=== PATIENT | female | born 1940 | race Caucasian/White ===

== ENCOUNTER → 2016-04-20 | Outpatient (CLI) | payer MEDICARE, BC ==
--- NOTE | 2016-04-20 17:21 | XR ---
EXAMINATION TYPE: XR chest 2V DATE OF EXAM: 04/20/2016 4:07 PM COMPARISON: 06/17/2015 HISTORY: 75 year-old female COPD, shortness of breath for several months TECHNIQUE: Frontal and lateral views FINDINGS: Heart remains upper limits of normal in size. Mild diffuse interstitial prominence and hyperinflation with flattening of the hemidiaphragms. 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 There is underpenetration of the lef t face without clear consolidation seen on the lateral view. No pleural effusion. IMPRESSION: COPD and chronic changes. Heart remains upper limits of normal in size. No pleural effusion.
--- NOTE | 2016-04-21 11:24 | ECHOF ---
Referral Reason:Abnormal EKG Old [place] I25.2 R94.31 MEASUREMENTS -------- HEIGHT: 167.6 cm WEIGHT: 104.3 kg BP: 247/109 RVIDd: 3.7 cm (< 3.3) IVSd: 1.1 cm (0.6 - 1.1) LVIDd: 3.9 cm (3.9 - 5.3) LVPWd: 1.0 cm (0.6 - 1.1) IVSs: 1.6 cm LVIDs: 2.8 cm LVPWs: 1.4 cm LA Diam: 3.5 cm (2.7 - 3.8) LAESV Index (A-L): 20.34 ml/m Ao Diam: 3.3 cm (2.0 - 3.7) AV Cusp: 2.2 cm (1.5 - 2.6) MV EXCURSION: 16.226 mm (> 18.000) MV EF SLOPE: 49 mm/s (70 - 150) EPSS: 0.2 cm MV E Christopher: 0.98 m/s MV DecT: 288 ms MV A Christopher: 0.94 m/s MV E/A Ratio: 1.03 RAP: 5.00 mmHg RVSP: 39.65 mmHg FINDINGS -------- Sinus rhythm. This was a technically adequate study. The left ventricular size is normal. There is borderline concentric left ventricular hypertrophy. Overall left ventricular systolic function is normal with, an EF between 60 - 65 %. The right ventricle is mildly enlarged. The left atrium is normal in size. Normal LA size by volume 22+/-6 ml/m2. The right atrium was not well visualized. The aortic valve was not well visualized. The mitral valve leaflets are mildly thickened. Mild mitral annular calcification present. There is trace to mild mitral regurgitation. Mild tricuspid regurgitation present. There is mild pulmonary hypertension. The right ventricular systolic pressure, as measured by Doppler, is 39.65mmHg. The pulmonic valve was not well visualized. The aortic root size is normal. Normal inferior vena cava with normal inspiratory collapse consistent with estimated right atrial pressure of 5 mmHg. There is no pericardial effusion. CONCLUSIONS -------- 1. Sinus rhythm. 2. The mitral valve leaflets are mildly thickened. 3. Mild mitral annular calcification present. 4. There is trace to mild mitral regurgitation. 5. Mild tricuspid regurgitation present. 6. There is mild pulmonary hypertension. 7. The right ventricular systolic pressure, as measured by Doppler, is 39.65mmHg. 8. The pulmonic valve was not well visualized. 9. The aortic root size is normal. 10. Normal inferior vena cava with normal inspiratory collapse consistent with estimated right atrial pressure of 5 mmHg. 11. There is no pericardial effusion. 12. This was a technically adequate study. 13. The left ventricular size is normal. 14. There is borderline concentric left ventricular hypertrophy. 15. Overall left ventricular systolic function is normal with, an EF between 60 - 65 %. 16. The right ventricle is mildly enlarged. 17. Normal LA size by volume 22+/-6 ml/m2. 18. The right atrium was not well visualized. 19. The aortic valve was not well visualized. PARTS DESIGNER: Ani Ortiz RDCS
== END | disposition home or self-care (01) ==
LOC: RADECHMAIN 15:15
PROVIDERS: ATTEND Family Medicine
DX: J44.9 Chronic obstructive pulmonary disease, unspecified (principal); I08.1 Rheumatic disorders of both mitral and tricuspid valves
CPT/HCPCS: 71020; 93306

== ENCOUNTER → 2017-08-17 | Outpatient (CLI) | payer MEDICARE, BC ==
--- NOTE | 2017-08-17 17:20 | XR ---
EXAMINATION TYPE: XR knee complete RT DATE OF EXAM: 08/17/2017 COMPARISON: NONE HISTORY: 77-year-old female unspecified internal derangement right knee, pain and swelling TECHNIQUE: 3 views FINDINGS: There is moderate to severe loss of cartilage and joint space within the medial compartment with rafael inal spurring. Mild marginal spurring in the lateral and patellofemoral compartments as well. Small k nee joint effusion. Extensor mechanism appears intact. No acute fracture or dislocation seen. IMPRESSION: Moderate to severe medial compartmental osteoarthrosis. Small knee joint effusion. No acute osseous a bnormality seen.
== END | disposition home or self-care (01) ==
LOC: RADXRMAIN 10:44
PROVIDERS: ATTEND Family Medicine
DX: M17.11 Unilateral primary osteoarthritis, right knee (principal)

== ENCOUNTER → 2017-09-19 | Outpatient (CLI) | payer MEDICARE, BC ==
--- NOTE | 2017-09-20 08:51 | ECHOF ---
Referral Reason:I10 Hypertension MEASUREMENTS -------- HEIGHT: 165.1 cm WEIGHT: 90.7 kg BP: RVIDd: 3.7 cm (< 3.3) IVSd: 1.3 cm (0.6 - 1.1) LVIDd: 4.4 cm (3.9 - 5.3) LVPWd: 1.3 cm (0.6 - 1.1) IVSs: 1.6 cm LVIDs: 3.1 cm LVPWs: 1.5 cm LA Diam: 3.3 cm (2.7 - 3.8) Ao Diam: 3.2 cm (2.0 - 3.7) AV Cusp: 1.8 cm (1.5 - 2.6) LA Diam: 4.2 cm (2.7 - 3.8) MV EXCURSION: 11.714 mm (> 18.000) MV EF SLOPE: 85 mm/s (70 - 150) EPSS: 0.3 cm MV E Christopher: 0.43 m/s MV DecT: 213 ms MV A Christopher: 0.61 m/s MV E/A Ratio: 0.70 RAP: 5.00 mmHg RVSP: 32.43 mmHg FINDINGS -------- Sinus rhythm. This was a technically difficult study with suboptimal apical views. The left ventricular size is normal. There is mild concentric left ventricular hypertrophy. Overa ll left ventricular systolic function is low-normal with, an EF between 50 - 55 %. The right ventricle is mildly enlarged. The left atrial size is normal. The right atrial size is normal. The aortic valve was not well visualized. Mild mitral annular calcification present. Mild mitral regurgitation is present. Mild tricuspid regurgitation present. There is no evidence of pulmonary hypertension. The right v entricular systolic pressure, as measured by Doppler, is 32.43mmHg. The pulmonic valve was not well visualized. The aortic root size is normal. Echo free space represents a pericardial fat pad. CONCLUSIONS -------- 1. This was a technically difficult study with suboptimal apical views. 2. The left ventricular size is normal. 3. There is mild concentric left ventricular hypertrophy. 4. Overall left ventricular systolic function is low-normal with, an EF between 50 - 55 %. 5. The right ventricle is mildly enlarged. 6. The left atrial size is normal. 7. The right atrial size is normal. 8. The aortic valve was not well visualized. 9. Mild mitral annular calcification present. 10. Mild mitral regurgitation is present. 11. Mild tricuspid regurgitation present. 12. There is no evidence of pulmonary hypertension. 13. The right ventricular systolic pressure, as measured by Doppler, is 32.43mmHg. 14. The pulmonic valve was not well visualized. 15. The aortic root size is normal. 16. Echo free space represents a pericardial fat pad. AIRPORT TRAFFIC CONTROLLER: Yolanda Lora RDCS
--- NOTE | 2017-09-21 11:08 | MM ---
Reason for exam: screening (asymptomatic). Last mammogram was performed 2 years and 2 months ago. History: Patient is postmenopausal. Physical Findings: A clinical breast exam by your physician is recommended on an annual basis and results should be correlated with mammographic findings. MG 3D Screening Mammo W/Cad Bilateral CC and MLO view(s) were taken. Prior study comparison: July 17, 2015, bilateral MG 3d screening mammo w/cad. There are scattered fibroglandular densities. Benign appearing bilateral calcifications. Right upper outer quadrant focal asymmetry and distortion. ASSESSMENT: Incomplete: need additional imaging evaluation, BI-RAD 0 RECOMMENDATION: Special view mammogram and ultrasound of the right breast. (upper outer quadrant) [facility] will attempt to contact patient to return for supplemental views and ultrasound.
== END | disposition home or self-care (01) ==
LOC: RADECHMAIN 10:46
PROVIDERS: ATTEND Family Medicine
DX: Z12.31 Encounter for screening mammogram for malignant neoplasm of breast (principal); I08.1 Rheumatic disorders of both mitral and tricuspid valves; I10 Essential (primary) hypertension
CPT/HCPCS: 77063; 77067; 93306

== ENCOUNTER → 2017-10-05 | Outpatient (CLI) | payer MEDICARE, BC ==
--- NOTE | 2017-10-06 11:18 | MM ---
Reason for exam: additional evaluation requested from abnormal screening. Last mammogram was performed 1 month ago. History: Patient is postmenopausal. Physical Findings: Nurse Summary: 1cm nodule in the right breast at 10 o'clock (nurse david). MG 3D Work Up W/Cad RT Spot compression CC, spot compression MLO, and LM view(s) were taken of the right breast. Prior study comparison: September 19, 2017, bilateral MG 3d screening mammo w/cad. July 17, 2015, bilateral MG 3d screening mammo w/cad. Focal asymmetry right upper quadrant and distortion does not resolve on additional images. These results were verbally communicated with the patient and result sheet given to the patient on 10/05/17. ASSESSMENT: Incomplete: need additional imaging evaluation, BI-RAD 0 RECOMMENDATION: Ultrasound of the right breast.
--- NOTE | 2017-10-06 11:21 | USB ---
Reason for exam: additional evaluation requested from abnormal screening. History: Patient is postmenopausal. US Breast Workup RT Right limited breast ultrasound including focal area of concern, retroareolar and axilla demonstrates a hypoechoic, shadowing area at 10 o'clock, questionable mass, dense tissue. Possible mass versus scar tissue. These results were verbally communicated with the patient and result sheet given to the patient on 10/05/17. ASSESSMENT: Suspicious, BI-RAD 4 RECOMMENDATION: Ultrasound core biopsy of the right breast. Called Dr. Marlow with mammographic findings and has scheduled an appointment for the patient for 10/27/17 at 1:[address] Schrader. PRELIMINARY REPORT CALLED AND FAXED TO DR. SCHRADER ON 10/05/17.
== END | disposition home or self-care (01) ==
LOC: RADMAMWWP 13:04
PROVIDERS: ATTEND Family Medicine
DX: R92.8 Other abnormal and inconclusive findings on diagnostic imaging of breast (principal)
CPT/HCPCS: 77065; 76642; G0279; 77061

== ENCOUNTER → 2017-10-27 | Outpatient (CLI) | payer MEDICARE, BC ==
[2017-10-27 13:33] VITALS: BP 158/74; PULSE 62; BMI 33.9
--- NOTE | 2017-10-27 14:11 | P.GSHP ---
History of Present Illness H&P Date: 10/27/17 The patient is a 77-year-old [place] [id number]. The findings revealed upper outer quadrant focal asymmetry and distortion in the right breast and additional views of the right breast and ultrasound were recommended. The patient on 8817 underwent additional views of the right breast which revealed focal asymmetry right upper quadrant and distortion did not resolve and ultrasound was recommended. The ultrasound findings are pending. The patient herself states she does not note any masses or lumps in her breasts. She does not have any nipple discharge or skin changes. No evidence of infection and no evidence of any trauma to the breast. Her last mammogram was 2 years ago. Family history: 1. Patient had uterine cancer at the age of 72 Hormonal history: menarche: 13 : 4, 4 children, first at 18, breast fed: no inverted nipples menopause: 49 BCP: 23 years hormones: no Past surgical history: 1. appendectomy of 15 2. Cholecystectomy of 69 3. Total abdominal hysterectomy a 72 for uterine cancer Past medical history: 1. Neuropathy bilateral feet 2. Right knee pain Social History: Smoke: Stopped 25 years ago Alcohol: Negative Drugs: negative - Constitutional Constitutional: Denies chills, Denies fever - EENT Eyes: denies blurred vision, denies pain Ears: deny: decreased hearing Ears, nose, mouth and throat: Denies headache, Denies sore throat - Breasts Breasts: bilateral: as per HPI - Cardiovascular Cardiovascular: Reports high blood pressure, Denies chest pain, Denies shortness of breath - Respiratory Comment: former smoker Respiratory: Reports cough - Gastrointestinal Comment: colonoscopy done 2 years ago no problems Gastrointestinal: Reports diarrhea, Denies abdominal pain, Denies nausea, Denies vomiting - Genitourinary (Female) Genitourinary: Denies dysuria, Denies hematuria - Musculoskeletal Comment: arthritis in right knee - Integumentary Integumentary: Denies pruritus, Denies rash - Neurological Comment: 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 NEUROPATHY IN TOES. History of Any Multi-Drug Resistant Organisms: None Reported Past Surgical History: Appendectomy, Cholecystectomy, Hysterectomy Past Anesthesia/Blood Transfusion Reactions: Motion Sickness, Postoperative Nausea & Vomiting (PONV) Past Psychological History: No Psychological Hx Reported Smoking Status: Former smoker Additional Past Alcohol Use History / Comment(s): SMOKING: QUIT AROUND 1988, FOR ABOUT 25YRS, LESS THAN HALF PPD. Past Drug Use History: None Reported Medications and Allergies Home Medications Medication Instructions Recorded Confirmed Type Atenolol [Tenormin] 50 mg PO BID 11/07/15 10/27/17 History metFORMIN HCL 100 mg PO BID 11/07/15 10/27/17 History Furosemide [Lasix] 20 mg PO DAILY 10/27/17 10/27/17 History Levothyroxine Sodium [Synthroid] 75 tab PO DAILY 10/27/17 10/27/17 History Allergies Allergy/AdvReac Type Severity Reaction Status Date / Time codeine Allergy Nausea & Verified 11/07/15 16:28 Vomiting Surgical - Exam Vital Signs Pulse BP Pulse Ox 62 158/74 98 10/27/17 13:26 10/27/17 13:26 10/27/17 13:26 - General obese - Eyes PERRL - ENT no hearing loss, no congestion - Neck no masses, trachea midline - Respiratory normal respiratory effort, clear to auscultation - Cardiovascular Rhythm: regular Heart Sounds: normal: S1, S2 - Abdomen Abdomen: soft, non tender, no guarding, no rigid, no rebound - Neurologic no disoriented, no combative - Musculoskeletal right knee pain other - Psychiatric oriented to time, oriented to person, oriented to place, speech is normal, memory intact Breast examination: Right breast: Multiple positional exam no dominant masses or nodules of concern , fungal infection underneath the breast particular attention to the upper outer quadrant area and no discrete masses were noted Right axilla: No adenopathy of concern Left breast: No dominant masses or nodules of concern, fungal infection under the breast Left axilla: No adenopathy of concern Results Mammogram and ultrasound reviewed Assessment and Plan Assessment: Impression/plan: 1. Abnormal mammogram and ultrasound right breast upper outer quadrant area 2. Prior history of uterine cancer no evidence of recurrent disease 3. Hypertension 4. Right knee 5. Diabetes 6. Status post cholecystectomy 7. Status post appendectomy Plan: 1. Ultrasound-guided core biopsy right breast 2. Medical management of medical problems 3. Follow-up 1 week after ultrasound-guided core biopsy Disc and benefits of the procedure were discussed with the patient this will be scheduled in the near future Cc: Dr. Nigel Marlow
--- NOTE | 2017-10-27 14:13 | P.PN ---
Progress Note - Text Progress Note Date: 10/27/17 Patient recently started nystatin for what appears to be fungal infection under her breasts. She will continue this. This area be reassessed at a postoperative visit from her ultrasound-guided core biopsy. Cc Dr. Nigel Marlow
== END | disposition home or self-care (01) ==
LOC: WWCWWP 13:21
PROVIDERS: ATTEND Surgery
DX: Z53.9 Procedure and treatment not carried out, unspecified reason (principal)

== ENCOUNTER → 2017-11-09 | Day surgery (SDC) | payer MEDICARE, BC ==
[2017-11-09 10:34] VITALS: RESP 12; TEMP 98.7
[2017-11-09 11:43] VITALS: BP 158/79; PULSE 83
--- NOTE | 2017-11-09 12:28 | USB ---
EXAMINATION TYPE: US biopsy breast VAD RT, Postbiopsy MG diagnostic mammo RT wo CAD DATE OF EXAM: 11/09/2017 CLINICAL HISTORY: 77-year-old female N63 BREAST LUMP/MASS. Referred for biopsy of mammographic and ultrasound findings in the upper-outer quadrant right breast. This also corresponds to a palpable area. TECHNIQUE: Ultrasound guided core biopsy of the 10:00 right breast. COMPARISON: 10/05/2017 and 09/19/2017 FINDINGS: The procedure of ultrasound guided core biopsy was explained to the patient. Benefits, alternatives, and risks were discussed. An informed consent was then obtained. The patient was placed in supine positioning for imaging and for the procedure. The overlying skin was prepped and draped in usual sterile fashion. Lidocaine buffered with bicarbonate was used as anesthetic into the skin and subcutaneous tissue up to area of concern in the 10:00 position right breast. Under ultrasound guidance, a 13-gauge vacuum-assisted mammotome Elite biopsy gun device was used to obtain 7 core samples. Following this, a coil clip was left in lesion. The patient tolerated the procedure well without any immediate complication. The patient was kept in the radiology department for short stay after the procedure and then discharged home in stable condition. Postprocedure mammogram shows the coil clip at the site of mammographic focal asymmetry. IMPRESSION: Successful, uncomplicated ultrasound guided core biopsy of area of concern in the 10:00 right breast, full pathology results to follow. Pathology Results: Malignant RIGHT BREAST, NEEDLE CORE BIOPSY: Infiltrating carcinoma, low grade ductal variant involving all needle core fragments. Intraductal and periductal mineralizations are identified. Intermediate grade duct [id number] is noted in one core. Appropriately controlled immunohistochemical studies for E-Cadherin document reactivity with all of the infiltrating glandular profiles. See Surgical Pathology Cancer Case Summary. Recommendation Surgical consult of the right breast. DONNAD
== END ==
LOC: RADUSWWP 09:31
PROVIDERS: ATTEND Surgery
DX: C50.411 Malignant neoplasm of upper-outer quadrant of right female breast (principal); Z88.5 Allergy status to narcotic agent
CPT/HCPCS: 88305; 88342; 77065; 19083; A4648; J2001

== ENCOUNTER → 2017-11-17 | Outpatient (CLI) | payer MEDICARE, BC ==
[2017-11-17 12:10] VITALS: BP 144/76; PULSE 60; RESP 14; TEMP 98.2; BMI 32.3
--- NOTE | 2017-11-17 13:00 | P.PN ---
Progress Note - Text Progress Note Date: 11/17/17 The patient is a 77-year-old white female who presents for results of the ultrasound core biopsy of the right breast. Pathology revealed a grade 1 ER/WY positive HER-2/dannielle negative less than 2 cm clinically invasive ductal carcinoma. In one core there was a component of DCIS. The patient's mammogram and ultrasound were reviewed with radiology. The size of the lesion with respect to the breast would make the patient a candidate for a lumpectomy with radiation therapy. The patient has no complaints with respect to the core biopsy. At had a long discussion with the patient and her regarding her pathology and treatment options. Treatment options include treatment of the breast being 1. lumpectomy plus radiation therapy 2. Mastectomy plus or minus reconstruction. Treatment of the axilla includes sentinel node biopsy plus or minus axillary node dissection. The patient and her understand this. The patient herself wishes a mastectomy to be performed although the is leaning towards a lumpectomy. The patient is quite insistent on a mastectomy without reconstruction. Risks and benefits of all the procedures have been discussed with the patient and her and at this time the patient wishes a mastectomy without reconstruction she is not interested in seeing a plastic surgeon, a sentinel node biopsy plus or minus axillary node dissection. The patient was given educational material regarding breast cancer, and a form was signed that treatment options were discussed with the patient. Physical exam: Examination of the right breast reveals some mild ecchymosis no evidence of any infection The patient was treated with nystatin for a fungal infection which has largely resolved Impression: 1. Clinical stage IA breast cancer T1 N0 M0 grade 1, ER/WY positive, HER-2 negative 2. Treatment options discussed with the patient and her and they have opted at this time for a mastectomy without reconstruction sentinel node biopsy possible axillary node dissection Plan: 1. Right sentinel node injection and biopsy, simple mastectomy, possible axillary node dissection 2. Preoperative clearance by Dr. Nigel Marlow Cc: Dr. Nigel Marlow
== END | disposition home or self-care (01) ==
LOC: WWCWWP 11:21
PROVIDERS: ATTEND Surgery
DX: Z53.9 Procedure and treatment not carried out, unspecified reason (principal)

== ENCOUNTER 2017-11-29 06:54 | Day surgery (SDC) | payer MEDICARE, BC ==
[2017-11-23 13:24] VITALS: BMI 32.3
[~2017-11-29 06:54] MED LIST: DEXAMETHASONE SOD PHOSPHATE 10 MG/ML 1 ML VIAL IV ONE; HEPARIN SODIUM,PORCINE 5,000 UNIT/ML 1 ML VIAL SQ ONE; HYDROmorphone 0.5 MG/0.5 ML SYRINGE IVP PRN; LACTATED RINGERS 1,000 ML IV SCH; LIDOCAINE 1% 20 ML VIAL (10MG/ML) FOR IV START INTRADERMA PRN; MIDAZOLAM 2 MG/2 ML VIAL IV PRN; ONDANSETRON 4 MG/2 ML VIAL IVP ONE; Pre Op ABX Message 1 EACH MISC MISCELLANE ONE; SCOPOLAMINE 1.5MG/72HR PATCH TRANSDERM ONE
[2017-11-29 07:49] LABS: Glucose,Whole Blood 141 mg/dL (75-99)
[2017-11-29] MEDS ORDERED: ALPRAZolam 0.25 MG TAB PO ONE (08:03)
[2017-11-29] MEDS ORDERED: MIDAZOLAM 2 MG/2 ML VIAL IV ONE (08:29)
--- NOTE | 2017-11-29 09:36 | NM ---
EXAMINATION TYPE: NM sentinel node injection DATE OF EXAM: 11/29/2017 COMPARISON: NONE HISTORY: Right breast cancer TECHNIQUE AND FINDINGS: The procedure of sentinel lymph node injection was explained to the patient. The benefits, alternatives, and risks were discussed. An informed consent was then obtained. Overlying skin is cleaned with sterile alcohol. Lidocaine buffered with bicarbonate was used as anes thetic into the skin and subcutaneous tissue surrounding the nipple. Following this, 515 uCi Tc 99m Filtered Sulfur Colloid was injected surrounding the outer aspect of the right nipple intradermally. The injection sites were massaged by lead technologist in cytogenetics for 10 minutes after injection. T he patient tolerated the procedure well without any immediate complication. The patient was kept in the radiology department for short stay after the procedure and then taken to surgery for surgical pr ocedure what is presumed intraoperative gamma probe will be used for sentinel lymph node detection. IMPRESSION: Right breast radiotracer injection for sentinel node localization as above.
[2017-11-29] MEDS ORDERED: ROPIVACAINE 5 MG/ML 30 ML VIAL ONE (09:46)
[2017-11-29] MEDS ORDERED: fentaNYL (PF) 50 MCG/ML 2 ML AMP ONE (09:46)
[2017-11-29] MEDS ORDERED: MIDAZOLAM 2 MG/2 ML VIAL ONE (09:46)
[2017-11-29] MEDS ORDERED: LIDOCAINE 1% INJ 10MG/ML (20 ML MDV) ONE (09:46)
[2017-11-29] MEDS ORDERED: PROPOFOL 10 MG/ML 20 ML VIAL IV ONE (09:46)
[2017-11-29] MEDS ORDERED: HYDROmorphone (PF) 1 MG/ML ONE (09:46)
[2017-11-29] MEDS ORDERED: ePHEDrine SULFATE/0.9% NACL/PF 50 MG/5 ML SYRINGE IV ONE (09:46)
[2017-11-29] MEDS ORDERED: SUCCINYLCHOLINE CHLORIDE 100 MG/5 ML SYR IV ONE (09:46)
[2017-11-29] MEDS ORDERED: SODIUM CHLORIDE 0.9% 100 ML with ceFAZolin 2,000 MG IV ONE ×2 (09:46)
--- NOTE | 2017-11-29 10:03 | P.ONQ ---
Anesthesiology Proc Note - PNB - Peripheral Nerve Block Performed Right Other (see comment) Single Time Out Performed: Yes (Pectoralis 1+ Pectoralis 2 Nerve Blocks on the Right- Side ) Procedure Start Time: 08:15 Procedure Stop Time: :28 Indication: Acute Post-Operative Pain, Requested by physician Sedation Type: Sedate with meaningful contact maintained Preparation: Sterile Prep Position: Supine Catheter: None Needle Size: 50mm (2") Needle Gauge: 21 Technique: Ultrasound Injectate: 0.5% Ropivacaine (see comment for volume) Blood Aspirated: No Pain Paresthesia on Injection Noted: No Resistance on Injection: Normal Events: Uneventful and Well Tolerated (Ropivicaine 0.5% solution infitrated between pec major and minor on the right chest wall, and again on the lateral chest between serratus and pec minor with a total of 30 ml. procedure was uneventful and spread noted on ultrasound, with image saved to patients chart)
[2017-11-29] MEDS ORDERED: HEPARIN SODIUM,PORCINE 5,000 UNIT/ML 1 ML VIAL SQ ONE (10:06)
--- NOTE | 2017-11-29 10:08 | P.PN ---
Progress Note - Text Progress Note Date: 11/29/17 The patient's case was presented at tumor Board. There was discussion that the patient may not need radiation therapy. This was discussed with the patient and her . Despite this the patient still wishes to proceed with a mastectomy on the right side. We will proceed with a right mastectomy and sentinel node biopsy possible axillary node dissection.
--- NOTE | 2017-11-29 10:09 | P.NAPBC ---
NAP Queries - [facility] Queries Was patient's case review presented at [facility] tumor board? If no, comment.: Yes Was patient's pathology reviewed at [facility]? If no, comment.: Yes Was breast conservation surgery offered? If no, comment.: Yes (patient requested mastectomy does not want reconstruction) Was sentinel node biopsy offered? If no, comment.: Yes Was diagnosis confirmed by percutaneous core biopsy? If no, comment.: Yes If mastectomy patient, was a preop referral to a reconstructive surgeon offered? : Yes (patient refused)
[2017-11-29] MEDS ORDERED: LIDOCAINE 1% INJ 10MG/ML (20 ML MDV) SQ ONE ×2 (10:30→13:14)
[2017-11-29] MEDS ORDERED: LACTATED RINGERS 1,000 ML IV ONE (11:45)
--- NOTE | 2017-11-29 13:22 | P.OP ---
Date of Procedure: 11/29/17 Preoperative Diagnosis: Right breast cancer Postoperative Diagnosis: Same Procedure(s) Performed: Mastectomy, sentinel node biopsy, axillary node dissection Anesthesia: MELISSA Surgeon: Fela Schrader Estimated Blood Loss (ml): 75 IV fluids (ml): 900 Pathology: other (Right breast, sentinel node, axillary contents) Condition: stable Disposition: PACU Indications for Procedure: Clear biopsy-proven right breast invasive ductal carcinoma Operative Findings: Dense breast tissue right breast, positive sentinel lymph node Description of Procedure: The patient was taken to the operating room and following induction of anesthesia the right breast and axilla were prepped and draped in a sterile fashion. Superior and inferior skin flaps were developed. These were marked using a marking pen and then the skin was divided through the skin and down to the subcutaneous tissue. The skin was elevated using skin hooks and a superior skin flap was developed down to the chest wall. In a similar fashion the inferior skin flap was developed. The breast was then removed from medial to lateral off the pectoralis major muscle being careful to maintain hemostasis using the harmonic scalpel as well as electrocautery device. After the breast had been removed the chest wall was carefully evaluated for hemostasis. It was well irrigated and any areas where there was any oozing were cauterized. The axilla was approached. Using the neoprobe the lymph nodes of greatest radioactivity were identified. Several sentinel nodes were identified and removed and sent for frozen section evaluation. However there was a palpable lymph node which was somewhat worrisome and frozen section was performed first on this which was positive for macroscopic metastatic breast cancer. Therefore an axillary dissection was performed. The pectoralis minor was followed superiorly to the axillary vein. The tissues were swept inferiorly being careful to identify and preserve the area of the thoracodorsal and long thoracic nerves. The tissue was removed. Several intercostal brachial nerves and vessels were removed in the process. After assured that hemostasis was attained the wound was well evaluated for hemostasis. After assured that hemostasis was attained 2 Hiro-Winter drains were placed. One in the axilla and one under the skin flaps. The area of the skin flaps were again evaluated for hemostasis these were again irrigated and cauterized. Powderized Surgicel was utilized to help assure hemostasis. Following this the flaps were again irrigated. The subcutaneous tissue was closed using 3-0 Vicryl suture. This was followed by closure of the subcuticular tissue with a 4-0 Monocryl. Steri-Strips were applied. The patient tolerated the procedure in stable condition. All instrument and sponge counts were correct at the end of the case. A Ike wrap was applied.
[2017-11-29] MEDS ORDERED: HYDROmorphone 1 MG/ML 1 ML SYRINGE IV PRN (13:23)
[2017-11-29] MEDS ORDERED: ONDANSETRON 4 MG/2 ML VIAL IVP PRN ×2 (13:23→23:09)
[2017-11-29] MEDS ORDERED: NALOXONE 0.4 MG/ML 1 ML VIAL IV PRN (13:23)
[2017-11-29] MEDS ORDERED: HYDROcodone/APAP 5-325MG 1 EACH TAB PO PRN (13:23)
[2017-11-29] MEDS ORDERED: CALCIUM CARBONATE 500 MG CHEWABLE PO PRN (13:23)
[2017-11-29] MEDS ORDERED: ALPRAZolam 0.25 MG TAB PO PRN (13:23)
[2017-11-29] MEDS ORDERED: DEXTROSE 5%-0.45% NACL 1,000 ML IV SCH (13:30)
[2017-11-29 14:12] LABS: Glucose,Whole Blood 169 mg/dL (75-99)
[2017-11-29] MEDS ORDERED: METOPROLOL TARTRATE 5 MG/5 ML VIAL IVP ONE (14:28)
[2017-11-29] MEDS ORDERED: LISINOPRIL 5 MG TAB PO STA (15:40)
[2017-11-29] MEDS ORDERED: FUROSEMIDE 20 MG TAB PO PRN (15:59)
[2017-11-29 17:12] LABS: Glucose,Whole Blood 162 mg/dL (75-99)
[2017-11-29] MEDS: INSULIN ASPART 100 UNIT/ML 1 ML 10 ML VIAL SQ SCH ×2 (17:19→22:09)
--- NOTE | 2017-11-29 17:33 | P.CONS ---
History of Present Illness - History of Present Illness 77-year-old female is postoperative for right breast mastectomy. Patient was hypertensive lisinopril ordered. Patient sedated but arousable Review of Systems ROS unobtainable: due to mental status Past Medical History Past Medical History: Cancer, Diabetes Mellitus, Hypertension, Osteoarthritis ( OA), Thyroid Disorder Additional Past Medical History / Comment(s): hx UTERINE CANCER(chemo and radiation 5 yrs ago). NEUROPATHY IN FEET, diarrhea, rt breast cancer, History of Any Multi-Drug Resistant Organisms: None Reported Past Surgical History: Appendectomy, Breast Surgery, Cholecystectomy, Hysterectomy Additional Past Surgical History / Comment(s): rt breast biopsy Past Anesthesia/Blood Transfusion Reactions: Motion Sickness, Postoperative Nausea & Vomiting (PONV) Additional Past Anesthesia/Blood Transfusion Reaction / Comm: PONV after gallbladder surgery Smoking Status: Former smoker - Past Family History Mother Family Medical History: No Reported History Father Family Medical History: Myocardial Infarction ([place]) Brother(s) Family Medical History: Cancer Additional Family Medical History / Comment(s): prostate Medications and Allergies Home Medications Medication Instructions Recorded Confirmed Type Atenolol [Tenormin] 50 mg PO BID 11/07/15 11/29/17 History metFORMIN HCL 1,000 mg PO BID 11/07/15 11/29/17 History Furosemide [Lasix] 20 mg PO DAILY PRN 10/27/17 11/29/17 History Levothyroxine Sodium [Synthroid] 75 mcg PO QAM 10/27/17 11/29/17 History Allergies Allergy/AdvReac Type Severity Reaction Status Date / Time codeine Allergy Nausea & Verified 11/29/17 16:35 Vomiting Physical Exam Vitals: Vital Signs Temp Pulse Resp BP Pulse Ox 11/29/17 15:03 177/84 11/29/17 14:56 75 16 176/82 95 11/29/17 14:40 75 16 182/77 95 11/29/17 14:25 77 16 205/77 93 L 11/29/17 14:11 82 16 194/92 99 11/29/17 13:55 82 16 180/98 99 11/29/17 13:39 98.5 F 90 20 196/95 98 11/29/17 07:30 97.9 F 63 18 183/79 96 Intake and Output 11/29/17 11/29/17 11/29/17 06:59 14:59 22:59 Intake Total 1300 150 Output Total 75 35 Balance 1225 115 Intake: IV 1300 150 Output: Drainage 35 SULMA A 5 SULMA B 30 Estimated Blood Loss 75 - Constitutional General appearance: obese - EENT Eyes: PERRLA Ears: bilateral: normal - Neck Neck: normal ROM - Respiratory Respiratory: bilateral: CTA - Cardiovascular Rhythm: regular - Gastrointestinal General gastrointestinal: soft - Integumentary Integumentary: normal - Neurologic Neurologic: CNII-XII intact - Psychiatric Patient sedated unable to assess level orientation Results CBC & Chem 7: 11/29/17 07:44 Labs: Abnormal Lab Results - Last 24 Hours (Table) 11/29/17 11/29/17 11/29/17 Range/Units 07:38 14:09 17:09 POC Glucose (mg/dL) 141 H 169 H 162 H (75-99) mg/dL Assessment and Plan Plan: Assessment Post right-sided mastectomy for breast cancer History of uterine cancer Diabetes type 2 Hypertension Hypothyroidism Osteoarthritis Plan We'll continue to monitor hypertension and diabetes
[2017-11-29] MEDS: SODIUM CHLORIDE 0.9% 1,000 ML IV SCH (20:10)
[2017-11-29] MEDS: HEPARIN SODIUM,PORCINE 5,000 UNIT/ML 1 ML VIAL SQ SCH (22:03)
[2017-11-29] MEDS: ATENOLOL 50 MG TAB PO SCH (22:03)
[2017-11-29] MEDS: LISINOPRIL 5 MG TAB PO SCH (22:04)
[2017-11-29 22:06] LABS: Glucose,Whole Blood 160 mg/dL (75-99)
[2017-11-30] MEDS: SODIUM CHLORIDE 0.9% 1,000 ML IV SCH (04:29)
[2017-11-30] MEDS ORDERED: LEVOTHYROXINE 75 MCG TAB PO SCH (06:30)
[2017-11-30 07:05] LABS: Glucose,Whole Blood 121 mg/dL (75-99)
[2017-11-30] MEDS: INSULIN ASPART 100 UNIT/ML 1 ML 10 ML VIAL SQ SCH ×2 (07:15→12:35)
[2017-11-30] MEDS: metFORMIN 500 MG TAB PO SCH ×2 (07:20→07:30)
[2017-11-30 08:00] LABS: Basophils # (A) 0.1 k/uL (0-0.2); Basophils % (A) 1 %; Eosinophils # (A) 0.1 k/uL (0-0.7); Eosinophils % (A) 1 %; HCT 43.5 % (34.0-46.0); HGB 13.9 gm/dL (11.4-16.0); Lymphocytes # (A) 1.5 k/uL (1.0-4.8); Lymphocytes % (A) 14 %; MCH 30.2 pg (25.0-35.0); MCV 94.3 fL (80.0-100.0); Mean Platelet Volume 8.1; Monocytes # (A) 1.2 k/uL (0-1.0); Monocytes % (A) 11 %; Neutrophils # (A) 7.6 k/uL (1.3-7.7); Neutrophils % (A) 72 %; Platelet Count 257 k/uL (150-450); RBC 4.61 m/uL (3.80-5.40); RDW 13.5 % (11.5-15.5); WBC 10.5 k/uL (3.8-10.6)
[2017-11-30 08:27] LABS: Calcium 8.6 mg/dL (8.4-10.2); Potassium 4.4 mmol/L (3.5-5.1)
--- NOTE | 2017-11-30 08:36 | P.PN ---
Subjective Progress Note Date: 11/30/17 The patient is a 77-year-old white female who is postop day #1 from a right breast mastectomy and axillary node dissection. She initially had some nausea which has resolved. Her SULMA drainage is 5 mL from SULMA A, and 25 mL from SULMA B. SULMA B is the axillary drain. Both drains appeared to be serous in nature. Her hemoglobin this morning was 13.9. Her wrap was removed and the dressing was replaced. The incision is clean and dry. There is no evidence of any hematoma. Objective - Vital Signs Vital signs: Vital Signs Temp 97.8 F 11/30/17 04:10 Pulse 75 11/30/17 04:10 Resp 20 11/30/17 04:10 BP 110/49 11/30/17 04:10 Pulse Ox 95 11/30/17 04:10 Intake & Output 11/29/17 11/30/17 11/30/17 18:59 06:59 18:59 Intake Total 1450 Output Total 110 1195 Balance 1340 -1195 Weight 90.718 kg Intake: IV 1450 Output: Drainage 35 95 SULMA A 5 20 SULMA B 30 75 Urine 1050 Emesis 50 Estimated Blood Loss 75 - Constitutional General appearance: Present: obese - EENT Eyes: Present: EOMI - Respiratory Respiratory: bilateral: CTA (Slightly decreased breath sounds at bilateral bases ) - Cardiovascular Rhythm: regular Heart sounds: normal: S1, S2 - Gastrointestinal General gastrointestinal: Present: soft - Integumentary Integumentary Comment(s): Incision clean and dry, no evidence of any hematoma - Psychiatric Psychiatric: Present: A&O x's 3, appropriate affect, intact judgment & insight - Labs CBC & Chem 7: 11/30/17 07:22 11/30/17 07:22 Labs: Abnormal Lab Results - Last 24 Hours (Table) 11/29/17 11/29/17 11/29/17 Range/Units 14:09 17:09 22:03 Monocytes # (0-1.0) k/uL Glucose (74-99) mg/dL POC Glucose (mg/dL) 169 H 162 H 160 H (75-99) mg/dL 11/30/17 11/30/17 11/30/17 Range/Units 07:02 07:22 07:22 Monocytes # 1.2 H (0-1.0) k/uL Glucose 123 H (74-99) mg/dL POC Glucose (mg/dL) 121 H (75-99) mg/dL Assessment and Plan Assessment: Im 4. Medical management of medical problems pression: 1. Postop day #1 right sided mastectomy with axillary node dissection 2 history of uterine cancer 3 type 2 diabetes 4 hypertension 5 hypothyroidism 6 osteoarthritis Plan: 1. Assure patient tolerating diet 2. Continue present wound care 3. Probable discharge home later today
[2017-11-30] MEDS ORDERED: PANTOPRAZOLE 40 MG/10 ML VIAL IV SCH (09:00)
[2017-11-30] MEDS: HEPARIN SODIUM,PORCINE 5,000 UNIT/ML 1 ML VIAL SQ SCH (09:00)
[2017-11-30] MEDS: LISINOPRIL 5 MG TAB PO SCH (09:00)
[2017-11-30] MEDS: ATENOLOL 50 MG TAB PO SCH (09:00)
[2017-11-30 11:36] LABS: Glucose,Whole Blood 160 mg/dL (75-99)
[2017-11-30 12:22] VITALS: BP 113/69; PULSE 70; RESP 18; TEMP 98.5
--- NOTE | 2017-11-30 12:23 | P.PN ---
Subjective Patient resting in bed could pain management. Hypertension controlled. Patient medically cleared for discharge Objective - Vital Signs Vital signs: Vital Signs Temp 99.1 F 11/30/17 08:13 Pulse 83 11/30/17 08:13 Resp 16 11/30/17 08:13 BP 93/54 11/30/17 08:13 Pulse Ox 93 L 11/30/17 10:05 Intake & Output 11/29/17 11/30/17 11/30/17 18:59 06:59 18:59 Intake Total 1450 120 Output Total 110 1195 129 Balance 1340 -1195 -9 Weight 90.718 kg Intake: IV 1450 Oral 120 Output: Drainage 35 95 29 SULMA A 5 20 0 SULMA B 30 75 29 Urine 1050 100 Emesis 50 Estimated Blood Loss 75 Other: # Voids 2 - Constitutional General appearance: Present: mild distress - EENT Eyes: Present: PERRLA Ears: bilateral: normal - Neck Neck: Present: normal ROM - Respiratory Respiratory: bilateral: CTA - Cardiovascular Rhythm: regular - Gastrointestinal General gastrointestinal: Present: soft - Integumentary Integumentary: Present: normal - Neurologic Neurologic: Present: CNII-XII intact - Musculoskeletal Musculoskeletal: Present: gait normal - Psychiatric Psychiatric: Present: A&O x's 3, appropriate affect, intact judgment & insight - Labs CBC & Chem 7: 11/30/17 07:22 11/30/17 07:22 Labs: Abnormal Lab Results - Last 24 Hours (Table) 11/29/17 11/29/17 11/29/17 Range/Units 14:09 17:09 22:03 Monocytes # (0-1.0) k/uL Glucose (74-99) mg/dL POC Glucose (mg/dL) 169 H 162 H 160 H (75-99) mg/dL 11/30/17 11/30/17 11/30/17 Range/Units 07:02 07:22 07:22 Monocytes # 1.2 H (0-1.0) k/uL Glucose 123 H (74-99) mg/dL POC Glucose (mg/dL) 121 H (75-99) mg/dL 11/30/17 Range/Units 11:33 Monocytes # (0-1.0) k/uL Glucose (74-99) mg/dL POC Glucose (mg/dL) 160 H (75-99) mg/dL Assessment and Plan Plan: Assessment Right breast cancer post mastectomy with biopsy to axillary node History of diabetes type 2 Hypertension Hypothyroidism Osteoarthritis History of uterine cancer Plan Patient medically stable for discharge
[2017-11-30 22:38] LABS: Hemoglobin A1C 6.8 % (4.0-6.0)
== END 2017-11-30 14:30 | disposition home or self-care (01) ==
LOC: OR 06:54 → 6PED 13:57 → OR 11-30 14:30
PROVIDERS: ATTEND Surgery
DX: C50.911 Malignant neoplasm of unspecified site of right female breast (principal); C77.3 Secondary and unspecified malignant neoplasm of axilla and upper limb lymph nodes; Z92.3 Personal history of irradiation; Z87.891 Personal history of nicotine dependence; E11.40 Type 2 diabetes mellitus with diabetic neuropathy, unspecified; Z79.84 Long term (current) use of oral hypoglycemic drugs; E78.5 Hyperlipidemia, unspecified; I10 Essential (primary) hypertension; I27.29 Other secondary pulmonary hypertension; E03.9 Hypothyroidism, unspecified; Z79.890 Hormone replacement therapy; J44.9 Chronic obstructive pulmonary disease, unspecified; M19.079 Primary osteoarthritis, unspecified ankle and foot; Z85.42 Personal history of malignant neoplasm of other parts of uterus; Z79.899 Other long term (current) drug therapy; Z88.5 Allergy status to narcotic agent
CPT/HCPCS: 19303; 38525; 80048; 84132; 85025; 83036; 38792; 64450; A9520; J2250; J1644 ×2; J1100; J2405; J2001; J3010; J1170; J0690; J2795; J0330; J2704; C9113; 88305; 88307; 88309; 88331; 88341; 88342

== ENCOUNTER → 2017-12-05 | Outpatient (CLI) | payer MEDICARE, BC ==
--- NOTE | 2017-12-05 13:13 | P.PN ---
Progress Note - Text Progress Note Date: 12/05/17 Patient is status post right breast mastectomy and AND , tumor [id number]; patient is doing well at his time. Patient with no complaints at this time. Drainage from both JPs is minimal and serous. The SULMA drains are going to be removed at this time. Physical examination: Lungs: Clear Heart: Regular rate and rhythm Incision: Clean and dry no evidence of any infection or hematoma Impression: 1. Patient status post right mastectomy for a [id number] breast cancer 2. Patient doing well postoperatively at this time Plan: 1. Follow-up medical oncology 2. Follow up here in 2 weeks time Cc: Dr. Nigel Marlow
== END ==
LOC: WWCWWP 12:19
PROVIDERS: ATTEND Surgery
DX: Z53.9 Procedure and treatment not carried out, unspecified reason (principal)

== ENCOUNTER 2017-12-21 21:32 | Inpatient (IN) | payer MEDICARE, BC ==
[2017-12-21] MEDS ORDERED: SODIUM CHLORIDE 0.9% 1,000 ML IV ONE ×2 (22:16→23:48)
[2017-12-21] MEDS ORDERED: IPRATROPIUM-ALBUTEROL 3 ML NEB INHALATION STA (22:17)
--- NOTE | 2017-12-21 23:13 | XR ---
EXAMINATION TYPE: XR chest 2V DATE OF EXAM: 12/21/2017 COMPARISON: 04/20/2016 HISTORY: Mastectomy. Chest pain TECHNIQUE: Frontal and lateral views of the chest are obtained. FINDINGS: There is no heart failure nor confluent pneumonic infiltrate. Costophrenic angles are nirav r. Thoracic aorta is atheromatous. There is spurring in the thoracic spine. IMPRESSION: No active cardiopulmonary disease. Atheromatous aorta. No change.
--- NOTE | 2017-12-21 23:14 | XR ---
EXAMINATION TYPE: XR knee complete RT DATE OF EXAM: 12/21/2017 COMPARISON: NONE HISTORY: Knee pain TECHNIQUE: 3 views FINDINGS: There is narrowing of the medial joint space. There is moderate spurring of the femoral and tibial condyles. There is spurring of the patella. There is knee joint effusion. IMPRESSION: Moderate hypertrophic osteoarthritis in the medial joint space. No fracture. Joint effusi on.
[2017-12-21] MEDS ORDERED: KETOROLAC 30 MG/ML 1 ML VIAL IVP STA (23:48)
[2017-12-21] MEDS ORDERED: ACETAMINOPHEN TAB 325 MG TAB PO PRN (23:59)
[2017-12-21] MEDS ORDERED: IBUPROFEN 400 MG TAB PO PRN (23:59)
--- NOTE | 2017-12-21 23:59 | ED ---
General Adult HPI - General Source: patient Mode of arrival: wheelchair Limitations: no limitations <Park Boucher - Last Filed: 12/22/17 00:32> <Hermann Jasso - Last Filed: 12/22/17 00:35> - General Chief complaint: Extremity Problem,Nontraumatic Stated complaint: Knee Pain Time Seen by Provider: 12/21/17 21:49 - History of Present Illness Initial comments: 37-year-old female past medical history of breast cancer with recent masectomy, bilateral osteoarthritis of the knees, diabetes and hypertension presenting today for chief complaint of right knee pain. Patient states that this morning she woke up and was unable to weight-bear on the right knee. Patient had difficulty ranging at the right knee, and pain increased to 10/10 with ambulation. Patient states the pain is anterior to palpation. Patient denies pain of the calf, masses or warmth of the posterior calf or history of blood clot. Patient does not like taking pain medications, she states that she cannot tolerate them well. Patient's been taking Tylenol for pain management which has helped minimally. In addition patient noticed lower extremity erythema and warmth. Patient was brought to emergency department by her daughter who was concerned about possible infection. Patient denies fever, admits to chills. Patient denies drainage, erythema of the masectomy surgical site. Upon arrival patient appears well. VS within acceptable limits. (Park Boucher) - Related Data Home Medications Medication Instructions Recorded Confirmed Atenolol [Tenormin] 50 mg PO BID 11/07/15 12/21/17 metFORMIN HCL 1,000 mg PO BID 11/07/15 12/21/17 Furosemide [Lasix] 20 mg PO DAILY PRN 10/27/17 12/21/17 Levothyroxine Sodium [Synthroid] 75 mcg PO QAM 10/27/17 12/21/17 Allergies Allergy/AdvReac Type Severity Reaction Status Date / Time codeine AdvReac Nausea & Verified 12/21/17 22:31 Vomiting Review of Systems ROS Other: All systems not noted in ROS Statement are negative. Constitutional: Reports: chills. Denies: fever Eyes: Denies: eye pain ENT: Denies: ear pain, throat pain Respiratory: Denies: cough, dyspnea, wheezes, hemoptysis, stridor Cardiovascular: Denies: chest pain, palpitations, dyspnea on exertion Endocrine: Denies: fatigue Gastrointestinal: Denies: abdominal pain, nausea, vomiting, diarrhea, constipation, hematemesis Genitourinary: Denies: urgency, dysuria, frequency, hematuria Musculoskeletal: Denies: back pain Skin: Reports: as per HPI, rash (right lower extremity erythema) Neurological: Denies: headache, weakness, numbness, paresthesias, confusion <Park Boucher - Last Filed: 12/22/17 00:32> ROS Other: All systems not noted in ROS Statement are negative. <Hermann Jasso - Last Filed: 12/22/17 00:35> ROS Statement: Those systems with pertinent positive or pertinent negative responses have been documented in the HPI. Past Medical History Past Medical History: Cancer, Diabetes Mellitus, Hypertension, Osteoarthritis ( OA), Thyroid Disorder Additional Past Medical History / Comment(s): hx UTERINE CANCER(chemo and radiation 5 yrs ago). NEUROPATHY IN FEET, diarrhea, rt breast cancer, History of Any Multi-Drug Resistant Organisms: None Reported Past Surgical History: Appendectomy, Breast Surgery, Cholecystectomy, Hysterectomy Additional Past Surgical History / Comment(s): rt breast biopsy. right breast mastectomy 11/29/17 Past Anesthesia/Blood Transfusion Reactions: Motion Sickness, Postoperative Nausea & Vomiting (PONV) Additional Past Anesthesia/Blood Transfusion Reaction / Comment(s): PONV after gallbladder surgery Past Psychological History: No Psychological Hx Reported Smoking Status: Former smoker Past Alcohol Use History: None Reported Past Drug Use History: None Reported - Past Family History Mother Family Medical History: No Reported History Father Family Medical History: Myocardial Infarction ([place]) Brother(s) Family Medical History: Cancer Additional Family Medical History / Comment(s): prostate <Park Boucher - Last Filed: 12/22/17 00:32> General Exam Limitations: no limitations <Park Boucher - Last Filed: 12/22/17 00:32> <Hermann Jasso - Last Filed: 12/22/17 00:35> - General Exam Comments Initial Comments: General: The patient is awake and alert, in no distress, and does not appear acutely ill. Eye: Pupils are equal, round and reactive to light, extra-ocular movements are intact. No nystagmus. There is normal conjunctiva bilaterally. No signs of icterus. Ears, nose, mouth and throat: There are moist mucous membranes and no oral lesions. Neck: The neck is supple, there is no tenderness or JVD. Cardiovascular: There is a regular rate and rhythm. No murmur, rub or gallop is appreciated. Respiratory: Lungs are clear to auscultation, respirations are non-labored, breath sounds are equal. No wheezes, stridor, rales, or rhonchi. Musculoskeletal: Inspection of the right knee reveals mild swelling anteriorly, there is no erythema. There is no posterior pain to palpation. Patient complains of pain to a patient of the anterior knee. Patient is unable to fully actively range at the right LE. Pt is able to passively range the right kene with complaints of discomfort. Extensor mechanism intact. Sensation intact. DP pulses equal bilaterally 2+. No pain to palpation of the posterior knee or along the deep venous system of the right lower extremity. Neurological: A&O x 3. CN II-XII intact, There are no obvious motor or sensory deficits. Coordination appears grossly intact. Speech is normal. Skin: Skin is warm and dry. Erythema and warmth of the right lower extremity. Psychiatric: Cooperative, appropriate mood & affect, normal judgment. (Park Boucher) Course <Park Boucher - Last Filed: 12/22/17 00:32> <Hermann Jasso - Last Filed: 12/22/17 00:35> Vital Signs 12/21/17 21:40 Temperature 98.3 F Pulse Rate 88 Respiratory 20 Rate Blood Pressure 172/81 O2 Sat by Pulse 94 L Oximetry - Reevaluation(s) Reevaluation #1: 12/22/17 00:33 PA supervision: I proceeded [id number] evaluation the patient she complains of the onset of severe right-sided knee pain today with inability to ambulate because of the pain no trauma is reported she did recently have a right mastectomy. She denies any fevers though she has felt chilled tonight. Examination of the mastectomy site reveals no evidence of any wound dehiscence or infectious process. Examination of the right knee and right lower extremity over shows evidence of a cellulitis of the anterior right leg also tenderness over the patella and increased localized temperature over the same area. Range of motion of the right knee is reasonable however there is some clinical evidence of bursitis. Due to the circumstances the patient will be admitted I did discuss case with Dr. Marlow. 12/22/17 00:35 The patient will be started on IV antibiotics with orthopedic consultation in the a.m. (Hermann Jasso) Medical Decision Making <Park Boucher - Last Filed: 12/22/17 00:32> <Hermann Jasso - Last Filed: 12/22/17 00:35> - Medical Decision Making Right knee XR obtained revealed effusion. Pt PE concerning for right LE cellulitis. Pt complaining of chills. Pt given 1L bolus. Blood cultures, CBC and CMP obtained. Lactic acid obtained. Patient started on broad-spectrum antibiotic after obtaining blood cultures. Pt admitted for cellulitis and possible bursitis of the right knee. Dr. Jasso paged Dr. Marlow who accepted admission. No further orders at this time. Case was dispositioned with Dr. Jasso in detail who continued care of patient starting at 12:32AM. (Park Boucher) Disposition Decision to Admit Reason: Admit from EC Decision Date: 12/21/17 Decision Time: 23:58 <Park Boucher - Last Filed: 12/22/17 00:32> <Hermann Jasso - Last Filed: 12/22/17 00:35> Clinical Impression: Cellulitis of right lower extremity, History of right mastectomy Disposition: ADMITTED IP TO THIS [facility] Condition: Stable Referrals: Nigel Marlow MD [Primary Care Provider] - 1-2 days
[2017-12-22] MEDS: PIPERACILLIN-TAZOBACTAM 3.375 GM in DEXTROSE/WATER 1 50ML.BAG IVPB STA ×2 (01:00→01:06)
[2017-12-22] MEDS ORDERED: PIPERACILLIN-TAZOBACTAM 3.375 GM in DEXTROSE/WATER 1 50ML.BAG IVPB STA (01:06)
[2017-12-22 01:11] LABS: Basophils # (A) 0.1 k/uL (0-0.2); Basophils % (A) 1 %; Eosinophils # (A) 0.1 k/uL (0-0.7); Eosinophils % (A) 1 %; HCT 45.4 % (34.0-46.0); HGB 14.7 gm/dL (11.4-16.0); Lymphocytes % (A) 15 %; MCH 29.7 pg (25.0-35.0); MCHC 32.4 g/dL (31.0-37.0); MCV 91.7 fL (80.0-100.0); Mean Platelet Volume 8.2; Monocytes # (A) 1.7 k/uL (0-1.0); Monocytes % (A) 13 %; Neutrophils # (A) 9.5 k/uL (1.3-7.7); Neutrophils % (A) 69 %; Platelet Count 288 k/uL (150-450); RBC 4.95 m/uL (3.80-5.40); RDW 13.4 % (11.5-15.5); WBC 13.6 k/uL (3.8-10.6)
[2017-12-22 01:19] LABS: Calcium 9.8 mg/dL (8.4-10.2); Potassium 4.5 mmol/L (3.5-5.1); Total Protein 7.4 g/dL (6.3-8.2)
[2017-12-22 02:34] LABS: Glucose,Whole Blood 191 mg/dL (75-99)
[2017-12-22] MEDS ORDERED: ATENOLOL 50 MG TAB PO STA (03:25)
[2017-12-22] MEDS ORDERED: traMADol 50 MG TAB PO PRN (03:28)
[2017-12-22] MEDS: SODIUM CHLORIDE 0.9% 1,000 ML IV SCH ×2 (03:38→08:07)
[2017-12-22] MEDS: LEVOTHYROXINE 75 MCG TAB PO SCH (06:51)
[2017-12-22 07:42] LABS: Glucose,Whole Blood 183 mg/dL (75-99)
--- NOTE | 2017-12-22 07:56 | US ---
EXAMINATION TYPE: US venous doppler duplex LE RT DATE OF EXAM: 12/22/2017 7:43 AM COMPARISON: NONE CLINICAL HISTORY: Rule out DVT. SIDE PERFORMED: Right TECHNIQUE: The lower extremity deep venous system is examined utilizing real time linear array sonog herman with graded compression, doppler sonography and color-flow sonography. VESSELS IMAGED: External Iliac Vein (EIV) Common Femoral Vein Deep Femoral Vein Greater Saphenous Vein * Femoral Vein Popliteal Vein Small Saphenous Vein * Proximal Calf Veins, not visualized due to swelling and body habitus (* superficial vessels) Large body habitus, extensive swelling. Right Leg: Negative for DVT IMPRESSION: No evidence for DVT at this time.
[2017-12-22] MEDS: INSULIN ASPART 100 UNIT/ML 1 ML 10 ML VIAL SQ SCH ×4 (08:06→20:58)
[2017-12-22] MEDS: ATENOLOL 50 MG TAB PO SCH ×2 (08:06→21:49)
[2017-12-22] MEDS: metFORMIN 500 MG TAB PO SCH ×2 (08:06→21:49)
[2017-12-22] MEDS ORDERED: LIDOCAINE 1% INJ 10MG/ML (20 ML MDV) SQ ONE (08:43)
--- NOTE | 2017-12-22 09:11 | P.CNOR ---
History of Present Illness - [facility] Consult date: 12/22/17 Consult reason: joint pain History of present illness: This is a 69-year-old female admitted with severe right knee pain. She has history of recent mastectomy. She has history of degenerative arthritis of bilateral knees. She states that she did have her right knee injected this past summer by Dr. Parks which relieved her pain at the time. She states that her knee recently became very swollen and painful. She is also developed some redness to the lower legs. She is admitted to internal medicine and we're consulted for orthopedic evaluation. Past Medical History Past Medical History: Cancer, Diabetes Mellitus, Hypertension, Osteoarthritis ( OA), Thyroid Disorder Additional Past Medical History / Comment(s): hx UTERINE CANCER(chemo and radiation 5 yrs ago). NEUROPATHY IN FEET, diarrhea, rt breast cancer, History of Any Multi-Drug Resistant Organisms: None Reported Past Surgical History: Appendectomy, Breast Surgery, Cholecystectomy, Hysterectomy Additional Past Surgical History / Comment(s): rt breast biopsy. right breast mastectomy 11/29/17 Past Anesthesia/Blood Transfusion Reactions: Motion Sickness, Postoperative Nausea & Vomiting (PONV) Additional Past Anesthesia/Blood Transfusion Reaction / Comm: PONV after gallbladder surgery Past Psychological History: No Psychological Hx Reported Smoking Status: Former smoker Past Alcohol Use History: None Reported Additional Past Alcohol Use History / Comment(s): QUIT AROUND 1992, LESS THAN HALF PPD. started smoking age 17 or 18 Past Drug Use History: None Reported - Past Family History Mother Family Medical History: No Reported History Father Family Medical History: Myocardial Infarction ([place]) Brother(s) Family Medical History: Cancer Additional Family Medical History / Comment(s): prostate Medications and Allergies Home Medications Medication Instructions Recorded Confirmed Type Atenolol [Tenormin] 50 mg PO BID 11/07/15 12/21/17 History metFORMIN HCL 1,000 mg PO BID 11/07/15 12/21/17 History Furosemide [Lasix] 20 mg PO DAILY PRN 10/27/17 12/21/17 History Levothyroxine Sodium [Synthroid] 75 mcg PO QAM 10/27/17 12/21/17 History Allergies Allergy/AdvReac Type Severity Reaction Status Date / Time codeine AdvReac Nausea & Verified 12/21/17 22:31 Vomiting Physical Examination This is a 69-year-old female in no acute distress. She is alert and oriented 3. Exam of the lower extremities reveals a 3+ effusion to the right knee. There is no redness or increased warmth to the knee. There is some redness to the lower leg with some pitting edema and chronic skin changes. She has full foot and ankle motion bilaterally. She has pain with knee motion. Neurovascular status lower extremity is intact. Results X-rays of the right knee reveal [id number] arthritis in the medial compartment. No acute fractures identified. - Labs Labs: Abnormal Lab Results - Last 24 Hours (Table) 12/22/17 12/22/17 12/22/17 Range/Units 00:40 00:40 02:21 WBC 13.6 H (3.8-10.6) k/uL Neutrophils # 9.5 H (1.3-7.7) k/uL Monocytes # 1.7 H (0-1.0) k/uL BUN 20 H (7-17) mg/dL Glucose 186 H (74-99) mg/dL POC Glucose (mg/dL) 191 H (75-99) mg/dL 12/22/17 Range/Units 07:36 WBC (3.8-10.6) k/uL Neutrophils # (1.3-7.7) k/uL Monocytes # (0-1.0) k/uL BUN (7-17) mg/dL Glucose (74-99) mg/dL POC Glucose (mg/dL) 183 H (75-99) mg/dL H & H 12/22/17 Range/Units 00:40 Hgb 14.7 (11.4-16.0) gm/dL Hct 45.4 (34.0-46.0) % Result Diagrams: 12/22/17 00:40 12/22/17 00:40 Assessment and Plan (1) Degenerative arthritis of right knee Current Visit: Yes Status: Acute Code(s): M17.11 - UNILATERAL PRIMARY OSTEOARTHRITIS, RIGHT KNEE SNOMED Code(s): 401038221137636 (2) Cellulitis of right lower extremity Current Visit: Yes Status: Acute Code(s): L03.115 - CELLULITIS OF RIGHT LOWER LIMB SNOMED Code(s): 592511092 (3) History of right mastectomy Current Visit: Yes Status: Acute Code(s): Z90.11 - ACQUIRED ABSENCE OF RIGHT BREAST AND NIPPLE SNOMED Code(s): 575916935 Plan: The clinical and x-ray findings are discussed with the patient. Procedure: Aspiration of the right knee is performed using sterile technique. Approximately 50 mL of cloudy fluid is obtained. Fluid is sent for cell count, crystal identification and culture and sensitivity. It is discussed the patient that if the fluid comes back as inflammatory we may inject the knee with Depo-Medrol. We will continue to follow.
[2017-12-22 10:13] LABS: Appearance,BF Cloudy; Color,BF Yellow; Nucleated Cells, Body Fluid 45400 /uL; RBC, Body Fluid 550 /uL
[2017-12-22 10:15] LABS: Mononuclear WBC,Body Fluid 20 %; Polynuclear WBC,Body Fluid 80 %; Total Cells Counted,Body Fluid 100
[2017-12-22 12:04] LABS: Glucose,Whole Blood 128 mg/dL (75-99)
--- NOTE | 2017-12-22 12:29 | P.HPIM ---
History of Present Illness 77-year-old female presented to the emergency room with complaints of right knee pain and edema to the lower extremity. Patient had recent right mastectomy Steri-Strips in place there. Patient has history of diabetes type 2 hypertension osteoarthritis hypothyroidism and breast cancer. Review of Systems Constitutional: Reports fatigue Breasts: absent: as per HPI Musculoskeletal: right: knee pain Past Medical History Past Medical History: Cancer, Diabetes Mellitus, Hypertension, Osteoarthritis ( OA), Thyroid Disorder Additional Past Medical History / Comment(s): hx UTERINE CANCER(chemo and radiation 5 yrs ago). NEUROPATHY IN FEET, diarrhea, rt breast cancer, History of Any Multi-Drug Resistant Organisms: None Reported Past Surgical History: Appendectomy, Breast Surgery, Cholecystectomy, Hysterectomy Additional Past Surgical History / Comment(s): rt breast biopsy. right breast mastectomy 11/29/17 Past Anesthesia/Blood Transfusion Reactions: Motion Sickness, Postoperative Nausea & Vomiting (PONV) Additional Past Anesthesia/Blood Transfusion Reaction / Comment(s): PONV after gallbladder surgery Past Psychological History: No Psychological Hx Reported Smoking Status: Former smoker Past Alcohol Use History: None Reported Additional Past Alcohol Use History / Comment(s): QUIT AROUND 1992, LESS THAN HALF PPD. started smoking age 17 or 18 Past Drug Use History: None Reported - Past Family History Mother Family Medical History: No Reported History Father Family Medical History: Myocardial Infarction ([place]) Brother(s) Family Medical History: Cancer Additional Family Medical History / Comment(s): prostate Medications and Allergies Home Medications Medication Instructions Recorded Confirmed Type Atenolol [Tenormin] 50 mg PO BID 11/07/15 12/21/17 History metFORMIN HCL 1,000 mg PO BID 11/07/15 12/21/17 History Furosemide [Lasix] 20 mg PO DAILY PRN 10/27/17 12/21/17 History Levothyroxine Sodium [Synthroid] 75 mcg PO QAM 10/27/17 12/21/17 History Allergies Allergy/AdvReac Type Severity Reaction Status Date / Time codeine AdvReac Nausea & Verified 12/21/17 22:31 Vomiting Physical Exam Vitals: Vital Signs Temp Pulse Pulse Resp BP BP Pulse Ox 12/22/17 07:52 97 F L 71 24 161/72 94 L 12/22/17 06:25 98.2 F 75 20 134/61 94 L 12/22/17 02:25 99.5 F 92 20 192/73 95 12/22/17 01:16 98.4 F 60 18 180/93 97 12/21/17 21:40 98.3 F 88 20 172/81 94 L Intake and Output 12/21/17 12/22/17 12/22/17 22:59 06:59 14:59 Intake Total 100 200 Output Total 100 Balance 100 100 Intake: Oral 100 200 Output: Urine 100 Other: Voiding Method Bedside Commode Bedpan # Voids 1 # Bowel Movements 0 Weight 90.718 kg 112.491 kg 110.5 kg - Constitutional General appearance: mild distress - EENT Eyes: PERRLA Ears: bilateral: normal - Neck Neck: normal ROM - Respiratory Respiratory: bilateral: CTA - Cardiovascular Rhythm: regular - Gastrointestinal General gastrointestinal: soft - Integumentary Patient has Steri-Strips to incision to right breast mastectomy Integumentary: normal - Neurologic Neurologic: CNII-XII intact - Musculoskeletal Musculoskeletal: generalized weakness - Psychiatric Psychiatric: A&O x's 3, appropriate affect, intact judgment & insight Results CBC & Chem 7: 12/22/17 00:40 12/22/17 00:40 Labs: Abnormal Lab Results - Last 24 Hours (Table) 12/22/17 12/22/17 12/22/17 Range/Units 00:40 00:40 02:21 WBC 13.6 H (3.8-10.6) k/uL Neutrophils # 9.5 H (1.3-7.7) k/uL Monocytes # 1.7 H (0-1.0) k/uL BUN 20 H (7-17) mg/dL Glucose 186 H (74-99) mg/dL POC Glucose (mg/dL) 191 H (75-99) mg/dL 12/22/17 12/22/17 Range/Units 07:36 11:58 WBC (3.8-10.6) k/uL Neutrophils # (1.3-7.7) k/uL Monocytes # (0-1.0) k/uL BUN (7-17) mg/dL Glucose (74-99) mg/dL POC Glucose (mg/dL) 183 H 128 H (75-99) mg/dL Chest x-ray: report reviewed Thrombosis Risk Factor Assmnt - Choose All That Apply Any of the Below Risk Factors Present?: Yes Each Factor Represents 1 point: History of prior major surgery (<1month), Obesity (BMI >25), Swollen legs (current) Other Risk Factors: Yes Each Risk Factor Represents 2 Points: Malignancy Each Risk Factor Represents 3 Points: Age 75 years or older Other congenital or acquired thrombophilia - If yes, enter type in comment: No Each Risk Factor Represents 5 Points: Major surgery lasting over 3 hours Thrombosis Risk Factor Assessment Total Risk Factor Score: 13 Thrombosis Risk Factor Assessment Level: High Risk Assessment and Plan Plan: Assessment Cellulitis of right lower extremity Right knee pain with effusion Recent right mastectomy Diabetes type 2 Hypertension Osteoarthritis Hypothyroidism Plan Orthopedic referral Patient on Rocephin Consult Dr. Kashmir Jsaso for wound check to right breast
--- NOTE | 2017-12-22 16:12 | P.GSHP ---
History of Present Illness H&P Date: 12/22/17 Chief Complaint: Swollen right knee The patient is a 77-year-old white female who is status post right breast mastectomy and axillary node resection on . She was noted to have a T2 and 1 a M0 grade 2 right breast cancer. Postoperatively she has done well with respect to her breast. Proximally 2 days ago she woke up in her right knee was very swollen. She had difficulty putting any pressure on her knee for standing and presented to the emergency department. In the emergency department a Doppler ultrasound was performed and ruled out a deep vein thrombosis. She was seen by orthopedic surgery and the knee was tapped removing 50 mL of cloudy fluid. Fluid was sent for cell count crystals and culture and sensitivity. Additionally she had some bilateral lower extremity swelling and some mild erythema greatest on the right side. She states she has not had any true fever. The pain is improved since then he has been tapped and fluid removed. She complains only of the right mastectomy lateral aspect of the incision stating that she feels like there is a tiny protuberance at the most lateral aspect of the incision. Otherwise she has no complaints related to the mastectomy site. She has an appointment with medical oncology next week. Family history: 1. Brother passed a cancer Past surgical history: 1. Right mastectomy 2. Hysterectomy 3. Cholecystectomy 4. Appendectomy Past medical history: 1. Diabetes 2. Hypertension 3. Hypothyroidism Medications: 1. Metformin 2. Atenolol 3. Synthroid 4. Lasix as needed ALLERGIES: Codeine Review of systems: HEENT: Negative Heart: Hypertension Lungs: Negative GI: Diarrhea Endocrine: Diabetes, hypothyroidism Musculoskeletal: Arthritis Positive history of breast cancer - Constitutional Constitutional: Denies chills, Denies fever - EENT Eyes: denies blurred vision, denies pain Ears: deny: decreased hearing, tinnitus Ears, nose, mouth and throat: Denies headache, Denies sore throat - Breasts Breasts: bilateral: as per HPI - Cardiovascular Cardiovascular: Reports high blood pressure - Respiratory Respiratory: Denies cough, Denies 7 - Gastrointestinal Gastrointestinal: Reports diarrhea - Musculoskeletal Comment: right knee pain - Integumentary Integumentary: Reports as per HPI - Neurological Neurological: Reports as per HPI - Psychiatric Psychiatric: Denies anxiety, Denies depression - Endocrine Comment: Diabetes, hypothyroidism - Hematologic/Lymphatic Hematologic/Lymphatic: Reports as per HPI Past Medical History Past Medical History: Cancer, Diabetes Mellitus, Hypertension, Osteoarthritis ( OA), Thyroid Disorder Additional Past Medical History / Comment(s): hx UTERINE CANCER(chemo and radiation 5 yrs ago). NEUROPATHY IN FEET, diarrhea, rt breast cancer, History of Any Multi-Drug Resistant Organisms: None Reported Past Surgical History: Appendectomy, Breast Surgery, Cholecystectomy, Hysterectomy Additional Past Surgical History / Comment(s): rt breast biopsy. right breast mastectomy 11/29/17 Past Anesthesia/Blood Transfusion Reactions: Motion Sickness, Postoperative Nausea & Vomiting (PONV) Additional Past Anesthesia/Blood Transfusion Reaction / Comment(s): PONV after gallbladder surgery Past Psychological History: No Psychological Hx Reported Smoking Status: Former smoker Past Alcohol Use History: None Reported Additional Past Alcohol Use History / Comment(s): QUIT AROUND 1992, LESS THAN HALF PPD. started smoking age 17 or 18 Past Drug Use History: None Reported - Past Family History Mother Family Medical History: No Reported History Father Family Medical History: Myocardial Infarction ([place]) Brother(s) Family Medical History: Cancer Additional Family Medical History / Comment(s): prostate Medications and Allergies Home Medications Medication Instructions Recorded Confirmed Type Atenolol [Tenormin] 50 mg PO BID 11/07/15 12/21/17 History metFORMIN HCL 1,000 mg PO BID 11/07/15 12/21/17 History Furosemide [Lasix] 20 mg PO DAILY PRN 10/27/17 12/21/17 History Levothyroxine Sodium [Synthroid] 75 mcg PO QAM 10/27/17 12/21/17 History Allergies Allergy/AdvReac Type Severity Reaction Status Date / Time codeine AdvReac Nausea & Verified 12/21/17 22:31 Vomiting Surgical - Exam Vital Signs Temp Pulse Resp BP Pulse Ox 98.3 F 88 20 172/81 94 L 12/21/17 21:40 12/21/17 21:40 12/21/17 21:40 12/21/17 21:40 12/21/17 21:40 bmi: 39.3 - General obese - Eyes normal ocular movement - ENT no hearing loss, no congestion - Neck no masses, trachea midline - Respiratory normal respiratory effort, clear to auscultation - Cardiovascular Rhythm: regular Heart Sounds: normal: S1, S2 - Abdomen Abdomen: soft - Integumentary Patchy mild erythema lower extremity on the right Right knee swollen Bilateral pitting edema in the lower extremities - Neurologic no disoriented, no combative - Musculoskeletal laying in bed - Psychiatric oriented to time, oriented to person, oriented to place, speech is normal, memory intact Examination of the incision site for the right chest wall mastectomy reveals it to be clean and dry with no evidence of any infection No evidence of any seroma The very lateral aspect there is a protrusion of a small amount of suture Results Results of chest x-ray, x-ray of right knee, ultrasound of right leg reviewed - Labs 12/22/17 00:40 12/22/17 00:40 Abnormal Lab Results - Last 24 Hours (Table) 12/22/17 12/22/17 12/22/17 Range/Units 00:40 00:40 02:21 WBC 13.6 H (3.8-10.6) k/uL Neutrophils # 9.5 H (1.3-7.7) k/uL Monocytes # 1.7 H (0-1.0) k/uL BUN 20 H (7-17) mg/dL Glucose 186 H (74-99) mg/dL POC Glucose (mg/dL) 191 H (75-99) mg/dL 12/22/17 12/22/17 Range/Units 07:36 11:58 WBC (3.8-10.6) k/uL Neutrophils # (1.3-7.7) k/uL Monocytes # (0-1.0) k/uL BUN (7-17) mg/dL Glucose (74-99) mg/dL POC Glucose (mg/dL) 183 H 128 H (75-99) mg/dL Diabetes panel 12/22/17 Range/Units 00:40 Sodium 138 (137-145) mmol/L Potassium 4.5 (3.5-5.1) mmol/L Chloride 101 (98-107) mmol/L Carbon Dioxide 27 (22-30) mmol/L BUN 20 H (7-17) mg/dL Creatinine 0.77 (0.52-1.04) mg/dL Glucose 186 H (74-99) mg/dL Calcium 9.8 (8.4-10.2) mg/dL AST 19 (14-36) U/L ALT 25 (9-52) U/L Alkaline Phosphatase 87 (38-126) U/L Total Protein 7.4 (6.3-8.2) g/dL Albumin 4.0 (3.5-5.0) g/dL Calcium panel 12/22/17 Range/Units 00:40 Calcium 9.8 (8.4-10.2) mg/dL Albumin 4.0 (3.5-5.0) g/dL Pituitary panel 12/22/17 Range/Units 00:40 Sodium 138 (137-145) mmol/L Potassium 4.5 (3.5-5.1) mmol/L Chloride 101 (98-107) mmol/L Carbon Dioxide 27 (22-30) mmol/L BUN 20 H (7-17) mg/dL Creatinine 0.77 (0.52-1.04) mg/dL Glucose 186 H (74-99) mg/dL Calcium 9.8 (8.4-10.2) mg/dL Adrenal panel 12/22/17 Range/Units 00:40 Sodium 138 (137-145) mmol/L Potassium 4.5 (3.5-5.1) mmol/L Chloride 101 (98-107) mmol/L Carbon Dioxide 27 (22-30) mmol/L BUN 20 H (7-17) mg/dL Creatinine 0.77 (0.52-1.04) mg/dL Glucose 186 H (74-99) mg/dL Calcium 9.8 (8.4-10.2) mg/dL Total Bilirubin 1.0 (0.2-1.3) mg/dL AST 19 (14-36) U/L ALT 25 (9-52) U/L Alkaline Phosphatase 87 (38-126) U/L Total Protein 7.4 (6.3-8.2) g/dL Albumin 4.0 (3.5-5.0) g/dL Assessment and Plan Assessment: Impression: 1. Swollen right knee etiology uncertain at this time awaiting results of fluid that was aspirated 2. Diabetes 3. Hypertension 4. Hypothyroidism 5. Bilateral swollen lower extremities 6. Rule out cellulitis of right lower extremity 7. Mastectomy site clean and dry well-healed at this time extrusion of a small amount of suture at the lateral aspect of the wound Plan: 1. Remove suture which is extruding at the lateral aspect of the mastectomy and incision 2. Medical management of medical problems 3. Await results of cellular fluid withdrawn from the right knee 4. Follow-up with medical oncology 5. Follow-up with me in 3 months time, she has any questions or concerns Suture removal kit was obtained and this suture which is extruding at the lateral aspect of the mastectomy incision was cut patient is doing well no evidence of any infection Cc: Dr. Nigel Marlow, Yazmin Kang
[2017-12-22 17:02] LABS: Glucose,Whole Blood 143 mg/dL (75-99)
[2017-12-22 18:51] LABS: Hemoglobin A1C 6.7 % (4.0-6.0)
[2017-12-22 21:02] LABS: Glucose,Whole Blood 149 mg/dL (75-99)
[2017-12-23] MEDS: LEVOTHYROXINE 75 MCG TAB PO SCH (06:01)
[2017-12-23] MEDS: ATENOLOL 50 MG TAB PO SCH ×2 (06:09→21:55)
[2017-12-23 07:03] LABS: Glucose,Whole Blood 195 mg/dL (75-99)
[2017-12-23] MEDS: INSULIN ASPART 100 UNIT/ML 1 ML 10 ML VIAL SQ SCH ×4 (08:00→21:55)
[2017-12-23] MEDS: metFORMIN 500 MG TAB PO SCH ×2 (08:01→21:55)
[2017-12-23 08:39] LABS: Anion Gap 7 mmol/L; Blood Urea Nitrogen 16 mg/dL (7-17); Calcium 8.5 mg/dL (8.4-10.2); Carbon Dioxide 28 mmol/L (22-30); Chloride 104 mmol/L (98-107); Glucose 167 mg/dL (74-99); Potassium 4.3 mmol/L (3.5-5.1); Sodium 139 mmol/L (137-145)
[2017-12-23 08:43] LABS: Basophils # (A) 0.1 k/uL (0-0.2); Basophils % (A) 1 %; Eosinophils # (A) 0.2 k/uL (0-0.7); Eosinophils % (A) 2 %; HCT 39.7 % (34.0-46.0); HGB 12.8 gm/dL (11.4-16.0); Lymphocytes # (A) 1.3 k/uL (1.0-4.8); Lymphocytes % (A) 15 %; MCH 30.1 pg (25.0-35.0); MCHC 32.2 g/dL (31.0-37.0); MCV 93.3 fL (80.0-100.0); Mean Platelet Volume 8.2; Monocytes # (A) 0.9 k/uL (0-1.0); Monocytes % (A) 11 %; Neutrophils # (A) 5.8 k/uL (1.3-7.7); Neutrophils % (A) 67 %; Platelet Count 261 k/uL (150-450); RBC 4.25 m/uL (3.80-5.40); RDW 13.3 % (11.5-15.5); WBC 8.6 k/uL (3.8-10.6)
[2017-12-23] MEDS ORDERED: FUROSEMIDE 20 MG TAB PO PRN (09:00)
--- NOTE | 2017-12-23 09:08 | P.PN ---
Subjective Progress Note Date: 12/23/17 Principal diagnosis: Right knee pain and effusion The patient is a 77-year-old female who has been following for right knee pain. Yesterday she underwent an aspiration of the knee that revealed possible gout. However, the WBCs were elevated and the fluid was sent for culture. The gram statin reveals no organisms. The patient's serum white count has improved and overall she is feeling better. The knee pain is greatly improved. The redness and edema to the lower leg has improved slightly. She is currently receiving Rocephin. She denies fever, chills, rigors, shortness breath, abdominal pain and chest pain this morning. Objective - Vital Signs Vital signs: Vital Signs Temp 98.2 F 12/23/17 07:28 Pulse 72 12/23/17 08:46 Resp 22 12/23/17 08:46 BP 151/71 12/23/17 07:28 Pulse Ox 94 L 12/23/17 07:28 Intake & Output 12/22/17 12/23/17 12/23/17 18:59 06:59 18:59 Intake Total 600 200 Output Total 200 Balance 400 200 Weight 110.5 kg Intake: Oral 600 200 Output: Urine 200 Other: Voiding Method Bedside Commode Toilet Bedpan # Voids 1 1 # Bowel Movements 0 - Exam The patient is a 77-year-old female in no acute distress. She is alert and oriented 3. Exam of the right knee reveals decreased effusion. His no redness or warmth to the knee. There is minimal pain to palpation. She is near full range of motion of the knee at this time without significant pain. She is full foot and ankle motion bilaterally. Neurological and circulatory status is intact. - Labs CBC & Chem 7: 12/23/17 07:50 12/23/17 07:50 Labs: Abnormal Lab Results - Last 24 Hours (Table) 12/22/17 12/22/17 12/22/17 Range/Units 00:40 11:58 17:00 Glucose (74-99) mg/dL POC Glucose (mg/dL) 128 H 143 H (75-99) mg/dL Hemoglobin A1c 6.7 H (4.0-6.0) % 12/22/17 12/23/17 12/23/17 Range/Units 20:56 06:59 07:50 Glucose 167 H (74-99) mg/dL POC Glucose (mg/dL) 149 H 195 H (75-99) mg/dL Hemoglobin A1c (4.0-6.0) % Microbiology - Last 24 Hours (Table) 12/22/17 00:40 Blood Culture - Preliminary Blood No Growth after 24 hours 12/22/17 08:30 Gram Stain - Preliminary Aspirate Body Fluid Culture - Preliminary Assessment and Plan (1) Effusion, right knee Current Visit: Yes Status: Acute Code(s): M25.461 - EFFUSION, RIGHT KNEE SNOMED Code(s): 530945945 (2) Cellulitis of right lower extremity Current Visit: Yes Status: Acute Code(s): L03.115 - CELLULITIS OF RIGHT LOWER LIMB SNOMED Code(s): 649729059 (3) Degenerative arthritis of right knee Current Visit: Yes Status: Acute Code(s): M17.11 - UNILATERAL PRIMARY OSTEOARTHRITIS, RIGHT KNEE SNOMED Code(s): 730950435028630 (4) Gout Current Visit: Yes Status: Acute Code(s): M10.9 - GOUT, UNSPECIFIED SNOMED Code(s): 31618824 Plan: The clinical and laboratory findings were discussed with the patient. The case was also discussed with Dr. Abad. The patient has improved since the knee aspiration and the gram statin is negative so far, we are cancelling the patient 's proposed I&D today. She may resume a heart healthy diet. Internal medicine to direct antibiotics for her lower leg cellulitis. The presentation so far appears to be gout unless the final culture is positive. Crystals are still pending. We will continue to follow the patient if she remains in the hospital and will see her on an outpatient basis if she is discharged medically. She is orthopedically stable for discharge at this time.
--- NOTE | 2017-12-23 11:18 | P.PN ---
Subjective This is a pleasant 77 years old female with past medical history of diabetes mellitus, hypertension. Presents because of severe right knee pain that prevented her from getting up. Patient has been evaluated by surgical team while in-house and they did right knee aspiration. Aspirate fluid showing elevated WBC.he gram statin reveals no organisms, as per orthopedic team. Crystal and reviewed is pending. Patient telling me today she has significant improvement in her right knee pain down to 1/10 in severity and she could talk when she could not do that on admission. Right knee swelling and redness are significantly improved as per patient. We got up and go test was normal. Her leukocytosis was improved from 13.6 to 8.6K. Risks of CBC and BMP were unremarkable. Most likely patient has acute gouty attack as per [facility] team. Patient denies history of gout. Objective - Vital Signs Vital signs: Vital Signs Temp 98.2 F 12/23/17 07:28 Pulse 72 12/23/17 08:46 Resp 22 12/23/17 08:46 BP 198/86 12/23/17 09:43 Pulse Ox 94 L 12/23/17 07:28 Intake & Output 12/22/17 12/23/17 12/23/17 18:59 06:59 18:59 Intake Total 600 200 Output Total 200 Balance 400 200 Weight 110.5 kg Intake: Oral 600 200 Output: Urine 200 Other: Voiding Method Bedside Commode Toilet Bedpan # Voids 1 1 # Bowel Movements 0 - Exam GENERAL: The patient is alert and oriented x3, not in any acute distress. Well developed, well nourished. HEENT: Pupils are round and equally reacting to light. EOMI. No scleral icterus. No conjunctival pallor. Normocephalic, atraumatic. No pharyngeal erythema. No thyromegaly. CARDIOVASCULAR: S1 and S2 present. No murmurs, rubs, or gallops. PULMONARY: Chest is clear to auscultation, no wheezing or crackles. ABDOMEN: Soft, nontender, nondistended, normoactive bowel sounds. No palpable organomegaly. MUSCULOSKELETAL: No joint swelling or deformity. -EXTREMITIES: No cyanosis, clubbing, or pedal edema. , Right knee is widely warm compared to the left side, no swelling or redness. And patient can move it passively and actively without difficulty. Get up and go test: Normal NEUROLOGICAL: Gross neurological examination did not reveal any focal deficits. SKIN: No rashes. - Labs CBC & Chem 7: 12/23/17 07:50 12/23/17 07:50 Labs: Abnormal Lab Results - Last 24 Hours (Table) 12/22/17 12/22/17 12/22/17 Range/Units 00:40 11:58 17:00 Glucose (74-99) mg/dL POC Glucose (mg/dL) 128 H 143 H (75-99) mg/dL Hemoglobin A1c 6.7 H (4.0-6.0) % 12/22/17 12/23/17 12/23/17 Range/Units 20:56 06:59 07:50 Glucose 167 H (74-99) mg/dL POC Glucose (mg/dL) 149 H 195 H (75-99) mg/dL Hemoglobin A1c (4.0-6.0) % Microbiology - Last 24 Hours (Table) 12/22/17 08:30 Gram Stain - Preliminary Aspirate Body Fluid Culture - Preliminary 12/22/17 00:40 Blood Culture - Preliminary Blood No Growth after 24 hours Assessment and Plan Assessment: Right knee pain with effusion, mostly acute gout. Resolving Cellulitis of right lower extremity, resolved on antibiotic Recent right mastectomy Diabetes type 2 Hypertension Osteoarthritis Hypothyroidism Plan: This is a pleasant 77 years old female who presents with right knee pain and possible cellulitis. Continue same treatment. Continue symptomatic treatment. Resume home medication. Monitor labs and vitals. GI and DVT prophylaxis. Further recommendation is placed on the clinical course the patient DVT prophylaxis: Heparin GI prophylaxis Pepcid PT/OT: Pending Prognosis is guarded
[2017-12-23 11:22] LABS: Glucose,Whole Blood 153 mg/dL (75-99)
[2017-12-23] MEDS: COLCHICINE 0.6 MG EACH PO SCH (12:19)
[2017-12-23] MEDS: HEPARIN SODIUM,PORCINE 5,000 UNIT/ML 1 ML VIAL SQ SCH ×2 (12:19→21:55)
[2017-12-23 17:17] LABS: Glucose,Whole Blood 103 mg/dL (75-99)
[2017-12-23 20:48] LABS: Glucose,Whole Blood 152 mg/dL (75-99)
[2017-12-23] MEDS: FAMOTIDINE 20 MG/2 ML VIAL IV SCH (21:55)
--- NOTE | 2017-12-24 04:31 | CONS ---
CONSULTATION DATE OF SERVICE: 12/23/2017 REASON FOR CONSULTATION: Right knee pain, question of septic arthritis. HISTORY OF PRESENT ILLNESS: The patient is a 77 -year-old female, who is status post right breast mastectomy and axillary node dissection for a grade 2 right breast cancer. The patient presenting to the ER at [facility] on December 22, 2017 with chief complaints of right knee pain that apparently has been started recently. When she woke up that morning, the patient did not recall any trauma. The patient stated when she woke up, she was unable to bear any weight on it because of the pain. Pain described to be more of a excruciating throbbing pain almost 10/10 in severity, no radiation of the pain, worse with movement and some relief with rest. The patient denies high-grade fever, rigors and chills. With these symptoms, the patient presented to the [facility] ER where the patient was evaluated by the ER physician. The patient did not have any high-grade fever. The highest temperature has been 99.5. The patient did have a slightly elevated white count 13.6 that has normalized to 8.6 today. The patient did have x-rays of the right knee obtained which did show moderate hypertrophic osteoarthritis in the medial joint space and the patient has been evaluated by orthopedic service and the patient is status post aspirate of the right knee with about 50 mL of cloudy fluid. Fluid was sent for analysis. Patient did show elevated white count of 45,000. Crystals did came back negative. Cultures have been negative so far. Blood culture has been negative. She was initially on Zosyn that has been subsequently switched to Rocephin. I was asked to see the patient today for further recommendation regarding antibiotic therapy. The patient has also been started on cultures and did mention significant improvement of pain in right knee area. REVIEW OF SYSTEMS: CONSTITUTIONAL: Positive for weakness. No high-grade fever. EYES no complaint. ENT no complaint. RESPIRATORY no complaint. CARDIOVASCULAR no complaint. GENITOURINARY: No complaint. GASTROINTESTINAL: No complaint. MUSCULOSKELETAL as per HPI. INTEGUMENTARY as per HPI. PSYCHOLOGICAL no complaint. ENDOCRINE no complaint. NEUROLOGIC no complaint. PAST MEDICAL HISTORY: Diabetes mellitus, hypertension, osteoarthritis, hypothyroidism, uterine cancer, right breast cancer. PAST SURGICAL HISTORY: Right mastectomy with , appendectomy, cholecystectomy, and hysterectomy. SOCIAL HISTORY: The patient quit smoking in 1992. Has smoked for about 19 years. No drinking or any drug use. FAMILY HISTORY: Father history of [place]. Brother history of prostate cancer. ALLERGIES: CODEINE. MEDICATIONS: The patient is currently on Tylenol, Tenormin, Rocephin, colchicine, Pepcid, Lasix, heparin, Motrin, NovoLog, Synthroid, Glucophage and Ultram. EXAMINATION: Blood pressure 144/72 with a pulse of 75. Temperature 97.8. She is 95% on room air. General description is an elderly female lying in bed in no distress. No tachypnea or accessory muscles of respiration use. HEENT: Shows no pallor or scleral icterus. Oral mucosal membranes are dry. No pharyngeal erythema or thrush. NECK: Trachea central. No thyromegaly. LUNGS: Unlabored breathing. Clear to auscultation anteriorly. No wheeze or crackles. Heart S1, S2. Regular rate and rhythm. ABDOMEN: Soft, no tenderness. No guarding or rigidity. Extremities: No edema of the feet. Examination of the right knee with minimal swelling, slightly warm. No skin breakdown. No significant tenderness. Examination the right mastectomy incision looks clean with no evidence of any swelling, redness or drainage. Neurological: Patient is awake, alert, oriented times three. Mood and affect normal. LABS: Hemoglobin is 12.8, white count 8.6. Admission white count was 13.6 with a BUN of 16, creatinine 0.66. Synovial fluid was cloudy with 45,000 nucleated cells, 80% PMNs. has been negative. Cultures so far negative. DIAGNOSTIC IMPRESSION AND PLAN: Patient presented to the hospital with right knee pain which has been more of an acute in onset with no history of any trauma and no fever. She did have mild elevated white count that seems to have resolved, that has normalized now. Clinical suspicious for septic arthritis to be low, however, not entirely excluded. More likely pointing towards possible inflammatory arthritis. PLAN: Recommend keeping the patient in the hospital on IV antibiotic therapy. Currently on Rocephin while waiting for the knee aspirate culture to finalize. If all those cultures are negative, she may be able to go home from ID standpoint. was present at bedside. His questions and concerns were answered. MMODL / IJN: [id number] /
[2017-12-24] MEDS: LEVOTHYROXINE 75 MCG TAB PO SCH (06:20)
[2017-12-24 07:20] LABS: Glucose,Whole Blood 134 mg/dL (75-99)
[2017-12-24] MEDS: ATENOLOL 50 MG TAB PO SCH ×2 (07:56→21:38)
[2017-12-24] MEDS: metFORMIN 500 MG TAB PO SCH ×2 (07:56→21:37)
[2017-12-24] MEDS: HEPARIN SODIUM,PORCINE 5,000 UNIT/ML 1 ML VIAL SQ SCH ×2 (07:56→21:37)
[2017-12-24] MEDS: COLCHICINE 0.6 MG EACH PO SCH (07:56)
[2017-12-24] MEDS: FAMOTIDINE 20 MG/2 ML VIAL IV SCH (07:56)
[2017-12-24] MEDS: INSULIN ASPART 100 UNIT/ML 1 ML 10 ML VIAL SQ SCH ×4 (08:09→21:37)
[2017-12-24 08:46] LABS: Basophils # (A) 0.1 k/uL (0-0.2); Basophils % (A) 1 %; Eosinophils # (A) 0.3 k/uL (0-0.7); Eosinophils % (A) 4 %; HCT 43.5 % (34.0-46.0); HGB 14.2 gm/dL (11.4-16.0); Lymphocytes # (A) 1.6 k/uL (1.0-4.8); Lymphocytes % (A) 20 %; MCH 29.8 pg (25.0-35.0); MCHC 32.7 g/dL (31.0-37.0); Mean Platelet Volume 8.8; Monocytes # (A) 0.8 k/uL (0-1.0); Monocytes % (A) 9 %; Neutrophils # (A) 5.2 k/uL (1.3-7.7); Neutrophils % (A) 63 %; Platelet Count 292 k/uL (150-450); RBC 4.77 m/uL (3.80-5.40); RDW 13.3 % (11.5-15.5); WBC 8.2 k/uL (3.8-10.6)
--- NOTE | 2017-12-24 09:01 | P.PN ---
Subjective This is a pleasant 77 years old female with past medical history of diabetes mellitus, hypertension. Presents because of severe right knee pain that prevented her from getting up. Patient has been evaluated by surgical team while in-house and they did right knee aspiration. Aspirate fluid showing elevated WBC.he gram statin reveals no organisms, as per orthopedic team. Crystal and reviewed is pending. Patient telling me today she has significant improvement in her right knee pain down to 1/10 in severity and she could talk when she could not do that on admission. Right knee swelling and redness are significantly improved as per patient. We got up and go test was normal. Her leukocytosis was improved from 13.6 to 8.6K. Risks of CBC and BMP were unremarkable. Most likely patient has acute gouty attack as per [facility] team. Patient denies history of gout. 12/24/2017 Patient right knee is still improving, redness and swelling are improved and the mesenteric nose limits COMPARED to the left side. Patient remains on antibiotics with ceftriaxone. Fluid aspirated still pending for culture and sensitivity, staff, clubbing yesterday and informed of the risks of back most likely by this coming Tuesday. There was suspicion for gout however still fluid is negative for crystals Objective - Vital Signs Vital signs: Vital Signs Temp 98.0 F 12/24/17 06:24 Pulse 68 12/24/17 06:24 Resp 18 12/24/17 06:24 BP 181/81 12/24/17 06:24 Pulse Ox 94 L 12/24/17 06:24 Intake & Output 12/23/17 12/24/17 12/24/17 18:59 06:59 18:59 Intake Total 800 Balance 800 Intake: Intake, IV Titration 800 Amount cefTRIAXone 1,000 mg In 800 Sodium Chloride 0.9% 50 ml @ 100 mls/hr IVPB Q24HR [facility] Rx#:[id number] Other: Voiding Method Toilet # Voids 3 1 1 - Exam GENERAL: The patient is alert and oriented x3, not in any acute distress. Well developed, well nourished. HEENT: Pupils are round and equally reacting to light. EOMI. No scleral icterus. No conjunctival pallor. Normocephalic, atraumatic. No pharyngeal erythema. No thyromegaly. CARDIOVASCULAR: S1 and S2 present. No murmurs, rubs, or gallops. PULMONARY: Chest is clear to auscultation, no wheezing or crackles. ABDOMEN: Soft, nontender, nondistended, normoactive bowel sounds. No palpable organomegaly. MUSCULOSKELETAL: No joint swelling or deformity. -EXTREMITIES: No cyanosis, clubbing, or pedal edema. , Right knee is widely warm compared to the left side, no swelling or redness. And patient can move it passively and actively without difficulty. Get up and go test: Normal NEUROLOGICAL: Gross neurological examination did not reveal any focal deficits. SKIN: No rashes. - Labs CBC & Chem 7: 12/24/17 08:16 12/23/17 07:50 Labs: Abnormal Lab Results - Last 24 Hours (Table) 12/23/17 12/23/17 12/23/17 Range/Units 11:20 17:09 20:47 POC Glucose (mg/dL) 153 H 103 H 152 H (75-99) mg/dL 12/24/17 Range/Units 07:18 POC Glucose (mg/dL) 134 H (75-99) mg/dL Microbiology - Last 24 Hours (Table) 12/22/17 00:40 Blood Culture - Preliminary Blood No Growth after 48 hours 12/22/17 08:30 Gram Stain - Preliminary Aspirate Body Fluid Culture - Preliminary Assessment and Plan Assessment: Right knee pain with effusion, mostly acute gout. Resolving Cellulitis of right lower extremity, resolved on antibiotic Recent right mastectomy Diabetes type 2 Hypertension Osteoarthritis Hypothyroidism Plan: This is a pleasant 77 years old female who presents with right knee pain and possible cellulitis. Continue same treatment. Continue symptomatic treatment. Resume home medication. Monitor labs and vitals. GI and DVT prophylaxis. Further recommendation is placed on the clinical course the patient DVT prophylaxis: Heparin GI prophylaxis Pepcid PT/OT: Pending Prognosis is guarded
[2017-12-24] MEDS: amLODIPine 5 MG TAB PO SCH (09:08)
[2017-12-24 11:25] LABS: Glucose,Whole Blood 159 mg/dL (75-99)
[2017-12-24 16:32] LABS: Glucose,Whole Blood 150 mg/dL (75-99)
[2017-12-24 20:35] LABS: Glucose,Whole Blood 140 mg/dL (75-99)
[2017-12-24] MEDS: FAMOTIDINE 20 MG TAB PO SCH (21:37)
[2017-12-24 22:41] VITALS: RESP 18
[2017-12-25] MEDS: LEVOTHYROXINE 75 MCG TAB PO SCH (06:04)
[2017-12-25 07:02] LABS: Glucose,Whole Blood 148 mg/dL (75-99)
[2017-12-25 07:24] VITALS: TEMP 97.3
[2017-12-25] MEDS: amLODIPine 5 MG TAB PO SCH (07:37)
[2017-12-25] MEDS: ATENOLOL 50 MG TAB PO SCH (07:37)
[2017-12-25] MEDS: metFORMIN 500 MG TAB PO SCH (07:37)
[2017-12-25] MEDS: FAMOTIDINE 20 MG TAB PO SCH (07:37)
[2017-12-25] MEDS: HEPARIN SODIUM,PORCINE 5,000 UNIT/ML 1 ML VIAL SQ SCH (07:37)
[2017-12-25] MEDS: COLCHICINE 0.6 MG EACH PO SCH (07:38)
[2017-12-25] MEDS: INSULIN ASPART 100 UNIT/ML 1 ML 10 ML VIAL SQ SCH (07:38)
[2017-12-25 07:42] LABS: Calcium 9.2 mg/dL (8.4-10.2); Potassium 4.7 mmol/L (3.5-5.1)
--- NOTE | 2017-12-25 07:51 | PN ---
PROGRESS NOTE DATE OF SERVICE: 12/24/2017. REASON FOR FOLLOWUP: Right knee pain and a question of possible septic arthritis. INTERVAL HISTORY: The patient is currently afebrile. Her right knee pain has much improved. She did have some minimal swelling but no redness. The patient denies having any chest pain, shortness of breath or cough. No abdominal pain or any diarrhea. EXAMINATION: Blood pressure 150/76 with a pulse of 73, temperature 98.5. She is 94% on room air. General description is an elderly female up in the bed in no distress. Respiratory system: Unlabored breathing. Clear to auscultation anteriorly. Heart S1, S2. Regular rate and rhythm. Abdomen soft, no tenderness. The right knee with some swelling. No redness, minimal warmth to touch. LABS: Hemoglobin is 14.8, white count 8.2. The right knee aspirate culture so far negative. Blood cultures have been negative. DIAGNOSTIC IMPRESSION AND PLAN: Patient admitted to the hospital with acute right knee pain with a question of possible inflammatory arthritis. Clinically doubt septic arthritis in patient currently with no fever. No significant elevated white count and culture has been negative so far. If the cultures are negative by tomorrow morning, antibiotic can be safely discontinued and the patient to continue with oral colchicine with the patient responded with close outpatient followup. MMODL / IJN: [id number] /
[2017-12-25] MEDS ORDERED: amLODIPine 5 MG TAB PO STA (09:55)
[2017-12-25 11:37] VITALS: BP 166/68; PULSE 64
--- NOTE | 2017-12-25 17:39 | P.DS ---
Providers Date of admission: 12/22/17 00:33 Attending physician: Nigel Marlow Consults: 12/21/17 23:59 Consult Physician Stat Consulting Provider: Yoav Abad Consult Reason/Comments: right knee pain/joint effusion/ Do you want consulting provider notified?: Yes, Notify in am 12/22/17 12:30 Consult Physician Urgent Consulting Provider: Fela Schrader Consult Reason/Comments: wound check mastectomy Do you want consulting provider notified?: Yes 12/23/17 14:12 Consult Physician Urgent Consulting Provider: Jamari Meyers Consult Reason/Comments: infection, abx recommendations. Do you want consulting provider notified?: Yes Primary care physician: Nigel Marlow Hospital Course: This is a pleasant 77 years old female with past medical history of diabetes mellitus, hypertension. Presents because of severe right knee pain that prevented her from getting up. Patient has been evaluated by surgical team while in-house and they did right knee aspiration. Aspirate fluid showing elevated WBC, while gram statin reveals no organisms, as per orthopedic team. Crystal and reviewed is negative , pt Patient telling me today she has significant improvement in her right knee pain down to 1/10 in severity and she could talk when she could not do that on admission. Right knee swelling and redness are significantly improved. We got up and go test was normal. Her leukocytosis was improved from 13.6 to 8.6K. Most likely patient has acute inflammatory arthritis that is is resolved with colchicine. ID team saw the pt and cleared the pt for discharge on no antibiotic , with close f/u. appointment is made with Dr. Marlow her pcp on 12/30/17 at 9:40 am, pt told me she is going to f/u with as she has appointment with on the same day 12/30 at noon and that works well for her so she can see both doctors in the same day. pt has been cleared for discharge by both ID and orthopedic team Problems and management plan was discussed with patient and she verbalized understanding and acceptance Patient was found stable and can be discharged home however she needs follow-up as an outpatient. He agrees with the follow-up plan physical exam Gen.: Patient alert awake and oriented X 3, NOT IN DISTRESS CVS: s1-s2, RRR, no murmur CHEST:bilateral CTA, no wheezing or crepitation Abdomen: Soft, no tenderness, no distention, positive bowel sounds Extremities: No leg induration. has b/l leg edema Time spent more than 35 minutes Patient Condition at Discharge: Stable Plan - Discharge Summary New Discharge Prescriptions: New Acetaminophen Tab [Tylenol] 650 mg PO Q6HR PRN #15 tab PRN Reason: Mild Pain Or Fever > 100.5 Colchicine [Colcrys] 1.2 mg PO DAILY #5 each amLODIPine [Norvasc] 10 mg PO DAILY #30 tab Continue metFORMIN HCL 1,000 mg PO BID Atenolol [Tenormin] 50 mg PO BID Furosemide [Lasix] 20 mg PO DAILY PRN PRN Reason: Edema Levothyroxine Sodium [Synthroid] 75 mcg PO QAM Discharge Medication List Atenolol [Tenormin] 50 mg PO BID 11/07/15 [History] metFORMIN HCL 1,000 mg PO BID 11/07/15 [History] Furosemide [Lasix] 20 mg PO DAILY PRN 10/27/17 [History] Levothyroxine Sodium [Synthroid] 75 mcg PO QAM 10/27/17 [History] Acetaminophen Tab [Tylenol] 650 mg PO Q6HR PRN #15 tab 12/25/17 [Rx] Colchicine [Colcrys] 1.2 mg PO DAILY #5 each 12/25/17 [Rx] amLODIPine [Norvasc] 10 mg PO DAILY #30 tab 12/25/17 [Rx] Follow up Appointment(s)/Referral(s): Nigel Marlow MD [Primary Care Provider] - 12/30/17 9:40 am Yoav Abad MD [STAFF PHYSICIAN] - 1 Week Jose Luis Thomas MD [STAFF PHYSICIAN] - 12/30/17 12:00 pm Patient Instructions/Handouts: Gout (DC) Activity/Diet/Wound Care/Special Instructions: diet : cardiac diet activity is limited till you see your doctor Discharge Disposition: HOME SELF-CARE
[2017-12-26] MEDS ORDERED: amLODIPine 10 MG TAB PO SCH (09:00)
== END 2017-12-25 11:45 | disposition home or self-care (01) | DRG 603 ==
LOC: EC 21:32 → 4MS4W 12-22 00:33
PROVIDERS: ADMIT Family Medicine; ATTEND Family Medicine
PROC: 8E0WXY8 Suture Removal from Trunk Region (ICD-10-PCS; principal; 2017-12-22)
PROC: 0S9C3ZX Drainage of Right Knee Joint, Percutaneous Approach, Diagnostic (ICD-10-PCS; 2017-12-22)
DX: L03.115 Cellulitis of right lower limb (principal); M06.4 Inflammatory polyarthropathy; M17.0 Bilateral primary osteoarthritis of knee; I10 Essential (primary) hypertension; E03.9 Hypothyroidism, unspecified; Z85.42 Personal history of malignant neoplasm of other parts of uterus; Z92.3 Personal history of irradiation; E11.42 Type 2 diabetes mellitus with diabetic polyneuropathy; Z90.49 Acquired absence of other specified parts of digestive tract; Z90.710 Acquired absence of both cervix and uterus; Z90.11 Acquired absence of right breast and nipple; Z87.891 Personal history of nicotine dependence; Z82.49 Family history of ischemic heart disease and other diseases of the circulatory system; Z80.42 Family history of malignant neoplasm of prostate; Z79.84 Long term (current) use of oral hypoglycemic drugs; Z79.890 Hormone replacement therapy; Z85.3 Personal history of malignant neoplasm of breast; Z88.5 Allergy status to narcotic agent; Z48.02 Encounter for removal of sutures; T81.89XA Other complications of procedures, not elsewhere classified, initial encounter; Y83.8 Other surgical procedures as the cause of abnormal reaction of the patient, or of later complication, without mention of misadventure at the time of the procedure
CPT/HCPCS: 71046; 80048; 80053; 83036; 83605; 84550; 85025; 87040; 87070; 87205; 89050; 89060; 96374; 99284

== ENCOUNTER → 2018-03-16 | Outpatient (CLI) | payer MEDICARE, BC ==
--- NOTE | 2018-03-16 16:15 | BD ---
EXAMINATION TYPE: Axial Bone Density DATE OF EXAM: 03/16/2018 COMPARISON: 07.17.2015 CLINICAL HISTORY: 77 YR OLD FEMALE.....ICD-10 CODE: Z79.890 POST MENOPAUSAL Height: 63.2 Weight: 244 FRAX RISK QUESTIONS: NOTHING TO NOTE HERE RISK FACTORS HISTORY OF: Postmenopausal woman: YES, LATE 40'S...MEMORY NOT GOOD Lost more than 2 inches in height since high school: YES Frequent falls: FOOT NEUROPATHY, HARD TO WALK Poor Health: CANCER X2 MEDICATIONS: Additional Medications: FEMARA, CALCIUM, HX OF CHEMO AND RADIATION, BP PILLS X2, ORAL DIABETIC MEDS, VIT D Additional History: HX OF RT BREAST CANCER, NOVEMBER 2017 RT MASTECTOMY, UTERINE CA 6 YRS AGO, NEUROPA THY IN FEET EXAM MEASUREMENTS: Bone mineral densitometry was performed using the [employer] System. Bone mineral density as measured about the Lumbar spine is: ----- L1-L4(G/cm2): 1.182 T Score Values are as follows: ----- L1: -0.4 ----- L2: -1.3 ----- L3: -0.3 ----- L4: 1.3 ----- L1-L4: 0.0 Bone mineral density has: Increased 2.2% since study of: 07.17.2015 Bone mineral density about the R hip (g/cm2): 0.802 Bone mineral density about the L hip (g/cm2): 0.801 T Score values are as follows: -----R Neck: -1.8 -----L Neck: -1.4 -----R Total: -1.6 -----L Total: -1.6 Bone mineral density has: Decreased -1.5% since study of: 07.17.2015 FRAX%s: THERE IS A 12.3% CHANCE FOR A MAJOR OSTEOPOROTIC FX AND A 3.0% FOR HIP.....PROBABILITY OF F X IN 10 YRS TIME IMPRESSION: Osteopenia (T Score between -2.5 and -1). There is slightly increased risk of fracture and the patient may be considered for treatment. Re-Screen 2-5 years. NOTE: T-SCORE=SD OF THE YOUNG ADULT MEAN.
== END | disposition home or self-care (01) ==
LOC: RADBDWWP 14:14
PROVIDERS: ATTEND Internal Medicine Hematology & Oncology
DX: C50.411 Malignant neoplasm of upper-outer quadrant of right female breast (principal); M85.88 Other specified disorders of bone density and structure, other site; Z79.890 Hormone replacement therapy
CPT/HCPCS: 77080

== ENCOUNTER → 2018-11-08 | Outpatient (CLI) | payer MEDICARE, BC ==
--- NOTE | 2018-11-08 13:53 | MM ---
Reason for exam: additional evaluation requested from prior study. Last mammogram was performed 1 year ago. History: Patient is postmenopausal, has history of breast cancer at age 77, and has history of endometrial cancer at age 72. Mastectomy of the right breast, November 29, 2017. Malignant US biopsy breast VAD RT of the right breast, November 09, 2017. Taking antineoplastic for 1 year beginning at age 77. Physical Findings: Nurse did not find any significant physical abnormalities on exam. MG 3D Diag Mammo W/Cad LT CC and MLO view(s) were taken of the left breast. Prior study comparison: November 09, 2017, right breast MG diagnostic mammo RT wo CAD. October 05, 2017, right breast MG 3d work up w/cad RT. The breast tissue is heterogeneously dense. This may lower the sensitivity of mammography. No suspicious abnormality. Chronic nipple inversion. These results were verbally communicated with the patient and result sheet given to the patient on 11/08/18. ASSESSMENT: Benign, BI-RAD 2 RECOMMENDATION: Follow-up diagnostic mammogram of the left breast in 1 year.
== END | disposition home or self-care (01) ==
LOC: RADMAMWWP 12:50
PROVIDERS: ATTEND Family Medicine
DX: Z08 Encounter for follow-up examination after completed treatment for malignant neoplasm (principal); Z85.3 Personal history of malignant neoplasm of breast; Z78.0 Asymptomatic menopausal state
CPT/HCPCS: 77065; G0279; 77061

== ENCOUNTER → 2020-01-16 | Outpatient (CLI) | payer MEDICARE, BC ==
--- NOTE | 2020-01-17 08:24 | MM ---
Reason for exam: additional evaluation requested from prior study. Last mammogram was performed 1 year and 2 months ago. History: Patient is postmenopausal, has history of breast cancer at age 77, and has history of endometrial cancer at age 72. Mastectomy of the right breast, November 29, 2017. Malignant US biopsy breast VAD RT of the right breast, November 09, 2017. Taking antineoplastic for 1 year beginning at age 77. Physical Findings: Nurse did not find any significant physical abnormalities on exam. MG 3D Diag Mammo W/Cad LT CC, MLO, and XCCL view(s) were taken of the left breast. Prior study comparison: November 08, 2018, left breast MG 3d diag mammo w/cad LT. November 09, 2017, right breast MG diagnostic mammo RT wo CAD. There are scattered fibroglandular densities. Stable benign calcifications. There is no discrete abnormality. No significant new findings when compared with previous films. These results were verbally communicated with the patient and result sheet given to the patient on 01/16/20. ASSESSMENT: Benign, BI-RAD 2 RECOMMENDATION: Follow-up diagnostic mammogram of the left breast in 1 year.
== END | disposition home or self-care (01) ==
LOC: RADMAMWWP 13:19
PROVIDERS: ATTEND Family Medicine
DX: Z08 Encounter for follow-up examination after completed treatment for malignant neoplasm (principal); Z85.3 Personal history of malignant neoplasm of breast; Z78.0 Asymptomatic menopausal state
CPT/HCPCS: 77065; G0279; 77061

== ENCOUNTER → 2020-03-27 | Outpatient (CLI) | payer MEDICARE, BC ==
--- NOTE | 2020-03-27 19:57 | BD ---
EXAMINATION TYPE: Axial Bone Density DATE OF EXAM: 03/27/2020 COMPARISON: 03.16.2018 CLINICAL HISTORY: 79 YR OLD FEMALE......ICD-10 CODE: Z79.890 POST MENOPAUSAL Height: 62.9 Weight: 241 FRAX RISK QUESTIONS: Secondary Osteoporosis: YES 3. Menopause before 45: YES AT 43 RISK FACTORS HISTORY OF: Active: IN WHEEL CHAIR Postmenopausal woman: YES, AT AGE 43 YRS OLD Lost more than 2 inches in height since high school: YES Frequent falls: FOOT NEUROPATHY Poor Health: W/C Hyperparathyroidism: NO Adrenal Insufficiency: NO MEDICATIONS: Thyroid Medications: YES, SYNTHROID, 10+ YRS, Additional Medications: BP MEDS, ANASTROZOLE FOR BREAST CANCER, METFORMIN, REFLUX MEDS, CALCIUM AND VIT D, CHEMO AND RADIATION FOR UTERINE CANCER, Additional History: HX OF RT BREAST CANCER, UTERINE CANCER, DIABETES, HYPERTENSION, NEUROPATHY, HX OF MASTECTOMY RT BREAST EXAM MEASUREMENTS: Bone mineral densitometry was performed using the [employer] System. Bone mineral density as measured about the Lumbar spine is: ----- L1-L4(G/cm2): 1.327 T Score Values are as follows: ----- L1: 0.2 ----- L2: 0.2 ----- L3: 2.2 ----- L4: 1.7 ----- L1-L4: 1.2 Bone mineral density has: Increased 13.8% since study of: 03.16.2018 Bone mineral density about the R hip (g/cm2): 0.774 Bone mineral density about the L hip (g/cm2): 0.801 T Score values are as follows: -----R Neck: -1.6 -----L Neck: -0.5 -----R Total: -1.9 -----L Total: -1.6 Bone mineral density has: Decreased -1.9% since study of: 03.16.2018 FRAX%s: THERE IS A 12.1% CHANCE FOR A MAJOR OSTEOPOROTIC FX AND A 2.9% FOR HIP.......PROBABILITY FO R FX IN 10 YRS TIME IMPRESSION: Osteopenia (T Score between -2.5 and -1). There is slightly increased risk of fracture and the patient may be considered for treatment. Re-Screen 2-5 years. NOTE: T-SCORE=SD OF THE YOUNG ADULT MEAN.
== END | disposition home or self-care (01) ==
LOC: RADBDWWP 12:43
PROVIDERS: ATTEND Internal Medicine Hematology & Oncology
DX: C50.411 Malignant neoplasm of upper-outer quadrant of right female breast (principal); M85.80 Other specified disorders of bone density and structure, unspecified site; Z79.890 Hormone replacement therapy; Z88.5 Allergy status to narcotic agent
CPT/HCPCS: 77080

== ENCOUNTER → 2021-02-11 | Outpatient (CLI) | payer MEDICARE, BC ==
--- NOTE | 2021-02-12 10:08 | MM ---
Reason for exam: additional evaluation requested from prior study. Last mammogram was performed 1 year and 1 month ago. History: Patient is postmenopausal, has history of breast cancer at age 77, and has history of endometrial cancer at age 72. Mastectomy of the right breast, November 29, 2017. Malignant US biopsy breast VAD RT of the right breast, November 09, 2017. Taking antineoplastic for 1 year beginning at age 77. Physical Findings: Nurse did not find any significant physical abnormalities on exam. MG 3D Diag Mammo W/Cad LT CC and MLO view(s) were taken of the left breast. Prior study comparison: January 16, 2020, left breast MG 3d diag mammo w/cad LT. November 08, 2018, left breast MG 3d diag mammo w/cad LT. The breast tissue is heterogeneously dense. This may lower the sensitivity of mammography. Benign appearing calcifications in the left breast. These results were verbally communicated with the patient and result sheet given to the patient on 02/11/21. ASSESSMENT: Benign, BI-RAD 2 RECOMMENDATION: Follow-up diagnostic mammogram of the left breast in 1 year.
== END | disposition home or self-care (01) ==
LOC: RADMAMWWP 14:38
PROVIDERS: ATTEND Family Medicine
DX: R92.1 Mammographic calcification found on diagnostic imaging of breast (principal); R92.2 Inconclusive mammogram; Z78.0 Asymptomatic menopausal state; Z85.3 Personal history of malignant neoplasm of breast
CPT/HCPCS: 77065; G0279; 77061

== ENCOUNTER → 2022-03-29 | Outpatient (CLI) | payer MEDICARE, BC ==
--- NOTE | 2022-03-29 13:05 | BD ---
EXAMINATION TYPE: Axial Bone Density DATE OF EXAM: 03/29/2022 COMPARISON: 03-27-2020 CLINICAL HISTORY: 81 years year old Female. ICD-10 CODE: C50.411 Breast ca Height: 63.5IN Weight: 231LB FRAX RISK QUESTIONS: History of Fracture in Adulthood: YES Secondary Osteoporosis: 3. Menopause before 45: YES RISK FACTORS HISTORY OF: History of Wrist Fracture: YES, PT CAN'T RECALL WHICH SIDE When: 30 + YEARS AGO Active: NO Diet low in dairy products/other sources of calcium: YES Postmenopausal woman: YES Lost more than 2 inches in height since high school: YES Poor Health: FAIR MEDICATIONS: Thyroid Medications: Which medication: Synthroid How Lon+YEARS Additional Medications: BP MED, ANASTROZOLE, METFORMIN, CALCIUM WITH VITAMIN D Additional History: UTERINE AND BREAST CANCER EXAM MEASUREMENTS: Bone mineral densitometry was performed using the [employer] System. Bone mineral density as measured about the Lumbar spine is: ----- L1-L4(G/cm2): 1.210 T Score Values are as follows: ----- L1: -0.1 ----- L2: -0.3 ----- L3: 0.1 ----- L4: 1.0 ----- L1-L4: 0.3 Bone mineral density has: Decreased -10.0% since study of: 03-27-2020 Bone mineral density about the R hip (g/cm2): 0.683 Bone mineral density about the L hip (g/cm2): 0.754 T Score values are as follows: -----R Neck: -2.6 -----L Neck: -1.9 -----R Total: -2.6 -----L Total: -2.0 Bone mineral density has: Decreased -11.8% since study of: 03-27-2020 FRAX%s: The graph provided illustrates a 18.0% chance for a major osteoporotic fx and a 6.4% chance f or the hips probability for fx in 10 years time. IMPRESSION: Osteoporosis (T Score less than -2.5). There is increased fracture risk and therapy is usually indicated based on age. Re-Screen 1-2 years. NOTE: T-SCORE=SD OF THE YOUNG ADULT MEAN.
== END | disposition home or self-care (01) ==
LOC: RADBDWWP 11:43
PROVIDERS: ATTEND Internal Medicine Hematology & Oncology
DX: C50.411 Malignant neoplasm of upper-outer quadrant of right female breast (principal); M81.0 Age-related osteoporosis without current pathological fracture
CPT/HCPCS: 77080

== ENCOUNTER 2022-05-28 12:25 | Inpatient (IN) | payer MEDICARE, BC ==
--- NOTE | 2022-05-28 13:24 | ED ---
General Adult HPI - General Chief complaint: Shortness of Breath Stated complaint: SOB Time Seen by Provider: 05/28/22 12:30 Source: patient, RN notes reviewed, old records reviewed Mode of arrival: wheelchair Limitations: no limitations - History of Present Illness Initial comments: This is an 81-year-old female presents emergency Department complaining shortness of breath per patient states his been ongoing for 3 weeks and getting progressively worse. Patient states her some day she feels better than others but overall she is gradually getting worse. Patient denies any chest pain or palpitations. Patient denies any underlying breathing problems. Patient states she has however had significant swelling to both legs for years and she's on Las ix currently. Patient states she's never had congestive heart failure pulmonary edema that she knows of. Patient states lying down his deftly making the shortness of breath worse as of late. Patient denies any fever chills or cough per patient denies abdominal pain patient's nausea vomiting diarrhea. Patient does not notice any areas of redness or lesions that appear infected to her. - Related Data Home Medications Medication Instructions Recorded Confirmed atenoloL [Tenormin] 50 mg PO BID 11/07/15 05/28/22 metFORMIN HCL [Glucophage] 1,000 mg PO BID 11/07/15 05/28/22 Levothyroxine Sodium [Synthroid] 75 mcg PO QAM 10/27/17 05/28/22 Alendronate Sodium [Fosamax] 70 mg PO CORLEY 05/28/22 05/28/22 Anastrozole 1 mg PO DAILY 05/28/22 05/28/22 Furosemide [Lasix] 40 mg PO DAILY 05/28/22 05/28/22 amLODIPine [Norvasc] 5 mg PO BID 05/28/22 05/28/22 Allergies Allergy/AdvReac Type Severity Reaction Status Date / Time codeine AdvReac Nausea & Verified 05/28/22 13:32 Vomiting Review of Systems ROS Statement: Those systems with pertinent positive or pertinent negative responses have been documented in the HPI. ROS Other: All systems not noted in ROS Statement are negative. Past Medical History Past Medical History: Cancer, Diabetes Mellitus, Hypertension, Osteoarthritis (OA), Thyroid Disorder Additional Past Medical History / Comment(s): hx UTERINE CANCER(chemo and radia tion 5 yrs ago). NEUROPATHY IN FEET, diarrhea, rt breast cancer, History of Any Multi-Drug Resistant Organisms: None Reported Past Surgical History: Appendectomy, Breast Surgery, Cholecystectomy, Hysterectomy Additional Past Surgical History / Comment(s): rt breast biopsy. right breast mastectomy 11/29/17 Past Anesthesia/Blood Transfusion Reactions: Motion Sickness, Postoperative Nausea & Vomiting (PONV) Additional Past Anesthesia/Blood Transfusion Reaction / Comment(s): PONV after gallbladder surgery Past Psychological History: No Psychological Hx Reported Past Alcohol Use History: None Reported Past Drug Use History: None Reported - Past Family History Mother Family Medical History: No Reported History Father Family Medical History: Myocardial Infarction ([place]) Brother(s) Family Medical History: Cancer Additional Family Medical History / Comment(s): prostate General Exam - General Exam Comments Initial Comments: GENERAL: Patient is well-developed and well-nourished. Patient is nontoxic and well- hydrated and is in mild distress. ENT: Neck is soft and supple. No significant lymphadenopathy is noted. Oropharynx is clear. Dry mucous membranes. Neck has full range of motion without eliciting any pain. EYES: The sclera were anicteric and conjunctiva were pink and moist. Extraocular movements were intact and pupils were equal round and reactive to light. Eyelids were unremarkable. PULMONARY: Unlabored respirations. Good breath sounds bilaterally. No audible rales rhonchi or wheezing was noted. CARDIOVASCULAR: There is a regular rate and rhythm without any murmurs gallops or rubs. ABDOMEN: Soft and nontender with normal bowel sounds. SKIN: Skin is clear with no lesions or rashes and otherwise unremarkable. NEUROLOGIC: Patient is alert and oriented x3. Cranial nerves II through XII are grossly intact. Motor and sensory are also intact. Normal speech, volume and content. Symmetrical smile. MUSCULOSKELETAL: Normal extremities with adequate strength and full range of motion. Patient has chronic cellulitis bilaterally LYMPHATICS: No significant lymphadenopathy is noted PSYCHIATRIC: Normal psychiatric evaluation. Limitations: no limitations Course Vital Signs 05/28/22 05/28/22 12:30 15:46 Temperature 97.9 F Pulse Rate 69 68 Respiratory 36 H 18 Rate Blood Pressure 150/72 118/55 O2 Sat by Pulse 87 L 99 Oximetry Medical Decision Making - Medical Decision Making EKG was interpreted by myself shows a junctional rhythm at a rate of 65 bpm MN interval 111 QRS is 135 QT interval 440 QTC is 451. Patient's EKG shows a right bundle branch block. There is no ST segment elevation Was pt. sent in by a medical professional or institution (ZAIDA Russell, [employer] CONTAINER F[employer]ER, urgent care, hospital, or care home...) When possible be specific @ -No Did you speak to anyone other than the patient for history (EMS, parent, family, police, friend...)? What history was obtained from this source @ -No Did you review nursing and triage notes (agree or disagree)? Why? @ -I reviewed and agree with nursing and triage notes Were old charts reviewed (outside hosp., previous admission, EMS record, old EKG, old radiological studies, urgent care reports/EKG's, care home records)? Report findings @ -I reviewed prior x-rays and prior laboratories results and compared to today's Differential Diagnosis (chest pain, altered mental status, abdominal pain women, abdominal pain men, vaginal bleeding, weakness, fever, dyspnea, syncope, heada lul, dizziness, GI bleed, back pain, seizure, CVA, palpatations, mental health, musculoskeletal)? @ -Differential Dyspnea: Coronary syndrome, arrhythmia, tamponade, asthma, COPD, pulmonary embolism, pneumonia, pneumothorax, pulmonary effusion, anaphylaxis, diabetic ketoacidosis, flailed chest, pulmonary contusion, diaphragmatic rupture, anemia, neuromuscular, this is not meant to be an all-inclusive list. EKG interpreted by me (3pts min.). @ -As above X-rays interpreted by me (1pt min.). @ -Chest x-ray was interpreted by myself that shows pulmonary edema. CT interpreted by me (1pt min.). @ -None done U/S interpreted by me (1pt. min.). @ -None done What testing was considered but not performed or refused? (CT, X-rays, U/S, labs)? Why? @ -None What meds were considered but not given or refused? Why? @ -None Did you discuss the management of the patient with other professionals (professionals i.e. ZAIDA Russell, PR[employer] CONTAINER F[employer]ER, lab, RT, psych nurse, social service agency director, volunteer services manager, teacher, booking police officer, case hardener)? Give summary @ -I spoke with Dr. Melendez she agreed to admit the patient admitted the patient I wrote admitting orders Was smoking cessation discussed for >3mins.? @ -No Was critical care preformed (if so, how long)? @ -35 minutes Were there social determinants of health that impacted care today? How? (Homelessness, low income, unemployed, alcoholism, drug addiction, transportation, low edu. Level, literacy, decrease access to med. care, halfway, rehab)? @ -No Was there de-escalation of care discussed even if they declined (Discuss DNR or withdrawal of care, Hospice)? DNR status @ -No What co-morbidities impacted this encounter? (DM, HTN, Smoking, COPD, CAD, Cancer, CVA, ARF, Chemo, Hep., AIDS, mental health diagnosis, sleep apnea, morbid obesity)? @ -None Was patient admitted / discharged? Hospital course, mention meds given and route, prescriptions, significant lab abnormalities, going to OR and other pertinent info. @ -She came in for difficulty breathing chest x-ray showed pulmonary edema. Patient was started on Lasix. I spoke with Dr. Roberson he agreed to admit the patient admitted the patient wrote admitting orders I continued Lasix on the floor as well as nitrates I consulted cardiology Undiagnosed new problem with uncertain prognosis? @ -No Drug Therapy requiring intensive monitoring for toxicity (Heparin, Nitro, Insulin, Cardizem)? @ -No Were any procedures done? @ -No Diagnosis/symptom? @ -Acute pulmonary edema Acute, or Chronic, or Acute on Chronic? @ -Acute Uncomplicated (without systemic symptoms) or Complicated (systemic symptoms)? @ -Complicated Side effects of treatment? @ -No Exacerbation, Progression, or Severe Exacerbation? @ -Severe exacerbation Poses a threat to life or bodily function? How? (Chest pain, USA, PA, pneumonia, PE, COPD, DKA, ARF, appy, cholecystitis, CVA, Diverticulitis, Homicidal, Suicidal, threat to staff... and all critical care pts) @ -Yes this can lead to hypoxia and end organ dysfunction - Lab Data Result diagrams: 05/28/22 17:26 05/28/22 17:26 Lab Results 05/28/22 05/28/22 05/28/22 Range/Units 17:26 17:26 17:26 WBC 11.3 H (3.8-10.6) k/uL RBC 4.64 (3.80-5.40) m/uL Hgb 13.1 (11.4-16.0) gm/dL Hct 41.2 (34.0-46.0) % MCV 88.8 (80.0-100.0) fL MCH 28.2 (25.0-35.0) pg MCHC 31.8 (31.0-37.0) g/dL RDW 14.1 (11.5-15.5) % Plt Count 398 (150-450) k/uL MPV 8.1 Neutrophils % 75 % Lymphocytes % 10 % Monocytes % 9 % Eosinophils % 4 % Basophils % 1 % Neutrophils # 8.6 H (1.3-7.7) k/uL Lymphocytes # 1.1 (1.0-4.8) k/uL Monocytes # 1.0 (0-1.0) k/uL Eosinophils # 0.4 (0-0.7) k/uL Basophils # 0.1 (0-0.2) k/uL PT 10.4 (9.0-12.0) sec INR 1.0 (<1.2) APTT 24.2 (22.0-30.0) sec D-Dimer 0.80 H (<0.60) mg/L FEU Sodium 135 L (137-145) mmol/L Potassium 5.6 H (3.5-5.1) mmol/L Chloride 102 (98-107) mmol/L Carbon Dioxide 29 (22-30) mmol/L Anion Gap 4 mmol/L BUN 14 (7-17) mg/dL Creatinine 0.67 (0.52-1.04) mg/dL Est GFR (CKD-EPI)AfAm >90 (>60 ml/min/1.73 sqM) Est GFR (CKD-EPI)NonAf 82 (>60 ml/min/1.73 sqM) Glucose 114 H (74-99) mg/dL Plasma Lactic Acid Mirza (0.7-2.0) mmol/L Calcium 8.4 (8.4-10.2) mg/dL Magnesium 2.0 (1.6-2.3) mg/dL Total Bilirubin 0.9 (0.2-1.3) mg/dL AST 38 H (14-36) U/L ALT 15 (4-34) U/L Alkaline Phosphatase 50 (38-126) U/L Troponin I (0.000-0.034) ng/mL NT-Pro-B Natriuret Pep pg/mL Total Protein 6.7 (6.3-8.2) g/dL Albumin 3.4 L (3.5-5.0) g/dL 05/28/22 05/28/22 05/28/22 Range/Units 17:26 17:26 17:26 WBC (3.8-10.6) k/uL RBC (3.80-5.40) m/uL Hgb (11.4-16.0) gm/dL Hct (34.0-46.0) % MCV (80.0-100.0) fL MCH (25.0-35.0) pg MCHC (31.0-37.0) g/dL RDW (11.5-15.5) % Plt Count (150-450) k/uL MPV Neutrophils % % Lymphocytes % % Monocytes % % Eosinophils % % Basophils % % Neutrophils # (1.3-7.7) k/uL Lymphocytes # (1.0-4.8) k/uL Monocytes # (0-1.0) k/uL Eosinophils # (0-0.7) k/uL Basophils # (0-0.2) k/uL PT (9.0-12.0) sec INR (<1.2) APTT (22.0-30.0) sec D-Dimer (<0.60) mg/L FEU Sodium (137-145) mmol/L Potassium (3.5-5.1) mmol/L Chloride (98-107) mmol/L Carbon Dioxide (22-30) mmol/L Anion Gap mmol/L BUN (7-17) mg/dL Creatinine (0.52-1.04) mg/dL Est GFR (CKD-EPI)AfAm (>60 ml/min/1.73 sqM) Est GFR (CKD-EPI)NonAf (>60 ml/min/1.73 sqM) Glucose (74-99) mg/dL Plasma Lactic Acid Mirza 0.8 (0.7-2.0) mmol/L Calcium (8.4-10.2) mg/dL Magnesium (1.6-2.3) mg/dL Total Bilirubin (0.2-1.3) mg/dL AST (14-36) U/L ALT (4-34) U/L Alkaline Phosphatase (38-126) U/L Troponin I <0.012 (0.000-0.034) ng/mL NT-Pro-B Natriuret Pep 2140 pg/mL Total Protein (6.3-8.2) g/dL Albumin (3.5-5.0) g/dL Disposition Clinical Impression: Acute pulmonary edema Disposition: ADMITTED IP TO THIS HOSP Referrals: Nigel Marlow MD [Primary Care Provider] - 1-2 days Time of Disposition: 18:24
--- NOTE | 2022-05-28 14:39 | XR ---
EXAMINATION TYPE: XR chest 2V DATE OF EXAM: 05/28/2022 COMPARISON: Chest x-ray December 21, 2017 HISTORY: Difficulty in breathing. TECHNIQUE: Frontal and lateral views of the chest are obtained. FINDINGS: Cardiomegaly is redemonstrated with atherosclerotic thoracic aorta. There are small bilate ral pleural effusions left greater than right on current study. There is mild to moderate central vas cular congestion. There is no suspicious focal airspace opacity or pneumothorax seen. There is multi level spurring and bridging osteophytes in the thoracic spine. IMPRESSION: Findings consistent with CHF exacerbation are felt present as detailed above. Correlate clinically.
[2022-05-28 17:38] LABS: Basophils # (A) 0.1 k/uL (0-0.2); Basophils % (A) 1 %; Eosinophils # (A) 0.4 k/uL (0-0.7); Eosinophils % (A) 4 %; HCT 41.2 % (34.0-46.0); HGB 13.1 gm/dL (11.4-16.0); Lymphocytes # (A) 1.1 k/uL (1.0-4.8); Lymphocytes % (A) 10 %; MCH 28.2 pg (25.0-35.0); MCHC 31.8 g/dL (31.0-37.0); MCV 88.8 fL (80.0-100.0); Mean Platelet Volume 8.1; Monocytes % (A) 9 %; Neutrophils # (A) 8.6 k/uL (1.3-7.7); Neutrophils % (A) 75 %; Platelet Count 398 k/uL (150-450); RBC 4.64 m/uL (3.80-5.40); RDW 14.1 % (11.5-15.5); WBC 11.3 k/uL (3.8-10.6)
[2022-05-28 17:53] LABS: ALT 15 U/L (4-34); AST 38 U/L (14-36); African American GFR (CKD) >90 (>60 ml/min/1.73 sqM); Albumin 3.4 g/dL (3.5-5.0); Alkaline Phosphatase 50 U/L (38-126); Anion Gap 4 mmol/L; Blood Urea Nitrogen 14 mg/dL (7-17); Calcium 8.4 mg/dL (8.4-10.2); Carbon Dioxide 29 mmol/L (22-30); Chloride 102 mmol/L (98-107); Glucose 114 mg/dL (74-99); Non-African American GFR(CKD) 82 (>60 ml/min/1.73 sqM); Sodium 135 mmol/L (137-145); Total Bilirubin 0.9 mg/dL (0.2-1.3); Total Protein 6.7 g/dL (6.3-8.2)
[2022-05-28 17:55] LABS: Partial Thromboplastin Time 24.2 sec (22.0-30.0); Prothrombin Time 10.4 sec (9.0-12.0)
[2022-05-28 17:57] LABS: Potassium 5.6 mmol/L (3.5-5.1)
[2022-05-28] MEDS ORDERED: FUROSEMIDE 10 MG/ML 10 ML VIAL IV STA (18:00)
[2022-05-29] MEDS: FUROSEMIDE 10 MG/ML 4 ML VIAL IV SCH ×3 (01:04→17:21)
[2022-05-29] MEDS: NITROGLYCERIN OINT 1 INCH/GM PACKET TOPICAL SCH ×4 (01:22→18:10)
[2022-05-29] MEDS ORDERED: DEXTROSE 50% SYRINGE 50 ML IVP PRN ×2 (08:22)
[2022-05-29] MEDS ORDERED: atenoloL 50 MG TAB PO SCH (09:00)
[2022-05-29] MEDS ORDERED: amLODIPine 5 MG TAB PO SCH (09:00)
[2022-05-29] MEDS: ANASTROZOLE 1 MG TAB PO SCH (09:40)
[2022-05-29] MEDS: carvediloL 12.5 MG TAB PO SCH ×2 (09:40→17:22)
[2022-05-29] MEDS: LEVOTHYROXINE 75 MCG TAB PO SCH (09:40)
[2022-05-29] MEDS: TRIAMCINOLONE ACET 0.1% OINTMENT 15 GM TUBE TOPICAL SCH ×2 (09:40→17:22)
--- NOTE | 2022-05-29 09:58 | P.CNPUL ---
History of Present Illness Consult date: 05/29/22 Reason for consult: dyspnea History of present illness: 80-year-old female patient presents to the hospital because of shortness of breath. The patient is known to have diabetes and hypertension. The patient is also known to have previous uterine and breast cancer and the patient has undergone previous right-sided mastectomy. The patient came into the emergency department because of worsening shortness of breath. The patient was progress ively getting worse over the past 3 weeks. Denies having any chest pain. No palpitations. She admitted to have some increased swelling in lower oximetry is bilaterally. No known history of congestion heart failure. No history of any heart disease. The patient in the emergency was found to be quite hypoxic. She was placed on oxygen and currently she is on 4 L nasal cannula. Chest x-ray was done and it was consistent with pulmonary edema. There was also increased interstitial markings bilaterally. Normal coagulation profile. D-dimer is 0.8. The this current 11.3 with a hemoglobin 15.5 and a platelet count of 398. ProBNP level was 2140, potassium level is 5.6, BUN is at 14 with a creatinine of 0.6 and his sodium level is at 135. The EKG showed a bundle branch block pattern. The patient had a right bundle-branch block and sinus rhythm. Based on that, the patient was hospitalized. She was started on IV Lasix and the patient is currently receiving Lasix 40 mg every 8 hours. She is also on Coreg 12.5 mg twice a day. Over the past 10-12 hours, the patient has been diuresing adequately. Noted the patient's chronic lower extremity edema lower extremities and chronic venous stasis. She has a maternal Lasix on outpatient basis Review of Systems Constitutional: Reports fatigue, Reports weight gain Eyes: denies as per HPI, denies blurred vision, denies bulging eye, denies decreased vision, denies diplopia, denies discharge, denies dry eye, denies irritation, denies itching, denies pain, denies photophobia, denies loss of peripheral vision, denies loss of vision, denies tunnel vision/blind spots Ears: deny: decreased hearing, ear discharge, earache, tinnitus Ears, nose, mouth and throat: Reports as per HPI Breasts: absent: as per HPI, change in shape, gynecomastia, masses, nipple discharge, pain, skin changes, swelling Cardiovascular: Reports decreased exercise tolerance, Reports dyspnea on exert ion, Reports edema, Reports leg edema, Reports shortness of breath Respiratory: Reports congestion, Reports dyspnea, Reports snoring Gastrointestinal: Reports as per HPI Genitourinary: Reports as per HPI Menstruation: Reports as per HPI Musculoskeletal: Reports as per HPI Musculoskeletal: bilateral: ankle swelling, absent: ankle pain, ankle stiffness Integumentary: Reports as per HPI Neurological: Reports as per HPI Endocrine: Reports as per HPI Hematologic/Lymphatic: Reports as per HPI Allergic/Immunologic: Reports as per HPI Past Medical History Past Medical History: Cancer, Diabetes Mellitus, Hypertension, Osteoarthritis (OA), Thyroid Disorder Additional Past Medical History / Comment(s): hx UTERINE CANCER(chemo and radiation 5 yrs ago). NEUROPATHY IN FEET, diarrhea, rt breast cancer, History of Any Multi-Drug Resistant Organisms: None Reported Past Surgical History: Appendectomy, Breast Surgery, Cholecystectomy, Hysterectomy Additional Past Surgical History / Comment(s): rt breast biopsy. right breast mastectomy 11/29/17 Past Anesthesia/Blood Transfusion Reactions: Motion Sickness, Postoperative Nausea & Vomiting (PONV) Additional Past Anesthesia/Blood Transfusion Reaction / Comment(s): PONV after gallbladder surgery Past Psychological History: No Psychological Hx Reported Past Alcohol Use History: None Reported Past Drug Use History: None Reported - Past Family History Mother Family Medical History: No Reported History Father Family Medical History: Myocardial Infarction ([place]) Brother(s) Family Medical History: Cancer Additional Family Medical History / Comment(s): prostate Medications and Allergies Home Medications Medication Instructions Recorded Confirmed Type atenoloL [Tenormin] 50 mg PO BID 11/07/15 05/28/22 History metFORMIN HCL [Glucophage] 1,000 mg PO BID 11/07/15 05/28/22 History Levothyroxine Sodium [Synthroid] 75 mcg PO QAM 10/27/17 05/28/22 History Alendronate Sodium [Fosamax] 70 mg PO CORLEY 05/28/22 05/28/22 History Anastrozole 1 mg PO DAILY 05/28/22 05/28/22 History Furosemide [Lasix] 40 mg PO DAILY 05/28/22 05/28/22 History amLODIPine [Norvasc] 5 mg PO BID 05/28/22 05/28/22 History Allergies Allergy/AdvReac Type Severity Reaction Status Date / Time codeine AdvReac Nausea & Verified 05/28/22 13:32 Vomiting Physical Exam Vitals: Vital Signs Temp Pulse Pulse Resp BP BP Pulse Ox 05/29/22 09:39 86 159/76 05/29/22 08:38 99 05/29/22 08:06 97.2 F L 82 16 151/70 05/29/22 07:36 79 20 119/58 96 05/29/22 06:49 73 20 108/65 95 05/29/22 01:13 67 20 119/46 97 05/28/22 23:36 80 20 130/50 97 05/28/22 21:51 86 122/65 92 L 05/28/22 20:00 76 20 126/56 96 05/28/22 18:00 82 20 131/76 95 05/28/22 15:46 68 18 118/55 99 05/28/22 12:30 97.9 F 69 36 H 150/72 87 L Currently, comfortable, breathing is nonlabored on 4 L of O2 nasal cannula Head exam was generally normal. There was no scleral icterus or corneal arcus. Mucous membranes were moist. Neck was supple and without jugular venous distension, thyromegaly, or carotid bruits. Carotids were easily palpable bilaterally. There was no adenopathy. Lungs although the medicine the patient has track of the lung bases bilaterally Cardiac exam revealed the PMI to be normally situated and sized. The rhythm was regular and no extrasystoles were noted during several minutes of auscultation. The first and second heart sounds were normal and physiologic splitting of the second heart sound was noted. There were no murmurs, rubs, clicks, or gallops. Abdominal exam revealed normal bowel sounds. The abdomen was soft, non-tender, and without masses, organomegaly, or appreciable enlargement of the abdominal aorta. Lower oximetry is show chronic edema and chronic venous stasis. No open wounds or ulceration. Diminished pulses bilaterally. Neurologically, the patient is awake and alert and the patient does not have any focal neurological deficit. Cranial nerves are essentially intact. Results - Laboratory Findings CBC and BMP: 05/28/22 17:26 05/28/22 17:26 PT/INR, D-dimer PT 10.4 sec (9.0-12.0) 05/28/22 17: INR 1.0 (<1.2) 05/28/22 17:26 D-Dimer 0.80 mg/L FEU (<0.60) H 05/28/22 17:26 Abnormal lab findings: Abnormal Labs 05/28/22 05/28/22 05/28/22 17:26 17:26 17:26 WBC 11.3 H Neutrophils # 8.6 H D-Dimer 0.80 H Sodium 135 L Potassium 5.6 H Glucose 114 H AST 38 H Albumin 3.4 L - Diagnostic Findings Chest x-ray: image reviewed Assessment and Plan Plan: Acute hypoxic respiratory failure, currently on 4 L of oxygen by nasal cannula, most consistent with CHF and fluid overload. The patient was started on diuretics. ProBNP level is elevated. Echocardiogram is pending Shortness of breath secondary to above Chronic lower oximetry edema with interval worsening in obvious weight gain Peripheral neuropathy involving lower extremities Previous history of breast cancer with previous right mastectomy currently on hormonal treatment Remote history of uterine cancer with previous hysterectomy followed by chemoradiation therapy Hypertension Hypothyroidism Diabetes mellitus Plan Echocardiogram to be done today Continue IV Lasix Monitor fluid balance Monitor body weight Monitor electrolytes Wean down FiO2 as tolerated to maintain saturation above 90% Cardiology consultation Resume all medications will continue to follow
[2022-05-29 10:15] VITALS: BMI 37.8
[2022-05-29 11:40] LABS: Glucose,Whole Blood 173 mg/dL (70-110)
--- NOTE | 2022-05-29 11:41 | P.CRDCN ---
History of Present Illness Consult date: 05/29/22 Consult reason: congestive heart failure History of present illness: The patient is an 81-year-old female presented to the hospital with worsening shortness of breath. She states this had been ongoing over the last 1-2 weeks. She states she is now unable to simply ambulate throughout her house. She states she does not have a cardiac history and follows with her local primary care provider Dr. Marlow regularly. She states he has been treating her for lymphedema. DIAGNOSTICS: EKG shows sinus rhythm with right bundle branch block Chest x-ray shows cardiomegaly and small bilateral pleural effusions and moderate central vascular congestion Lab data: WBC 11.3, hemoglobin 13.1, hematocrit 41.2, platelet 398, d-dimer 0.8, sodium 135, potassium 5.6, BUN 14, creatinine 0.67, AST 38, ALT 15, troponin 0.01, BNP 2140, TSH 2.12 REVIEW OF SYSTEMS: No fever or chills. No cough or expectoration. No diaphoresis. Patient denies headache, dizziness, blurred vision, double vision. Patient denies any stomach discomfort. No nausea, vomiting. No hematochezia. No hematemesis. Denies any black stools or blood in his stools. Denies dysuria or hematuria. No muscle weakness or numbness. Positive for dyspnea. Positive for orthopnea, however patient states that in the incline. Positive for weakness and fatigue. Negative for chest pain. PHYSICAL EXAMINATION: This is a 81-year-old obese female in mild respiratory distress at the time of my examination. HEENT: Head is atraumatic, normocephalic. Pupils are equal, round. Sclerae anicteric. Conjunctivae are clear. Mucous membranes of the mouth are moist. Neck is supple. There is no jugular venous distention. No carotid bruit is heard. CHEST EXAMINATION: Lungs are severely diminished to auscultation. Bilateral inspiratory and expiratory wheezes. No chest wall tenderness is noted on palpat ion or with deep breathing. HEART EXAMINATION: Heart regular rate and rhythm. S1, S2 heard. No murmurs, gallops or rub. ABDOMEN: Soft, nontender. Bowel sounds are heard. No organomegaly noted. EXTREMITIES: 1+ peripheral pulses. +2-3 peripheral edema with venous stasis dermatitis/cobblestone appearance. NEUROLOGIC EXAMINATION: Patient is awake, alert and oriented x3. IMPRESSION: New onset shortness of breath Elevated BNP, echocardiogram pending Elevated d-dimer, pulmonary consult pending History of hypertension History of venous insufficiency History of breast cancer History of diabetes Obesity, BMI 37 PLAN: Discontinue amlodipine and atenolol Start Carvedilol 12-1/2 mg twice a day Tomorrow we'll add WILLIAN inhibitor/angiotensin receptor mario Recheck electrolytes Further recommendations to be based upon clinical course I am dictating on behalf of Dr Lorne Charles's history/physical and assessment/plan. Past Medical History Past Medical History: Cancer, Diabetes Mellitus, Hypertension, Osteoarthritis (OA), Thyroid Disorder Additional Past Medical History / Comment(s): hx UTERINE CANCER(chemo and radiation 5 yrs ago). NEUROPATHY IN FEET, diarrhea, rt breast cancer, History of Any Multi-Drug Resistant Organisms: None Reported Past Surgical History: Appendectomy, Breast Surgery, Cholecystectomy, Hysterectomy Additional Past Surgical History / Comment(s): rt breast biopsy. right breast mastectomy 11/29/17 Past Anesthesia/Blood Transfusion Reactions: Motion Sickness, Postoperative Nausea & Vomiting (PONV) Additional Past Anesthesia/Blood Transfusion Reaction / Comment(s): PONV after gallbladder surgery Past Psychological History: No Psychological Hx Reported Past Alcohol Use History: None Reported Past Drug Use History: None Reported - Past Family History Mother Family Medical History: No Reported History Father Family Medical History: Myocardial Infarction ([place]) Brother(s) Family Medical History: Cancer Additional Family Medical History / Comment(s): prostate Medications and Allergies Home Medications Medication Instructions Recorded Confirmed Type atenoloL [Tenormin] 50 mg PO BID 11/07/15 05/28/22 History metFORMIN HCL [Glucophage] 1,000 mg PO BID 11/07/15 05/28/22 History Levothyroxine Sodium [Synthroid] 75 mcg PO QAM 10/27/17 05/28/22 History Alendronate Sodium [Fosamax] 70 mg PO CORLEY 05/28/22 05/28/22 History Anastrozole 1 mg PO DAILY 05/28/22 05/28/22 History Furosemide [Lasix] 40 mg PO DAILY 05/28/22 05/28/22 History amLODIPine [Norvasc] 5 mg PO BID 05/28/22 05/28/22 History Allergies Allergy/AdvReac Type Severity Reaction Status Date / Time codeine AdvReac Nausea & Verified 05/28/22 13:32 Vomiting Physical Exam Vitals: Vital Signs Temp Pulse Pulse Resp BP BP Pulse Ox 05/29/22 09:39 86 159/76 05/29/22 08:38 99 05/29/22 08:06 97.2 F L 82 16 151/70 05/29/22 07:36 79 20 119/58 96 05/29/22 06:49 73 20 108/65 95 05/29/22 01:13 67 20 119/46 97 05/28/22 23:36 80 20 130/50 97 05/28/22 21:51 86 122/65 92 L 05/28/22 20:00 76 20 126/56 96 05/28/22 18:00 82 20 131/76 95 05/28/22 15:46 68 18 118/55 99 05/28/22 12:30 97.9 F 69 36 H 150/72 87 L Intake and Output 05/28/22 05/29/22 05/29/22 22:59 06:59 14:59 Intake Total 118 Balance 118 Intake: Oral 118 Other: Weight 99.79 kg Results 05/28/22 17:26 05/28/22 17:26 Cardiac Enzymes 05/28/22 05/28/22 Range/Units 17:26 17:26 AST 38 H (14-36) U/L Troponin I <0.012 (0.000-0.034) ng/mL Coagulation 05/28/22 Range/Units 17:26 PT 10.4 (9.0-12.0) sec APTT 24.2 (22.0-30.0) sec CBC 05/28/22 Range/Units 17:26 WBC 11.3 H (3.8-10.6) k/uL RBC 4.64 (3.80-5.40) m/uL Hgb 13.1 (11.4-16.0) gm/dL Hct 41.2 (34.0-46.0) % Plt Count 398 (150-450) k/uL Comprehensive Metabolic Panel 05/28/22 Range/Units 17:26 Sodium 135 L (137-145) mmol/L Potassium 5.6 H (3.5-5.1) mmol/L Chloride 102 (98-107) mmol/L Carbon Dioxide 29 (22-30) mmol/L BUN 14 (7-17) mg/dL Creatinine 0.67 (0.52-1.04) mg/dL Glucose 114 H (74-99) mg/dL Calcium 8.4 (8.4-10.2) mg/dL AST 38 H (14-36) U/L ALT 15 (4-34) U/L Alkaline Phosphatase 50 (38-126) U/L Total Protein 6.7 (6.3-8.2) g/dL Albumin 3.4 L (3.5-5.0) g/dL Current Medications Generic Name Dose Route Start Last Admin Trade Name Freq PRN Reason Stop Dose Admin Anastrozole 1 mg 05/29/22 09:00 05/29/22 09:40 Anastrozole 1 Mg Tab PO 1 mg DAILY FAUSTO Administration Carvedilol 12.5 mg 05/29/22 08:45 05/29/22 09:40 Carvedilol 12.5 Mg Tab PO 12.5 mg BID-W/MEALS FAUSTO Administration Dextrose/Water 25 ml 05/29/22 08:22 Dextrose 50% Syringe 50 Ml IVP PER PROTOCOL PRN Hypoglycemia Protocol Dextrose/Water 50 ml 05/29/22 08:22 Dextrose 50% Syringe 50 Ml IVP PER PROTOCOL PRN Hypoglycemia Protocol Furosemide 40 mg 05/29/22 00:00 05/29/22 09:40 Furosemide 10 Mg/Ml 4 Ml Vial IV 40 mg Q8HR FAUSTO Administration Insulin Aspart 0 unit 05/29/22 12:30 Insulin Aspart (Novolog) 100 Unit/Ml Vial SQ ACHS [facility] Protocol Levothyroxine Sodium 75 mcg 05/29/22 09:00 05/29/22 09:40 Levothyroxine 75 Mcg Tab PO 75 mcg QAM@0630 FAUSTO Administration Nitroglycerin 1 inch 05/29/22 00:00 05/29/22 06:50 Nitroglycerin Oint 1 Inch/Gm Packet TOPICAL 05/30/22 00:01 1 inch Q6HR FAUSTO Administration Triamcinolone Acetonide 1 applic 05/29/22 09:00 05/29/22 09:40 Triamcinolone Acet 0.1% Ointment 15 Gm Tube TOPICAL 1 applic TID FAUSTO Administration Protocol Intake and Output 05/28/22 05/29/22 05/29/22 22:59 06:59 14:59 Intake Total 118 Balance 118 Intake: Oral 118 Other: Weight 99.79 kg Patient Weight 05/30/22 06:59 Weight 99.79 kg 05/28/22 17:26 05/28/22 17:26
[2022-05-29] MEDS: INSULIN ASPART (NovoLOG) 100 UNIT/ML VIAL SQ SCH ×3 (12:20→22:48)
--- NOTE | 2022-05-29 14:13 | P.HPIM ---
History of Present Illness H&P Date: 05/28/22 Chief Complaint: Shortness of breath 81-year-old female presents emergency Department complaining shortness of breath per patient states his been ongoing for 3 weeks and getting progressively worse. Patient states her some day she feels better than others but overall she is gradually getting worse. Patient denies any chest pain or palpitations. Patient denies any underlying breathing problems. Patient states she has however had significant swelling to both legs for years and she's on Lasix currently. Patient states she's never had congestive heart failure pulmonary edema that she knows of. Patient states lying down his deftly making the shortness of breath worse as of late. Patient denies any fever chills or cough per patient denies abdominal pain patient's nausea vomiting diarrhea. Patient does not notice any areas of redness or lesions that appear infected to her. Chest x-ray was done and it was consistent with pulmonary edema. There was also increased interstitial markings bilaterally. D-dimer is 0.8. WBC of 11.3 with a hemoglobin 15.5 and a platelet count of 398. ProBNP level was 2140, potassium level is 5.6, BUN is at 14 with a creatinine of 0.6 and his sodium level is at 135. The EKG showed sinus rhythm and a bundle branch block pattern. Review of Systems REVIEW OF SYSTEMS: CONSTITUTIONAL: No fever, no malaise, no fatigue. HEENT: No recent visual problems or hearing problems. Denied any sore throat. CARDIOVASCULAR: No chest pain, orthopnea, PND, no palpitations, no syncope. PULMONARY: No shortness of breath, no cough, no hemoptysis. GASTROINTESTINAL: No diarrhea, no nausea, no vomiting, no abdominal pain. NEUROLOGICAL: No headaches, no weakness, no numbness. HEMATOLOGICAL: Denies any bleeding or petechiae. GENITOURINARY: Denies any burning micturition, frequency, or urgency. MUSCULOSKELETAL/RHEUMATOLOGICAL: Denies any joint pain, swelling, or any muscle pain. ENDOCRINE: Denies any polyuria or polydipsia. The rest of the 14-point review of systems is negative. Past Medical History Past Medical History: Cancer, Diabetes Mellitus, Hypertension, Osteoarthritis (OA), Thyroid Disorder Additional Past Medical History / Comment(s): hx UTERINE CANCER(chemo and radiation 5 yrs ago). NEUROPATHY IN FEET, diarrhea, rt breast cancer, History of Any Multi-Drug Resistant Organisms: None Reported Past Surgical History: Appendectomy, Breast Surgery, Cholecystectomy, Hysterectomy Additional Past Surgical History / Comment(s): rt breast biopsy. right breast mastectomy 11/29/17 Past Anesthesia/Blood Transfusion Reactions: Motion Sickness, Postoperative Nausea & Vomiting (PONV) Additional Past Anesthesia/Blood Transfusion Reaction / Comment(s): PONV after gallbladder surgery Past Psychological History: No Psychological Hx Reported Past Alcohol Use History: None Reported Past Drug Use History: None Reported - Past Family History Mother Family Medical History: No Reported History Father Family Medical History: Myocardial Infarction ([place]) Brother(s) Family Medical History: Cancer Additional Family Medical History / Comment(s): prostate Medications and Allergies Home Medications Medication Instructions Recorded Confirmed Type atenoloL [Tenormin] 50 mg PO BID 11/07/15 05/28/22 History metFORMIN HCL [Glucophage] 1,000 mg PO BID 11/07/15 05/28/22 History Levothyroxine Sodium [Synthroid] 75 mcg PO QAM 10/27/17 05/28/22 History Alendronate Sodium [Fosamax] 70 mg PO CORLEY 05/28/22 05/28/22 History Anastrozole 1 mg PO DAILY 05/28/22 05/28/22 History Furosemide [Lasix] 40 mg PO DAILY 05/28/22 05/28/22 History amLODIPine [Norvasc] 5 mg PO BID 05/28/22 05/28/22 History Allergies Allergy/AdvReac Type Severity Reaction Status Date / Time codeine AdvReac Nausea & Verified 05/28/22 13:32 Vomiting Physical Exam Vitals: Vital Signs Temp Pulse Resp BP Pulse Ox 05/28/22 15:46 68 18 118/55 99 05/28/22 12:30 97.9 F 69 36 H 150/72 87 L Intake and Output 05/28/22 05/28/22 05/28/22 06:59 14:59 22:59 Other: Weight 99.79 kg PHYSICAL EXAMINATION: GENERAL: The patient is alert and oriented x3, not in any acute distress. Well developed, well nourished. HEENT: Pupils are round and equally reacting to light. EOMI. No scleral icterus. No conjunctival pallor. Normocephalic, atraumatic. No pharyngeal erythema. No thyromegaly. CARDIOVASCULAR: S1 and S2 present. No murmurs, rubs, or gallops. PULMONARY: Positive for crackles. ABDOMEN: Soft, nontender, nondistended, normoactive bowel sounds. No palpable organomegaly. MUSCULOSKELETAL: No joint swelling or deformity. EXTREMITIES: No cyanosis, clubbing, or pedal edema. NEUROLOGICAL: Gross neurological examination did not reveal any focal deficits. SKIN: No rashes. Results CBC & Chem 7: 05/28/22 17:26 05/28/22 17:26 Labs: Abnormal Lab Results - Last 24 Hours (Table) 05/28/22 05/28/22 05/28/22 Range/Units 17:26 17: 17:26 WBC 11.3 H (3.8-10.6) k/uL Neutrophils # 8.6 H (1.3-7.7) k/uL D-Dimer 0.80 H (<0.60) mg/L FEU Sodium 135 L (137-145) mmol/L Potassium 5.6 H (3.5-5.1) mmol/L Glucose 114 H (74-99) mg/dL AST 38 H (14-36) U/L Albumin 3.4 L (3.5-5.0) g/dL Assessment and Plan Assessment: 1. Acute hypoxic respiratory failure likely related to CHF and fluid overload - Patient has been placed on oxygen at 4 L per nasal cannula; we will plan to titrate her weaning as able 2. Acute on chronic CHF - Lasix 40 mg IV every 8 hours; patient has been evaluated by cardiology and amlodipine and atenolol is discontinued; patient is placed on Coreg 12.5 mg twi ce a day with plans to add WILLIAN inhibitor/ARB if continues to tolerate beta blockers well - We will monitor strict TATY's, daily weights, low salt and fluid restricted diet - Echocardiogram is ordered and pending 3. Hyperkalemia; likely related to chronic kidney disease; we will monitor electrolytes closely and make further recommendations 5. Hypertension; discontinue amlodipine and atenolol per cardiology recommendations; patient has been placed on Coreg 12.5 mg twice a day; we will monitor blood pressure closely. Parameters 6. Hypothyroidism; levothyroxin 75 MCG daily 7. Diabetes mellitus/peripheral neuropathy; patient takes metformin thousand milligrams twice a day which will be placed on hold while inpatient; monitor Accu-Cheks before meals and at bedtime with insulin sliding scale 8. Previous history of breast cancer with previous right mastectomy currently on hormonal treatment 9. Remote history of uterine cancer with previous hysterectomy followed by chemoradiation therapy DVT prophylaxis; SCDs/subcu heparin CODE STATUS; full code
[2022-05-29 16:25] LABS: Glucose,Whole Blood 173 mg/dL (70-110)
[2022-05-29 20:23] LABS: Glucose,Whole Blood 126 mg/dL (70-110)
[2022-05-30] MEDS: TRIAMCINOLONE ACET 0.1% OINTMENT 15 GM TUBE TOPICAL SCH ×4 (02:18→20:10)
[2022-05-30] MEDS: FUROSEMIDE 10 MG/ML 4 ML VIAL IV SCH ×3 (02:18→20:11)
[2022-05-30] MEDS: NITROGLYCERIN OINT 1 INCH/GM PACKET TOPICAL SCH (02:18)
[2022-05-30] MEDS: LEVOTHYROXINE 75 MCG TAB PO SCH (06:21)
[2022-05-30] MEDS: carvediloL 12.5 MG TAB PO SCH ×2 (06:21→17:02)
[2022-05-30 06:49] LABS: Glucose,Whole Blood 154 mg/dL (70-110)
[2022-05-30] MEDS: INSULIN ASPART (NovoLOG) 100 UNIT/ML VIAL SQ SCH ×4 (06:59→20:11)
[2022-05-30 09:09] LABS: Basophils # (A) 0.1 k/uL (0-0.2); Basophils % (A) 1 %; Eosinophils # (A) 0.4 k/uL (0-0.7); Eosinophils % (A) 4 %; HGB 11.9 gm/dL (11.4-16.0); Hypochromasia Slight; Lymphocytes # (A) 0.8 k/uL (1.0-4.8); Lymphocytes % (A) 9 %; MCHC 31.4 g/dL (31.0-37.0); MCV 89.1 fL (80.0-100.0); Mean Platelet Volume 8.4; Monocytes # (A) 0.7 k/uL (0-1.0); Monocytes % (A) 8 %; Neutrophils # (A) 6.6 k/uL (1.3-7.7); Neutrophils % (A) 76 %; Platelet Count 305 k/uL (150-450); RBC 4.26 m/uL (3.80-5.40); RDW 14.1 % (11.5-15.5); WBC 8.8 k/uL (3.8-10.6)
[2022-05-30 09:23] LABS: Calcium 7.6 mg/dL (8.4-10.2); Potassium 4.2 mmol/L (3.5-5.1)
[2022-05-30] MEDS: ANASTROZOLE 1 MG TAB PO SCH (09:57)
--- NOTE | 2022-05-30 10:07 | P.PN ---
Subjective Progress Note Date: 05/30/22 80-year-old female patient presents to the hospital because of shortness of bonifacio ath. The patient is known to have diabetes and hypertension. The patient is also known to have previous uterine and breast cancer and the patient has undergone previous right-sided mastectomy. The patient came into the emergency department because of worsening shortness of breath. The patient was progressively getting worse over the past 3 weeks. Denies having any chest pain. No palpitations. She admitted to have some increased swelling in lower oximetry is bilaterally. No known history of congestion heart failure. No history of any heart disease. The patient in the emergency was found to be quite hypoxic. She was placed on oxygen and currently she is on 4 L nasal cannula. Chest x-ray was done and it was consistent with pulmonary edema. There was also increased interstitial markings bilaterally. Normal coagulation profile. D-dimer is 0.8. The this current 11.3 with a hemoglobin 15.5 and a platelet count of 398. ProBNP level was 2140, potassium level is 5.6, BUN is at 14 with a creatinine of 0.6 and his sodium level is at 135. The EKG showed a bundle branch block pattern. The patient had a right bundle-branch block and sinus rhythm. Based on that, the patient was hospitalized. She was started on IV Lasix and the patient is currently receiving Lasix 40 mg every 8 hours. She is also on Coreg 12.5 mg twice a day. Over the past 10-12 hours, the patient has been diuresing adequately. Noted the patient's chronic lower extremity edema lower extremities and chronic venous stasis. She has a maternal Lasix on outpatient basis On today's evaluation of [id number], the patient is being seen for a follow-up. The patient is being diuresed with IV Lasix. Fluid balance is in a negative trend. No new complaints otherwise for now. The patient's electrolytes from today shows a sodium level of 135, BUN is 50 with a creatinine of 0.8 and a potassium level of 4.2. Hemoglobin is at 11.9 with a white cell count of 8.8. The patient remains on Lasix 40 mg every 8 hours. Echocardiogram was completed and the results are still pending for now. Chest x-ray was consistent with CHF. She is currently on oxygen at 3 L. Objective - Vital Signs Vital signs: Vital Signs Temp 99.5 F 05/30/22 09:55 Pulse 84 05/30/22 09:55 Resp 16 05/30/22 09:55 BP 112/65 05/30/22 09:55 Pulse Ox 96 05/30/22 09:55 FiO2 Intake & Output 05/29/22 05/30/22 05/30/22 18:59 06:59 18:59 Intake Total 594 180 Output Total 850 500 Balance -256 -500 180 Weight 99.79 kg 102.6 kg Intake: Oral 594 180 Output: Urine 850 500 Other: Voiding Method Toilet Toilet - Exam Currently, comfortable, breathing is nonlabored on 3 L of O2 nasal cannula Head exam was generally normal. There was no scleral icterus or corneal arcus. Mucous membranes were moist. Neck was supple and without jugular venous distension, thyromegaly, or carotid bruits. Carotids were easily palpable bilaterally. There was no adenopathy. Lungs although the medicine the patient has track of the lung bases bilaterally Cardiac exam revealed the PMI to be normally situated and sized. The rhythm was regular and no extrasystoles were noted during several minutes of auscultation. The first and second heart sounds were normal and physiologic splitting of the second heart sound was noted. There were no murmurs, rubs, clicks, or gallops. Abdominal exam revealed normal bowel sounds. The abdomen was soft, non-tender, and without masses, organomegaly, or appreciable enlargement of the abdominal aorta. Lower oximetry is show chronic edema and chronic venous stasis. No open wounds or ulceration. Diminished pulses bilaterally. Neurologically, the patient is awake and alert and the patient does not have any focal neurological deficit. Cranial nerves are essentially intact. - Labs CBC & Chem 7: 05/30/22 08:41 05/30/22 08:41 Labs: Abnormal Lab Results - Last 24 Hours (Table) 05/29/22 05/29/22 05/29/22 Range/Units 11:38 16:20 20:20 Lymphocytes # (1.0-4.8) k/uL Sodium (137-145) mmol/L Chloride (98-107) mmol/L Carbon Dioxide (22-30) mmol/L Glucose (74-99) mg/dL POC Glucose (mg/dL) 173 H 173 H 126 H (70-110) mg/dL Calcium (8.4-10.2) mg/dL 05/30/22 05/30/22 05/30/22 Range/Units 06:48 08:41 08:41 Lymphocytes # 0.8 L (1.0-4.8) k/uL Sodium 135 L (137-145) mmol/L Chloride 96 L (98-107) mmol/L Carbon Dioxide 35 H (22-30) mmol/L Glucose 217 H (74-99) mg/dL POC Glucose (mg/dL) 154 H (70-110) mg/dL Calcium 7.6 L (8.4-10.2) mg/dL Assessment and Plan Plan: Acute hypoxic respiratory failure, currently on 3 liters of oxygen nasal cannula, and the clinical presentation was most consistent with CHF and fluid overload. The patient was started on diuretics. ProBNP level is elevated. Echocardiogram is pending Shortness of breath secondary to above Chronic lower ext edema with interval worsening in obvious weight gain Peripheral neuropathy involving lower extremities Previous history of breast cancer with previous right mastectomy currently on hormonal treatment Remote history of uterine cancer with previous hysterectomy followed by chemoradiation therapy Hypertension Hypothyroidism Diabetes mellitus Plan Echocardiogram to be done today, results are pending. Continue IV Lasix, 40 mg every 8 hours currently on 3 L 02 Monitor fluid balance Monitor body weight Monitor electrolytes Wean down FiO2 as tolerated to maintain saturation above 90% Cardiology consultation, associated Resume all medications No active pulmonary issues. See her when necessary.
--- NOTE | 2022-05-30 10:56 | P.PN ---
Subjective Progress Note Date: 05/29/22 81-year-old female presents emergency Department complaining shortness of breath per patient states his been ongoing for 3 weeks and getting progressively worse. Patient states her some day she feels better than others but overall she is gradually getting worse. Patient denies any chest pain or palpitations. Patient denies any underlying breathing problems. Patient states she has however had significant swelling to both legs for years and she's on Lasix currently. Patient states she's never had congestive heart failure pulmonary edema that she knows of. Patient states lying down his deftly making the shortness of breath worse as of late. Patient denies any fever chills or cough per patient denies abdominal pain patient's nausea vomiting diarrhea. Patient does not notice any areas of redness or lesions that appear infected to her. Chest x-ray was done and it was consistent with pulmonary edema. There was also increased interstitial markings bilaterally. D-dimer is 0.8. WBC of 11.3 with a hemoglobin 15.5 and a platelet count of 398. ProBNP level was 2140, potassium level is 5.6, BUN is at 14 with a creatinine of 0.6 and his sodium level is at 135. The EKG showed sinus rhythm and a bundle branch block pattern. -- Patient has been evaluated by cardiology and recommended to continue with Lasix 40 mg IV every 8 hours; atenolol and amlodipine is discontinued and patient is started on Coreg 12.5 mg twice a day; plan is to add WILLIAN inhibitorARB pending clinical course -- 2-D echo is ordered and pending Objective - Vital Signs Vital signs: Vital Signs Temp 97.2 F L 05/29/22 13:51 Pulse 82 05/29/22 13:51 Resp 16 05/29/22 13:51 BP 157/70 05/29/22 13:51 Pulse Ox 97 05/29/22 13:51 FiO2 Intake & Output 05/28/22 05/29/22 05/29/22 18:59 06:59 18:59 Intake Total 236 Output Total 200 Balance 36 Weight 99.79 kg 99.79 kg Intake: Oral 236 Output: Urine 200 - Exam PHYSICAL EXAMINATION: GENERAL: The patient is alert and oriented x3, not in any acute distress. Well developed, well nourished. HEENT: Pupils are round and equally reacting to light. EOMI. No scleral icterus. No conjunctival pallor. Normocephalic, atraumatic. No pharyngeal erythema. No thyromegaly. CARDIOVASCULAR: S1 and S2 present. No murmurs, rubs, or gallops. PULMONARY: Chest is clear to auscultation, no wheezing or crackles. ABDOMEN: Soft, nontender, nondistended, normoactive bowel sounds. No palpable o rganomegaly. MUSCULOSKELETAL: No joint swelling or deformity. EXTREMITIES: No cyanosis, clubbing, or pedal edema. NEUROLOGICAL: Gross neurological examination did not reveal any focal deficits. SKIN: No rashes. - Labs CBC & Chem 7: 05/30/22 08:41 05/30/22 08:41 Labs: Abnormal Lab Results - Last 24 Hours (Table) 05/28/22 05/28/22 05/28/22 Range/Units 17:26 17:26 17:26 WBC 11.3 H (3.8-10.6) k/uL Neutrophils # 8.6 H (1.3-7.7) k/uL D-Dimer 0.80 H (<0.60) mg/L FEU Sodium 135 L (137-145) mmol/L Potassium 5.6 H (3.5-5.1) mmol/L Glucose 114 H (74-99) mg/dL POC Glucose (mg/dL) (70-110) mg/dL AST 38 H (14-36) U/L Albumin 3.4 L (3.5-5.0) g/dL 05/29/22 Range/Units 11:38 WBC (3.8-10.6) k/uL Neutrophils # (1.3-7.7) k/uL D-Dimer (<0.60) mg/L FEU Sodium (137-145) mmol/L Potassium (3.5-5.1) mmol/L Glucose (74-99) mg/dL POC Glucose (mg/dL) 173 H (70-110) mg/dL AST (14-36) U/L Albumin (3.5-5.0) g/dL Assessment and Plan Assessment: 1. Acute hypoxic respiratory failure likely related to CHF and fluid overload - Patient has been placed on oxygen at 4 L per nasal cannula; we will plan to titrate her weaning as able 2. Acute on chronic CHF - Lasix 40 mg IV every 8 hours; patient has been evaluated by cardiology and amlodipine and atenolol is discontinued; patient is placed on Coreg 12.5 mg twice a day with plans to add WILLIAN inhibitor/ARB if continues to tolerate beta blockers well - We will monitor strict TATY's, daily weights, low salt and fluid restricted diet - Echocardiogram is ordered and pending 3. Hyperkalemia; likely related to chronic kidney disease; we will monitor electrolytes closely and make further recommendations 5. Hypertension; discontinue amlodipine and atenolol per cardiology recommendations; patient has been placed on Coreg 12.5 mg twice a day; we will monitor blood pressure closely. Parameters 6. Hypothyroidism; levothyroxin 75 MCG daily 7. Diabetes mellitus/peripheral neuropathy; patient takes metformin thousand milligrams twice a day which will be placed on hold while inpatient; monitor Accu-Cheks before meals and at bedtime with insulin sliding scale 8. Previous history of breast cancer with previous right mastectomy currently on hormonal treatment 9. Remote history of uterine cancer with previous hysterectomy followed by chemoradiation therapy DVT prophylaxis; SCDs/subcu heparin CODE STATUS; full code
--- NOTE | 2022-05-30 11:34 | CA ---
Transthoracic Echo Report Name: Abhay Washington Age: 81 Gender: F : 1940 Exam Date: 05/29/2022 09:16 Exam Location: [facility] Ht (in): 64 Wt (lb): 220 Ordering Physician: Luke Dejesus MD Attending/Referring Phys: [id number], Oleg Reconsignment Clerk Aracelis Mesa RDCS Procedure CPT: Indications: Rule out heart disease Cardiac Hx: Technical Quality: Technically difficult study Contrast 1: Lumason Total Dose (mL): 4 Contrast 2: Total Dose (mL): MEASUREMENTS (Male / Female) Normal Values 2D ECHO LV Diastolic Diameter PLAX 4.0 cm 4.2 - 5.9 / 3.9 - 5.3 cm LV Systolic Diameter PLAX 2.7 cm IVS Diastolic Thickness 1.8 cm 0.6 - 1.0 / 0.6 - 0.9 cm LVPW Diastolic Thickness 1.7 cm 0.6 - 1.0 / 0.6 - 0.9 cm LV Relative Wall Thickness 0.9 RV Internal Dim ED PLAX 3.4 cm LA Volume 69.6 cm??? 18 - 58 / 22 - 52 cm??? M-MODE Aortic Root Diameter MM 3.4 cm LA Systolic Diameter MM 4.7 cm LA Ao Ratio MM 1.4 AV Cusp Separation MM 1.8 cm DOPPLER AV Peak Velocity 179.5 cm/s AV Peak Gradient 12.9 mmHg AV Mean Velocity 134.1 cm/s AV Mean Gradient 7.7 mmHg AV Velocity Time Integral 40.3 cm LVOT Peak Velocity 155.7 cm/s LVOT Peak Gradient 9.7 mmHg LVOT Velocity Time Integral 35.1 cm MV Area PHT 3.6 cm??? Mitral E Point Velocity 155.0 cm/s Mitral A Point Velocity 93.8 cm/s Mitral E to A Ratio 1.7 MV Deceleration Time 213.7 ms MV E' Velocity 9.0 cm/s Mitral E to MV E' Ratio 17.3 TR Peak Velocity 356.5 cm/s TR Peak Gradient 50.9 mmHg Right Ventricular Systolic Press 53.2 mmHg FINDINGS Left Ventricle Left ventricular cavity size normal. Severely increased left ventricular wall thickness. Normal left ventricular systolic function with no obvious regional wall motion abnormalities. Left ventricular ejection fraction is estimated at 55-60 %. Right Ventricle Mild right ventricular dilatation. Moderate to severe pulmonary hypertension. Right ventricular systolic pressure estimated at 53 mm hg. Right Atrium Right atrium not well visualized. Left Atrium Moderately increased left atrial volume. Mildly increased left atrial area. Mitral Valve [id number] mitral regurgitation. Aortic Valve No aortic valve stenosis or regurgitation. Tricuspid Valve [id number] tricuspid regurgitation. Pulmonic Valve Trace pulmonic regurgitation. Pericardium No pericardial effusion. Aorta Normal size aortic root and proximal ascending aorta. CONCLUSIONS Right ventricular enlargement with reduced function Moderate to severe pulmonary hypertension LV function appears normal Previewed by: Dr. Lorne Charles MD (Electronically Signed) Final Date: 30 May 2022 11:34
--- NOTE | 2022-05-30 11:42 | P.PN ---
Subjective Progress Note Date: 05/30/22 History of present illness: The patient is an 81-year-old female presented to the hospital with worsening shortness of breath. She states this had been ongoing over the last 1-2 weeks. She states she is now unable to simply ambulate throughout her house. She states she does not have a cardiac history and follows with her local primary care provider Dr. Marlow regularly. She states he has been treating her for lymphedema. DIAGNOSTICS: EKG shows sinus rhythm with right bundle branch block Chest x-ray shows cardiomegaly and small bilateral pleural effusions and moderate central vascular congestion Lab data: WBC 11.3, hemoglobin 13.1, hematocrit 41.2, platelet 398, d-dimer 0.8, sodium 135, potassium 5.6, BUN 14, creatinine 0.67, AST 38, ALT 15, troponin 0.01, BNP 2140, TSH 2.12 REVIEW OF SYSTEMS: No fever or chills. No cough or expectoration. No diaphoresis. Patient denies headache, dizziness, blurred vision, double vision. Patient denies any stomach discomfort. No nausea, vomiting. No hematochezia. No hematemesis. Denies any black stools or blood in his stools. Denies dysuria or hematuria. No muscle weakness or numbness. Positive for dyspnea. Positive for orthopnea, however patient states that in the incline. Positive for weakness and fatigue. Negative for chest pain. 4/2 Patient is seen today in follow-up. Yesterday, patient was started on Coreg at 12-1/2 mg twice daily. She states her breathing is much better today. She is on IV Lasix 40 mg every 8 hours. Weights and I&O's do not appear to be accurate. Repeat blood work reveals potassium 4.2, BUN 15 creatinine 0.89. Blood pressure readings to the night were elevated now at 112/65, heart rate in the 70s and 80s. Patient is on oxygen at 3 L nasal cannula with pulse ox of 96% PHYSICAL EXAMINATION: This is a 81-year-old obese female in mild respiratory distress at the time of my examination. HEENT: Head is atraumatic, normocephalic. Pupils are equal, round. Sclerae anicteric. Conjunctivae are clear. Mucous membranes of the mouth are moist. Neck is supple. There is no jugular venous distention. No carotid bruit is heard. CHEST EXAMINATION: Lungs are severely diminished to auscultation. Bilateral inspiratory and expiratory wheezes. No chest wall tenderness is noted on palpation or with deep breathing. HEART EXAMINATION: Heart regular rate and rhythm. S1, S2 heard. No murmurs, gallops or rub. ABDOMEN: Soft, nontender. Bowel sounds are heard. No organomegaly noted. EXTREMITIES: 1+ peripheral pulses. +2 peripheral edema with venous stasis dermatitis/cobblestone appearance. NEUROLOGIC EXAMINATION: Patient is awake, alert and oriented x3. IMPRESSION: New onset shortness of breath Elevated BNP, echocardiogram pending Elevated d-dimer, pulmonary consult pending History of hypertension History of venous insufficiency History of breast cancer History of diabetes Obesity, BMI 37 PLAN: Continue Carvedilol 12-1/2 mg twice a day Start patient on losartan 25 mg daily Decrease frequency of Lasix to 40 mg IV every 12 hours Recheck electrolytes Further recommendations to be based upon clinical course I am dictating on behalf of Dr Lorne Charles's history/physical and assessment/plan. Objective - Vital Signs Vital signs: Vital Signs Temp 99.5 F 05/30/22 09:55 Pulse 84 05/30/22 09:55 Resp 16 05/30/22 09:55 BP 112/65 05/30/22 09:55 Pulse Ox 96 05/30/22 09:55 FiO2 Intake & Output 05/29/22 05/30/22 05/30/22 18:59 06:59 18:59 Intake Total 594 180 Output Total 850 500 Balance -256 -500 180 Weight 99.79 kg 102.6 kg Intake: Oral 594 180 Output: Urine 850 500 Other: Voiding Method Toilet Toilet - Labs CBC & Chem 7: 05/30/22 08:41 05/30/22 08:41 Labs: Abnormal Lab Results - Last 24 Hours (Table) 05/29/22 05/29/22 05/29/22 Range/Units 11:38 16:20 20:20 Lymphocytes # (1.0-4.8) k/uL Sodium (137-145) mmol/L Chloride (98-107) mmol/L Carbon Dioxide (22-30) mmol/L Glucose (74-99) mg/dL POC Glucose (mg/dL) 173 H 173 H 126 H (70-110) mg/dL Calcium (8.4-10.2) mg/dL 05/30/22 05/30/22 05/30/22 Range/Units 06:48 08:41 08:41 Lymphocytes # 0.8 L (1.0-4.8) k/uL Sodium 135 L (137-145) mmol/L Chloride 96 L (98-107) mmol/L Carbon Dioxide 35 H (22-30) mmol/L Glucose 217 H (74-99) mg/dL POC Glucose (mg/dL) 154 H (70-110) mg/dL Calcium 7.6 L (8.4-10.2) mg/dL
[2022-05-30 11:44] LABS: Glucose,Whole Blood 142 mg/dL (70-110)
[2022-05-30] MEDS: LOSARTAN 25 MG TAB PO SCH (12:23)
[2022-05-30] MEDS: CALCIUM CARB-VIT D 500 MG-5 MCG TAB PO SCH ×2 (12:23→17:02)
[2022-05-30 16:40] LABS: Glucose,Whole Blood 160 mg/dL (70-110)
--- NOTE | 2022-05-30 16:48 | P.PN ---
Subjective Progress Note Date: 05/30/22 Principal diagnosis: Acute hypoxic respiratory failure related to CHF and fluid overload 81-year-old female presents emergency Department complaining shortness of breath per patient states his been ongoing for 3 weeks and getting progressively worse. Patient states her some day she feels better than others but overall she is gradually getting worse. Patient denies any chest pain or palpitations. Patient denies any underlying breathing problems. Patient states she has however had significant swelling to both legs for years and she's on Lasix cur rently. Patient states she's never had congestive heart failure pulmonary edema that she knows of. Patient states lying down his deftly making the shortness of breath worse as of late. Patient denies any fever chills or cough per patient denies abdominal pain patient's nausea vomiting diarrhea. Patient does not notice any areas of redness or lesions that appear infected to her. Chest x-ray was done and it was consistent with pulmonary edema. There was also increased interstitial markings bilaterally. D-dimer is 0.8. WBC of 11.3 with a hemoglobin 15.5 and a platelet count of 398. ProBNP level was 2140, potassium level is 5.6, BUN is at 14 with a creatinine of 0.6 and his sodium level is at 135. The EKG showed sinus rhythm and a bundle branch block pattern. -- Patient has been evaluated by cardiology and recommended to continue with Lasix 40 mg IV every 8 hours; atenolol and amlodipine is discontinued and patient is started on Coreg 12.5 mg twice a day; plan is to add WILLIAN inhibitorARB pending clinical course -- 2-D echo is ordered and pending 05/30/2022 Patient is seen and evaluated with family at bedside; reports improvement in breathing The patient is being diuresed with IV Lasix. Fluid balance is in a negative trend. No new complaints otherwise for now. The patient's electrolytes from today shows a sodium level of 135, BUN is 50 with a creatinine of 0.8 and a potassium level of 4.2. Hemoglobin is at 11.9 with a white cell count of 8.8. The patient remains on Lasix 40 mg every 8 hours. Echocardiogram was completed and the results are still pending for now. Chest x-ray was consistent with CHF. She is currently on oxygen at 3 L. Patient remains on Lasix 40 mg IV every 8 hours; echocardiogram is pending Further recommendations once echocardiogram is completed Patient reports using calcium with vitamin D at home; calcium level is 7.1 this morning; we will resume calcium supplementation with vitamin D Objective - Vital Signs Vital signs: Vital Signs Temp 99.5 F 05/30/22 09:55 Pulse 84 05/30/22 09:55 Resp 16 05/30/22 09:55 BP 112/65 05/30/22 09:55 Pulse Ox 96 05/30/22 09:55 FiO2 Intake & Output 05/29/22 05/30/22 05/30/22 18:59 06:59 18:59 Intake Total 594 180 Output Total 850 500 Balance -256 -500 180 Weight 99.79 kg 102.6 kg Intake: Oral 594 180 Output: Urine 850 500 Other: Voiding Method Toilet Toilet - Exam PHYSICAL EXAMINATION: GENERAL: The patient is alert and oriented x3, not in any acute distress. Well developed, well nourished. HEENT: Pupils are round and equally reacting to light. EOMI. No scleral icterus. No conjunctival pallor. Normocephalic, atraumatic. No pharyngeal erythema. No thyromegaly. CARDIOVASCULAR: S1 and S2 present. No murmurs, rubs, or gallops. PULMONARY: Chest is clear to auscultation, no wheezing or crackles. ABDOMEN: Soft, nontender, nondistended, normoactive bowel sounds. No palpable organomegaly. MUSCULOSKELETAL: No joint swelling or deformity. EXTREMITIES: No cyanosis, clubbing, or pedal edema. NEUROLOGICAL: Gross neurological examination did not reveal any focal deficits. SKIN: No rashes. - Labs CBC & Chem 7: 05/30/22 08:41 05/30/22 08:41 Labs: Abnormal Lab Results - Last 24 Hours (Table) 05/29/22 05/29/22 05/29/22 Range/Units 11:38 16:20 20:20 Lymphocytes # (1.0-4.8) k/uL Sodium (137-145) mmol/L Chloride (98-107) mmol/L Carbon Dioxide (22-30) mmol/L Glucose (74-99) mg/dL POC Glucose (mg/dL) 173 H 173 H 126 H (70-110) mg/dL Calcium (8.4-10.2) mg/dL 0405/30/22 05/30/22 Range/Units 06:48 08:41 08:41 Lymphocytes # 0.8 L (1.0-4.8) k/uL Sodium 135 L (137-145) mmol/L Chloride 96 L (98-107) mmol/L Carbon Dioxide 35 H (22-30) mmol/L Glucose 217 H (74-99) mg/dL POC Glucose (mg/dL) 154 H (70-110) mg/dL Calcium 7.6 L (8.4-10.2) mg/dL Assessment and Plan Assessment: 1. Acute hypoxic respiratory failure likely related to CHF and fluid overload - Patient has been placed on oxygen at 4 L per nasal cannula; we will plan to titrate her weaning as able 2. Acute on chronic CHF - Lasix 40 mg IV every 8 hours; patient has been evaluated by cardiology and amlodipine and atenolol is discontinued; patient is placed on Coreg 12.5 mg twice a day with plans to add WILLIAN inhibitor/ARB if continues to tolerate beta blockers well - We will monitor strict TATY's, daily weights, low salt and fluid restricted diet - Echocardiogram is ordered and pending 3. Hyperkalemia; likely related to chronic kidney disease; we will monitor electrolytes closely and make further recommendations 5. Hypertension; discontinue amlodipine and atenolol per cardiology recommendations; patient has been placed on Coreg 12.5 mg twice a day; we will monitor blood pressure closely. Parameters 6. Hypothyroidism; levothyroxin 75 MCG daily 7. Diabetes mellitus/peripheral neuropathy; patient takes metformin thousand milligrams twice a day which will be placed on hold while inpatient; monitor Accu-Cheks before meals and at bedtime with insulin sliding scale 8. Previous history of breast cancer with previous right mastectomy currently on hormonal treatment 9. Remote history of uterine cancer with previous hysterectomy followed by chemoradiation therapy DVT prophylaxis; SCDs/subcu heparin CODE STATUS; full code
[2022-05-30 20:10] LABS: Glucose,Whole Blood 162 mg/dL (70-110)
[2022-05-31 06:15] LABS: Glucose,Whole Blood 134 mg/dL (70-110)
[2022-05-31] MEDS: INSULIN ASPART (NovoLOG) 100 UNIT/ML VIAL SQ SCH ×4 (06:25→21:09)
[2022-05-31] MEDS: CALCIUM CARB-VIT D 500 MG-5 MCG TAB PO SCH ×2 (06:32→17:32)
[2022-05-31] MEDS: carvediloL 12.5 MG TAB PO SCH ×2 (06:33→17:32)
[2022-05-31] MEDS: LEVOTHYROXINE 75 MCG TAB PO SCH (06:33)
[2022-05-31] MEDS: TRIAMCINOLONE ACET 0.1% OINTMENT 15 GM TUBE TOPICAL SCH ×3 (08:47→21:09)
[2022-05-31] MEDS: ANASTROZOLE 1 MG TAB PO SCH (08:47)
[2022-05-31] MEDS: LOSARTAN 25 MG TAB PO SCH (08:47)
[2022-05-31] MEDS: FUROSEMIDE 10 MG/ML 4 ML VIAL IV SCH ×2 (08:47→21:09)
[2022-05-31 09:13] LABS: Calcium 7.5 mg/dL (8.4-10.2); Potassium 4.4 mmol/L (3.5-5.1)
[2022-05-31 11:51] LABS: Glucose,Whole Blood 181 mg/dL (70-110)
--- NOTE | 2022-05-31 13:00 | P.PN ---
Subjective Progress Note Date: 05/31/22 HISTORY OF PRESENT ILLNESS: 05/29/2022 The patient is an 81-year-old female presented to the hospital with worsening shortness of breath. She states this had been ongoing over the last 1-2 weeks. She states she is now unable to simply ambulate throughout her house. She states she does not have a cardiac history and follows with her local primary care provider Dr. Marlow regularly. She states he has been treating her for lymphedema. DIAGNOSTICS: EKG shows sinus rhythm with right bundle branch block Chest x-ray shows cardiomegaly and small bilateral pleural effusions and mod erate central vascular congestion Lab data: WBC 11.3, hemoglobin 13.1, hematocrit 41.2, platelet 398, d-dimer 0.8, sodium 135, potassium 5.6, BUN 14, creatinine 0.67, AST 38, ALT 15, troponin 0.01, BNP 2140, TSH 2.12 05/30 Patient is seen today in follow-up. Yesterday, patient was started on Coreg at 12-1/2 mg twice daily. She states her breathing is much better today. She is on IV Lasix 40 mg every 8 hours. Weights and I&O's do not appear to be accurate. Repeat blood work reveals potassium 4.2, BUN 15 creatinine 0.89. Blood pressure readings to the night were elevated now at 112/65, heart rate in the 70s and 80s. Patient is on oxygen at 3 L nasal cannula with pulse ox of 96% 05/31/2022 Patient examined this morning. Patient is sitting up in the chair. Patient denies chest pain or pressure. She denies shortness of breath. She continues to have lower extremity edema. She remains on IV Lasix 40 mg every 12 hours. Creatinine stable today at 0.95. BUN 16. Vital signs are stable. Echocardiogram completed revealing ejection fraction 55-60%, moderate to severe pulmonary hypertension, RVSP 53, mild to moderate mitral regurgitation, and mild to moderate tricuspid regurgitation. PHYSICAL EXAM: VITAL SIGNS: Reviewed. GENERAL: Well-developed in no acute distress. NECK: Supple. No JVD or thyromegaly LUNGS: Respirations even and unlabored. Lungs essentially clear to auscultation bilaterally. HEART: Regular rate and rhythm. S1 and S2 heard. EXTREMITIES: Normal range of motion. No clubbing or cyanosis. Peripheral pulses intact. 2+ bilateral lower extremity edema with venous stasis dermatitis ASSESSMENT: Shortness of breath Acute heart failure with preserved ejection fraction History of hypertension History of venous insufficiency History of breast cancer History of diabetes Obesity, BMI 37 PLAN: Continue to hold amlodipine as this may be contributing to patient's lower extremity edema Continue additional cardiac medications Continue IV Lasix 40 mg every 12 hours Encouraged patient to elevated her legs while sitting up in the chair Accurate intake and output and monitoring of kidney function Nurse practitioner note has been reviewed by physician. Signing provider agrees with the documented findings, assessment, and plan of care. Objective - Vital Signs Vital signs: Vital Signs Temp 99.1 F 05/31/22 12:00 Pulse 86 05/31/22 12:00 Resp 20 05/31/22 12:00 BP 111/62 05/31/22 12:00 Pulse Ox 92 L 05/31/22 12:00 FiO2 Intake & Output 05/30/22 05/31/22 05/31/22 18:59 06:59 18:59 Intake Total 540 540 118 Output Total 950 550 Balance -410 -10 118 Weight 103.9 kg Intake: Oral 540 540 118 Output: Urine 950 550 Other: Voiding Method Toilet Toilet # Voids 2 - Labs CBC & Chem 7: 05/30/22 08:41 05/31/22 08:23 Labs: Abnormal Lab Results - Last 24 Hours (Table) 05/30/22 05/30/22 05/31/22 Range/Units 16:39 20:07 06:13 Sodium (137-145) mmol/L Chloride (98-107) mmol/L Carbon Dioxide (22-30) mmol/L Glucose (74-99) mg/dL POC Glucose (mg/dL) 160 H 162 H 134 H (70-110) mg/dL Calcium (8.4-10.2) mg/dL 05/31/22 05/31/22 Range/Units 08:23 11:49 Sodium 134 L (137-145) mmol/L Chloride 95 L (98-107) mmol/L Carbon Dioxide 34 H (22-30) mmol/L Glucose 265 H (74-99) mg/dL POC Glucose (mg/dL) 181 H (70-110) mg/dL Calcium 7.5 L (8.4-10.2) mg/dL
[2022-05-31 16:45] LABS: Glucose,Whole Blood 190 mg/dL (70-110)
[2022-05-31] MEDS ORDERED: IBUPROFEN 400 MG TAB PO PRN (17:42)
[2022-05-31 20:36] LABS: Glucose,Whole Blood 187 mg/dL (70-110)
--- NOTE | 2022-06-01 02:59 | PN ---
PROGRESS NOTE DATE OF SERVICE: 05/31/2022 SUBJECTIVE: This is an 81-year-old woman who was admitted with CHF acute exacerbation, IV Lasix. No chest pain, no palpitations. No fever. PHYSICAL EXAMINATION: VITAL SIGNS: Pulse is 86, blood pressure 190/60, respirations 20. CHEST: A few scattered rhonchi , no crackles. CARDIOVASCULAR: S1, S2. ABDOMEN: Soft. LABORATORY DATA: Reviewed. ASSESSMENT: 1. CHF acute exacerbation. 2. Hypertension. 3. Hypothyroidism. 4. Diabetes mellitus type 2. 5. Multiple medical issues. RECOMMENDATIONS: Recommended to continue current management, continue symptomatic treatment. Limited p.o. intake. Otherwise, change the IV Lasix to p.o. Lasix and increase ambulation. The patient is stable for discharge in the next 24 hours. Follow up with Cardiology. Further recommendations to follow. BRYCE / TIP: [id number] /
[2022-06-01 06:27] LABS: Glucose,Whole Blood 144 mg/dL (70-110)
[2022-06-01] MEDS: INSULIN ASPART (NovoLOG) 100 UNIT/ML VIAL SQ SCH ×2 (06:28→12:11)
--- NOTE | 2022-06-01 08:07 | XR ---
EXAMINATION TYPE: XR chest 1V portable DATE OF EXAM: 06/01/2022 6:45 AM COMPARISON: Chest radiographs from 05/28/2022 TECHNIQUE: XR chest 1V portable Portable AP radiograph of the chest. CLINICAL INDICATION:Female, 81 years old with history of short of breath; FINDINGS: Lungs/Pleura: Small right and [id number] left pleural effusions. No focal consolidation or pne umothorax. Pulmonary vascularity: Pulmonary vascular congestion. Heart/mediastinum: Cardiomediastinal silhouette is enlarged and stable. Atherosclerotic calcificatio ns are seen in the aorta. Musculoskeletal: No acute osseous pathology. Dextrocurvature of the thoracic spine. IMPRESSION: Mildly improved pulmonary vascular congestion with continued cardiomegaly and bilateral pleural effus ions suggestive of CHF exacerbation.
[2022-06-01 09:04] LABS: Calcium 7.7 mg/dL (8.4-10.2); Potassium 4.5 mmol/L (3.5-5.1)
[2022-06-01 11:16] VITALS: BP 131/61; PULSE 80; RESP 17; TEMP 98
[2022-06-01] MEDS: carvediloL 12.5 MG TAB PO SCH (11:27)
[2022-06-01] MEDS: LEVOTHYROXINE 75 MCG TAB PO SCH (11:27)
[2022-06-01] MEDS: CALCIUM CARB-VIT D 500 MG-5 MCG TAB PO SCH (11:27)
--- NOTE | 2022-06-01 11:41 | P.PN ---
Subjective Progress Note Date: 06/01/22 HISTORY OF PRESENT ILLNESS: 05/29/2022 The patient is an 81-year-old female presented to the hospital with worsening shortness of breath. She states this had been ongoing over the last 1-2 weeks. She states she is now unable to simply ambulate throughout her house. She states she does not have a cardiac history and follows with her local primary care provider Dr. Marlow regularly. She states he has been treating her for lymphedema. DIAGNOSTICS: EKG shows sinus rhythm with right bundle branch block Chest x-ray shows cardiomegaly and small bilateral pleural effusions and mod erate central vascular congestion Lab data: WBC 11.3, hemoglobin 13.1, hematocrit 41.2, platelet 398, d-dimer 0.8, sodium 135, potassium 5.6, BUN 14, creatinine 0.67, AST 38, ALT 15, troponin 0.01, BNP 2140, TSH 2.12 05/30 Patient is seen today in follow-up. Yesterday, patient was started on Coreg at 12-1/2 mg twice daily. She states her breathing is much better today. She is on IV Lasix 40 mg every 8 hours. Weights and I&O's do not appear to be accurate. Repeat blood work reveals potassium 4.2, BUN 15 creatinine 0.89. Blood pressure readings to the night were elevated now at 112/65, heart rate in the 70s and 80s. Patient is on oxygen at 3 L nasal cannula with pulse ox of 96% 05/31/2022 Patient examined this morning. Patient is sitting up in the chair. Patient denies chest pain or pressure. She denies shortness of breath. She continues to have lower extremity edema. She remains on IV Lasix 40 mg every 12 hours. Creatinine stable today at 0.95. BUN 16. Vital signs are stable. Echocardiogram completed revealing ejection fraction 55-60%, moderate to severe pulmonary hypertension, RVSP 53, mild to moderate mitral regurgitation, and mild to moderate tricuspid regurgitation. 06/01/2022 Patient examined this morning at the bedside. Patient denies chest pain or pressure. She denies shortness of breath. Patient remains on IV Lasix. Creatinine stable today at 0.84. PHYSICAL EXAM: VITAL SIGNS: Reviewed. GENERAL: Well-developed in no acute distress. NECK: Supple. No JVD or thyromegaly LUNGS: Respirations even and unlabored. Lungs essentially clear to auscultation bilaterally. HEART: Regular rate and rhythm. S1 and S2 heard. EXTREMITIES: Normal range of motion. No clubbing or cyanosis. Peripheral pulses intact. 2+ bilateral lower extremity edema with venous stasis dermatitis ASSESSMENT: Shortness of breath Acute heart failure with preserved ejection fraction History of hypertension History of venous insufficiency History of breast cancer History of diabetes Obesity, BMI 37 PLAN: Continue to hold amlodipine as this may be contributing to patient's lower extremity edema Continue additional cardiac medications Continue IV Lasix. Recommend transition to oral Lasix on discharge was 40 mg in the morning and 20 mg in the evening Encouraged patient to elevated her legs while sitting up in the chair Accurate intake and output and monitoring of kidney function Patient to follow-up post discharge with Dr. Charles Nurse practitioner note has been reviewed by physician. Signing provider agrees with the documented findings, assessment, and plan of care. Objective - Vital Signs Vital signs: Vital Signs Temp 98 F 06/01/22 11:14 Pulse 80 06/01/22 11:14 Resp 17 06/01/22 11:14 BP 131/61 06/01/22 11:14 Pulse Ox 96 06/01/22 07:48 FiO2 Intake & Output 05/31/22 06/01/22 06/01/22 18:59 06:59 18:59 Intake Total 716 360 Output Total 500 200 300 Balance 216 -200 60 Intake: Oral 716 360 Output: Urine 500 200 300 Other: Voiding Method Toilet - Labs CBC & Chem 7: 05/30/22 08:41 06/01/22 07:52 Labs: Abnormal Lab Results - Last 24 Hours (Table) 05/31/22 05/31/22 05/31/22 Range/Units 11:49 16:44 20:35 Sodium (137-145) mmol/L Chloride (98-107) mmol/L Carbon Dioxide (22-30) mmol/L BUN (7-17) mg/dL Glucose (74-99) mg/dL POC Glucose (mg/dL) 181 H 190 H 187 H (70-110) mg/dL Calcium (8.4-10.2) mg/dL 06/01/22 06/01/22 Range/Units 06:21 07:52 Sodium 135 L (137-145) mmol/L Chloride 94 L (98-107) mmol/L Carbon Dioxide 33 H (22-30) mmol/L BUN 18 H (7-17) mg/dL Glucose 198 H (74-99) mg/dL POC Glucose (mg/dL) 144 H (70-110) mg/dL Calcium 7.7 L (8.4-10.2) mg/dL
[2022-06-01] MEDS: FUROSEMIDE 10 MG/ML 4 ML VIAL IV SCH (11:44)
[2022-06-01] MEDS: ANASTROZOLE 1 MG TAB PO SCH (11:44)
[2022-06-01] MEDS: LOSARTAN 25 MG TAB PO SCH (11:46)
[2022-06-01] MEDS: TRIAMCINOLONE ACET 0.1% OINTMENT 15 GM TUBE TOPICAL SCH (11:46)
[2022-06-01 11:59] LABS: Glucose,Whole Blood 141 mg/dL (70-110)
--- NOTE | 2022-06-03 06:21 | P.DS ---
Providers Date of admission: 05/28/22 18:24 Expected date of discharge: 06/01/22 Attending physician: Kenneth Amaya Consults: 05/28/22 18:24 Consult Physician Routine Consulting Provider: [facility] Consult Reason/Comments: Acute pulmonary edema Do you want consulting provider notified?: Yes 05/29/22 08:41 Consult Physician Routine Consulting Provider: Karyn Samuels Consult Reason/Comments: abnormal d dimer Do you want consulting provider notified?: Yes Primary care physician: Nigel Marlow Hospital Course: Final diagnosis CHF acute exacerbation, with preserved EF Hypertension Hypothyroidism Diabetes mellitus, type II Discharge disposition Patient is being discharged in a stable condition with guarded prognosis to home . Patient will follow-up with Dr. Marlow in the outpatient setting upon discharge. Patient is to continue with Lasix 40 mg daily and 20 mg in the early evening and outpatient follow-up with cardiology as scheduled. Total time taken is greater than 35 minutes. Hospital course This is a 81-year-old female who was recently admitted with CHF exacerbation and bilateral lower extremity swelling. Patient was being followed by cardiology maintained on IV Lasix and diuresed well. Patient does continue to have some lower extremity edema and would recommend [place] wraps and elevated while at rest. Patient instructed to continue with Lasix 40 mg daily as well as 20 mg in the evening with close outpatient follow-up labs cardiology follow-up. Please refer to cardiology no for further HPI. Currently no reports of chest pain, shortness of breath, or palpitations. Patient is afebrile. No reports of nausea or vomiting and patient is tolerating diet. Patient will be discharged home today. Guarded prognosis. Physical exam: Gen: This is a 81-year-old female who is awake, alert and oriented 3, well- developed, well-nourished, obese HEENT: Head is atraumatic, normocephalic. Pupils equal, round. Sclerae is anicteric. NECK: Supple. No JVD. No lymphadenopathy. No thyromegaly. LUNGS: Diminished breath sounds bilaterally with no wheezes or rhonchi. No intercostal retractions. HEART: S1, S2 are muffled ABDOMEN: Soft. Bowel sounds are present. No masses. No tenderness. EXTREMITIES: No pedal edema. No calf tenderness. Bilateral lower extremity edema NEUROLOGICAL: Patient is awake, alert and oriented x3. Cranial nerves 2 through 12 are grossly intact. Please refer to medication reconciliation sheet for a list of medications. The impression and plan of care has been dictated by Adwoa Arboleda, Nurse Practitioner as directed. Dr. Jose Luis MD I have performed a history and examination and MDM of this patient, discussed the same with the dictator, and agree with the dictator's assessment and plan as written ,documented as a scribe. Based on total visit time, I have performed more than 50% of the visit. Patient Condition at Discharge: Fair Plan - Discharge Summary Discharge Rx Participant: No New Discharge Prescriptions: New Triamcinolone 0.1% Ointment [Kenalog 0.1% Ointment] 1 applic TOPICAL TID 30 Days #1 each carvediloL [Coreg*] 12.5 mg PO BID-W/MEALS #60 tab Losartan [Cozaar] 25 mg PO DAILY 30 Days #30 tab Ibuprofen [Motrin] 400 mg PO Q6HR PRN tab PRN Reason: Pain Calcium Carb-Vit D 500Mg-5Mcg [Oscal 500+D 5 Mcg (200 Iu)] 1 each PO BID- W/MEALS #60 tab Continue metFORMIN HCL [Glucophage] 1,000 mg PO BID Levothyroxine Sodium [Synthroid] 75 mcg PO QAM Anastrozole 1 mg PO DAILY Alendronate Sodium [Fosamax] 70 mg PO CORLEY Changed Furosemide [Lasix] 60 mg PO DAILY #90 tab Discontinued atenoloL [Tenormin] 50 mg PO BID amLODIPine [Norvasc] 5 mg PO BID Discharge Medication List metFORMIN HCL [Glucophage] 1,000 mg PO BID 11/07/15 [History] Levothyroxine Sodium [Synthroid] 75 mcg PO QAM 10/27/17 [History] Alendronate Sodium [Fosamax] 70 mg PO CORLEY 05/28/22 [History] Anastrozole 1 mg PO DAILY 05/28/22 [History] Calcium Carb-Vit D 500Mg-5Mcg [Oscal 500+D 5 Mcg (200 Iu)] 1 each PO BID-W/MEALS #60 tab 06/01/22 [Rx] Furosemide [Lasix] 60 mg PO DAILY #90 tab 06/01/22 [Rx] Ibuprofen [Motrin] 400 mg PO Q6HR PRN tab 06/01/22 [Rx] Losartan [Cozaar] 25 mg PO DAILY 30 Days #30 tab 06/01/22 [Rx] Triamcinolone 0.1% Ointment [Kenalog 0.1% Ointment] 1 applic TOPICAL TID 30 Days #1 each 06/01/22 [Rx] carvediloL [Coreg*] 12.5 mg PO BID-W/MEALS #60 tab 06/01/22 [Rx] Follow up Appointment(s)/Referral(s): Nigel Marlow MD [Primary Care Provider] - 06/03/22 10:40 am Lorne Charles MD [STAFF PHYSICIAN] - 2 Weeks (office will call you for an appointment ) Patient Instructions/Handouts: Pulmonary Edema (DC) Activity/Diet/Wound Care/Special Instructions: Activity Limited until follow-up Follow-up with cardiology outpatient Continue taking medications as prescribed Continue to elevate lower extremities while at rest Continue fluid restrictions of 45 ounces all day including all intake Follow-up with primary care provider on discharge Discharge Disposition: HOME SELF-CARE
== END 2022-06-01 14:30 | disposition home or self-care (01) | DRG 291 ==
LOC: EC 12:25 → 3SCARD 18:24
PROVIDERS: ADMIT Hospitalist; ATTEND Hospitalist
PROC: B246ZZ4 Ultrasonography of Right and Left Heart, Transesophageal (ICD-10-PCS; principal; 2022-05-29)
DX: I13.0 Hypertensive heart and chronic kidney disease with heart failure and stage 1 through stage 4 chronic kidney disease, or unspecified chronic kidney disease (principal); I50.31 Acute diastolic (congestive) heart failure; J96.01 Acute respiratory failure with hypoxia; I89.0 Lymphedema, not elsewhere classified; E11.22 Type 2 diabetes mellitus with diabetic chronic kidney disease; E11.42 Type 2 diabetes mellitus with diabetic polyneuropathy; E87.5 Hyperkalemia; E03.9 Hypothyroidism, unspecified; E66.9 Obesity, unspecified; N18.9 Chronic kidney disease, unspecified; I87.2 Venous insufficiency (chronic) (peripheral); I27.20 Pulmonary hypertension, unspecified; I45.10 Unspecified right bundle-branch block; I87.8 Other specified disorders of veins; I08.1 Rheumatic disorders of both mitral and tricuspid valves; Z90.710 Acquired absence of both cervix and uterus; Z85.42 Personal history of malignant neoplasm of other parts of uterus; Z85.3 Personal history of malignant neoplasm of breast; Z90.11 Acquired absence of right breast and nipple; Z79.84 Long term (current) use of oral hypoglycemic drugs; Z68.37 Body mass index [BMI] 37.0-37.9, adult; Z92.3 Personal history of irradiation; Z79.83 Long term (current) use of bisphosphonates; Z79.811 Long term (current) use of aromatase inhibitors; Z79.890 Hormone replacement therapy; Z79.899 Other long term (current) drug therapy; Z88.5 Allergy status to narcotic agent; Z92.21 Personal history of antineoplastic chemotherapy; Z90.49 Acquired absence of other specified parts of digestive tract; Z82.49 Family history of ischemic heart disease and other diseases of the circulatory system
CPT/HCPCS: 36415; 71045; 71046; 80048; 80053; 83036; 83605; 83735; 83880; 84443; 84484; 85025; 85379; 85610; 85730; 93005; 93306; 94760; 96374; 99291

== ENCOUNTER 2022-09-24 12:41 | Inpatient (IN) | payer MEDICARE, BC ==
[2022-09-24] MEDS ORDERED: ONDANSETRON ODT 8 MG TAB.RAPDIS PO STA (14:04)
[2022-09-24] MEDS ORDERED: MORPHINE SULFATE 2 MG/ML SYRINGE IVP STA (14:04)
--- NOTE | 2022-09-24 14:05 | ED ---
Abdominal Pain HPI - General Chief Complaint: Abdominal Pain Stated Complaint: Possible Hernia Time Seen by Provider: 09/24/22 13:40 Source: patient, family (spouse), old records reviewed Mode of arrival: ambulatory Limitations: no limitations - History of Present Illness Initial Comments: Patient is an 82-year-old female presenting to the emergency room at the direction of her primary care provider for further evaluation of right-sided abdominal pain with questionable mass versus hernia with stimulation. Patient reports abdominal pain ongoing for 2-3 days with tenderness to the right side during this time. She states that she has had a decreased appetite and the site of food makes her nauseated however without the side effects which she denies any nausea or vomiting. She states that she had a bowel movement today which was darker in color than her normal bowel movements but denies any diarrhea, blood or mucus in her stool. She reports along with her decreased appetite she has knows a decrease in urine output. Due to her abdominal pain she has not allowed her to wrap her lower extremities in which she has chronic bilateral lower extremity edema consequently her lower extremity swelling has increased slightly. She denies any chest pain, shortness of breath, dysuria, hematuria, fevers or chills. In addition to her chronic lower extremity swelling she has a past medical history significant for uterine cancer, breast cancer, diabetes, hypertension, osteoarthritis and hypothyroidism. - Related Data Home Medications Medication Instructions Recorded Confirmed metFORMIN HCL [Glucophage] 1,000 mg PO BID 11/07/15 05/28/22 Levothyroxine Sodium [Synthroid] 75 mcg PO QAM 10/27/17 05/28/22 Alendronate Sodium [Fosamax] 70 mg PO CORLEY 05/28/22 05/28/22 Anastrozole 1 mg PO DAILY 05/28/22 05/28/22 Previous Rx's Medication Instructions Recorded Calcium Carb-Vit D 500Mg-5Mcg 1 each PO BID-W/MEALS #60 tab 06/01/22 [Oscal 500+D 5 Mcg (200 Iu)] Furosemide [Lasix] 60 mg PO DAILY #90 tab 06/01/22 Ibuprofen [Motrin] 400 mg PO Q6HR PRN tab 06/01/22 Losartan [Cozaar] 25 mg PO DAILY 30 Days #30 tab 06/01/22 Triamcinolone 0.1% Ointment 1 applic TOPICAL TID 30 Days #1 06/01/22 [Kenalog 0.1% Ointment] each carvediloL [Coreg*] 12.5 mg PO BID-W/MEALS #60 tab 06/01/22 Allergies Allergy/AdvReac Type Severity Reaction Status Date / Time codeine AdvReac Nausea & Verified 09/24/22 13:32 Vomiting Review of Systems ROS Statement: Those systems with pertinent positive or pertinent negative responses have been documented in the HPI. ROS Other: All systems not noted in ROS Statement are negative. Past Medical History Past Medical History: Cancer, Diabetes Mellitus, Hypertension, Osteoarthritis (OA), Thyroid Disorder Additional Past Medical History / Comment(s): hx UTERINE CANCER(chemo and radiation 5 yrs ago). NEUROPATHY IN FEET, diarrhea, rt breast cancer, bilateral lower extremity edema History of Any Multi-Drug Resistant Organisms: None Reported Past Surgical History: Appendectomy, Breast Surgery, Cholecystectomy, Hysterectomy Additional Past Surgical History / Comment(s): rt breast biopsy. right breast mastectomy 11/29/17 Past Anesthesia/Blood Transfusion Reactions: Motion Sickness, Postoperative Nausea & Vomiting (PONV) Additional Past Anesthesia/Blood Transfusion Reaction / Comment(s): PONV after gallbladder surgery Past Psychological History: No Psychological Hx Reported Smoking Status: Never smoker Past Alcohol Use History: None Reported Past Drug Use History: None Reported - Past Family History Mother Family Medical History: No Reported History Father Family Medical History: Myocardial Infarction (SC) Brother(s) Family Medical History: Cancer Additional Family Medical History / Comment(s): prostate General Exam Limitations: no limitations General appearance: alert, in no apparent distress Head exam: Present: atraumatic, normocephalic, normal inspection Eye exam: Present: normal appearance, PERRL, EOMI. Absent: scleral icterus, conjunctival injection, periorbital swelling ENT exam: Present: normal exam, mucous membranes moist Neck exam: Present: normal inspection, full ROM. Absent: tenderness Respiratory exam: Present: normal lung sounds bilaterally. Absent: respiratory distress, wheezes, rales, rhonchi, stridor Cardiovascular Exam: Present: regular rate, normal rhythm, normal heart sounds. Absent: systolic murmur, diastolic murmur, rubs, gallop, clicks GI/Abdominal exam: Present: distended, tenderness, normal bowel sounds, mass (Right mid abdominal wall). Absent: soft (Firmness to mass location a right abdominal wall soft tissue left abdominal upper and lower regions), guarding, rebound, rigid Rectal exam: Present: deferred Extremities exam: Present: pedal edema (Bilateral lower extremity edema +2 with venous stasis discoloration.) Neurological exam: Present: alert, oriented X3, CN II-XII intact Psychiatric exam: Present: normal affect, normal mood Skin exam: Present: intact, other (Discolored bilateral lower extremities as above.) Course Vital Signs 09/24/22 09/24/22 09/24/22 13:34 14:30 14:33 Temperature 98.1 F Pulse Rate 75 74 Respiratory 18 18 Rate Blood Pressure 95/57 87/46 97/48 O2 Sat by Pulse 95 93 L Oximetry 09/24/22 09/24/22 09/24/22 15:10 16:00 17:00 Temperature Pulse Rate 76 77 78 Respiratory 18 20 22 Rate Blood Pressure 100/53 102/88 104/44 O2 Sat by Pulse 94 L 93 L 90 L Oximetry 09/24/22 17:35 Temperature Pulse Rate Respiratory Rate Blood Pressure O2 Sat by Pulse 96 Oximetry Medical Decision Making - Medical Decision Making Was pt. sent in by a medical professional or institution (, PA, POULTRY SLAUGHTERER, urgent care, hospital, or usp...) When possible be specific @ -Yes comments patient sent to the emergency room by his primary care provi allie's office Did you speak to anyone other than the patient for history (EMS, parent, family, police, friend...)? What history was obtained from this source @ -No Did you review nursing and triage notes (agree or disagree)? Why? @ -I reviewed and agree with nursing and triage notes Were old charts reviewed (outside hosp., previous admission, EMS record, old EKG, old radiological studies, urgent care reports/EKG's, usp records)? Report findings @ -No old charts were reviewed Differential Diagnosis (chest pain, altered mental status, abdominal pain women, abdominal pain men, vaginal bleeding, weakness, fever, dyspnea, syncope, headache, dizziness, GI bleed, back pain, seizure, CVA, palpatations, mental health, musculoskeletal)? @ -Differential Abdominal Pain Women: Appendicitis, Cholecystitis, diverticulosis, ischemic bowel, pancreatitis, hepatitis, UTI, gastroenteritis, AAA, incarcerated hernia, bowel obstruction, constipation, inflammatory bowel, hepatitis, peptic ulcer disease, splenic infarction, perforated viscus, vulvitis, ovarian torsion, PID, kidney stone, placenta abruption, this is not meant to be an all-inclusive list EKG interpreted by me (3pts min.). @ -None done X-rays interpreted by me (1pt min.). @ -Chest x-ray one view mild pulmonary vascular prominence without overt pulmonary vascular congestion. CT interpreted by me (1pt min.). @ -CT of the abdomen and pelvis reveals a mass located on the right abdominal wall with no evidence of obstruction or free air. U/S interpreted by me (1pt. min.). @ -None done What testing was considered but not performed or refused? (CT, X-rays, U/S, labs)? Why? @ -None What meds were considered but not given or refused? Why? @ -None Did you discuss the management of the patient with other professionals (professionals i.e. , PA, POULTRY SLAUGHTERER, lab, RT, psych nurse, social media intern, ammunition assembly ii laborer, teacher, public service officer, case repairer)? Give summary @ -yes, spoke with Marsha Hernandez on for [facility] regarding patient's presentation, workup and recommendation of admission for abdominal wall abscess and acute renal failure with consult to nephrology, infectious disease and general surgery; she is accepting of admission and denies any further recommendations at this time. Was smoking cessation discussed for >3mins.? @ -No Was critical care preformed (if so, how long)? @ -No Were there social determinants of health that impacted care today? How? (Homelessness, low income, unemployed, alcoholism, drug addiction, tra nsportation, low edu. Level, literacy, decrease access to med. care, alf, rehab)? @ -No Was there de-escalation of care discussed even if they declined (Discuss DNR or withdrawal of care, Hospice)? DNR status @ -No What co-morbidities impacted this encounter? (DM, HTN, Smoking, COPD, CAD, Cancer, CVA, ARF, Chemo, Hep., AIDS, mental health diagnosis, sleep apnea, morbid obesity)? @ -None Was patient admitted / discharged? Hospital course, mention meds given and route, prescriptions, significant lab abnormalities, going to OR and other pertinent info. @ -82-year-old female presenting to the emergency room at the direction of her primary care provider for further evaluation of right-sided abdominal pain with questionable mass versus hernia with stimulation. Patient reports abdominal pain ongoing for 2-3 days with tenderness to the right side during this time. She states that she has had a decreased appetite and the site of food makes her nauseated however without the side effects which she denies any nausea or vomiting. Will obtain laboratory studies a CBC, CMP, amylase, lipase, lactic acid, blood cultures and coags. Will give reduced dose of morphine for pain in combination with Zofran due to nausea and vomiting from opiates. Will order CT of the abdomen and pelvis with contrast pending renal function. Hypotension noted, morphine held due to hypotension. History of pulmonary edema on diuretic therapy will give IV hydration but cautiously beginning with 500 mL. And obtain x-ray of the chest 1 view. Laboratories studies reveal lactic acid of 2.5 and elevated WBC 25.6 with neutrophils elevated at 22.5 mild anemia noted at 11.11 hemoglobin, platelet count normal. Renal function shows acute renal failure with a BUN of 52 and crea tinine of 2.24 with baseline normal renal function sodium low at 1:30, chloride low at 93 potassium normal. Liver enzymes normal, coags normal. Due to impaired renal function will change computed tomography scan from CT of abdomen and pelvis with contrast 2 without. Will give an additional 500 mL fluid bolus and give tramadol for pain in the setting of impaired renal function and intolerance to opiates with hypotension. Will begin and miotic therapy with Unasyn as GI is likely source of infection. Chest x-ray one view demonstrates intervascular prominence consistent with pulmonary edema however it is not severe. CT of the abdomen reveals a large abdominal wall abscess with lymph node enlargement no evidence of obstruction. Laboratory studies, x-ray and CT results all discussed with patient and spouse at the bedside. Advised recommended admission for abdominal wall abscess and acute renal failure with cautious IV hydration, antibiotics and follow-up with nephrology, infectious disease and general surgery for further treatment. Spouse is easily agitated at bedside however patient is agreeable to this plan. Spoke with Marsha Hernandez on for [facility] services who was advised of above information as well; she is agreeable to plan of consult and current plan of IV hydration of normal saline at 50 mL an hour along with continued Unasyn renally dosed. Will admit patient in serious but stable condition to [facility] services for further evaluation and treatment of abdominal wall abscess and acute renal failure with consult to nephrology, infectious disease and general surgery. Undiagnosed new problem with uncertain prognosis? @ -No Drug Therapy requiring intensive monitoring for toxicity (Heparin, Nitro, Insulin, Cardizem)? @ -No Were any procedures done? @ -No Diagnosis/symptom? @ -Right abdominal wall abscess Acute, or Chronic, or Acute on Chronic? @ -Acute Uncomplicated (without systemic symptoms) or Complicated (systemic symptoms)? @ -Acute Side effects of treatment? @ -No Exacerbation, Progression, or Severe Exacerbation? @ -No Poses a threat to life or bodily function? How? (Chest pain, [place], SC, pneumonia, PE, COPD, DKA, ARF, appy, cholecystitis, CVA, Diverticulitis, Homicidal, Suicidal, threat to staff... and all critical care pts) @ -yes, Leukocytosis with acute renal injury at risk for sepsis and septic shock. Diagnosis/symptom? @ -Acute renal failure Acute, or Chronic, or Acute on Chronic? @ -Acute Uncomplicated (without systemic symptoms) or Complicated (systemic symptoms)? @ -Complicated Side effects of treatment? @ -none Exacerbation, Progression, or Severe Exacerbation] @ -no Poses a threat to life or bodily function? @ -Yes at risk worsening renal failure and uremia. Case discussed with Dr. Carrasquillo. - Lab Data Result diagrams: 09/24/22 14:24 09/24/22 14:24 Lab Results 09/24/22 09/24/22 09/24/22 Range/Units 14:24 14:24 14:24 WBC 25.6 H (3.8-10.6) k/uL RBC 3.96 (3.80-5.40) m/uL Hgb 11.1 L (11.4-16.0) gm/dL Hct 33.0 L (34.0-46.0) % MCV 83.4 (80.0-100.0) fL MCH 28.2 (25.0-35.0) pg MCHC 33.8 (31.0-37.0) g/dL RDW 13.7 (11.5-15.5) % Plt Count 406 (150-450) k/uL MPV 8.6 Neutrophils % 88 % Lymphocytes % 5 % Monocytes % 5 % Eosinophils % 0 % Basophils % 0 % Neutrophils # 22.5 H (1.3-7.7) k/uL Lymphocytes # 1.4 (1.0-4.8) k/uL Monocytes # 1.4 H (0-1.0) k/uL Eosinophils # 0.1 (0-0.7) k/uL Basophils # 0.1 (0-0.2) k/uL PT 11.2 (9.0-12.0) sec INR 1.1 (<1.2) APTT 24.5 (22.0-30.0) sec Sodium 130 L (137-145) mmol/L Potassium 4.9 (3.5-5.1) mmol/L Chloride 93 L (98-107) mmol/L Carbon Dioxide 24 (22-30) mmol/L Anion Gap 13 mmol/L BUN 52 H (7-17) mg/dL Creatinine 2.24 H (0.52-1.04) mg/dL Est GFR (CKD-EPI)AfAm 23 (>60 ml/min/1.73 sqM) Est GFR (CKD-EPI)NonAf 20 (>60 ml/min/1.73 sqM) Glucose 142 H (74-99) mg/dL Lactic Ac Sepsis Rflx Plasma Lactic Acid Mirza (0.7-2.0) mmol/L Calcium 8.1 L (8.4-10.2) mg/dL Total Bilirubin 0.9 (0.2-1.3) mg/dL AST 30 (14-36) U/L ALT 15 (4-34) U/L Alkaline Phosphatase 104 (38-126) U/L Total Protein 6.4 (6.3-8.2) g/dL Albumin 3.0 L (3.5-5.0) g/dL Amylase <30 L (30-110) U/L Lipase 31 (23-300) U/L 09/24/22 09/24/22 Range/Units 14:24 15:15 WBC (3.8-10.6) k/uL RBC (3.80-5.40) m/uL Hgb (11.4-16.0) gm/dL Hct (34.0-46.0) % MCV (80.0-100.0) fL MCH (25.0-35.0) pg MCHC (31.0-37.0) g/dL RDW (11.5-15.5) % Plt Count (150-450) k/uL MPV Neutrophils % % Lymphocytes % % Monocytes % % Eosinophils % % Basophils % % Neutrophils # (1.3-7.7) k/uL Lymphocytes # (1.0-4.8) k/uL Monocytes # (0-1.0) k/uL Eosinophils # (0-0.7) k/uL Basophils # (0-0.2) k/uL PT (9.0-12.0) sec INR (<1.2) APTT (22.0-30.0) sec Sodium (137-145) mmol/L Potassium (3.5-5.1) mmol/L Chloride (98-107) mmol/L Carbon Dioxide (22-30) mmol/L Anion Gap mmol/L BUN (7-17) mg/dL Creatinine (0.52-1.04) mg/dL Est GFR (CKD-EPI)AfAm (>60 ml/min/1.73 sqM) Est GFR (CKD-EPI)NonAf (>60 ml/min/1.73 sqM) Glucose (74-99) mg/dL Lactic Ac Sepsis Rflx Y Plasma Lactic Acid Mirza 2.5 H* (0.7-2.0) mmol/L Calcium (8.4-10.2) mg/dL Total Bilirubin (0.2-1.3) mg/dL AST (14-36) U/L ALT (4-34) U/L Alkaline Phosphatase (38-126) U/L Total Protein (6.3-8.2) g/dL Albumin (3.5-5.0) g/dL Amylase (30-110) U/L Lipase (23-300) U/L - Radiology Data Radiology results: report reviewed, image reviewed Disposition Clinical Impression: Abscess of abdominal wall, Acute renal failure Disposition: ADMITTED IP TO THIS [facility] Condition: Serious Referrals: Nigel Marlow MD [Primary Care Provider] - 1-2 days Time of Disposition: 18:01
[2022-09-24] MEDS ORDERED: ONDANSETRON 4 MG/2 ML VIAL IVP STA (14:27)
[2022-09-24 14:55] LABS: INR 1.1 (<1.2); Partial Thromboplastin Time 24.5 sec (22.0-30.0); Prothrombin Time 11.2 sec (9.0-12.0)
[2022-09-24 15:00] LABS: Basophils # (A) 0.1 k/uL (0-0.2); Basophils % (A) 0 %; Eosinophils # (A) 0.1 k/uL (0-0.7); Eosinophils % (A) 0 %; HGB 11.1 gm/dL (11.4-16.0); Lymphocytes # (A) 1.4 k/uL (1.0-4.8); Lymphocytes % (A) 5 %; MCH 28.2 pg (25.0-35.0); MCHC 33.8 g/dL (31.0-37.0); MCV 83.4 fL (80.0-100.0); Mean Platelet Volume 8.6; Monocytes # (A) 1.4 k/uL (0-1.0); Monocytes % (A) 5 %; Neutrophils # (A) 22.5 k/uL (1.3-7.7); Neutrophils % (A) 88 %; Platelet Count 406 k/uL (150-450); RBC 3.96 m/uL (3.80-5.40); RDW 13.7 % (11.5-15.5); WBC 25.6 k/uL (3.8-10.6)
[2022-09-24] MEDS ORDERED: SODIUM CHLORIDE 0.9% 500 ML 500 ML IV ONE (15:00)
[2022-09-24 15:21] LABS: ALT 15 U/L (4-34); African American GFR (CKD) 23 (>60 ml/min/1.73 sqM); Anion Gap 13 mmol/L; Blood Urea Nitrogen 52 mg/dL (7-17); Calcium 8.1 mg/dL (8.4-10.2); Carbon Dioxide 24 mmol/L (22-30); Chloride 93 mmol/L (98-107); Glucose 142 mg/dL (74-99); Lipase 31 U/L (23-300); Non-African American GFR(CKD) 20 (>60 ml/min/1.73 sqM); Sodium 130 mmol/L (137-145); Total Bilirubin 0.9 mg/dL (0.2-1.3); Total Protein 6.4 g/dL (6.3-8.2)
[2022-09-24] MEDS ORDERED: SODIUM CHLORIDE 0.9% 500 ML 500 ML IV STA (15:26)
[2022-09-24] MEDS ORDERED: traMADol 50 MG TAB PO STA (15:35)
[2022-09-24 15:37] LABS: AST 30 U/L (14-36); Alkaline Phosphatase 104 U/L (38-126); Amylase <30 U/L (30-110); Potassium 4.9 mmol/L (3.5-5.1)
[2022-09-24] MEDS ORDERED: SODIUM CHLORIDE 0.9% 1,000 ML IV STA ×2 (15:43→17:41)
--- NOTE | 2022-09-24 16:52 | XR ---
EXAMINATION TYPE: XR chest 1V DATE OF EXAM: 09/24/2022 COMPARISON: 06/01/2022 HISTORY: 82-year-old female hypotension TECHNIQUE: Single frontal view of the chest is obtained. FINDINGS: The heart is mildly enlarged. Perihilar and interstitial prominence. Hyperinflation. Atherosclerotic arch calcifications. No pleural effusion. IMPRESSION: Cardiomegaly and COPD. There is perihilar density and interstitial prominence. Correlate for mild pulmonary vascular congestion.
--- NOTE | 2022-09-24 17:06 | CT ---
EXAMINATION TYPE: CT abdomen pelvis wo con CT DLP: 934.3 mGycm, Automated exposure control for dose reduction was used. DATE OF EXAM: 09/24/2022 4:34 PM COMPARISON: 03/03/2012. CLINICAL INDICATION:Female, 82 years old with history of abdominal pain; abdominal pain, hernia TECHNIQUE: Axial CT of the abdomen and pelvis. Sagittal and coronal reformats were created on a [employer] workstation. Contrast used: mL of , (none if empty) Oral contrast used: without Oral Contrast (none if empty) FINDINGS: LOWER CHEST: Unremarkable ABDOMEN LIVER: Unremarkable GALLBLADDER AND BILE DUCTS: Small cystic duct remnant noted near the cholecystectomy clips. PANCREAS: Unremarkable. SPLEEN: Unremarkable. ADRENAL GLANDS: Unremarkable. KIDNEYS AND URETERS: No evidence of hydronephrosis or renal calculus. The ureters are unremarkable. Vascular calcifications in the renal sinuses bilaterally. PELVIS BLADDER: Unremarkable REPRODUCTIVE: Unremarkable. ABDOMEN & PELVIS STOMACH AND BOWEL: Fat stranding changes around the right colon with wall thickening. Measuring up to 17 mm. Mesenteric lymph node measuring 9 mm in short axis. No Evidence of bowel obstruction. PERITONEUM/RETROPERITONEUM: No evidence of pneumoperitoneum or free fluid. VASCULATURE: Saccular dilation of the infrarenal abdominal aorta up to 2.47 m. MUSCULOSKELETAL: No acute osseous abnormalities. Moderate disc degeneration changes are present throu ghout the thoracolumbar spine. Degeneration changes of the hips bilaterally with osteophyte formation present. LYMPH NODES: No gross evidence for lymphadenopathy. SOFT TISSUE/ABDOMINAL WALL: Right abdominal wall fluid collection measuring 8.4 x 3.3 x 6.8 cm. IMPRESSION: There is thickening of the ascending colon/cecum with mesenteric lymph node and soft tissue heterogen ous material within the right abdominal wall which could represent abscess or hematoma in that clinic al setting. Correlate for recent instrumentation. If no recent procedure was performed on the right a bdominal wall. Findings could represent underlying mass with metastatic disease to the abdominal wall intramuscular. Further workup to rule out underlying colonic malignancy recommended.
[2022-09-24] MEDS ORDERED: NALOXONE 0.4 MG/ML 1 ML VIAL IV PRN (17:37)
[2022-09-24] MEDS ORDERED: AMPICILLIN-SULBACTAM 3 GM in SODIUM CHLORIDE 0.9% 100 ML IVPB STA (17:47)
[2022-09-24] MEDS ORDERED: AMPICILLIN-SULBACTAM 3 GM in SODIUM CHLORIDE 0.9% 50 ML IVPB SCH (18:00)
[2022-09-24] MEDS ORDERED: DEXTROSE 50% SYRINGE 50 ML IVP PRN ×2 (20:10)
[2022-09-24] MEDS: traMADol 50 MG TAB PO PRN (20:26)
[2022-09-24 22:14] LABS: Glucose,Whole Blood 153 mg/dL (70-110)
[2022-09-24] MEDS: INSULIN ASPART (NovoLOG) 100 UNIT/ML VIAL SQ SCH (22:23)
[2022-09-25] MEDS ORDERED: AMPICILLIN-SULBACTAM 3 GM in SODIUM CHLORIDE 0.9% 100 ML IVPB SCH ×4 (06:00)
[2022-09-25 06:03] LABS: Glucose,Whole Blood 166 mg/dL (70-110)
[2022-09-25] MEDS: CALCIUM CARB-VIT D 500 MG-5 MCG TAB PO SCH ×2 (06:28→18:25)
[2022-09-25] MEDS: LEVOTHYROXINE 75 MCG TAB PO SCH (06:29)
[2022-09-25] MEDS: INSULIN ASPART (NovoLOG) 100 UNIT/ML VIAL SQ SCH ×4 (06:29→21:09)
[2022-09-25] MEDS: carvediloL 12.5 MG TAB PO SCH ×2 (06:29→09:32)
[2022-09-25] MEDS ORDERED: PEG 3350 (236 GM/BTL) + LYTES 4,000 ML BOTTLE PO ONE (09:00)
[2022-09-25] MEDS: ANASTROZOLE 1 MG TAB PO SCH (09:27)
[2022-09-25] MEDS: PANTOPRAZOLE 40 MG/10 ML VIAL IVP SCH (09:27)
[2022-09-25] MEDS: traMADol 50 MG TAB PO PRN (09:27)
[2022-09-25 10:04] LABS: HCT 28.9 % (37.2-46.3); MCH 26.9 pg (27.0-32.0); MCHC 31.1 d/dL (32.0-37.0); MCV 86.5 FL (80.0-97.0); Mean Platelet Volume 10.3 FL (9.5-12.2); NRBC Per 100 WBC 0 X 10*3/uL (0.00-0.01); Platelet Count 408 X 10*3/uL (140-440); RBC 3.34 X 10*6/uL (4.10-5.20); RDW 14.2 % (11.5-14.5); WBC 28.39 X 10*3/uL (4.50-10.00)
[2022-09-25 10:43] LABS: Basophils # (A) 0.07 X 10*3/uL (0.00-0.10); Basophils % (A) 0.2 %; Eosinophils # (A) 0.01 X 10*3/uL (0.04-0.35); Eosinophils % (A) 0 %; Lymphocytes % (A) 2.8 %; Monocytes # (A) 1.67 X 10*3/uL (0.20-1.00); Monocytes % (A) 5.9 %; Neutrophils # (A) 25.53 X 10*3/uL (1.80-7.70); RBC Morphology Normal (Normal)
[2022-09-25 11:25] LABS: BUN/Creat Ratio 19.46 Ratio (12.00-20.00); Blood Urea Nitrogen 46.7 mg/dL (9.0-27.0); Calcium 6.7 mg/dL (8.7-10.3); Carbon Dioxide 22.1 mmol/L (21.6-31.8); Chloride 101 mmol/L (96-109); Glucose 135 mg/dL (70-110); Magnesium 1.5 mg/dL (1.5-2.4); Potassium 4.5 mmol/L (3.5-5.5); Sodium 137 mmol/L (135-145)
--- NOTE | 2022-09-25 11:28 | P.GSCN ---
History of Present Illness Consult date: 09/25/22 Reason for Consult: Abdominal pain History of present illness: This is an 82-year-old female who developed a spontaneous abdominal wall mass wi th pain. Patient pain over the right side her abdomen. Patient denies any trauma his mentation or injections and the site. Past Medical History Past Medical History: Cancer, Diabetes Mellitus, Hypertension, Osteoarthritis (OA), Thyroid Disorder Additional Past Medical History / Comment(s): hx UTERINE CANCER, NEUROPATHY IN FEET, diarrhea, Bilateral breast CA, bilateral lower extremity edema History of Any Multi-Drug Resistant Organisms: None Reported Past Surgical History: Appendectomy, Breast Surgery, Cholecystectomy, Hysterectomy Additional Past Surgical History / Comment(s): rt breast biopsy. right breast mastectomy 11/29/17 Past Anesthesia/Blood Transfusion Reactions: Motion Sickness, Postoperative Nausea & Vomiting (PONV) Additional Past Anesthesia/Blood Transfusion Reaction / Comm: PONV after gallbladder surgery Past Psychological History: No Psychological Hx Reported Smoking Status: Never smoker Past Alcohol Use History: None Reported Additional Past Alcohol Use History / Comment(s): QUIT AROUND 1992, LESS THAN HALF PPD. started smoking age 17 or 18 Past Drug Use History: None Reported - Past Family History Mother Family Medical History: No Reported History Father Family Medical History: Myocardial Infarction ([place]) Brother(s) Family Medical History: Cancer Additional Family Medical History / Comment(s): prostate Medications and Allergies Home Medications Medication Instructions Recorded Confirmed Type metFORMIN HCL [Glucophage] 1,000 mg PO BID 11/07/15 09/24/22 History Levothyroxine Sodium [Synthroid] 75 mcg PO DAILY 10/27/17 09/24/22 History Alendronate Sodium [Fosamax] 70 mg PO CORLEY 05/28/22 09/24/22 History Anastrozole 1 mg PO DAILY 05/28/22 09/24/22 History Losartan [Cozaar] 25 mg PO DAILY 30 Days #30 tab 06/01/22 09/24/22 Rx carvediloL [Coreg*] 12.5 mg PO BID-W/MEALS #60 tab 06/01/22 09/24/22 Rx Calcium Carb-Vit D 500Mg-5Mcg 1 tab PO BID-W/MEALS 09/24/22 09/24/22 History [Oscal 500+D 5 Mcg (200 Iu)] Furosemide [Lasix] 40 mg PO BID 09/24/22 09/24/22 History Triamcinolone 0.1% Ointment 1 applic TOPICAL TID PRN 09/24/22 09/24/22 History [Kenalog 0.1% Ointment] Allergies Allergy/AdvReac Type Severity Reaction Status Date / Time codeine AdvReac Nausea & Verified 09/24/22 18:21 Vomiting Surgical - Exam Vital Signs Temp Pulse Resp BP Pulse Ox 98.1 F 75 18 95/57 95 09/24/22 13:34 09/24/22 13:34 09/24/22 13:34 09/24/22 13:34 09/24/22 13:34 - General well developed, well nourished, no distress - Eyes PERRL - ENT normal pinna - Neck no masses - Respiratory normal expansion - Cardiovascular Rhythm: regular - Abdomen 10 cm mass without evidence of erythema or cellulitis on the right lateral abdominal wall. The area is tender. Abdomen: soft Results - Labs 09/25/22 04:54 09/25/22 04:54 Abnormal Lab Results - Last 24 Hours (Table) 09/24/22 09/24/22 09/24/22 Range/Units 14:24 14:24 14:24 WBC 25.6 H (3.8-10.6) k/uL RBC (4.10-5.20) X 10*6/uL Hgb 11.1 L (11.4-16.0) gm/dL Hct 33.0 L (34.0-46.0) % MCH (27.0-32.0) pg MCHC (32.0-37.0) d/dL Neutrophils # 22.5 H (1.3-7.7) k/uL Lymphocytes # (0.90-5.00) X 10*3/uL Monocytes # 1.4 H (0-1.0) k/uL Eosinophils # (0.04-0.35) X 10*3/uL Sodium 130 L (137-145) mmol/L Chloride 93 L (98-107) mmol/L Anion Gap (4.00-12.00) mmol/L BUN 52 H (7-17) mg/dL Creatinine 2.24 H (0.52-1.04) mg/dL Est GFR (CKD-EPI) (>=60) Glucose 142 H (74-99) mg/dL POC Glucose (mg/dL) (70-110) mg/dL Hemoglobin A1c (<=6.0) % Plasma Lactic Acid Mirza 2.5 H* (0.7-2.0) mmol/L Calcium 8.1 L (8.4-10.2) mg/dL Albumin 3.0 L (3.5-5.0) g/dL Amylase <30 L (30-110) U/L 09/24/22 09/25/22 09/25/22 Range/Units 22:12 04:54 04:54 WBC 28.39 H (3.8-10.6) k/uL RBC 3.34 L (4.10-5.20) X 10*6/uL Hgb 9.0 L (11.4-16.0) gm/dL Hct 28.9 L (34.0-46.0) % MCH 26.9 L (27.0-32.0) pg MCHC 31.1 L (32.0-37.0) d/dL Neutrophils # 25.53 H (1.3-7.7) k/uL Lymphocytes # 0.80 L (0.90-5.00) X 10*3/uL Monocytes # 1.67 H (0-1.0) k/uL Eosinophils # 0.01 L (0.04-0.35) X 10*3/uL Sodium (137-145) mmol/L Chloride (98-107) mmol/L Anion Gap (4.00-12.00) mmol/L BUN (7-17) mg/dL Creatinine (0.52-1.04) mg/dL Est GFR (CKD-EPI) (>=60) Glucose (74-99) mg/dL POC Glucose (mg/dL) 153 H (70-110) mg/dL Hemoglobin A1c 6.5 H (<=6.0) % Plasma Lactic Acid Mirza (0.7-2.0) mmol/L Calcium (8.4-10.2) mg/dL Albumin (3.5-5.0) g/dL Amylase (30-110) U/L 09/25/22 09/25/22 Range/Units 04:54 06:02 WBC (3.8-10.6) k/uL RBC (4.10-5.20) X 10*6/uL Hgb (11.4-16.0) gm/dL Hct (34.0-46.0) % MCH (27.0-32.0) pg MCHC (32.0-37.0) d/dL Neutrophils # (1.3-7.7) k/uL Lymphocytes # (0.90-5.00) X 10*3/uL Monocytes # (0-1.0) k/uL Eosinophils # (0.04-0.35) X 10*3/uL Sodium (137-145) mmol/L Chloride (98-107) mmol/L Anion Gap 13.90 H (4.00-12.00) mmol/L BUN 46.7 H (7-17) mg/dL Creatinine 2.4 H (0.52-1.04) mg/dL Est GFR (CKD-EPI) 20 L (>=60) Glucose 135 H (74-99) mg/dL POC Glucose (mg/dL) 166 H (70-110) mg/dL Hemoglobin A1c (<=6.0) % Plasma Lactic Acid Mirza (0.7-2.0) mmol/L Calcium 6.7 L (8.4-10.2) mg/dL Albumin (3.5-5.0) g/dL Amylase (30-110) U/L Diabetes panel 09/24/22 09/25/22 09/25/22 Range/Units 14:24 04:54 04:54 Sodium 130 L 137 (137-145) mmol/L Potassium 4.9 4.5 (3.5-5.1) mmol/L Chloride 93 L 101 (98-107) mmol/L Carbon Dioxide 24 22.1 (22-30) mmol/L BUN 52 H 46.7 H (7-17) mg/dL Creatinine 2.24 H 2.4 H (0.52-1.04) mg/dL Glucose 142 H 135 H (74-99) mg/dL Hemoglobin A1c 6.5 H (<=6.0) % Calcium 8.1 L 6.7 L (8.4-10.2) mg/dL AST 30 (14-36) U/L ALT 15 (4-34) U/L Alkaline Phosphatase 104 (38-126) U/L Total Protein 6.4 (6.3-8.2) g/dL Albumin 3.0 L (3.5-5.0) g/dL Calcium panel 09/24/22 09/25/22 Range/Units 14:24 04:54 Calcium 8.1 L 6.7 L (8.4-10.2) mg/dL Albumin 3.0 L (3.5-5.0) g/dL Pituitary panel 09/24/22 09/25/22 Range/Units 14:24 04:54 Sodium 130 L 137 (137-145) mmol/L Potassium 4.9 4.5 (3.5-5.1) mmol/L Chloride 93 L 101 (98-107) mmol/L Carbon Dioxide 24 22.1 (22-30) mmol/L BUN 52 H 46.7 H (7-17) mg/dL Creatinine 2.24 H 2.4 H (0.52-1.04) mg/dL Glucose 142 H 135 H (74-99) mg/dL Calcium 8.1 L 6.7 L (8.4-10.2) mg/dL Adrenal panel 09/24/22 09/25/22 Range/Units 14:24 04:54 Sodium 130 L 137 (137-145) mmol/L Potassium 4.9 4.5 (3.5-5.1) mmol/L Chloride 93 L 101 (98-107) mmol/L Carbon Dioxide 24 22.1 (22-30) mmol/L BUN 52 H 46.7 H (7-17) mg/dL Creatinine 2.24 H 2.4 H (0.52-1.04) mg/dL Glucose 142 H 135 H (74-99) mg/dL Calcium 8.1 L 6.7 L (8.4-10.2) mg/dL Total Bilirubin 0.9 (0.2-1.3) mg/dL AST 30 (14-36) U/L ALT 15 (4-34) U/L Alkaline Phosphatase 104 (38-126) U/L Total Protein 6.4 (6.3-8.2) g/dL Albumin 3.0 L (3.5-5.0) g/dL - Imaging CT scan - abdomen: report reviewed (8 x 6 cm hematoma right abdominal wall. Thickening of the right colon) Assessment and Plan Assessment: Suspicious: On CAT scan. Patient will undergo colonoscopy in the a.m. I believe that her abdominal wall mass is a hematoma. Patient will be observed. She'll continue IV antibiotics. She will receive bowel prep today.
[2022-09-25] MEDS ORDERED: PIPERACILLIN-TAZOBACTAM 3.375 GM in SODIUM CHLORIDE 0.9% 100 ML IVPB SCH (12:00)
[2022-09-25] MEDS ORDERED: SODIUM CHLORIDE 0.9% 500 ML 500 ML IV ONE (12:42)
[2022-09-25 12:48] LABS: Glucose,Whole Blood 171 mg/dL (70-110)
[2022-09-25] MEDS: PIPERACILLIN-TAZOBACTAM 3.375 GM in SODIUM CHLORIDE 0.9% 100 ML IVPB SCH (12:49)
[2022-09-25] MEDS: HEPARIN SODIUM,PORCINE/PF 5,000 UNIT/0.5 ML SYRINGE SQ SCH ×3 (12:50→21:16)
[2022-09-25] MEDS: SODIUM CHLORIDE 0.9% 1,000 ML IV SCH (12:51)
--- NOTE | 2022-09-25 12:58 | HP ---
HISTORY AND PHYSICAL CHIEF COMPLAINT: Abdominal pain. HISTORY OF PRESENT ILLNESS: This 82-year-old woman with the past medical history of multiple medical problems complaining of diabetes, complaining of right-sided abdominal pain. The patient also noticed right-sided swelling. The patient came to [facility] and was admitted for further evaluation and treatment, and Surgery consultation underway. CT scan palpable induration, tenderness, erythema, and possibly a mass in the right lower part of the lower quadrant. CT showed thickening of ascending colon and possibly abscess or hematoma on the right abdominal wall. White count is elevated. There is no history of fever, rigors, or chills. PAST MEDICAL HISTORY: Reviewed and include diabetes mellitus and rest of history and rest of chart are also reviewed. HOME MEDICATIONS: Losartan. Doses and rest of the medications are reviewed. ALLERGIES: Codeine. FAMILY HISTORY: History of prostate cancer. SOCIAL HISTORY: No history of smoking or alcohol intake. REVIEW OF SYSTEMS: 14-point review is negative except as mentioned earlier. PHYSICAL EXAMINATION: VITAL SIGNS: Pulse is 72, blood pressure 90/60, respirations 18. HEENT: Conjunctivae normal. ABDOMEN: Obese. Significant tenderness, erythema, and swelling present in the right lateral part of the abdomen extending to the lower quadrant. Bowel sounds diminished. No ascites. LEGS: No edema. No cyanosis. NERVOUS SYSTEM: Nonfocal. LABORATORY DATA: WBC 28.3. Rest of the labs are noted. CAT scan reviewed personally. ASSESSMENT: 1. Right-sided abdominal wall abscess, rule out incarcerated hernia and spigelian hernia. 2. Increased WBC with possible sepsis with failure of outpatient treatment. 3. Diabetes mellitus, type 2. 4. Hypertension. 5. Multiple medical issues. RECOMMENDATIONS: This 82-year-old woman presented with multiple complex medical issues, we will monitor the patient closely, broad-spectrum IV antibiotics. Surgical evaluation. The patient might require surgical intervention. Infectious Disease evaluation. We will obtain cultures. Resume the home medication. Monitor blood sugars closely. DVT prophylaxis. Overall prognosis guarded because of multiple complex medical issues. We will discuss with Surgery. See orders for details. The patient requires more than 2 nights hospital stay for evaluation and treatment of above-mentioned multiple complex medical issues, which could be life threatening. MMODL / IJN: [id number] / [facility]
[2022-09-25] MEDS: ONDANSETRON 4 MG/2 ML VIAL IVP PRN (15:41)
[2022-09-25] MEDS: metroNIDAZOLE-NS PMX 500 MG in SALINE 1 100ML.BAG IVPB SCH (15:59)
[2022-09-25 16:19] LABS: Glucose,Whole Blood 126 mg/dL (70-110)
[2022-09-25 20:03] LABS: Glucose,Whole Blood 122 mg/dL (70-110)
--- NOTE | 2022-09-25 22:42 | P.CONS ---
History of Present Illness - Reason for Consult Consult date: 09/25/22 Abdominal wall abscess Requesting physician: Prerna Vieira - Chief Complaint Abdominal pain x few days - History of Present Illness Patient is a 82-year-old female with a past medical history significant for diabetes mellitus hypertension history of uterine cancer and bilateral breast CA presenting to the hospital yesterday afternoon for evaluation of right-sided abdominal pain apparently the patient's symptom has been going on for about a week and the patient was evaluated the PCP in the office and concern for possible Sarah hernia to the right upper quadrant area with the patient was advised to go to the hospital patient has been complaining of pain to the right upper coronary to be sharp almost 10 or 10 severity with no radiation associated nausea when no vomiting denies having any diarrhea or constipation on presentation to the hospital the patient was afebrile and no fever has been gone subsequently patient was not tachycardic mildly hypertensive and hypoxic on supplemental oxygen patient did have white count 20,000 with a left shift. Creatinine has been elevated patient did have a chest x-ray cardiomegaly COPD perihilar density and interstitial prominence CT abdominal pelvis thickening of the ascending colon with mesenteric lymph node and soft tissue heterogeneous material within the right abdominal wall which could have is an abscess or hematoma in that clinical setting patient was started on Zosyn infectious he was consulted concerning for possible abdominal wall abscess and further management of antibiotic therapy Review of Systems Positive point and negatives has been mentioned in the HPI, complete review of systems was performed and all other systems are negative Past Medical History Past Medical History: Cancer, Diabetes Mellitus, Hypertension, Osteoarthritis (OA), Thyroid Disorder Additional Past Medical History / Comment(s): hx UTERINE CANCER, NEUROPATHY IN FEET, diarrhea, Bilateral breast CA, bilateral lower extremity edema History of Any Multi-Drug Resistant Organisms: None Reported Past Surgical History: Appendectomy, Breast Surgery, Cholecystectomy, Hysterect bob Additional Past Surgical History / Comment(s): rt breast biopsy. right breast mastectomy 11/29/17 Past Anesthesia/Blood Transfusion Reactions: Motion Sickness, Postoperative Nausea & Vomiting (PONV) Additional Past Anesthesia/Blood Transfusion Reaction / Comm: PONV after gallbladder surgery Past Psychological History: No Psychological Hx Reported Smoking Status: Never smoker Past Alcohol Use History: None Reported Additional Past Alcohol Use History / Comment(s): QUIT AROUND 1992, LESS THAN HALF PPD. started smoking age 17 or 18 Past Drug Use History: None Reported - Past Family History Mother Family Medical History: No Reported History Father Family Medical History: Myocardial Infarction ([place]) Brother(s) Family Medical History: Cancer Additional Family Medical History / Comment(s): prostate Medications and Allergies Home Medications Medication Instructions Recorded Confirmed Type metFORMIN HCL [Glucophage] 1,000 mg PO BID 11/07/15 09/24/22 History Levothyroxine Sodium [Synthroid] 75 mcg PO DAILY 10/27/17 09/24/22 History Alendronate Sodium [Fosamax] 70 mg PO CORLEY 05/28/22 09/24/22 History Anastrozole 1 mg PO DAILY 05/28/22 09/24/22 History carvediloL [Coreg*] 12.5 mg PO BID-W/MEALS #60 tab 06/01/22 09/24/22 Rx Calcium Carb-Vit D 500Mg-5Mcg 1 tab PO BID-W/MEALS 09/24/22 09/24/22 History [Oscal 500+D 5 Mcg (200 Iu)] Furosemide [Lasix] 40 mg PO BID 09/24/22 09/24/22 History Triamcinolone 0.1% Ointment 1 applic TOPICAL TID PRN 09/24/22 09/24/22 History [Kenalog 0.1% Ointment] Amoxic-Pot Clav 875-125Mg 1 each PO Q12HR 7 Days #14 tab 10/11/22 Rx [Augmentin 875-125] Nystatin 100,000 Unit/gm Powd 1 applic TOPICAL TID 14 Days #1 10/11/22 Rx [Mycostatin Powder] each Potassium Chloride ER [K-Dur 20] 20 meq PO DAILY 30 Days #30 tab 10/11/22 Rx Allergies Allergy/AdvReac Type Severity Reaction Status Date / Time codeine AdvReac Nausea & Verified 09/24/22 18:21 Vomiting morphine AdvReac Nausea & Verified 09/26/22 08:33 Vomiting Physical Exam Vitals: Vital Signs Temp Pulse Pulse Resp BP BP Pulse Ox 09/25/22 09:26 102/66 09/25/22 07:00 97.8 F 72 18 91/60 96 09/25/22 02:35 98.3 F 60 13 105/61 96 09/24/22 20:00 98.1 F 82 16 90/43 98 09/24/22 18:18 81 18 104/49 98 09/24/22 17:35 96 09/24/22 17:00 78 22 104/44 90 L 09/24/22 16:00 77 20 102/88 93 L 09/24/22 15:10 76 18 100/53 94 L 09/24/22 14:33 97/48 09/24/22 14:30 74 18 87/46 93 L 09/24/22 13:34 98.1 F 75 18 95/57 95 Intake and Output 09/24/22 09/25/22 09/25/22 22:59 06:59 14:59 Intake Total 120 Balance 120 Intake: Oral 120 Other: # Voids 0 1 1 Weight 90.718 kg GENERAL DESCRIPTION: Elderly female lying in bed, no distress. No tachypnea or accessory muscle of respiration use. HEENT: Shows Pallor , no scleral icterus. Oral mucous membrane is dry. No pharyngeal erythema or thrush NECK: Trachea central, no thyromegaly. LUNGS: Unlabored breathing. Clear to auscultation anteriorly. No wheeze or cr ackle. HEART: S1, S2, regular rate and rhythm. No loud murmur ABDOMEN: Soft, right-sided abdominal wall swelling and tenderness EXTREMITIES: No edema of feet. SKIN: No rash, no masses palpable. NEUROLOGICAL: The patient is lethargic but arousable, mood and affect normal. Results CBC & Chem 7: 10/09/22 09:21 10/11/22 10:33 Labs: Abnormal Lab Results - Last 24 Hours (Table) 09/24/22 09/24/22 09/24/22 Range/Units 14:24 14:24 14:24 WBC 25.6 H (3.8-10.6) k/uL RBC (4.10-5.20) X 10*6/uL Hgb 11.1 L (11.4-16.0) gm/dL Hct 33.0 L (34.0-46.0) % MCH (27.0-32.0) pg MCHC (32.0-37.0) d/dL Neutrophils # 22.5 H (1.3-7.7) k/uL Lymphocytes # (0.90-5.00) X 10*3/uL Monocytes # 1.4 H (0-1.0) k/uL Eosinophils # (0.04-0.35) X 10*3/uL Sodium 130 L (137-145) mmol/L Chloride 93 L (98-107) mmol/L Anion Gap (4.00-12.00) mmol/L BUN 52 H (7-17) mg/dL Creatinine 2.24 H (0.52-1.04) mg/dL Est GFR (CKD-EPI) (>=60) Glucose 142 H (74-99) mg/dL POC Glucose (mg/dL) (70-110) mg/dL Hemoglobin A1c (<=6.0) % Plasma Lactic Acid Mirza 2.5 H* (0.7-2.0) mmol/L Calcium 8.1 L (8.4-10.2) mg/dL Albumin 3.0 L (3.5-5.0) g/dL Amylase <30 L (30-110) U/L 09/24/22 09/25/22 09/25/22 Range/Units 22:12 04:54 04:54 WBC 28.39 H (3.8-10.6) k/uL RBC 3.34 L (4.10-5.20) X 10*6/uL Hgb 9.0 L (11.4-16.0) gm/dL Hct 28.9 L (34.0-46.0) % MCH 26.9 L (27.0-32.0) pg MCHC 31.1 L (32.0-37.0) d/dL Neutrophils # 25.53 H (1.3-7.7) k/uL Lymphocytes # 0.80 L (0.90-5.00) X 10*3/uL Monocytes # 1.67 H (0-1.0) k/uL Eosinophils # 0.01 L (0.04-0.35) X 10*3/uL Sodium (137-145) mmol/L Chloride (98-107) mmol/L Anion Gap (4.00-12.00) mmol/L BUN (7-17) mg/dL Creatinine (0.52-1.04) mg/dL Est GFR (CKD-EPI) (>=60) Glucose (74-99) mg/dL POC Glucose (mg/dL) 153 H (70-110) mg/dL Hemoglobin A1c 6.5 H (<=6.0) % Plasma Lactic Acid Mirza (0.7-2.0) mmol/L Calcium (8.4-10.2) mg/dL Albumin (3.5-5.0) g/dL Amylase (30-110) U/L 09/25/22 09/25/22 Range/Units 04:54 06:02 WBC (3.8-10.6) k/uL RBC (4.10-5.20) X 10*6/uL Hgb (11.4-16.0) gm/dL Hct (34.0-46.0) % MCH (27.0-32.0) pg MCHC (32.0-37.0) d/dL Neutrophils # (1.3-7.7) k/uL Lymphocytes # (0.90-5.00) X 10*3/uL Monocytes # (0-1.0) k/uL Eosinophils # (0.04-0.35) X 10*3/uL Sodium (137-145) mmol/L Chloride (98-107) mmol/L Anion Gap 13.90 H (4.00-12.00) mmol/L BUN 46.7 H (7-17) mg/dL Creatinine 2.4 H (0.52-1.04) mg/dL Est GFR (CKD-EPI) 20 L (>=60) Glucose 135 H (74-99) mg/dL POC Glucose (mg/dL) 166 H (70-110) mg/dL Hemoglobin A1c (<=6.0) % Plasma Lactic Acid Mirza (0.7-2.0) mmol/L Calcium 6.7 L (8.4-10.2) mg/dL Albumin (3.5-5.0) g/dL Amylase (30-110) U/L Assessment and Plan (1) Abscess of abdominal wall Status: Acute Priority: High Code(s): L02.211 - CUTANEOUS ABSCESS OF ABDOMINAL WALL SNOMED Code(s): 43643155 (2) Intra-abdominal abscess Status: Acute Code(s): K65.1 - PERITONEAL ABSCESS SNOMED Code(s): 14235061 Plan: 1patient present to hospital with right upper quadrant abdominal pain in this patient with elevated white count and abnormal CT high clinic suspicious for possible malignancy with contained perforation clinically doubt abdominal wall abscess and will need to cover for the enteric gram-negative both aerobes and anaerobes 2-patient benefit from exploratory laparotomy for better definition underlying pathology and possible drainage of the fluid which should be sent for the culture discussed with surgery 3-continue with Zosyn 3.375 g every 8 hours We will follow on clinical condition and cultures to further adjust medication if needed Thank you for this consultation we will follow the patient along with you Dictation was produced using [employer] dictation software. please excuse any grammatical, word or spelling errors. Time with Patient: Greater than 30
[2022-09-26] MEDS: PIPERACILLIN-TAZOBACTAM 3.375 GM in SODIUM CHLORIDE 0.9% 100 ML IVPB SCH ×2 (01:30→16:10)
[2022-09-26] MEDS: metroNIDAZOLE-NS PMX 500 MG in SALINE 1 100ML.BAG IVPB SCH ×3 (01:30→16:10)
[2022-09-26 06:04] LABS: Glucose,Whole Blood 146 mg/dL (70-110)
[2022-09-26] MEDS: SODIUM CHLORIDE 0.9% 1,000 ML IV SCH ×2 (06:14→20:19)
[2022-09-26] MEDS: CALCIUM CARB-VIT D 500 MG-5 MCG TAB PO SCH ×2 (07:06→16:32)
[2022-09-26] MEDS: INSULIN ASPART (NovoLOG) 100 UNIT/ML VIAL SQ SCH ×3 (07:06→16:32)
[2022-09-26] MEDS: LEVOTHYROXINE 75 MCG TAB PO SCH (07:07)
--- NOTE | 2022-09-26 07:41 | P.PN ---
Progress Note - Text Progress Note Date: 09/26/22 The patient was scheduled for colonoscopy as morning. The patient states she had increased pain since yesterday. Reexamination of her abdomen reveals increased erythema of the right abdominal wall. There is increased tenderness with some rebound tenderness. Due to this the patient's colonoscopy was canceled. Patient will be taken to the OR today for exploratory laparotomy. The patient's was informed.
[2022-09-26] MEDS ORDERED: LACTATED RINGERS 1,000 ML IV ONE ×2 (08:20→09:57)
[2022-09-26] MEDS ORDERED: PHENYLEPHRINE-0.9% NACL SYG 1,000 MCG/10 ML SYRINGE ONE (08:26)
[2022-09-26] MEDS ORDERED: HYDROmorphone (PF) 1 MG/ML ONE (08:26)
[2022-09-26] MEDS ORDERED: ROCURONIUM 10 MG/ML (5 ML VIAL) IV ONE (08:26)
[2022-09-26] MEDS ORDERED: SUCCINYLCHOLINE CHLORIDE 200 MG/10 ML VIAL IV ONE (08:26)
[2022-09-26] MEDS ORDERED: SUGAMMADEX SODIUM 200 MG/2 ML SDV IV ONE (08:26)
[2022-09-26] MEDS ORDERED: NEOSTIGMINE 1 MG/ML 10 ML VIAL ONE (08:26)
[2022-09-26] MEDS ORDERED: GLYCOPYRROLATE 0.2 MG/ML 2 ML VIAL ONE (08:26)
[2022-09-26] MEDS ORDERED: PROPOFOL 10 MG/ML 20 ML VIAL IV ONE (08:26)
[2022-09-26] MEDS ORDERED: fentaNYL (PF) 50 MCG/ML 2 ML AMP ONE (08:26)
[2022-09-26] MEDS ORDERED: SODIUM CHLORIDE 0.9% 50 ML with ceFAZolin 2,000 MG IV ONE ×2 (08:27)
[2022-09-26 08:34] LABS: Basophils # (A) 0.1 k/uL (0-0.2); Basophils % (A) 0 %; Eosinophils # (A) 0.1 k/uL (0-0.7); Eosinophils % (A) 0 %; HCT 36.9 % (34.0-46.0); Lymphocytes % (A) 4 %; MCH 27.9 pg (25.0-35.0); MCHC 32.6 g/dL (31.0-37.0); MCV 85.6 fL (80.0-100.0); Mean Platelet Volume 8.7; Monocytes % (A) 4 %; Neutrophils # (A) 23.6 k/uL (1.3-7.7); Neutrophils % (A) 91 %; Platelet Count 418 k/uL (150-450); RBC 4.31 m/uL (3.80-5.40); WBC 25.9 k/uL (3.8-10.6)
[2022-09-26 09:22] LABS: African American GFR (CKD) 25 (>60 ml/min/1.73 sqM); Anion Gap 14 mmol/L; Blood Urea Nitrogen 56 mg/dL (7-17); Calcium 7.4 mg/dL (8.4-10.2); Carbon Dioxide 22 mmol/L (22-30); Chloride 96 mmol/L (98-107); Glucose 119 mg/dL (74-99); Non-African American GFR(CKD) 21 (>60 ml/min/1.73 sqM); Sodium 132 mmol/L (137-145)
[2022-09-26 09:28] LABS: Potassium 4.9 mmol/L (3.5-5.1)
[2022-09-26] MEDS ORDERED: METOCLOPRAMIDE 5 MG/ML 2 ML VIAL IVP PRN (10:10)
[2022-09-26] MEDS ORDERED: KETOROLAC 15 MG/ML 1 ML VIAL IVP PRN (10:10)
[2022-09-26] MEDS ORDERED: BENZOCAINE/MENTHOL LOZENG 1 EACH LOZENGE MUCOUS MEM PRN (10:10)
[2022-09-26] MEDS ORDERED: ONDANSETRON 4 MG/2 ML VIAL IVP ONE (10:31)
[2022-09-26] MEDS ORDERED: HYDROmorphone 0.5 MG/0.5 ML SYRINGE IVP ONE ×2 (10:32→10:38)
--- NOTE | 2022-09-26 10:32 | P.OP ---
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 She received general endotracheal tube anesthesia. Her abdomen was prepped and draped usual fashion. The right lateral abdominal wall there is evidence of erythema and abdominal wall mass. And 18-gauge needle with a 10 mL syringe was placed in the mass. This was aspirated prostate 10 mL of pus was removed. This was sent for culture. The abdomen was entered through midline incision. Using electrocautery the abdominal wall was divided. And then the Bookwalter tract with wound. The right colon was explored. In the right upper quadrant. There was evidence of a colonic mass which was adherent to the abdominal wall. This was fully dissected with finger dissection. An abscess cavity was entered. The colon appeared to have a mass which had perforated. At this point decided perform a right colectomy. The terminal ileum was transected with a GI stapler. And the proxim al transverse colon was divided with the DARRELL stapler. Using the LigaSure device the mesentery the bowel was divided. The specimen sent to pathology. A [id number] functional end-to-end staple anastomosis created using DARRELL and TA stapler. 3-0 GI silk sutures using a crotch stitch. The window in the mesentery was closed with 3-0 Vicryl suture. The abdomen. There is no bleeding seen. The NG tube was appropriately position. A SULMA drain is then placed through a stab stab incision which went through the abscess cavity on the abdominal wall. The fascia was then closed with looped #1 PDS suture. Skin was closed doug. Patient top she will was sent to recovery room in stable condition.
[2022-09-26 10:37] LABS: Glucose,Whole Blood 134 mg/dL (70-110)
[2022-09-26 12:01] LABS: Glucose,Whole Blood 185 mg/dL (70-110)
[2022-09-26 13:48] LABS: Basophils # (A) 0.1 k/uL (0-0.2); Basophils % (A) 0 %; Eosinophils # (A) 0.1 k/uL (0-0.7); Eosinophils % (A) 1 %; HCT 36.5 % (34.0-46.0); HGB 11.7 gm/dL (11.4-16.0); Hypochromasia Slight; Lymphocytes # (A) 0.8 k/uL (1.0-4.8); Lymphocytes % (A) 3 %; MCH 27.7 pg (25.0-35.0); MCHC 31.9 g/dL (31.0-37.0); MCV 86.8 fL (80.0-100.0); Mean Platelet Volume 8.3; Monocytes # (A) 0.8 k/uL (0-1.0); Monocytes % (A) 3 %; Neutrophils # (A) 24.5 k/uL (1.3-7.7); Neutrophils % (A) 93 %; Platelet Count 537 k/uL (150-450); RBC 4.21 m/uL (3.80-5.40); WBC 26.3 k/uL (3.8-10.6)
[2022-09-26 14:06] LABS: African American GFR (CKD) 24 (>60 ml/min/1.73 sqM); Anion Gap 12 mmol/L; Blood Urea Nitrogen 53 mg/dL (7-17); Carbon Dioxide 22 mmol/L (22-30); Chloride 96 mmol/L (98-107); Glucose 160 mg/dL (74-99); Non-African American GFR(CKD) 21 (>60 ml/min/1.73 sqM); Potassium 4.6 mmol/L (3.5-5.1); Sodium 130 mmol/L (137-145)
[2022-09-26] MEDS: ANASTROZOLE 1 MG TAB PO SCH (14:12)
[2022-09-26] MEDS: PANTOPRAZOLE 40 MG/10 ML VIAL IVP SCH (14:12)
[2022-09-26] MEDS: HEPARIN SODIUM,PORCINE/PF 5,000 UNIT/0.5 ML SYRINGE SQ SCH ×2 (14:12→20:08)
[2022-09-26] MEDS ORDERED: hydrALAZINE HCL 20 MG/ML 1 ML VIAL IM PRN (14:34)
--- NOTE | 2022-09-26 14:34 | P.NPCON ---
History of Present Illness - Reason for Consult Consult date: 09/26/22 acute renal failure - Chief Complaint Right abdominal pain - History of Present Illness 82-year-old lady coming to the hospital, after refer to primary care with a masslike lesion in the right lower quadrant. She is currently sleepy. So the history obtained from the at bedside. As per him she had abdominal pain and decreased appetite for more than a week. On presentation to the hospital she underwent CAT scan which showed right colonic mass with abdominal abscess. She underwent laparotomy with right colectomy and possible perforated bowel with the tumor treat to the abdominal wall. This line creatinine 0.8 MG per DL. On admission creatinine 2.2 -2.4 MG per DL, improved to 2.1 MG per DL today. Episodes of hypotension. No recent contrast studies. She is on metformin, Coreg, losartan, Lasix at home. Review of Systems Constitutional: Reports as per HPI Past Medical History Past Medical History: Cancer, Diabetes Mellitus, Hypertension, Osteoarthritis (OA), Thyroid Disorder Additional Past Medical History / Comment(s): hx UTERINE CANCER, NEUROPATHY IN FEET, diarrhea, Bilateral breast CA, bilateral lower extremity edema History of Any Multi-Drug Resistant Organisms: None Reported Past Surgical History: Appendectomy, Breast Surgery, Cholecystectomy, Hysterectomy Additional Past Surgical History / Comment(s): rt breast biopsy. right breast mastectomy 11/29/17 Past Anesthesia/Blood Transfusion Reactions: Motion Sickness, Postoperative Nausea & Vomiting (PONV) Additional Past Anesthesia/Blood Transfusion Reaction / Comment(s): PONV after gallbladder surgery Past Psychological History: No Psychological Hx Reported Smoking Status: Never smoker Past Alcohol Use History: None Reported Additional Past Alcohol Use History / Comment(s): QUIT AROUND 1992, LESS THAN HALF PPD. started smoking age 17 or 18 Past Drug Use History: None Reported - Past Family History Mother Family Medical History: No Reported History Father Family Medical History: Myocardial Infarction ([place]) Brother(s) Family Medical History: Cancer Additional Family Medical History / Comment(s): prostate Medications and Allergies Home Medications Medication Instructions Recorded Confirmed Type metFORMIN HCL [Glucophage] 1,000 mg PO BID 11/07/15 09/24/22 History Levothyroxine Sodium [Synthroid] 75 mcg PO DAILY 10/27/17 09/24/22 History Alendronate Sodium [Fosamax] 70 mg PO CORLEY 05/28/22 09/24/22 History Anastrozole 1 mg PO DAILY 05/28/22 09/24/22 History Losartan [Cozaar] 25 mg PO DAILY 30 Days #30 tab 06/01/22 09/24/22 Rx carvediloL [Coreg*] 12.5 mg PO BID-W/MEALS #60 tab 06/01/22 09/24/22 Rx Calcium Carb-Vit D 500Mg-5Mcg 1 tab PO BID-W/MEALS 09/24/22 09/24/22 History [Oscal 500+D 5 Mcg (200 Iu)] Furosemide [Lasix] 40 mg PO BID 09/24/22 09/24/22 History Triamcinolone 0.1% Ointment 1 applic TOPICAL TID PRN 09/24/22 09/24/22 History [Kenalog 0.1% Ointment] Allergies Allergy/AdvReac Type Severity Reaction Status Date / Time codeine AdvReac Nausea & Verified 09/24/22 18:21 Vomiting morphine AdvReac Nausea & Verified 09/26/22 08:33 Vomiting Physical Exam Vitals: Vital Signs Temp Pulse Resp BP Pulse Ox 09/26/22 14:00 82 25 H 09/26/22 11:30 137/63 09/26/22 11:26 82 25 H 138/57 96 09/26/22 11:11 82 24 153/61 94 L 09/26/22 10:56 82 28 H 169/64 95 09/26/22 10:41 84 24 170/70 100 09/26/22 10:26 82 20 173/76 99 09/26/22 10:11 96.9 F L 89 20 181/72 99 09/26/22 08:10 91 20 121/52 93 L 09/26/22 07:47 98 F 62 16 116/74 97 09/26/22 05:48 76 18 93/56 93 L 09/26/22 02:00 90/54 09/25/22 20:00 98 F 75 18 104/62 92 L 09/25/22 16:00 97.6 F 77 18 99/63 92 L Intake and Output 09/25/22 09/26/22 09/26/22 22:59 06:59 14:59 Intake Total 1050 Output Total 250 Balance 800 Intake: IV 1050 Output: Drainage 100 Right Anterior Medial 100 Abdomen Urine 100 Estimated Blood Loss 50 Other: # Bowel Movements 4 No acute distress S1-S2 heard Decreased breath sounds Abdomen soft Edema Results - Lab Results Most recent lab results Calcium 7.0 mg/dL (8.4-10.2) L 09/26/22 13:10 Magnesium 1.5 mg/dL (1.5-2.4) 09/25/22 04:54 09/26/22 13:10 09/26/22 13:10 Assessment and Plan Assessment: #1 acute kidney injury secondary to hemodynamic ATN with low blood pressures. -Baseline creatinine 0.8 MG per DL. #2 laparotomy with colonic resection [ascending colon]. #3 hypotensive episodes, currently hypotensive #4 diabetes #5 possible malignancy Plan: #1 renal function stable. Hemodynamics better. #2 continue with normal saline at 75 ML's an hour. #3 discontinue Toradol #4 add hydralazine 20 mg IV push every 6 hourly if systolic persistently more than 160. #5 once able to tolerate, add oral antihypertensives.
[2022-09-26] MEDS: D5-0.45% NACL WITH KCL 20MEQ/L 1,000 ML IV SCH (16:09)
[2022-09-26 16:45] LABS: Glucose,Whole Blood 179 mg/dL (70-110)
[2022-09-26] MEDS: HYDROmorphone 1 MG/ML 1 ML SYRINGE IVP PRN (20:08)
[2022-09-26 20:27] LABS: Glucose,Whole Blood 257 mg/dL (70-110)
--- NOTE | 2022-09-26 23:37 | PN ---
PROGRESS NOTE DATE OF SERVICE: 09/26/2022 SUBJECTIVE: This is an 82-year-old woman who was admitted with abdominal wall abscess, underwent exploratory laparotomy which revealed right colonic mass with possible perforation and adherence to the abdominal wall. The patient underwent right colectomy by Dr. Sorenson. The patient will be closely monitored. PAST MEDICAL HISTORY: Reviewed. REVIEW OF SYSTEMS: Could not be taken. CURRENT MEDICATIONS: Reviewed include IV Zosyn. Rest of medication and doses are reviewed. PHYSICAL EXAMINATION: VITAL SIGNS: Pulse 82, blood pressure , respirations 20. HEENT: Conjunctivae normal. NECK: No jugular venous distention. CARDIOVASCULAR: S1, S2. RESPIRATION: A few scattered rhonchi. ABDOMEN: Soft . LABORATORY DATA: WBC 26.3. ASSESSMENT: 1. Right colon tumor with perforation to the abdominal wall causing abscess, status post exploratory laparotomy and right colectomy. 2. Increased WBC with possible sepsis present on admission. 3. Diabetes mellitus, type 2. 4. Hypertension. 5. Multiple medical issues. RECOMMENDATIONS: Recommended to continue current management, continue symptomatic treatment, and continue with broad-spectrum IV antibiotics. Incentive spirometry. Follow the cultures. Closely follow with surgery. Guarded prognosis. Further recommendations to follow. MMODL / IJN: [id number] /
[2022-09-27] MEDS: HYDROmorphone 1 MG/ML 1 ML SYRINGE IVP PRN ×5 (00:50→21:53)
[2022-09-27] MEDS: INSULIN ASPART (NovoLOG) 100 UNIT/ML VIAL SQ SCH ×5 (00:51→20:44)
[2022-09-27] MEDS: metroNIDAZOLE-NS PMX 500 MG in SALINE 1 100ML.BAG IVPB SCH ×4 (00:51→23:46)
[2022-09-27] MEDS: PIPERACILLIN-TAZOBACTAM 3.375 GM in SODIUM CHLORIDE 0.9% 100 ML IVPB SCH ×2 (00:51→12:46)
[2022-09-27] MEDS: D5-0.45% NACL WITH KCL 20MEQ/L 1,000 ML IV SCH ×3 (02:00→12:45)
[2022-09-27] MEDS: SODIUM CHLORIDE 0.9% 1,000 ML IV SCH ×2 (03:37→15:25)
[2022-09-27 06:17] LABS: Glucose,Whole Blood 233 mg/dL (70-110)
[2022-09-27] MEDS: CALCIUM CARB-VIT D 500 MG-5 MCG TAB PO SCH ×2 (06:41→11:04)
[2022-09-27] MEDS: ANASTROZOLE 1 MG TAB PO SCH (07:50)
[2022-09-27] MEDS: LEVOTHYROXINE 75 MCG TAB PO SCH (07:50)
[2022-09-27] MEDS: PANTOPRAZOLE 40 MG/10 ML VIAL IVP SCH (11:18)
[2022-09-27] MEDS: HEPARIN SODIUM,PORCINE/PF 5,000 UNIT/0.5 ML SYRINGE SQ SCH ×2 (11:19→20:43)
[2022-09-27 11:40] LABS: Glucose,Whole Blood 195 mg/dL (70-110)
--- NOTE | 2022-09-27 11:52 | P.PN ---
Subjective This is a pleasant 82 years old female with multiple medical problems including hypothyroidism, hypertension, osteoporosis, diabetes mellitus and history of breast cancer. Presents with signs and symptoms of colitis with abdominal wall abscess. With evidence of acute kidney injury present on admission. Patient as well as by several consultants. Patient currently continued on broad-spectrum antibiotic with Flagyl and Zosyn. Also she is on D5 half normal saline at 1 25 mL/h. Patient is very lethargic and weak and she Answers with One or 2 words, Chest complaining of from tenderness in the right side of the abdomen. Surgical wound is closed and healing. She is status post right colectomy. Today is postoperative day #1. Vitas looks stable Labs from today are pending Active Medications Generic Name Dose Route Start Last Admin Trade Name Freq PRN Reason Stop Dose Admin Acetaminophen 650 mg 09/24/22 17:37 Acetaminophen Tab 325 Mg Tab PO Q6HR PRN Mild Pain or Fever > 100.5 Anastrozole 1 mg 09/25/22 09:00 09/27/22 07:50 Anastrozole 1 Mg Tab PO Not Given DAILY FAUSTO Benzocaine/Menthol 1 each 09/26/22 10:10 Benzocaine/Menthol Lozeng 1 Each Lozenge MUCOUS MEM Q1HR PRN Sore Throat Calcium Carbonate 1 each 09/25/22 07:30 09/27/22 11:04 Calcium Carb-Vit D 500 Mg-5 Mcg Tab PO Not Given BID-W/MEALS FAUSTO Dextrose/Water 25 ml 09/24/22 20:10 Dextrose 50% Syringe 50 Ml IVP PER PROTOCOL PRN Hypoglycemia Protocol Dextrose/Water 50 ml 09/24/22 20:10 Dextrose 50% Syringe 50 Ml IVP PER PROTOCOL PRN Hypoglycemia Protocol Heparin Sodium (Porcine) 5,000 unit 09/25/22 12:00 09/27/22 11:19 Heparin Sodium,Porcine/Pf 5,000 Unit/0.5 Ml Syringe SQ 5,000 unit Q12HR FAUSTO Administration Hydralazine HCl 20 mg 09/26/22 14:34 Hydralazine Hcl 20 Mg/Ml 1 Ml Vial IM Q6HR PRN Blood Pressure - High Hydromorphone HCl 1 mg 09/26/22 11:12 09/27/22 11:18 Hydromorphone 1 Mg/Ml 1 Ml Syringe IVP 1 mg Q3HR PRN Administration Pain Piperacillin Sod/Tazobactam 100 mls @ 25 mls/hr 09/25/22 12:00 09/27/22 00:51 Sod 3.375 gm/ Sodium Chloride IVPB 25 mls/hr Q12H [facility] Administration Protocol Metronidazole 500 mg/ IV 100 mls @ 100 mls/hr 09/25/22 16:00 09/27/22 11:19 Solution IVPB 100 mls/hr Q8HR [facility] Administration Protocol Sodium Chloride 1,000 mls @ 75 mls/hr 09/25/22 12:45 09/27/22 03:37 Saline 0.9% IV Not Given .[id number] [facility]USTO Potassium Chloride/Dextrose/Sod Cl 1,000 mls @ 125 mls/hr 09/26/22 10:30 09/27/22 03:42 D5%-1/2ns-Kcl 20 Meq/L Iv Solution IV 125 mls/hr .Q8H FAUSTO Administration Insulin Aspart 0 unit 09/24/22 21:00 09/27/22 06:55 Insulin Aspart (Novolog) 100 Unit/Ml Vial SQ 3 unit ACHS [facility] Administration Protocol Levothyroxine Sodium 75 mcg 09/25/22 06:30 09/27/22 07:50 Levothyroxine 75 Mcg Tab PO Not Given 629 [facility] Metoclopramide HCl 10 mg 09/26/22 10:10 Metoclopramide 5 Mg/Ml 2 Ml Vial IVP Q6HR PRN Nausea and Vomiting Naloxone HCl 0.2 mg 09/24/22 17:37 Naloxone 0.4 Mg/Ml 1 Ml Vial IV Q2M PRN Opioid Reversal Ondansetron HCl 4 mg 09/25/22 15:15 09/25/22 15:41 Ondansetron 4 Mg/2 Ml Vial IVP 4 mg Q6HR PRN Administration Nausea And Vomiting Pantoprazole Sodium 40 mg 09/25/22 09:00 09/27/22 11:18 Pantoprazole 40 Mg/10 Ml Vial IVP 40 mg DAILY [facility] Administration Tramadol HCl 50 mg 09/24/22 17:37 09/25/22 09:27 Tramadol 50 Mg Tab PO 50 mg Q6H PRN Administration Moderate Pain (Scale 4 to 6) Objective - Vital Signs Vital signs: Vital Signs Temp 97.2 F L 09/27/22 11:30 Pulse 76 09/27/22 11:30 Resp 18 09/27/22 11:30 BP 103/54 09/27/22 11:30 Pulse Ox 91 L 09/27/22 11:30 FiO2 Intake & Output 09/26/22 09/27/22 09/27/22 18:59 06:59 18:59 Intake Total 1050 0 Output Total 565 380 15 Balance 485 -380 -15 Weight 98 kg Intake: IV 1050 Oral 0 Output: Drainage 225 75 Right Anterior Medial 225 75 Abdomen Urine 290 305 15 Estimated Blood Loss 50 Other: Voiding Method Indwelling Catheter Indwelling Catheter - Exam -GENERAL: The patient is weak and lethargic, not in any acute distress. Well developed, well nourished. HEENT: Pupils are round and equally reacting to light. EOMI. No scleral icterus. No conjunctival pallor. Normocephalic, atraumatic. No pharyngeal erythema. No thyromegaly. CARDIOVASCULAR: S1 and S2 present. No murmurs, rubs, or gallops. PULMONARY: Chest is clear to auscultation, no wheezing , no crackles. -ABDOMEN: Soft, right-sided abdominal tenderness, nondistended, normoactive bowel sounds. No palpable organomegaly. Surgical wound closed and healing MUSCULOSKELETAL: No joint swelling or deformity. EXTREMITIES: No cyanosis, clubbing, or pedal edema. NEUROLOGICAL: Gross neurological examination did not reveal any focal deficits. SKIN: No rashes. no petechiae. - Labs CBC & Chem 7: 09/26/22 13:10 09/26/22 13:10 Labs: Abnormal Lab Results - Last 24 Hours (Table) 09/26/22 09/26/22 09/26/22 Range/Units 12:00 13:10 13:10 WBC 26.3 H (3.8-10.6) k/uL Plt Count 537 H (150-450) k/uL Neutrophils # 24.5 H (1.3-7.7) k/uL Lymphocytes # 0.8 L (1.0-4.8) k/uL Sodium 130 L (137-145) mmol/L Chloride 96 L (98-107) mmol/L BUN 53 H (7-17) mg/dL Creatinine 2.16 H (0.52-1.04) mg/dL Glucose 160 H (74-99) mg/dL POC Glucose (mg/dL) 185 H (70-110) mg/dL Calcium 7.0 L (8.4-10.2) mg/dL 09/26/22 09/26/22 09/27/22 Range/Units 16:43 20:26 06:15 WBC (3.8-10.6) k/uL Plt Count (150-450) k/uL Neutrophils # (1.3-7.7) k/uL Lymphocytes # (1.0-4.8) k/uL Sodium (137-145) mmol/L Chloride (98-107) mmol/L BUN (7-17) mg/dL Creatinine (0.52-1.04) mg/dL Glucose (74-99) mg/dL POC Glucose (mg/dL) 179 H 257 H 233 H (70-110) mg/dL Calcium (8.4-10.2) mg/dL 09/27/22 Range/Units 11:34 WBC (3.8-10.6) k/uL Plt Count (150-450) k/uL Neutrophils # (1.3-7.7) k/uL Lymphocytes # (1.0-4.8) k/uL Sodium (137-145) mmol/L Chloride (98-107) mmol/L BUN (7-17) mg/dL Creatinine (0.52-1.04) mg/dL Glucose (74-99) mg/dL POC Glucose (mg/dL) 195 H (70-110) mg/dL Calcium (8.4-10.2) mg/dL Microbiology - Last 24 Hours (Table) 09/26/22 09:50 Gram Stain - Preliminary Abdomen 09/24/22 14:24 Blood Culture - Preliminary Blood 09/24/22 14:24 Blood Culture - Preliminary Blood 09/25/22 13:26 Blood Culture - Preliminary Blood Assessment and Plan Assessment: Acute ascending colitis with perforation and abdominal wall abscess status post right hemicolectomy. Today is postoperative day #1. Acute kidney injury, improved Metabolic/toxic encephalopathy secondary to above Diabetes mellitus Hypertension History of osteoarthritis Hypothyroidism Plan: Continue with antibiotic of Flagyl and Zosyn Continue with IV hydration half-normal saline at 1 25 mL/h Lower consultants on the case after the surgery team, meat counter clerk and infectious disease team. Labs and medication were reviewed.. Continue same treatment. Continue with symptomatic treatment. Resume home medication. Monitor lytes and vitals. DVT and GI prophylaxis. Further recommendations depends on the clinical course of the patient DVT prophylaxis: Subcutaneous heparin GI Prophylaxis: Ppi PT/OT: Pending Prognosis is guarded
[2022-09-27 12:38] LABS: Basophils % (A) 0 %; Eosinophils # (A) 0.1 k/uL (0-0.7); Eosinophils % (A) 0 %; HCT 33.4 % (34.0-46.0); Lymphocytes # (A) 0.9 k/uL (1.0-4.8); Lymphocytes % (A) 4 %; MCH 27.9 pg (25.0-35.0); MCHC 32.8 g/dL (31.0-37.0); MCV 84.9 fL (80.0-100.0); Monocytes # (A) 1.3 k/uL (0-1.0); Monocytes % (A) 6 %; Neutrophils # (A) 17.6 k/uL (1.3-7.7); Neutrophils % (A) 88 %; RBC 3.93 m/uL (3.80-5.40); RDW 14.2 % (11.5-15.5)
--- NOTE | 2022-09-27 12:38 | P.PN ---
Subjective Progress Note Date: 09/26/22 Principal diagnosis: Perforated colon Intra-abdominal abscess Patient is a 82-year-old female with a past medical history significant for diabetes mellitus hypertension history of uterine cancer and bilateral breast CA presenting to the hospital for evaluation of right-sided abdominal pain ,CT abdominal pelvis thickening of the ascending colon with mesenteric lymph node and soft tissue heterogeneous material within the right abdominal wall, a shunt was taken to the OR and the patient is status post laparotomy noticed to have right colon tumor with perforation into abdominal wall causing abscess which was drained but no culture were done. On today's evaluation that is 09/26/2022, patient is afebrile patient is currently sleeping lethargic after surgery this morning patient did have the NG no vomiting diarrhea or any other changes reported by nursing staff Objective - Vital Signs Vital signs: Vital Signs Temp 96.9 F L 09/26/22 10:11 Pulse 82 09/26/22 11:11 Resp 24 09/26/22 11:11 BP 153/61 09/26/22 11:11 Pulse Ox 94 L 09/26/22 11:11 FiO2 Intake & Output 09/25/22 09/26/22 09/26/22 18:59 06:59 18:59 Intake Total 120 1050 Output Total 150 Balance 120 900 Intake: IV 1050 Oral 120 Output: Urine 100 Estimated Blood Loss 50 Other: # Voids 1 # Bowel Movements 4 - Exam GENERAL DESCRIPTION: An elderly female lying in bed in no distress RESPIRATORY SYSTEM: Unlabored breathing , decreased breath sounds at bases HEART: S1 S2 regular rate and rhythm , ABDOMEN: Soft , abdominal distention and tenderness EXTREMITIES: No edema feet - Labs CBC & Chem 7: 09/26/22 13:10 09/26/22 13:10 Labs: Abnormal Lab Results - Last 24 Hours (Table) 09/25/22 09/25/22 09/25/22 Range/Units 04:54 12:41 16:17 WBC (3.8-10.6) k/uL Neutrophils # (1.3-7.7) k/uL Sodium (137-145) mmol/L Chloride (98-107) mmol/L Anion Gap 13.90 H (4.00-12.00) mmol/L BUN 46.7 H (9.0-27.0) mg/dL Creatinine 2.4 H (0.6-1.5) mg/dL Est GFR (CKD-EPI) 20 L (>=60) Glucose 135 H (70-110) mg/dL POC Glucose (mg/dL) 171 H 126 H (70-110) mg/dL Calcium 6.7 L (8.7-10.3) mg/dL 09/25/22 09/26/22 09/26/22 Range/Units 20:01 06:03 07:21 WBC 25.9 H (3.8-10.6) k/uL Neutrophils # 23.6 H (1.3-7.7) k/uL Sodium (137-145) mmol/L Chloride (98-107) mmol/L Anion Gap (4.00-12.00) mmol/L BUN (9.0-27.0) mg/dL Creatinine (0.6-1.5) mg/dL Est GFR (CKD-EPI) (>=60) Glucose (70-110) mg/dL POC Glucose (mg/dL) 122 H 146 H (70-110) mg/dL Calcium (8.7-10.3) mg/dL 09/26/22 09/26/22 Range/Units 07:21 10:23 WBC (3.8-10.6) k/uL Neutrophils # (1.3-7.7) k/uL Sodium 132 L (137-145) mmol/L Chloride 96 L (98-107) mmol/L Anion Gap (4.00-12.00) mmol/L BUN 56 H (9.0-27.0) mg/dL Creatinine 2.10 H (0.6-1.5) mg/dL Est GFR (CKD-EPI) (>=60) Glucose 119 H (70-110) mg/dL POC Glucose (mg/dL) 134 H (70-110) mg/dL Calcium 7.4 L (8.7-10.3) mg/dL Microbiology - Last 24 Hours (Table) 09/24/22 14:24 Blood Culture - Preliminary Blood 09/24/22 14:24 Blood Culture - Preliminary Blood Assessment and Plan (1) Intra-abdominal abscess Current Visit: Yes Status: Acute Code(s): K65.1 - PERITONEAL ABSCESS SNOMED Code(s): 32190722 Plan: 1patient present to hospital with right upper quadrant abdominal pain in this patient with elevated white count and abnormal CT high clinic suspicious for possible malignancy with contained perforation clinically doubt abdominal wall abscess and will need to cover for the enteric gram-negative both aerobes and anaerobes, the patient is status post laparotomy with right colectomy and drainage of the abscess but no culture 2-patient to with Zosyn 3.375 g every 8 hours and monitor clinical course closely Dictation was produced using [employer] dictation software. please excuse any g rammatical, word or spelling errors. Time with Patient: Less than 30
--- NOTE | 2022-09-27 12:40 | P.PN ---
Subjective Progress Note Date: 09/27/22 Principal diagnosis: Perforated colon Intra-abdominal abscess Patient is a 82-year-old female with a past medical history significant for diabetes mellitus hypertension history of uterine cancer and bilateral breast CA presenting to the hospital for evaluation of right-sided abdominal pain ,CT abdominal pelvis thickening of the ascending colon with mesenteric lymph node and soft tissue heterogeneous material within the right abdominal wall, a shunt was taken to the OR and the patient is status post laparotomy noticed to have right colon tumor with perforation into abdominal wall causing abscess which was drained but no culture were done. On today's evaluation that is 09/27/2022, patient remains to be afebrile patient is breathing comfortably on 2 L nasal cannula oxygen the patient slightly more awake and alert and is been complaining of abdominal pain no vomiting only the changes reported by the nursing staff Patient did have a white count of 26.3 and a creatinine 2.16 as of yesterday now labs has been drawn today Objective - Vital Signs Vital signs: Vital Signs Temp 97.2 F L 09/27/22 11:30 Pulse 76 09/27/22 11:30 Resp 18 09/27/22 11:30 BP 103/54 09/27/22 11:30 Pulse Ox 91 L 09/27/22 11:30 FiO2 Intake & Output 09/26/22 09/27/22 09/27/22 18:59 06:59 18:59 Intake Total 1050 0 Output Total 565 380 15 Balance 485 -380 -15 Weight 98 kg Intake: IV 1050 Oral 0 Output: Drainage 225 75 Right Anterior Medial 225 75 Abdomen Urine 290 305 15 Estimated Blood Loss 50 Other: Voiding Method Indwelling Catheter Indwelling Catheter - Exam GENERAL DESCRIPTION: An elderly female lying in bed in no distress RESPIRATORY SYSTEM: Unlabored breathing , decreased breath sounds at bases HEART: S1 S2 regular rate and rhythm , ABDOMEN: Soft , abdominal distention and tenderness EXTREMITIES: No edema feet - Labs CBC & Chem 7: 09/26/22 13:10 09/26/22 13:10 Labs: Abnormal Lab Results - Last 24 Hours (Table) 09/26/22 09/26/22 09/26/22 Range/Units 13:10 13:10 16:43 WBC 26.3 H (3.8-10.6) k/uL Plt Count 537 H (150-450) k/uL Neutrophils # 24.5 H (1.3-7.7) k/uL Lymphocytes # 0.8 L (1.0-4.8) k/uL Sodium 130 L (137-145) mmol/L Chloride 96 L (98-107) mmol/L BUN 53 H (7-17) mg/dL Creatinine 2.16 H (0.52-1.04) mg/dL Glucose 160 H (74-99) mg/dL POC Glucose (mg/dL) 179 H (70-110) mg/dL Calcium 7.0 L (8.4-10.2) mg/dL 09/26/22 09/27/22 09/27/22 Range/Units 20:26 06:15 11:34 WBC (3.8-10.6) k/uL Plt Count (150-450) k/uL Neutrophils # (1.3-7.7) k/uL Lymphocytes # (1.0-4.8) k/uL Sodium (137-145) mmol/L Chloride (98-107) mmol/L BUN (7-17) mg/dL Creatinine (0.52-1.04) mg/dL Glucose (74-99) mg/dL POC Glucose (mg/dL) 257 H 233 H 195 H (70-110) mg/dL Calcium (8.4-10.2) mg/dL Microbiology - Last 24 Hours (Table) 09/26/22 09:50 Gram Stain - Preliminary Abdomen 09/24/22 14:24 Blood Culture - Preliminary Blood 09/24/22 14:24 Blood Culture - Preliminary Blood 09/25/22 13:26 Blood Culture - Preliminary Blood Assessment and Plan (1) Intra-abdominal abscess Current Visit: Yes Status: Acute Code(s): K65.1 - PERITONEAL ABSCESS SNOMED Code(s): 67649184 Plan: 1patient present to hospital with right upper quadrant abdominal pain in this patient with elevated white count and abnormal CT high clinic suspicious for possible malignancy with contained perforation clinically doubt abdominal wall abscess and will need to cover for the enteric gram-negative both aerobes and anaerobes, the patient is status post laparotomy with right colectomy and drainage of the abscess, cultures obtained from the drainage catheter yesterday and currently pending 2-patient to with Zosyn 3.375 g every 8 hours while waiting for culture finalized and monitor clinical course closely Dictation was produced using dragon dictation software. please excuse any grammatical, word or spelling errors. Time with Patient: Less than 30
[2022-09-27 12:50] LABS: Platelet Count 512 k/uL (150-450)
[2022-09-27 12:56] LABS: ALT 14 U/L (4-34); AST 22 U/L (14-36); African American GFR (CKD) 23 (>60 ml/min/1.73 sqM); Albumin 2.2 g/dL (3.5-5.0); Alkaline Phosphatase 84 U/L (38-126); Anion Gap 9 mmol/L; Blood Urea Nitrogen 57 mg/dL (7-17); Calcium 6.7 mg/dL (8.4-10.2); Carbon Dioxide 23 mmol/L (22-30); Chloride 100 mmol/L (98-107); Glucose 176 mg/dL (74-99); Non-African American GFR(CKD) 20 (>60 ml/min/1.73 sqM); Potassium 5.1 mmol/L (3.5-5.1); Sodium 132 mmol/L (137-145); Total Bilirubin 0.4 mg/dL (0.2-1.3); Total Protein 4.7 g/dL (6.3-8.2)
--- NOTE | 2022-09-27 13:30 | P.PN ---
Subjective Progress Note Date: 09/27/22 CHIEF COMPLAINT: Colon mass HISTORY OF PRESENT ILLNESS: Patient is postop day #1 status post right colectomy for right colon tumor with perforation into the abdominal wall causing abscess. Patient is scheduled for midline Placement. She does complain of abdominal pain but she needs IV access before proceeding with IV pain medication. She denies any nausea. NG tube with minimal output. She denies any flatus. SULMA drain with cervicitis output. 225 mL through the day yesterday and 75 ML this morning. WBC 26.3-28 hgb 11 platelets 512 Na 132 potassium is 5.[address] Schuster is covering for Dr. Sorenson PHYSICAL EXAM: VITAL SIGNS: Reviewed. GENERAL: Well-developed in no acute distress. ABDOMEN: Soft. mildly Distended. Tender at incision site. Incisional dressing clean dry and intact. SULMA drain service is output NEUROLOGIC: Alert and oriented. Cranial nerves II through XII grossly intact. ASSESSMENT: 1. Right colon tumor with perforation into the abdominal wall causing abscess status post right colectomy PLAN: -Continue NG tube for decompression -Continue IV fluids -Keep patient nothing by mouth except for ice chips -Continue pain management -Continue antibiotics -Encouraged patient to use incentive spirometer -Encouraged patient to increase activity level -GI prophylaxis Protonix and DVT prophylaxis subcu heparin Physician Count Team Member note has been reviewed by physician. Signing provider agrees with the documented findings, assessment, and plan of care. I have personally seen and examined the patient, reviewed the BOREMATIC MACHINE OPERATOR /PAs history, exam and MDM and agree with the assessment and plan as written. Based on total visit time, I have performed more than 50% of the visit. As above: Patient's pain is improving. Nasogastric tube with minimal output. Continue nothing by mouth and gastric decompression. Increase activity. Continue antibiotics. Will follow. Objective - Vital Signs Vital signs: Vital Signs Temp 97.2 F L 09/27/22 11:30 Pulse 76 09/27/22 11:30 Resp 18 09/27/22 11:30 BP 103/54 09/27/22 11:30 Pulse Ox 91 L 09/27/22 11:30 FiO2 Intake & Output 09/26/22 09/27/22 09/27/22 18:59 06:59 18:59 Intake Total 1050 0 Output Total 565 380 15 Balance 485 -380 -15 Weight 98 kg Intake: IV 1050 Oral 0 Output: Drainage 225 75 Right Anterior Medial 225 75 Abdomen Urine 290 305 15 Estimated Blood Loss 50 Other: Voiding Method Indwelling Catheter Indwelling Catheter - Labs CBC & Chem 7: 09/27/22 11:50 09/27/22 11:50 Labs: Abnormal Lab Results - Last 24 Hours (Table) 09/26/22 09/26/22 09/26/22 Range/Units 13:10 13:10 16:43 WBC 26.3 H (3.8-10.6) k/uL Hgb (11.4-16.0) gm/dL Hct (34.0-46.0) % Plt Count 537 H (150-450) k/uL Neutrophils # 24.5 H (1.3-7.7) k/uL Lymphocytes # 0.8 L (1.0-4.8) k/uL Monocytes # (0-1.0) k/uL Sodium 130 L (137-145) mmol/L Chloride 96 L (98-107) mmol/L BUN 53 H (7-17) mg/dL Creatinine 2.16 H (0.52-1.04) mg/dL Glucose 160 H (74-99) mg/dL POC Glucose (mg/dL) 179 H (70-110) mg/dL Calcium 7.0 L (8.4-10.2) mg/dL Total Protein (6.3-8.2) g/dL Albumin (3.5-5.0) g/dL 09/26/22 09/27/22 09/27/22 Range/Units 20:26 06:15 11:34 WBC (3.8-10.6) k/uL Hgb (11.4-16.0) gm/dL Hct (34.0-46.0) % Plt Count (150-450) k/uL Neutrophils # (1.3-7.7) k/uL Lymphocytes # (1.0-4.8) k/uL Monocytes # (0-1.0) k/uL Sodium (137-145) mmol/L Chloride (98-107) mmol/L BUN (7-17) mg/dL Creatinine (0.52-1.04) mg/dL Glucose (74-99) mg/dL POC Glucose (mg/dL) 257 H 233 H 195 H (70-110) mg/dL Calcium (8.4-10.2) mg/dL Total Protein (6.3-8.2) g/dL Albumin (3.5-5.0) g/dL 09/27/22 09/27/22 Range/Units 11:50 11:50 WBC 20.0 H (3.8-10.6) k/uL Hgb 11.0 L (11.4-16.0) gm/dL Hct 33.4 L (34.0-46.0) % Plt Count 512 H (150-450) k/uL Neutrophils # 17.6 H (1.3-7.7) k/uL Lymphocytes # 0.9 L (1.0-4.8) k/uL Monocytes # 1.3 H (0-1.0) k/uL Sodium 132 L (137-145) mmol/L Chloride (98-107) mmol/L BUN 57 H (7-17) mg/dL Creatinine 2.21 H (0.52-1.04) mg/dL Glucose 176 H (74-99) mg/dL POC Glucose (mg/dL) (70-110) mg/dL Calcium 6.7 L (8.4-10.2) mg/dL Total Protein 4.7 L (6.3-8.2) g/dL Albumin 2.2 L (3.5-5.0) g/dL Microbiology - Last 24 Hours (Table) 09/26/22 09:50 Gram Stain - Preliminary Abdomen 09/24/22 14:24 Blood Culture - Preliminary Blood 09/24/22 14:24 Blood Culture - Preliminary Blood 09/25/22 13:26 Blood Culture - Preliminary Blood
--- NOTE | 2022-09-27 13:42 | P.PN ---
Subjective Patient is seen for follow-up for acute kidney injury. Currently maintained on IV fluids. Serum creatinine staying at about 2.1-2.2 mg/dL. Patient has an indwelling Orantes catheter. Urine output documented at about 600 mL. Episodes of hypotension noted yesterday with systolic in the low 90s Objective - Vital Signs Vital signs: Vital Signs Temp 97.2 F L 09/27/22 11:30 Pulse 76 09/27/22 11:30 Resp 18 09/27/22 11:30 BP 103/54 09/27/22 11:30 Pulse Ox 91 L 09/27/22 11:30 FiO2 Intake & Output 09/26/22 09/27/22 09/27/22 18:59 06:59 18:59 Intake Total 1050 0 Output Total 565 380 15 Balance 485 -380 -15 Weight 98 kg Intake: IV 1050 Oral 0 Output: Drainage 225 75 Right Anterior Medial 225 75 Abdomen Urine 290 305 15 Estimated Blood Loss 50 Other: Voiding Method Indwelling Catheter Indwelling Catheter - Exam Patient is awake, comfortable, no acute distress NG tube in place Examination of the heart S1 and S2 Examination of the lungs bilateral breath sounds are heard Abdomen is soft, mild tenderness noted SULMA drain is noted Examination lower extremities shows no edema - Labs CBC & Chem 7: 09/27/22 11:50 09/27/22 11:50 Labs: Abnormal Lab Results - Last 24 Hours (Table) 09/26/22 09/26/22 09/26/22 Range/Units 13:10 13:10 16:43 WBC 26.3 H (3.8-10.6) k/uL Hgb (11.4-16.0) gm/dL Hct (34.0-46.0) % Plt Count 537 H (150-450) k/uL Neutrophils # 24.5 H (1.3-7.7) k/uL Lymphocytes # 0.8 L (1.0-4.8) k/uL Monocytes # (0-1.0) k/uL Sodium 130 L (137-145) mmol/L Chloride 96 L (98-107) mmol/L BUN 53 H (7-17) mg/dL Creatinine 2.16 H (0.52-1.04) mg/dL Glucose 160 H (74-99) mg/dL POC Glucose (mg/dL) 179 H (70-110) mg/dL Calcium 7.0 L (8.4-10.2) mg/dL Total Protein (6.3-8.2) g/dL Albumin (3.5-5.0) g/dL 09/26/22 09/27/22 09/27/22 Range/Units 20:26 06:15 11:34 WBC (3.8-10.6) k/uL Hgb (11.4-16.0) gm/dL Hct (34.0-46.0) % Plt Count (150-450) k/uL Neutrophils # (1.3-7.7) k/uL Lymphocytes # (1.0-4.8) k/uL Monocytes # (0-1.0) k/uL Sodium (137-145) mmol/L Chloride (98-107) mmol/L BUN (7-17) mg/dL Creatinine (0.52-1.04) mg/dL Glucose (74-99) mg/dL POC Glucose (mg/dL) 257 H 233 H 195 H (70-110) mg/dL Calcium (8.4-10.2) mg/dL Total Protein (6.3-8.2) g/dL Albumin (3.5-5.0) g/dL 09/27/22 09/27/22 Range/Units 11:50 11:50 WBC 20.0 H (3.8-10.6) k/uL Hgb 11.0 L (11.4-16.0) gm/dL Hct 33.4 L (34.0-46.0) % Plt Count 512 H (150-450) k/uL Neutrophils # 17.6 H (1.3-7.7) k/uL Lymphocytes # 0.9 L (1.0-4.8) k/uL Monocytes # 1.3 H (0-1.0) k/uL Sodium 132 L (137-145) mmol/L Chloride (98-107) mmol/L BUN 57 H (7-17) mg/dL Creatinine 2.21 H (0.52-1.04) mg/dL Glucose 176 H (74-99) mg/dL POC Glucose (mg/dL) (70-110) mg/dL Calcium 6.7 L (8.4-10.2) mg/dL Total Protein 4.7 L (6.3-8.2) g/dL Albumin 2.2 L (3.5-5.0) g/dL Microbiology - Last 24 Hours (Table) 09/26/22 09:50 Gram Stain - Preliminary Abdomen 09/24/22 14:24 Blood Culture - Preliminary Blood 09/24/22 14:24 Blood Culture - Preliminary Blood 09/25/22 13:26 Blood Culture - Preliminary Blood Assessment and Plan Assessment: #1 acute kidney injury secondary to hemodynamic ATN with low blood pressures. -Baseline creatinine 0.8 MG per DL. #2 laparotomy with colonic resection [ascending colon]. #3 hypotensive episodes, currently hypotensive #4 diabetes #5 possible malignancy Plan: Continue with IV fluids. Change to 0.9 at 100 mL per hour. DC potassium and IV fluids Repeat labs in a.m. Avoid nephrotoxic agents Continue antibiotics.
[2022-09-27 16:38] LABS: Glucose,Whole Blood 188 mg/dL (70-110)
[2022-09-27 20:04] LABS: Glucose,Whole Blood 217 mg/dL (70-110)
[2022-09-28] MEDS: PIPERACILLIN-TAZOBACTAM 3.375 GM in SODIUM CHLORIDE 0.9% 100 ML IVPB SCH ×3 (00:34→20:23)
[2022-09-28] MEDS: SODIUM CHLORIDE 0.9% 1,000 ML IV SCH ×3 (03:31→23:08)
[2022-09-28] MEDS: HYDROmorphone 1 MG/ML 1 ML SYRINGE IVP PRN ×3 (04:03→15:35)
[2022-09-28] MEDS: CALCIUM CARB-VIT D 500 MG-5 MCG TAB PO SCH ×2 (05:12→17:11)
[2022-09-28] MEDS: LEVOTHYROXINE 75 MCG TAB PO SCH (05:13)
[2022-09-28 05:56] LABS: Glucose,Whole Blood 168 mg/dL (70-110)
[2022-09-28] MEDS: INSULIN ASPART (NovoLOG) 100 UNIT/ML VIAL SQ SCH ×4 (06:05→20:19)
[2022-09-28] MEDS: PANTOPRAZOLE 40 MG/10 ML VIAL IVP SCH (08:17)
[2022-09-28] MEDS: HEPARIN SODIUM,PORCINE/PF 5,000 UNIT/0.5 ML SYRINGE SQ SCH ×2 (08:17→20:23)
[2022-09-28] MEDS: metroNIDAZOLE-NS PMX 500 MG in SALINE 1 100ML.BAG IVPB SCH ×3 (08:17→23:08)
[2022-09-28 08:34] LABS: Basophils % (A) 0 %; Eosinophils # (A) 0.1 k/uL (0-0.7); Eosinophils % (A) 0 %; HCT 31.7 % (34.0-46.0); Hypochromasia Slight; Lymphocytes # (A) 0.8 k/uL (1.0-4.8); Lymphocytes % (A) 5 %; MCH 27.5 pg (25.0-35.0); MCHC 31.5 g/dL (31.0-37.0); MCV 87.3 fL (80.0-100.0); Mean Platelet Volume 7.9; Monocytes # (A) 0.7 k/uL (0-1.0); Monocytes % (A) 4 %; Neutrophils # (A) 14.8 k/uL (1.3-7.7); Neutrophils % (A) 90 %; Platelet Count 508 k/uL (150-450); RBC 3.64 m/uL (3.80-5.40); RDW 14.2 % (11.5-15.5); WBC 16.5 k/uL (3.8-10.6)
[2022-09-28 08:37] LABS: African American GFR (CKD) 30 (>60 ml/min/1.73 sqM); Anion Gap 5 mmol/L; Blood Urea Nitrogen 45 mg/dL (7-17); Calcium 6.6 mg/dL (8.4-10.2); Carbon Dioxide 26 mmol/L (22-30); Chloride 104 mmol/L (98-107); Glucose 146 mg/dL (74-99); Non-African American GFR(CKD) 26 (>60 ml/min/1.73 sqM); Potassium 4.4 mmol/L (3.5-5.1); Sodium 135 mmol/L (137-145)
[2022-09-28] MEDS: ANASTROZOLE 1 MG TAB PO SCH (09:00)
--- NOTE | 2022-09-28 09:56 | P.PN ---
Subjective This is a pleasant 82 years old female with multiple medical problems including hypothyroidism, hypertension, osteoporosis, diabetes mellitus and history of breast cancer. Presents with signs and symptoms of colitis with abdominal wall abscess. With evidence of acute kidney injury present on admission. Patient as well as by several consultants. Patient currently continued on broad-spectrum antibiotic with Flagyl and Zosyn. Also she is on D5 half normal saline at 1 25 mL/h. Patient is very lethargic and weak and she Answers with One or 2 words, Chest complaining of from tenderness in the right side of the abdomen. Surgical wound is closed and healing. She is status post right colectomy. Today is postoperative day #1. Vitas looks stable Labs from today are pending 10/17/2022 Patient is awake but very lethargic. However she is oriented to time place and person and she has an site. Still complaining of from right-sided abdominal pain. No bowel movements. She feels dry but she is on D5 0.9 infusion. Also she is covered currently with Flagyl and Zosyn and wound culture is growing potassium streptococci. Objective - Vital Signs Vital signs: Vital Signs Temp 99.2 F 09/28/22 03:35 Pulse 89 09/28/22 03:35 Resp 18 09/28/22 03:35 BP 120/58 09/28/22 03:35 Pulse Ox 94 L 09/28/22 09:17 FiO2 Intake & Output 09/27/22 09/28/22 09/28/22 18:59 06:59 18:59 Intake Total 1250 Output Total 650 630 Balance 600 -630 Intake: Intake, IV Titration 1250 Amount D5-0.45% NaCl with KCl 750 20Meq/l 1,000 ml @ 125 mls/hr IV .Q8H [facility] Rx#: [id number] Piperacillin-Tazobactam 3 100 .375 gm In Sodium Chloride 0.9% 100 ml @ 25 mls/hr IVPB Q12H [facility] Rx# :[id number] Sodium Chloride 0.9% 1, 200 000 ml @ 100 mls/hr IV . Q10H [facility] Rx#:[id number] metroNIDAZOLE-NS PMX 500 200 mg In Saline 1 100ml.bag @ 100 mls/hr IVPB Q8HR [facility] Rx#:[id number] Oral 0 Output: Drainage 60 120 Right Anterior Medial 60 120 Abdomen Urine 590 510 Uretheral (Orantes) 260 Other: Voiding Method Indwelling Catheter Indwelling Catheter - Exam -GENERAL: The patient is weak and lethargic, not in any acute distress. Well developed, well nourished. HEENT: Pupils are round and equally reacting to light. EOMI. No scleral icterus. No conjunctival pallor. Normocephalic, atraumatic. No pharyngeal erythema. No thyromegaly. CARDIOVASCULAR: S1 and S2 present. No murmurs, rubs, or gallops. PULMONARY: Chest is clear to auscultation, no wheezing , no crackles. -ABDOMEN: Soft, right-sided abdominal tenderness, nondistended, normoactive bowel sounds. No palpable organomegaly. Surgical wound closed and healing MUSCULOSKELETAL: No joint swelling or deformity. EXTREMITIES: No cyanosis, clubbing, or pedal edema. NEUROLOGICAL: Gross neurological examination did not reveal any focal deficits. SKIN: No rashes. no petechiae. - Labs CBC & Chem 7: 09/28/22 08:03 09/28/22 08:03 Labs: Abnormal Lab Results - Last 24 Hours (Table) 09/27/22 09/27/22 09/27/22 Range/Units 11:34 11:50 11:50 WBC 20.0 H (3.8-10.6) k/uL RBC (3.80-5.40) m/uL Hgb 11.0 L (11.4-16.0) gm/dL Hct 33.4 L (34.0-46.0) % Plt Count 512 H (150-450) k/uL Neutrophils # 17.6 H (1.3-7.7) k/uL Lymphocytes # 0.9 L (1.0-4.8) k/uL Monocytes # 1.3 H (0-1.0) k/uL Sodium 132 L (137-145) mmol/L BUN 57 H (7-17) mg/dL Creatinine 2.21 H (0.52-1.04) mg/dL Glucose 176 H (74-99) mg/dL POC Glucose (mg/dL) 195 H (70-110) mg/dL Calcium 6.7 L (8.4-10.2) mg/dL Total Protein 4.7 L (6.3-8.2) g/dL Albumin 2.2 L (3.5-5.0) g/dL 09/27/22 09/27/22 09/28/22 Range/Units 16:32 20:02 05:55 WBC (3.8-10.6) k/uL RBC (3.80-5.40) m/uL Hgb (11.4-16.0) gm/dL Hct (34.0-46.0) % Plt Count (150-450) k/uL Neutrophils # (1.3-7.7) k/uL Lymphocytes # (1.0-4.8) k/uL Monocytes # (0-1.0) k/uL Sodium (137-145) mmol/L BUN (7-17) mg/dL Creatinine (0.52-1.04) mg/dL Glucose (74-99) mg/dL POC Glucose (mg/dL) 188 H 217 H 168 H (70-110) mg/dL Calcium (8.4-10.2) mg/dL Total Protein (6.3-8.2) g/dL Albumin (3.5-5.0) g/dL 09/28/22 09/28/22 Range/Units 08:03 08:03 WBC 16.5 H (3.8-10.6) k/uL RBC 3.64 L (3.80-5.40) m/uL Hgb 10.0 L (11.4-16.0) gm/dL Hct 31.7 L (34.0-46.0) % Plt Count 508 H (150-450) k/uL Neutrophils # 14.8 H (1.3-7.7) k/uL Lymphocytes # 0.8 L (1.0-4.8) k/uL Monocytes # (0-1.0) k/uL Sodium 135 L (137-145) mmol/L BUN 45 H (7-17) mg/dL Creatinine 1.76 H (0.52-1.04) mg/dL Glucose 146 H (74-99) mg/dL POC Glucose (mg/dL) (70-110) mg/dL Calcium 6.6 L (8.4-10.2) mg/dL Total Protein (6.3-8.2) g/dL Albumin (3.5-5.0) g/dL Microbiology - Last 24 Hours (Table) 09/24/22 14:24 Blood Culture - Preliminary Blood 09/24/22 14:24 Blood Culture - Preliminary Blood 09/25/22 13:26 Blood Culture - Preliminary Blood 09/26/22 09:50 Gram Stain - Preliminary Abdomen Wound Culture - Preliminary Beta Hemolytic Strep Group C Assessment and Plan Assessment: Acute ascending colitis with perforation and abdominal wall abscess status post right hemicolectomy. Today is postoperative day #1. Acute kidney injury, improved Metabolic/toxic encephalopathy secondary to above Diabetes mellitus Hypertension History of osteoarthritis Hypothyroidism Plan: Continue with antibiotic of Flagyl and Zosyn Continue with IV hydration half-normal saline at 1 25 mL/h Lower consultants on the case after the surgery team, county nurse and infectious disease team. Labs and medication were reviewed.. Continue same treatment. Continue with symptomatic treatment. Resume home medication. Monitor lytes and vitals. DVT and GI prophylaxis. Further recommendations depends on the clinical course of the patient DVT prophylaxis: Subcutaneous heparin GI Prophylaxis: Ppi PT/OT: Pending Prognosis is guarded
[2022-09-28 11:55] LABS: Glucose,Whole Blood 151 mg/dL (70-110)
[2022-09-28] MEDS: ACETAMINOPHEN IV (For NPO) 1,000 MG in EMPTY BAG 1 BAG IVPB SCH ×2 (12:19→17:11)
--- NOTE | 2022-09-28 12:29 | P.PN ---
Subjective Patient is seen for follow-up for acute kidney injury. Currently maintained on IV fluids. Serum creatinine down to 1.7 mg/dL today Patient has an indwelling Orantes catheter. Urine output documented at about 1100 mL. Objective - Vital Signs Vital signs: Vital Signs Temp 98.4 F 09/28/22 08:15 Pulse 89 09/28/22 08:15 Resp 19 09/28/22 08:15 BP 131/60 09/28/22 08:15 Pulse Ox 94 L 09/28/22 09:17 FiO2 Intake & Output 09/27/22 09/28/22 09/28/22 18:59 06:59 18:59 Intake Total 1250 Output Total 650 630 260 Balance 600 -630 -260 Intake: Intake, IV Titration 1250 Amount D5-0.45% NaCl with KCl 750 20Meq/l 1,000 ml @ 125 mls/hr IV .Q8H [facility] Rx#: [id number] Piperacillin-Tazobactam 3 100 .375 gm In Sodium Chloride 0.9% 100 ml @ 25 mls/hr IVPB Q12H [facility] Rx# :[id number] Sodium Chloride 0.9% 1, 200 000 ml @ 100 mls/hr IV . Q10H [facility] Rx#:[id number] metroNIDAZOLE-NS PMX 500 200 mg In Saline 1 100ml.bag @ 100 mls/hr IVPB Q8HR [facility] Rx#:[id number] Oral 0 Output: Drainage 60 120 Right Anterior Medial 60 120 Abdomen Urine 590 510 260 Uretheral (Orantes) 260 260 Other: Voiding Method Indwelling Catheter Indwelling Catheter Indwelling Catheter - Exam Patient is awake, comfortable, no acute distress NG tube in place Examination of the heart S1 and S2 Examination of the lungs bilateral breath sounds are heard Abdomen is soft, mild tenderness noted SULMA drain is noted Examination lower extremities shows no edema - Labs CBC & Chem 7: 09/28/22 08:03 09/28/22 08:03 Labs: Abnormal Lab Results - Last 24 Hours (Table) 09/27/22 09/27/22 09/27/22 Range/Units 11:50 11:50 16:32 WBC 20.0 H (3.8-10.6) k/uL RBC (3.80-5.40) m/uL Hgb 11.0 L (11.4-16.0) gm/dL Hct 33.4 L (34.0-46.0) % Plt Count 512 H (150-450) k/uL Neutrophils # 17.6 H (1.3-7.7) k/uL Lymphocytes # 0.9 L (1.0-4.8) k/uL Monocytes # 1.3 H (0-1.0) k/uL Sodium 132 L (137-145) mmol/L BUN 57 H (7-17) mg/dL Creatinine 2.21 H (0.52-1.04) mg/dL Glucose 176 H (74-99) mg/dL POC Glucose (mg/dL) 188 H (70-110) mg/dL Calcium 6.7 L (8.4-10.2) mg/dL Total Protein 4.7 L (6.3-8.2) g/dL Albumin 2.2 L (3.5-5.0) g/dL 09/27/22 09/28/22 09/28/22 Range/Units 20:02 05:55 08:03 WBC 16.5 H (3.8-10.6) k/uL RBC 3.64 L (3.80-5.40) m/uL Hgb 10.0 L (11.4-16.0) gm/dL Hct 31.7 L (34.0-46.0) % Plt Count 508 H (150-450) k/uL Neutrophils # 14.8 H (1.3-7.7) k/uL Lymphocytes # 0.8 L (1.0-4.8) k/uL Monocytes # (0-1.0) k/uL Sodium (137-145) mmol/L BUN (7-17) mg/dL Creatinine (0.52-1.04) mg/dL Glucose (74-99) mg/dL POC Glucose (mg/dL) 217 H 168 H (70-110) mg/dL Calcium (8.4-10.2) mg/dL Total Protein (6.3-8.2) g/dL Albumin (3.5-5.0) g/dL 09/28/22 09/28/22 Range/Units 08:03 11:54 WBC (3.8-10.6) k/uL RBC (3.80-5.40) m/uL Hgb (11.4-16.0) gm/dL Hct (34.0-46.0) % Plt Count (150-450) k/uL Neutrophils # (1.3-7.7) k/uL Lymphocytes # (1.0-4.8) k/uL Monocytes # (0-1.0) k/uL Sodium 135 L (137-145) mmol/L BUN 45 H (7-17) mg/dL Creatinine 1.76 H (0.52-1.04) mg/dL Glucose 146 H (74-99) mg/dL POC Glucose (mg/dL) 151 H (70-110) mg/dL Calcium 6.6 L (8.4-10.2) mg/dL Total Protein (6.3-8.2) g/dL Albumin (3.5-5.0) g/dL Microbiology - Last 24 Hours (Table) 09/24/22 14:24 Blood Culture - Preliminary Blood 09/24/22 14:24 Blood Culture - Preliminary Blood 09/25/22 13:26 Blood Culture - Preliminary Blood 09/26/22 09:50 Gram Stain - Preliminary Abdomen Wound Culture - Preliminary Beta Hemolytic Strep Group C Assessment and Plan Assessment: #1 acute kidney injury secondary to hemodynamic ATN with low blood pressures. -Baseline creatinine 0.8 MG per DL. #2 laparotomy with colonic resection [ascending colon] for colitis with perforation and abdominal wall abscess #3 hypotensive episodes, improved #4 diabetes Plan: Continue with IV fluids. Repeat labs in a.m. Avoid nephrotoxic agents Continue antibiotics.
--- NOTE | 2022-09-28 14:34 | P.PN ---
Subjective Progress Note Date: 09/28/22 CHIEF COMPLAINT: Colon mass HISTORY OF PRESENT ILLNESS: Patient is postop day #2 status post right colectomy for right colon tumor with perforation into the abdominal wall causing abscess. Patient complains of abdominal pain. No bowel activity. Denies any nausea. Minimal output through the NG tube. SULMA drain with serosanguineous output 140 mL during the evening and 40 mL this morning. Afebrile. WBC 20 down to 16.5 Hgb is 10.0 platelets 508 sodium is [address] Schuster is covering for Dr. Sorenson PHYSICAL EXAM: VITAL SIGNS: Reviewed. GENERAL: Well-developed in no acute distress. ABDOMEN: Soft. mildly Distended. Tender at incision site. Incisional dressing clean dry and intact. NEUROLOGIC: Alert and oriented. Cranial nerves II through XII grossly intact. ASSESSMENT: 1. Right colon tumor with perforation into the abdominal wall causing abscess status post right colectomy PLAN: -Continue NG tube for decompression -Continue IV fluids -Keep patient nothing by mouth except for ice chips -Continue pain management. IV Tylenol added for pain control -Continue antibiotics -Encouraged patient to use incentive spirometer -Encouraged patient to increase activity level -GI prophylaxis Protonix and DVT prophylaxis subcu heparin Physician [employer] Farmworker note has been reviewed by physician. Signing provider agrees with the documented findings, assessment, and plan of care. Objective - Vital Signs Vital signs: Vital Signs Temp 98.4 F 09/28/22 08:15 Pulse 89 09/28/22 08:15 Resp 19 09/28/22 08:15 BP 131/60 09/28/22 08:15 Pulse Ox 94 L 09/28/22 09:17 FiO2 Intake & Output 09/27/22 09/28/22 09/28/22 18:59 06:59 18:59 Intake Total 1250 Output Total 650 630 260 Balance 600 -630 -260 Intake: Intake, IV Titration 1250 Amount D5-0.45% NaCl with KCl 750 20Meq/l 1,000 ml @ 125 mls/hr IV .Q8H [facility] Rx#: [id number] Piperacillin-Tazobactam 3 100 .375 gm In Sodium Chloride 0.9% 100 ml @ 25 mls/hr IVPB Q12H [facility] Rx# :[id number] Sodium Chloride 0.9% 1, 200 000 ml @ 100 mls/hr IV . Q10H [facility] Rx#:[id number] metroNIDAZOLE-NS PMX 500 200 mg In Saline 1 100ml.bag @ 100 mls/hr IVPB Q8HR [facility] Rx#:[id number] Oral 0 Output: Drainage 60 120 Right Anterior Medial 60 120 Abdomen Urine 590 510 260 Uretheral (Orantes) 260 260 Other: Voiding Method Indwelling Catheter Indwelling Catheter Indwelling Catheter - Labs CBC & Chem 7: 09/28/22 08:03 09/28/22 08:03 Labs: Abnormal Lab Results - Last 24 Hours (Table) 09/27/22 09/27/22 09/28/22 Range/Units 16:32 20:02 05:55 WBC (3.8-10.6) k/uL RBC (3.80-5.40) m/uL Hgb (11.4-16.0) gm/dL Hct (34.0-46.0) % Plt Count (150-450) k/uL Neutrophils # (1.3-7.7) k/uL Lymphocytes # (1.0-4.8) k/uL Sodium (137-145) mmol/L BUN (7-17) mg/dL Creatinine (0.52-1.04) mg/dL Glucose (74-99) mg/dL POC Glucose (mg/dL) 188 H 217 H 168 H (70-110) mg/dL Calcium (8.4-10.2) mg/dL 09/28/22 09/28/22 09/28/22 Range/Units 08:03 08:03 11:54 WBC 16.5 H (3.8-10.6) k/uL RBC 3.64 L (3.80-5.40) m/uL Hgb 10.0 L (11.4-16.0) gm/dL Hct 31.7 L (34.0-46.0) % Plt Count 508 H (150-450) k/uL Neutrophils # 14.8 H (1.3-7.7) k/uL Lymphocytes # 0.8 L (1.0-4.8) k/uL Sodium 135 L (137-145) mmol/L BUN 45 H (7-17) mg/dL Creatinine 1.76 H (0.52-1.04) mg/dL Glucose 146 H (74-99) mg/dL POC Glucose (mg/dL) 151 H (70-110) mg/dL Calcium 6.6 L (8.4-10.2) mg/dL Microbiology - Last 24 Hours (Table) 09/24/22 14:24 Blood Culture - Preliminary Blood 09/24/22 14:24 Blood Culture - Preliminary Blood 09/25/22 13:26 Blood Culture - Preliminary Blood 09/26/22 09:50 Gram Stain - Preliminary Abdomen Wound Culture - Preliminary Beta Hemolytic Strep Group C
--- NOTE | 2022-09-28 15:00 | P.PN ---
Subjective Progress Note Date: 09/28/22 Principal diagnosis: Perforated colon Intra-abdominal abscess Patient is a 82-year-old female with a past medical history significant for diabetes mellitus hypertension history of uterine cancer and bilateral breast CA presenting to the hospital for evaluation of right-sided abdominal pain ,CT abdominal pelvis thickening of the ascending colon with mesenteric lymph node and soft tissue heterogeneous material within the right abdominal wall, a shunt was taken to the OR and the patient is status post laparotomy noticed to have right colon tumor with perforation into abdominal wall causing abscess which was drained but no culture were done. On today's evaluation that is 09/28/2022, patient continues to be afebrile patient is breathing comfortably on 2 L nasal cannula oxygen the patient has been complaining of abdominal pain no vomiting or any other changes reported by the nursing staff Patient did have a white count is down to 16.5 today, blood cultures are currently pending abdominal cultures pending Objective - Vital Signs Vital signs: Vital Signs Temp 98.4 F 09/28/22 08:15 Pulse 89 09/28/22 08:15 Resp 19 09/28/22 08:15 BP 131/60 09/28/22 08:15 Pulse Ox 94 L 09/28/22 09:17 FiO2 Intake & Output 09/27/22 09/28/22 09/28/22 18:59 06:59 18:59 Intake Total 1250 Output Total 650 630 260 Balance 600 -630 -260 Intake: Intake, IV Titration 1250 Amount D5-0.45% NaCl with KCl 750 20Meq/l 1,000 ml @ 125 mls/hr IV .Q8H [facility] Rx#: [id number] Piperacillin-Tazobactam 3 100 .375 gm In Sodium Chloride 0.9% 100 ml @ 25 mls/hr IVPB Q12H [facility] Rx# :[id number] Sodium Chloride 0.9% 1, 200 000 ml @ 100 mls/hr IV . Q10H [facility] Rx#:[id number] metroNIDAZOLE-NS PMX 500 200 mg In Saline 1 100ml.bag @ 100 mls/hr IVPB Q8HR [facility] Rx#:[id number] Oral 0 Output: Drainage 60 120 Right Anterior Medial 60 120 Abdomen Urine 590 510 260 Uretheral (Orantes) 260 260 Other: Voiding Method Indwelling Catheter Indwelling Catheter Indwelling Catheter - Exam GENERAL DESCRIPTION: An elderly female lying in bed in no distress RESPIRATORY SYSTEM: Unlabored breathing , decreased breath sounds at bases HEART: S1 S2 regular rate and rhythm , ABDOMEN: Soft , abdominal distention and tenderness EXTREMITIES: No edema feet - Labs CBC & Chem 7: 09/28/22 08:03 09/28/22 08:03 Labs: Abnormal Lab Results - Last 24 Hours (Table) 09/27/22 09/27/22 09/28/22 Range/Units 16:32 20:02 05:55 WBC (3.8-10.6) k/uL RBC (3.80-5.40) m/uL Hgb (11.4-16.0) gm/dL Hct (34.0-46.0) % Plt Count (150-450) k/uL Neutrophils # (1.3-7.7) k/uL Lymphocytes # (1.0-4.8) k/uL Sodium (137-145) mmol/L BUN (7-17) mg/dL Creatinine (0.52-1.04) mg/dL Glucose (74-99) mg/dL POC Glucose (mg/dL) 188 H 217 H 168 H (70-110) mg/dL Calcium (8.4-10.2) mg/dL 09/28/22 09/28/22 09/28/22 Range/Units 08:03 08:03 11:54 WBC 16.5 H (3.8-10.6) k/uL RBC 3.64 L (3.80-5.40) m/uL Hgb 10.0 L (11.4-16.0) gm/dL Hct 31.7 L (34.0-46.0) % Plt Count 508 H (150-450) k/uL Neutrophils # 14.8 H (1.3-7.7) k/uL Lymphocytes # 0.8 L (1.0-4.8) k/uL Sodium 135 L (137-145) mmol/L BUN 45 H (7-17) mg/dL Creatinine 1.76 H (0.52-1.04) mg/dL Glucose 146 H (74-99) mg/dL POC Glucose (mg/dL) 151 H (70-110) mg/dL Calcium 6.6 L (8.4-10.2) mg/dL Microbiology - Last 24 Hours (Table) 09/24/22 14:24 Blood Culture - Preliminary Blood 09/24/22 14:24 Blood Culture - Preliminary Blood 09/25/22 13:26 Blood Culture - Preliminary Blood 09/26/22 09:50 Gram Stain - Preliminary Abdomen Wound Culture - Preliminary Beta Hemolytic Strep Group C Assessment and Plan (1) Intra-abdominal abscess Current Visit: Yes Status: Acute Code(s): K65.1 - PERITONEAL ABSCESS SNOMED Code(s): 12791606 Plan: 1patient present to hospital with right upper quadrant abdominal pain in this patient with elevated white count and abnormal CT high clinic suspicious for possible malignancy with contained perforation clinically doubt abdominal wall abscess and will need to cover for the enteric gram-negative both aerobes and anaerobes, the patient is status post laparotomy with right colectomy and drainage of the abscess, cultures obtained from the drainage catheter yesterday and currently pending 2-patient did have minimal clinical improvement, patient will with Zosyn 3.375 g every 8 hours while waiting for culture finalized and monitor clinical course closely Dictation was produced using [employer] dictation software. please excuse any grammatical, word or spelling errors. Time with Patient: Less than 30
[2022-09-28 17:01] LABS: Glucose,Whole Blood 162 mg/dL (70-110)
[2022-09-28 20:20] LABS: Glucose,Whole Blood 130 mg/dL (70-110)
[2022-09-29] MEDS: ACETAMINOPHEN IV (For NPO) 1,000 MG in EMPTY BAG 1 BAG IVPB SCH ×2 (00:12→05:36)
[2022-09-29] MEDS: ONDANSETRON 4 MG/2 ML VIAL IVP PRN (02:41)
[2022-09-29] MEDS: HYDROmorphone 1 MG/ML 1 ML SYRINGE IVP PRN ×3 (02:52→20:49)
[2022-09-29] MEDS: PIPERACILLIN-TAZOBACTAM 3.375 GM in SODIUM CHLORIDE 0.9% 100 ML IVPB SCH ×3 (05:37→20:50)
[2022-09-29] MEDS: LEVOTHYROXINE 75 MCG TAB PO SCH (05:38)
[2022-09-29] MEDS: CALCIUM CARB-VIT D 500 MG-5 MCG TAB PO SCH ×2 (05:38→17:05)
[2022-09-29 05:56] LABS: Glucose,Whole Blood 99 mg/dL (70-110)
[2022-09-29] MEDS: INSULIN ASPART (NovoLOG) 100 UNIT/ML VIAL SQ SCH ×4 (05:57→20:08)
[2022-09-29] MEDS: ANASTROZOLE 1 MG TAB PO SCH (08:02)
[2022-09-29] MEDS: HEPARIN SODIUM,PORCINE/PF 5,000 UNIT/0.5 ML SYRINGE SQ SCH ×2 (08:12→20:50)
[2022-09-29] MEDS: PANTOPRAZOLE 40 MG/10 ML VIAL IVP SCH (08:13)
[2022-09-29] MEDS: metroNIDAZOLE-NS PMX 500 MG in SALINE 1 100ML.BAG IVPB SCH ×2 (08:13→16:21)
[2022-09-29] MEDS: SODIUM CHLORIDE 0.9% 1,000 ML IV SCH ×2 (10:29→23:24)
[2022-09-29 11:38] LABS: Glucose,Whole Blood 101 mg/dL (70-110)
--- NOTE | 2022-09-29 11:38 | P.PN ---
Subjective This is a pleasant 82 years old female with multiple medical problems including hypothyroidism, hypertension, osteoporosis, diabetes mellitus and history of breast cancer. Presents with signs and symptoms of colitis with abdominal wall abscess. With evidence of acute kidney injury present on admission. Patient as well as by several consultants. Patient currently continued on broad-spectrum antibiotic with Flagyl and Zosyn. Also she is on D5 half normal saline at 1 25 mL/h. Patient is very lethargic and weak and she Answers with One or 2 words, Chest complaining of from tenderness in the right side of the abdomen. Surgical wound is closed and healing. She is status post right colectomy. Today is postoperative day #1. Vitas looks stable Labs from today are pending 09/28/2022 Patient is awake but very lethargic. However she is oriented to time place and person and she has an site. Still complaining of from right-sided abdominal pain. No bowel movements. She feels dry but she is on D5 0.9 infusion. Also she is covered currently with Flagyl and Zosyn and wound culture is growing potassium streptococci. 09/29/2022 Patient complaining of from right-sided abdominal pain at the surgical site before she receives her pain medication this morning. Wound VAC is in place. She still has an NG tube. She has occasional cough from today Labs are still pending She remains on IV fluid D5 half-normal saline at 100 mL/h Objective - Vital Signs Vital signs: Vital Signs Temp 98 F 09/29/22 08:10 Pulse 82 09/29/22 08:10 Resp 18 09/29/22 08:10 BP 120/56 09/29/22 08:10 Pulse Ox 95 09/29/22 08:10 FiO2 Intake & Output 09/28/22 09/29/22 09/29/22 18:59 06:59 18:59 Output Total 290 1115 95 Balance -290 -1115 -95 Output: Gastric Drainage 50 Drainage 30 40 95 Right Anterior Medial 30 40 95 Abdomen Urine 260 1025 Uretheral (Orantes) 260 Other: Voiding Method Indwelling Catheter Indwelling Catheter Indwelling Catheter - Exam -GENERAL: The patient is weak and lethargic, not in any acute distress. Well developed, well nourished. HEENT: Pupils are round and equally reacting to light. EOMI. No scleral icterus. No conjunctival pallor. Normocephalic, atraumatic. No pharyngeal erythema. No thyromegaly. CARDIOVASCULAR: S1 and S2 present. No murmurs, rubs, or gallops. PULMONARY: Chest is clear to auscultation, no wheezing , no crackles. -ABDOMEN: Soft, right-sided abdominal tenderness, nondistended, normoactive bowel sounds. No palpable organomegaly. Surgical wound closed and healing MUSCULOSKELETAL: No joint swelling or deformity. EXTREMITIES: No cyanosis, clubbing, or pedal edema. NEUROLOGICAL: Gross neurological examination did not reveal any focal deficits. SKIN: No rashes. no petechiae. - Labs CBC & Chem 7: 09/28/22 08:03 09/28/22 08:03 Labs: Abnormal Lab Results - Last 24 Hours (Table) 09/28/22 09/28/22 09/28/22 Range/Units 11:54 16:57 20:19 POC Glucose (mg/dL) 151 H 162 H 130 H (70-110) mg/dL Microbiology - Last 24 Hours (Table) 09/25/22 13:26 Blood Culture - Preliminary Blood 09/26/22 09:50 Gram Stain - Final Abdomen Wound Culture - Final Beta Hemolytic Strep Group C Assessment and Plan Assessment: Acute ascending colitis with perforation and abdominal wall abscess status post right hemicolectomy. Today is postoperative day #1. Acute kidney injury, improved Metabolic/toxic encephalopathy secondary to above Diabetes mellitus Hypertension History of osteoarthritis Hypothyroidism Plan: Continue with antibiotic of Flagyl and Zosyn Continue with IV hydration half-normal saline at 1 25 mL/h Lower consultants on the case after the surgery team, painter set and infectious disease team. Labs and medication were reviewed.. Continue same treatment. Continue with symptomatic treatment. Resume home medication. Monitor lytes and vitals. DVT and GI prophylaxis. Further recommendations depends on the clinical course of the patient DVT prophylaxis: Subcutaneous heparin GI Prophylaxis: Ppi PT/OT: Pending Prognosis is guarded
--- NOTE | 2022-09-29 12:44 | P.PN ---
Subjective Patient is seen for follow-up for acute kidney injury. Currently maintained on IV fluids. Serum creatinine down to 1.7 mg/dL yesterday Patient has an indwelling Orantes catheter. Urine output documented at about 1285 mL. Objective - Vital Signs Vital signs: Vital Signs Temp 98 F 09/29/22 08:10 Pulse 81 09/29/22 12:15 Resp 18 09/29/22 12:15 BP 123/59 09/29/22 12:15 Pulse Ox 98 09/29/22 12:15 FiO2 Intake & Output 09/28/22 09/29/22 09/29/22 18:59 06:59 18:59 Output Total 290 1115 130 Balance -290 -1115 -130 Output: Gastric Drainage 50 Drainage 30 40 130 Right Anterior Medial 30 40 130 Abdomen Urine 260 1025 Uretheral (Orantes) 260 Other: Voiding Method Indwelling Catheter Indwelling Catheter Indwelling Catheter - Exam Patient is awake, comfortable, no acute distress NG tube is out Examination of the heart S1 and S2 Examination of the lungs bilateral breath sounds are heard Abdomen is soft, mild tenderness noted SULMA drain is noted Examination lower extremities shows no edema - Labs CBC & Chem 7: 09/28/22 08:03 09/28/22 08:03 Labs: Abnormal Lab Results - Last 24 Hours (Table) 09/28/22 09/28/22 Range/Units 16:57 20:19 POC Glucose (mg/dL) 162 H 130 H (70-110) mg/dL Microbiology - Last 24 Hours (Table) 09/25/22 13:26 Blood Culture - Preliminary Blood 09/26/22 09:50 Gram Stain - Final Abdomen Wound Culture - Final Beta Hemolytic Strep Group C Assessment and Plan Assessment: #1 acute kidney injury secondary to hemodynamic ATN with low blood pressures. -Baseline creatinine 0.8 MG per DL. #2 laparotomy with colonic resection [ascending colon] for colitis with pe rforation and abdominal wall abscess #3 hypotensive episodes, improved #4 diabetes Plan: Decrease IV fluids Repeat labs in a.m. Avoid nephrotoxic agents Continue antibiotics.
[2022-09-29 13:06] LABS: African American GFR (CKD) 47 (>60 ml/min/1.73 sqM); Anion Gap 10 mmol/L; Blood Urea Nitrogen 35 mg/dL (7-17); Carbon Dioxide 21 mmol/L (22-30); Chloride 108 mmol/L (98-107); Glucose 87 mg/dL (74-99); Non-African American GFR(CKD) 41 (>60 ml/min/1.73 sqM); Potassium 4.7 mmol/L (3.5-5.1); Sodium 139 mmol/L (137-145)
--- NOTE | 2022-09-29 13:20 | P.PN ---
Subjective Progress Note Date: 09/29/22 CHIEF COMPLAINT: Colon mass HISTORY OF PRESENT ILLNESS: Patient is postop day #2 status post right colectomy for right colon tumor with perforation into the abdominal wall causing abscess. Patient reports her pain is controlled. Denies any nausea or vomiting. No bowel function yet. Afebrile. SULMA drain 130 mL serosanguineous output. CBC pending Dr. Schuster is covering for Dr. Sorenson PHYSICAL EXAM: VITAL SIGNS: Reviewed. GENERAL: Well-developed in no acute distress. ABDOMEN: Soft. mildly Distended. Tender at incision site. Prevana wound vac in place. NEUROLOGIC: Alert and oriented. Cranial nerves II through XII grossly intact. ASSESSMENT: 1. Right colon tumor with perforation into the abdominal wall causing abscess status post right colectomy PLAN: -Continue NG tube for decompression -Continue IV fluids -Keep patient nothing by mouth except for ice chips -Follow up on pathology results -Continue pain management -Continue antibiotics -Encouraged patient to use incentive spirometer -Encouraged patient to increase activity level -GI prophylaxis Protonix and DVT prophylaxis subcu heparin Physician Armor Reconnaissance Specialist note has been reviewed by physician. Signing provider agrees with the documented findings, assessment, and plan of care. Objective - Vital Signs Vital signs: Vital Signs Temp 98 F 09/29/22 08:10 Pulse 81 09/29/22 12:15 Resp 18 09/29/22 12:15 BP 123/59 09/29/22 12:15 Pulse Ox 98 09/29/22 12:15 FiO2 Intake & Output 09/28/22 09/29/22 09/29/22 18:59 06:59 18:59 Output Total 290 1115 130 Balance -290 -1115 -130 Output: Gastric Drainage 50 Drainage 30 40 130 Right Anterior Medial 30 40 130 Abdomen Urine 260 1025 Uretheral (Or[place]) 260 Other: Voiding Method Indwelling Catheter Indwelling Catheter Indwelling Catheter - Labs CBC & Chem 7: 09/28/22 08:03 09/29/22 11:08 Labs: Abnormal Lab Results - Last 24 Hours (Table) 09/28/22 09/28/22 09/29/22 Range/Units 16:57 20:19 11:08 Chloride 108 H (98-107) mmol/L Carbon Dioxide 21 L (22-30) mmol/L BUN 35 H (7-17) mg/dL Creatinine 1.23 H (0.52-1.04) mg/dL POC Glucose (mg/dL) 162 H 130 H (70-110) mg/dL Calcium 7.0 L (8.4-10.2) mg/dL Microbiology - Last 24 Hours (Table) 09/25/22 13:26 Blood Culture - Preliminary Blood 09/26/22 09:50 Gram Stain - Final Abdomen Wound Culture - Final Beta Hemolytic Strep Group C
[2022-09-29 13:25] LABS: Basophils % (A) 0 %; Eosinophils # (A) 0.1 k/uL (0-0.7); Eosinophils % (A) 1 %; HCT 32.7 % (34.0-46.0); HGB 10.2 gm/dL (11.4-16.0); Hypochromasia Marked; Lymphocytes # (A) 0.9 k/uL (1.0-4.8); Lymphocytes % (A) 6 %; MCHC 31.2 g/dL (31.0-37.0); MCV 89.6 fL (80.0-100.0); Monocytes # (A) 0.6 k/uL (0-1.0); Monocytes % (A) 4 %; Neutrophils # (A) 13.6 k/uL (1.3-7.7); Neutrophils % (A) 89 %; Platelet Count 504 k/uL (150-450); RBC 3.65 m/uL (3.80-5.40); RDW 14.4 % (11.5-15.5); WBC 15.4 k/uL (3.8-10.6)
[2022-09-29 17:04] LABS: Glucose,Whole Blood 86 mg/dL (70-110)
[2022-09-29 19:56] LABS: Glucose,Whole Blood 83 mg/dL (70-110)
[2022-09-30] MEDS: HYDROmorphone 1 MG/ML 1 ML SYRINGE IVP PRN ×7 (01:57→23:00)
[2022-09-30] MEDS: metroNIDAZOLE-NS PMX 500 MG in SALINE 1 100ML.BAG IVPB SCH ×3 (02:06→15:37)
[2022-09-30] MEDS: PIPERACILLIN-TAZOBACTAM 3.375 GM in SODIUM CHLORIDE 0.9% 100 ML IVPB SCH ×2 (05:20→12:32)
[2022-09-30 06:07] LABS: Glucose,Whole Blood 85 mg/dL (70-110)
[2022-09-30] MEDS: CALCIUM CARB-VIT D 500 MG-5 MCG TAB PO SCH ×2 (06:48→15:37)
[2022-09-30] MEDS: INSULIN ASPART (NovoLOG) 100 UNIT/ML VIAL SQ SCH ×4 (06:48→20:03)
[2022-09-30] MEDS: LEVOTHYROXINE 75 MCG TAB PO SCH (06:49)
[2022-09-30 08:05] LABS: Basophils # (A) 0.1 k/uL (0-0.2); Basophils % (A) 1 %; Eosinophils # (A) 0.2 k/uL (0-0.7); Eosinophils % (A) 1 %; HCT 35.2 % (34.0-46.0); HGB 10.4 gm/dL (11.4-16.0); Hypochromasia Marked; Lymphocytes # (A) 1.1 k/uL (1.0-4.8); Lymphocytes % (A) 7 %; MCH 26.8 pg (25.0-35.0); MCHC 29.6 g/dL (31.0-37.0); MCV 90.6 fL (80.0-100.0); Mean Platelet Volume 7.7; Monocytes # (A) 0.8 k/uL (0-1.0); Monocytes % (A) 5 %; Neutrophils # (A) 13.8 k/uL (1.3-7.7); Neutrophils % (A) 86 %; Platelet Count 528 k/uL (150-450); RBC 3.88 m/uL (3.80-5.40); RDW 14.6 % (11.5-15.5); WBC 16.1 k/uL (3.8-10.6)
[2022-09-30 08:26] LABS: African American GFR (CKD) 53 (>60 ml/min/1.73 sqM); Anion Gap 11 mmol/L; Blood Urea Nitrogen 26 mg/dL (7-17); Calcium 7.4 mg/dL (8.4-10.2); Carbon Dioxide 21 mmol/L (22-30); Chloride 111 mmol/L (98-107); Glucose 83 mg/dL (74-99); Non-African American GFR(CKD) 46 (>60 ml/min/1.73 sqM); Potassium 4.6 mmol/L (3.5-5.1); Sodium 143 mmol/L (137-145)
[2022-09-30] MEDS: HEPARIN SODIUM,PORCINE/PF 5,000 UNIT/0.5 ML SYRINGE SQ SCH (08:40)
[2022-09-30] MEDS: PANTOPRAZOLE 40 MG/10 ML VIAL IVP SCH (08:40)
[2022-09-30] MEDS: ANASTROZOLE 1 MG TAB PO SCH (11:03)
[2022-09-30 11:23] LABS: Glucose,Whole Blood 89 mg/dL (70-110)
--- NOTE | 2022-09-30 12:57 | P.PN ---
Subjective Progress Note Date: 09/30/22 CHIEF COMPLAINT: Colon mass HISTORY OF PRESENT ILLNESS: Patient is postop day #3 status post right colectomy for right colon tumor with perforation into the abdominal wall causing abscess. Patient reports her pain is controlled. Denies any nausea or vomiting. No bowel function yet. Afebrile. GP Esmer 335 mL service as well as output yesterday at 80 ML output this morning. WBC is up from 15.4-16.1 Hgb 10[address] Schuster is covering for Dr. Sorenson PHYSICAL EXAM: VITAL SIGNS: Reviewed. GENERAL: Well-developed in no acute distress. ABDOMEN: Soft. mildly Distended. Tender at incision site. Prevana wound vac in place. NEUROLOGIC: Alert and oriented. Cranial nerves II through XII grossly intact. ASSESSMENT: 1. Right colon tumor with perforation into the abdominal wall causing abscess status post right colectomy PLAN: -Continue NG tube for decompression -Continue IV fluids -Keep patient nothing by mouth except for ice chips -Follow up on pathology results -Continue pain management -Continue antibiotics -Encouraged patient to use incentive spirometer -Encouraged patient to increase activity level -Continue to work with PT OT -GI prophylaxis Protonix and DVT prophylaxis subcu heparin Physician Marketing Services Coordinator note has been reviewed by physician. Signing provider agrees with the documented findings, assessment, and plan of care. I have personally seen and examined the patient, reviewed the AIRPLANE TESTER /PAs history, exam and MDM and agree with the assessment and plan as written. Based on total visit time, I have performed more than 50% of the visit. As above: Patient says her pain is about the same today. SULMA drain with serosanguineous output. No flatus or bowel movement. Keep nasogastric tube to suction. Objective - Vital Signs Vital signs: Vital Signs Temp 98.4 F 09/30/22 11:32 Pulse 96 09/30/22 11:32 Resp 18 09/30/22 11:35 BP 125/59 09/30/22 11:32 Pulse Ox 91 L 09/30/22 11:32 FiO2 Intake & Output 09/29/22 09/30/22 09/30/22 18:59 06:59 18:59 Output Total 857 770 305 Balance -895 -770 -305 Weight 98 kg Output: Drainage 235 70 80 Right Anterior Medial 235 70 80 Abdomen Urine 660 700 225 Other: Voiding Method Indwelling Catheter Indwelling Catheter Indwelling Catheter - Labs CBC & Chem 7: 09/30/22 07:28 08 07:28 Labs: Abnormal Lab Results - Last 24 Hours (Table) 09/29/22 09/29/22 09/30/22 Range/Units 11:08 11:08 07:28 WBC 15.4 H 16.1 H (3.8-10.6) k/uL RBC 3.65 L (3.80-5.40) m/uL Hgb 10.2 L 10.4 L (11.4-16.0) gm/dL Hct 32.7 L (34.0-46.0) % MCHC 29.6 L (31.0-37.0) g/dL Plt Count 504 H 528 H (150-450) k/uL Neutrophils # 13.6 H 13.8 H (1.3-7.7) k/uL Lymphocytes # 0.9 L (1.0-4.8) k/uL Chloride 108 H (98-107) mmol/L Carbon Dioxide 21 L (22-30) mmol/L BUN 35 H (7-17) mg/dL Creatinine 1.23 H (0.52-1.04) mg/dL Calcium 7.0 L (8.4-10.2) mg/dL 09/30/22 Range/Units 07:28 WBC (3.8-10.6) k/uL RBC (3.80-5.40) m/uL Hgb (11.4-16.0) gm/dL Hct (34.0-46.0) % MCHC (31.0-37.0) g/dL Plt Count (150-450) k/uL Neutrophils # (1.3-7.7) k/uL Lymphocytes # (1.0-4.8) k/uL Chloride 111 H (98-107) mmol/L Carbon Dioxide 21 L (22-30) mmol/L BUN 26 H (7-17) mg/dL Creatinine 1.11 H (0.52-1.04) mg/dL Calcium 7.4 L (8.4-10.2) mg/dL Microbiology - Last 24 Hours (Table) 09/24/22 14:24 Blood Culture - Final Blood 07/28/23 14:24 Blood Culture - Final Blood 09/26/22 09:50 Anaerobic Culture - Final Abdomen
--- NOTE | 2022-09-30 13:13 | P.PN ---
Subjective Patient is seen for follow-up for acute kidney injury. Currently maintained on IV fluids. Serum creatinine down to 1.1 milligrams per deciliter today Patient has an indwelling Orantes catheter. Urine output documented at about 1360 mL. Objective - Vital Signs Vital signs: Vital Signs Temp 98.4 F 09/30/22 11:32 Pulse 96 09/30/22 11:32 Resp 18 09/30/22 11:35 BP 125/59 09/30/22 11:32 Pulse Ox 91 L 09/30/22 11:32 FiO2 Intake & Output 09/29/22 09/30/22 09/30/22 18:59 06:59 18:59 Output Total 298 770 305 Balance -895 -770 -305 Weight 98 kg Output: Drainage 235 70 80 Right Anterior Medial 235 70 80 Abdomen Urine 660 700 225 Other: Voiding Method Indwelling Catheter Indwelling Catheter Indwelling Catheter - Exam Patient is awake, comfortable, no acute distress NG tube is out Examination of the heart S1 and S2 Examination of the lungs bilateral breath sounds are heard Abdomen is soft, mild tenderness noted SULMA drain is noted Examination lower extremities shows no edema - Labs CBC & Chem 7: 09/30/22 07:28 09/30/22 07:28 Labs: Abnormal Lab Results - Last 24 Hours (Table) 09/29/22 09/30/22 09/30/22 Range/Units 11:08 07:28 07:28 WBC 15.4 H 16.1 H (3.8-10.6) k/uL RBC 3.65 L (3.80-5.40) m/uL Hgb 10.2 L 10.4 L (11.4-16.0) gm/dL Hct 32.7 L (34.0-46.0) % MCHC 29.6 L (31.0-37.0) g/dL Plt Count 504 H 528 H (150-450) k/uL Neutrophils # 13.6 H 13.8 H (1.3-7.7) k/uL Lymphocytes # 0.9 L (1.0-4.8) k/uL Chloride 111 H (98-107) mmol/L Carbon Dioxide 21 L (22-30) mmol/L BUN 26 H (7-17) mg/dL Creatinine 1.11 H (0.52-1.04) mg/dL Calcium 7.4 L (8.4-10.2) mg/dL Microbiology - Last 24 Hours (Table) 09/24/22 14:24 Blood Culture - Final Blood 09/24/22 14:24 Blood Culture - Final Blood 09/26/22 09:50 Anaerobic Culture - Final Abdomen Assessment and Plan Assessment: #1 acute kidney injury secondary to hemodynamic ATN with low blood pressures. Improving. -Baseline creatinine 0.8 MG per DL. #2 laparotomy with colonic resection [ascending colon] for colitis with perforation and abdominal wall abscess #3 hypotensive episodes, improved #4 diabetes Plan: Continue current IV fluids Repeat labs in a.m. Avoid nephrotoxic agents Continue antibiotics.
--- NOTE | 2022-09-30 14:22 | P.PN ---
Subjective Progress Note Date: 09/30/22 82 years old female with multiple medical problems including hypothyroidism, hypertension, osteoporosis, diabetes mellitus and history of breast cancer. Presents with signs and symptoms of colitis with abdominal wall abscess. With evidence of acute kidney injury present on admission. Patient as well as by several consultants. Patient currently continued on broad-spectrum antibiotic with Flagyl and Zosyn. Also she is on D5 half normal saline at 1 25 mL/h. Patient is very lethargic and weak and she Answers with One or 2 words, Chest complaining of from tenderness in the right side of the abdomen. Surgical wound is closed and healing. She is status post right colectomy. Today is postoperative day #1. Vitas looks stable Labs from today are pending 09/28/2022 Patient is awake but very lethargic. However she is oriented to time place and person and she has an site. Still complaining of from right-sided abdominal pain. No bowel movements. She feels dry but she is on D5 0.9 infusion. Also she is covered currently with Flagyl and Zosyn and wound culture is growing potassium streptococci. 09/29/2022 Patient complaining of from right-sided abdominal pain at the surgical site before she receives her pain medication this morning. Wound VAC is in place. She still has an NG tube. She has occasional cough from today Labs are still pending She remains on IV fluid D5 half-normal saline at 100 mL/h 09/30 : Patient is status postoperative day 3 right colectomy for right colon tumor. Continue patient on IV fluid, continue nothing by mouth, does complain of abdominal pain Objective - Vital Signs Vital signs: Vital Signs Temp 98.4 F 09/30/22 11:32 Pulse 96 09/30/22 11:32 Resp 18 09/30/22 11:35 BP 125/59 09/30/22 11:32 Pulse Ox 91 L 09/30/22 11:32 FiO2 Intake & Output 09/29/22 09/30/22 09/30/22 18:59 06:59 18:59 Output Total 983 770 872 Balance -895 -770 -305 Weight 98 kg Output: Drainage 235 70 80 Right Anterior Medial 235 70 80 Abdomen Urine 660 700 225 Other: Voiding Method Indwelling Catheter Indwelling Catheter Indwelling Catheter - Exam PHYSICAL EXAMINATION: GENERAL: The patient is alert and oriented x3 in appearance HEENT: Pupils are round and equally reacting to light. EOMI. No scleral icterus. No conjunctival pallor. Normocephalic, atraumatic. No pharyngeal erythema. No thyromegaly. CARDIOVASCULAR: S1 and S2 present. No murmurs, rubs, or gallops. PULMONARY: Chest is clear to auscultation, no wheezing or crackles. ABDOMEN: Distended, tender, wound VAC in place, SULMA drain in place MUSCULOSKELETAL: No joint swelling or deformity. EXTREMITIES: No cyanosis, clubbing, or pedal edema. NEUROLOGICAL: Gross neurological examination did not reveal any focal deficits. - Labs CBC & Chem 7: 09/30/22 07:28 09/30/22 07:28 Labs: Abnormal Lab Results - Last 24 Hours (Table) 09/30/22 09/30/22 Range/Units 07:28 07:28 WBC 16.1 H (3.8-10.6) k/uL Hgb 10.4 L (11.4-16.0) gm/dL MCHC 29.6 L (31.0-37.0) g/dL Plt Count 528 H (150-450) k/uL Neutrophils # 13.8 H (1.3-7.7) k/uL Chloride 111 H (98-107) mmol/L Carbon Dioxide 21 L (22-30) mmol/L BUN 26 H (7-17) mg/dL Creatinine 1.11 H (0.52-1.04) mg/dL Calcium 7.4 L (8.4-10.2) mg/dL Microbiology - Last 24 Hours (Table) 09/24/22 14:24 Blood Culture - Final Blood 09/24/22 14:24 Blood Culture - Final Blood 09/26/22 09:50 Anaerobic Culture - Final Abdomen Assessment and Plan Assessment: Acute ascending colitis with perforation and abdominal wall abscess status post right hemicolectomy. Today is postoperative day # 3 Acute kidney injury Metabolic/toxic encephalopathy secondary to above Diabetes mellitus Hypertension History of osteoarthritis Hypothyroidism Plan: Consult obtained from general surgery, infectious disease, nephrology Continue IV fluid Antibiotics medical infectious disease on Unasyn and Flagyl transitioned from Zosyn Pathology pending Continue pain control, nausea Labs and medication were reviewed On subcu heparin for DVT prophylaxis
[2022-09-30] MEDS: AMPICILLIN-SULBACTAM 3 GM in SODIUM CHLORIDE 0.9% 100 ML IVPB SCH (14:36)
[2022-09-30] MEDS: SODIUM CHLORIDE 0.9% 1,000 ML IV SCH (15:35)
[2022-09-30 16:12] LABS: Glucose,Whole Blood 116 mg/dL (70-110)
[2022-09-30 20:00] LABS: Glucose,Whole Blood 95 mg/dL (70-110)
[2022-09-30] MEDS: HEPARIN SODIUM,PORCINE 5,000 UNIT/ML 1 ML VIAL SQ SCH (20:06)
[2022-10-01] MEDS: AMPICILLIN-SULBACTAM 3 GM in SODIUM CHLORIDE 0.9% 100 ML IVPB SCH ×4 (00:21→23:36)
[2022-10-01] MEDS: metroNIDAZOLE-NS PMX 500 MG in SALINE 1 100ML.BAG IVPB SCH ×4 (01:00→23:36)
[2022-10-01] MEDS: INSULIN ASPART (NovoLOG) 100 UNIT/ML VIAL SQ SCH ×4 (05:59→20:16)
[2022-10-01 06:00] LABS: Glucose,Whole Blood 100 mg/dL (70-110)
[2022-10-01] MEDS: LEVOTHYROXINE 75 MCG TAB PO SCH (06:32)
[2022-10-01] MEDS: CALCIUM CARB-VIT D 500 MG-5 MCG TAB PO SCH ×2 (06:32→17:12)
[2022-10-01] MEDS: HYDROmorphone 1 MG/ML 1 ML SYRINGE IVP PRN ×4 (06:47→17:32)
[2022-10-01 08:29] LABS: Basophils # (A) 0.1 k/uL (0-0.2); Basophils % (A) 1 %; Eosinophils # (A) 0.1 k/uL (0-0.7); Eosinophils % (A) 1 %; HCT 34.4 % (34.0-46.0); HGB 10.4 gm/dL (11.4-16.0); Hypochromasia Marked; Lymphocytes # (A) 1.1 k/uL (1.0-4.8); Lymphocytes % (A) 6 %; MCH 27.3 pg (25.0-35.0); MCHC 30.2 g/dL (31.0-37.0); MCV 90.3 fL (80.0-100.0); Mean Platelet Volume 7.6; Monocytes # (A) 0.7 k/uL (0-1.0); Monocytes % (A) 4 %; Neutrophils # (A) 14.6 k/uL (1.3-7.7); Neutrophils % (A) 87 %; Platelet Count 514 k/uL (150-450); RBC 3.81 m/uL (3.80-5.40); RDW 14.9 % (11.5-15.5); WBC 16.7 k/uL (3.8-10.6)
[2022-10-01] MEDS: PANTOPRAZOLE 40 MG/10 ML VIAL IVP SCH (08:47)
[2022-10-01] MEDS: SODIUM CHLORIDE 0.9% 1,000 ML IV SCH (08:47)
[2022-10-01 08:50] LABS: ALT 11 U/L (4-34); AST 16 U/L (14-36); African American GFR (CKD) 51 (>60 ml/min/1.73 sqM); Alkaline Phosphatase 68 U/L (38-126); Anion Gap 14 mmol/L; Blood Urea Nitrogen 22 mg/dL (7-17); Carbon Dioxide 17 mmol/L (22-30); Chloride 115 mmol/L (98-107); Glucose 95 mg/dL (74-99); Magnesium 1.9 mg/dL (1.6-2.3); Non-African American GFR(CKD) 44 (>60 ml/min/1.73 sqM); Potassium 4.9 mmol/L (3.5-5.1); Sodium 146 mmol/L (137-145); Total Bilirubin 0.3 mg/dL (0.2-1.3); Total Protein 4.5 g/dL (6.3-8.2)
[2022-10-01] MEDS: HEPARIN SODIUM,PORCINE 5,000 UNIT/ML 1 ML VIAL SQ SCH ×2 (08:51→20:32)
[2022-10-01] MEDS: ANASTROZOLE 1 MG TAB PO SCH (10:47)
[2022-10-01 11:27] LABS: Glucose,Whole Blood 128 mg/dL (70-110)
[2022-10-01] MEDS: DEXTROSE 5%-0.45% NACL 1,000 ML IV SCH (12:01)
--- NOTE | 2022-10-01 12:54 | P.PN ---
Subjective Progress Note Date: 10/01/22 82 years old female with multiple medical problems including hypothyroidism, hypertension, osteoporosis, diabetes mellitus and history of breast cancer. Presents with signs and symptoms of colitis with abdominal wall abscess. With evidence of acute kidney injury present on admission. Patient as well as by several consultants. Patient currently continued on broad-spectrum antibiotic with Flagyl and Zosyn. Also she is on D5 half normal saline at 1 25 mL/h. Patient is very lethargic and weak and she Answers with One or 2 words, Chest complaining of from tenderness in the right side of the abdomen. Surgical wound is closed and healing. She is status post right colectomy. Today is postoperative day #1. Vitas looks stable Labs from today are pending 09/28/2022 Patient is awake but very lethargic. However she is oriented to time place and person and she has an site. Still complaining of from right-sided abdominal pain. No bowel movements. She feels dry but she is on D5 0.9 infusion. Also she is covered currently with Flagyl and Zosyn and wound culture is growing potassium streptococci. 09/29/2022 Patient complaining of from right-sided abdominal pain at the surgical site before she receives her pain medication this morning. Wound VAC is in place. She still has an NG tube. She has occasional cough from today Labs are still pending She remains on IV fluid D5 half-normal saline at 100 mL/h 09/30 : Patient is status postoperative day 3 right colectomy for right colon tumor. Continue patient on IV fluid, continue nothing by mouth, does complain of abdominal pain 10/01: Patient is status postoperative day 4, seen and evaluated and bedside. IV fluids changed to D5, 0.45 saline secondary to hyponatremia. Patient is nothing by mouth. Pathology results reviewed and oncology consulted. Objective - Vital Signs Vital signs: Vital Signs Temp 98.4 F 10/01/22 11:15 Pulse 102 H 10/01/22 11:15 Resp 17 10/01/22 11:15 BP 143/65 10/01/22 11:15 Pulse Ox 94 L 10/01/22 11:15 FiO2 Intake & Output 09/30/22 10/01/22 10/01/22 18:59 06:59 18:59 Output Total 345 960 380 Balance -345 -960 -380 Weight 98 kg Output: Drainage 120 210 130 Right Anterior Medial 120 210 130 Abdomen Urine 225 750 250 Other: Voiding Method Indwelling Catheter Indwelling Catheter Indwelling Catheter - Exam PHYSICAL EXAMINATION: GENERAL: The patient is alert and oriented x 1, ill apperance in appearance HEENT: Pupils are round and equally reacting to light. EOMI. CARDIOVASCULAR: S1 and S2 present. No murmurs, rubs, or gallops. PULMONARY: Chest is clear to auscultation, no wheezing or crackles. ABDOMEN: Distended, tender, wound VAC in place, SULMA drain in place MUSCULOSKELETAL: No joint swelling or deformity. EXTREMITIES: No cyanosis, clubbing, or pedal edema. NEUROLOGICAL: Gross neurological examination did not reveal any focal deficits. , Patient disoriented - Labs CBC & Chem 7: 10/01/22 07:33 10/01/22 07:33 Labs: Abnormal Lab Results - Last 24 Hours (Table) 09/30/22 10/01/22 10/01/22 Range/Units 16:10 07:33 07:33 WBC 16.7 H (3.8-10.6) k/uL Hgb 10.4 L (11.4-16.0) gm/dL MCHC 30.2 L (31.0-37.0) g/dL Plt Count 514 H (150-450) k/uL Neutrophils # 14.6 H (1.3-7.7) k/uL Sodium 146 H (137-145) mmol/L Chloride 115 H (98-107) mmol/L Carbon Dioxide 17 L (22-30) mmol/L BUN 22 H (7-17) mg/dL Creatinine 1.15 H (0.52-1.04) mg/dL POC Glucose (mg/dL) 116 H (70-110) mg/dL Calcium 8.0 L (8.4-10.2) mg/dL Total Protein 4.5 L (6.3-8.2) g/dL Albumin 2.0 L (3.5-5.0) g/dL 10/01/22 Range/Units 11:26 WBC (3.8-10.6) k/uL Hgb (11.4-16.0) gm/dL MCHC (31.0-37.0) g/dL Plt Count (150-450) k/uL Neutrophils # (1.3-7.7) k/uL Sodium (137-145) mmol/L Chloride (98-107) mmol/L Carbon Dioxide (22-30) mmol/L BUN (7-17) mg/dL Creatinine (0.52-1.04) mg/dL POC Glucose (mg/dL) 128 H (70-110) mg/dL Calcium (8.4-10.2) mg/dL Total Protein (6.3-8.2) g/dL Albumin (3.5-5.0) g/dL Microbiology - Last 24 Hours (Table) 09/25/22 13:26 Blood Culture - Final Blood Assessment and Plan Assessment: * Acute ascending colitis with perforation and abdominal wall abscess status post right hemicolectomy. Today is postoperative day # 4 * Invasive medullary carcinoma of colon * Acute kidney injury * Acute hyponatremia * Severe protein calorie malnutrition * Metabolic/toxic encephalopathy secondary to above * Diabetes mellitus TYPE 2 * Hypertension * History of osteoarthritis * Hypothyroidism Plan: * Consult obtained from general surgery, infectious disease, nephrology * Continue IV fluid>> fluid changed to D5, 0.45 saline * Antibiotics pER infectious disease on Unasyn and Flagyl transitioned from Zos yn * Pathology reviewed>> oncology consulted * Continue pain control, nausea * Labs and medication were reviewed * On subcu heparin for DVT prophylaxis
--- NOTE | 2022-10-01 13:48 | P.PN ---
Subjective Progress Note Date: 10/01/22 Principal diagnosis: Colon cancer Patient more comfortable today. Says pain improved. No nausea or vomiting. Still feels bloated. No bowel function. Objective - Vital Signs Vital signs: Vital Signs Temp 98.4 F 10/01/22 11:15 Pulse 102 H 10/01/22 11:15 Resp 17 10/01/22 11:15 BP 143/65 10/01/22 11:15 Pulse Ox 94 L 10/01/22 11:15 FiO2 Intake & Output 09/30/22 10/01/22 10/01/22 18:59 06:59 18:59 Output Total 345 960 380 Balance -345 -960 -380 Weight 98 kg Output: Drainage 120 210 130 Right Anterior Medial 120 210 130 Abdomen Urine 225 750 250 Other: Voiding Method Indwelling Catheter Indwelling Catheter Indwelling Catheter - Exam Abdomen: Soft, mild distention, mild tenderness, dressing clean dry - Labs CBC & Chem 7: 10/01/22 07:33 10/01/22 07:33 Labs: Abnormal Lab Results - Last 24 Hours (Table) 09/30/22 10/01/22 10/01/22 Range/Units 16:10 07:33 07:33 WBC 16.7 H (3.8-10.6) k/uL Hgb 10.4 L (11.4-16.0) gm/dL MCHC 30.2 L (31.0-37.0) g/dL Plt Count 514 H (150-450) k/uL Neutrophils # 14.6 H (1.3-7.7) k/uL Sodium 146 H (137-145) mmol/L Chloride 115 H (98-107) mmol/L Carbon Dioxide 17 L (22-30) mmol/L BUN 22 H (7-17) mg/dL Creatinine 1.15 H (0.52-1.04) mg/dL POC Glucose (mg/dL) 116 H (70-110) mg/dL Calcium 8.0 L (8.4-10.2) mg/dL Total Protein 4.5 L (6.3-8.2) g/dL Albumin 2.0 L (3.5-5.0) g/dL 10/01/22 Range/Units 11:26 WBC (3.8-10.6) k/uL Hgb (11.4-16.0) gm/dL MCHC (31.0-37.0) g/dL Plt Count (150-450) k/uL Neutrophils # (1.3-7.7) k/uL Sodium (137-145) mmol/L Chloride (98-107) mmol/L Carbon Dioxide (22-30) mmol/L BUN (7-17) mg/dL Creatinine (0.52-1.04) mg/dL POC Glucose (mg/dL) 128 H (70-110) mg/dL Calcium (8.4-10.2) mg/dL Total Protein (6.3-8.2) g/dL Albumin (3.5-5.0) g/dL Microbiology - Last 24 Hours (Table) 09/25/22 13:26 Blood Culture - Final Blood Assessment and Plan (1) Abscess of abdominal wall Narrative/Plan: Patient doing somewhat better today. Still awaiting good bowel function. Would hold off on advancing diet at this time. Increase activity as tolerated. Will follow. Current Visit: Yes Status: Acute Code(s): L02.211 - CUTANEOUS ABSCESS OF ABDOMINAL WALL SNOMED Code(s): 60805387
--- NOTE | 2022-10-01 14:58 | P.CONS ---
History of Present Illness - Reason for Consult Consult date: 10/01/22 invasive medullary carcinoma of colon Requesting physician: Esequiel Byrd - Chief Complaint abd pain - History of Present Illness Patient is a 82-year-old female with a significant medical history for diabetes mellitus, hypertension, history of uterine cancer and breast cancer. We were consulted for new diagnosis of invasive medullary carcinoma of the colon. HPI is limited due to patient's acute condition. She initially presented tot the ER for right-sided abdominal pain. Upon admission CT abdomen pelvis revealed thickening of the ascending colon/cecum with mesenteric lymph node and soft tissue heterogeneous material within the right abdominal wall. Findings could represent underlying mass with mesenteric metastatic disease to the abdominal wall intramuscular. Patient underwent abdominal surgery with Dr. Sorenson and had a right colectomy. Biopsy revealed invasive medullary carcinoma. Resection margins were negative for malignancy with 4 of 16 mesenteric lymph nodes positive for metastasis. At todays visit pt is alert but is moaning and was complaining of a dry mouth and abdominal pain. But was unable to localize where the pain was. Oncology Hx: She is a patient of Dr. Thomas who was referred to our clinic in 2018 after she had a routine screening mammogram which revealed an asymmetric density of her right breast. revious mammogram was 2 years prior. She had an ultrasound-guided core biopsy on 11/09/17. This revealed a grade 1 ER/OR positive and HER -2 negative. Component of DCIS. Surgical options were discussed with her, and the patient d ecided for a mastectomy, revealing a 2.8 cm carcinoma, grade 2 additional DCIS present, grade 1 extensive comedonecrosis. Margins were clear with nearest margin from invasive carcinoma 1.5 , and uninvolved by DCIS. One of 2 sentinel nodes were positive for involvement. The patient had an additional 5 nodes dissected which are all negative. The patient has a history of uterine cancer, treated in 2012 with radical surgery, followed by chemotherapy and radiation. She has been following up for surveillance for that, with [facility] at [facility]. Patient declined systemic chemotherapy and was started on Anastrozole in December 2017 and began follow up for observation. Last Mammogram was 01/2021 which revealed benign calcification of left breast. At her last visit in March 2022, there was no clinical evidence of recurrence. Review of Systems 10 point ROS is negative except as stated in the HPI Past Medical History Past Medical History: Cancer, Diabetes Mellitus, Hypertension, Osteoarthritis (OA), Thyroid Disorder Additional Past Medical History / Comment(s): hx UTERINE CANCER, NEUROPATHY IN FEET, diarrhea, Bilateral breast CA, bilateral lower extremity edema History of Any Multi-Drug Resistant Organisms: None Reported Past Surgical History: Appendectomy, Breast Surgery, Cholecystectomy, Hysterectomy Additional Past Surgical History / Comment(s): rt breast biopsy. right breast mastectomy 11/29/17 Past Anesthesia/Blood Transfusion Reactions: Motion Sickness, Postoperative Nausea & Vomiting (PONV) Additional Past Anesthesia/Blood Transfusion Reaction / Comm: PONV after gallbladder surgery Past Psychological History: No Psychological Hx Reported Smoking Status: Never smoker Past Alcohol Use History: None Reported Additional Past Alcohol Use History / Comment(s): QUIT AROUND 1992, LESS THAN HALF PPD. started smoking age 17 or 18 Past Drug Use History: None Reported - Past Family History Mother Family Medical History: No Reported History Father Family Medical History: Myocardial Infarction (NH) Brother(s) Family Medical History: Cancer Additional Family Medical History / Comment(s): prostate Medications and Allergies Home Medications Medication Instructions Recorded Confirmed Type metFORMIN HCL [Glucophage] 1,000 mg PO BID 11/07/15 09/24/22 History Levothyroxine Sodium [Synthroid] 75 mcg PO DAILY 10/27/17 09/24/22 History Alendronate Sodium [Fosamax] 70 mg PO CORLEY 05/28/22 09/24/22 History Anastrozole 1 mg PO DAILY 05/28/22 09/24/22 History Losartan [Cozaar] 25 mg PO DAILY 30 Days #30 tab 06/01/22 09/24/22 Rx carvediloL [Coreg*] 12.5 mg PO BID-W/MEALS #60 tab 06/01/22 09/24/22 Rx Calcium Carb-Vit D 500Mg-5Mcg 1 tab PO BID-W/MEALS 09/24/22 09/24/22 History [Oscal 500+D 5 Mcg (200 Iu)] Furosemide [Lasix] 40 mg PO BID 09/24/22 09/24/22 History Triamcinolone 0.1% Ointment 1 applic TOPICAL TID PRN 09/24/22 09/24/22 History [Kenalog 0.1% Ointment] Allergies Allergy/AdvReac Type Severity Reaction Status Date / Time codeine AdvReac Nausea & Verified 09/24/22 18:21 Vomiting morphine AdvReac Nausea & Verified 09/26/22 08:33 Vomiting Physical Exam Vitals: Vital Signs Temp Pulse Resp BP Pulse Ox 10/01/22 11:15 98.4 F 102 H 17 143/65 94 L 10/01/22 08:10 97.9 F 100 18 144/65 95 10/01/22 08:00 100 18 10/01/22 04:09 97.8 F 96 20 112/58 97 10/01/22 02:00 18 10/01/22 00:22 97.8 F 106 H 20 125/59 96 09/30/22 20:10 99 18 120/58 97 09/30/22 20:00 18 09/30/22 15:02 98.3 F 89 18 127/58 96 Intake and Output 09/30/22 10/01/22 10/01/22 22:59 06:59 14:59 Output Total 110 890 380 Balance -110 -890 -380 Output: Drainage 110 140 130 Right Anterior Medial 110 140 130 Abdomen Urine 750 250 Other: Voiding Method Indwelling Catheter Indwelling Catheter Indwelling Catheter Weight 98 kg - Constitutional General appearance: mild distress, obese - EENT Eyes: anicteric sclerae, EOMI ENT: hearing grossly normal - Respiratory wasn't following commands during exam, weak respiratory effort, no adventitious sounds auscultated - Cardiovascular Rhythm: regular Heart sounds: normal: S1, S2 Abnormal Heart Sounds: no systolic murmur, no diastolic murmur, no rub, no S3 Gallop, no S4 Gallop, no click, no other - Gastrointestinal drain and abdominal bandage in place General gastrointestinal: tenderness Localized gastrointestinal: tender: diffuse - Integumentary Integumentary: no cyanotic, no jaundiced - Musculoskeletal Musculoskeletal: generalized weakness - Psychiatric lethargic, moaning on exam Results CBC & Chem 7: 10/01/22 07:33 10/01/22 07:33 Labs: Abnormal Lab Results - Last 24 Hours (Table) 09/30/22 10/01/22 10/01/22 Range/Units 16:10 07:33 07:33 WBC 16.7 H (3.8-10.6) k/uL Hgb 10.4 L (11.4-16.0) gm/dL MCHC 30.2 L (31.0-37.0) g/dL Plt Count 514 H (150-450) k/uL Neutrophils # 14.6 H (1.3-7.7) k/uL Sodium 146 H (137-145) mmol/L Chloride 115 H (98-107) mmol/L Carbon Dioxide 17 L (22-30) mmol/L BUN 22 H (7-17) mg/dL Creatinine 1.15 H (0.52-1.04) mg/dL POC Glucose (mg/dL) 116 H (70-110) mg/dL Calcium 8.0 L (8.4-10.2) mg/dL Total Protein 4.5 L (6.3-8.2) g/dL Albumin 2.0 L (3.5-5.0) g/dL 10/01/22 Range/Units 11:26 WBC (3.8-10.6) k/uL Hgb (11.4-16.0) gm/dL MCHC (31.0-37.0) g/dL Plt Count (150-450) k/uL Neutrophils # (1.3-7.7) k/uL Sodium (137-145) mmol/L Chloride (98-107) mmol/L Carbon Dioxide (22-30) mmol/L BUN (7-17) mg/dL Creatinine (0.52-1.04) mg/dL POC Glucose (mg/dL) 128 H (70-110) mg/dL Calcium (8.4-10.2) mg/dL Total Protein (6.3-8.2) g/dL Albumin (3.5-5.0) g/dL Microbiology - Last 24 Hours (Table) 09/25/22 13:26 Blood Culture - Final Blood Chest x-ray: report reviewed CT scan - abdomen: report reviewed CT scan - pelvis: report reviewed Assessment and Plan (1) Medullary carcinoma Current Visit: Yes Status: Acute Priority: High Code(s): C80.1 - MALIGNANT (PRIMARY) NEOPLASM, UNSPECIFIED SNOMED Code(s): 466311722 (2) Abscess of abdominal wall Current Visit: Yes Status: Acute Priority: High Code(s): L02.211 - CUTANEOUS ABSCESS OF ABDOMINAL WALL SNOMED Code(s): 06214345 Plan: Invasive medullary carcinoma of colon: -Significant history of uterine cancer (2013) and breast cancer (2018). She is a patient of Dr. Thomas, and was previously treated for breast cancer. Pt declined systemic treatment at that time and was treated with adjuvant Anastrozole. -Upon admission CT abdomen pelvis revealed thickening of the ascending colon/cecum with mesenteric lymph node and soft tissue heterogeneous material within the right abdominal wall. Findings could represent underlying mass with mesenteric metastatic disease to the abdominal wall intramuscular. Patient underwent abdominal surgery with Dr. Sorenson and had a right colectomy. Biopsy revealed invasive medullary carcinoma. Resection margins negative for malignancy with 4 of 16 mesenteric lymph nodes positive for metastasis. Spoke to patient today regarding biopsy results. Will try to reach family to further discuss results and plan of care -Will schedule outpatient PET scan and f/u with Dr. Thomas to further discuss treat ment options and goals of care -NGS and PDL 1 will be ordered on pathology Abscess of abdominal wall: -Wound culture positive for beta hemolytic group C strep. Continues on IV abx -Surgery following
[2022-10-01 16:12] LABS: Glucose,Whole Blood 158 mg/dL (70-110)
[2022-10-01 20:04] LABS: Glucose,Whole Blood 117 mg/dL (70-110)
--- NOTE | 2022-10-01 23:53 | P.PN ---
Subjective Patient is seen for follow-up for acute kidney injury. Currently maintained on IV fluids. Serum creatinine down to 1.1 mg/dL Sodium 146 Patient has an indwelling Orantes catheter. Urine output documented at about 975mL. No complaints today. Objective - Vital Signs Vital signs: Vital Signs Temp 98.3 F 10/01/22 19:37 Pulse 107 H 10/01/22 19:37 Resp 18 10/01/22 20:00 BP 135/60 10/01/22 19:37 Pulse Ox 96 10/01/22 19:37 FiO2 Intake & Output 10/01/22 10/01/22 10/02/22 06:59 18:59 06:59 Output Total 960 440 60 Balance -960 -440 -60 Weight 98 kg Output: Drainage 210 190 60 Right Anterior Medial 210 190 60 Abdomen Urine 750 250 Other: Voiding Method Indwelling Catheter Indwelling Catheter Indwelling Catheter - Exam Patient is awake, comfortable, no acute distress NG tube is out Examination of the heart S1 and S2 Examination of the lungs bilateral breath sounds are heard Abdomen is soft, mild tenderness noted SULMA drain is noted Examination lower extremities shows no edema - Labs CBC & Chem 7: 10/01/22 07:33 10/01/22 07:33 Labs: Abnormal Lab Results - Last 24 Hours (Table) 10/01/22 10/01/22 10/01/22 Range/Units 07:33 07:33 11:26 WBC 16.7 H (3.8-10.6) k/uL Hgb 10.4 L (11.4-16.0) gm/dL MCHC 30.2 L (31.0-37.0) g/dL Plt Count 514 H (150-450) k/uL Neutrophils # 14.6 H (1.3-7.7) k/uL Sodium 146 H (137-145) mmol/L Chloride 115 H (98-107) mmol/L Carbon Dioxide 17 L (22-30) mmol/L BUN 22 H (7-17) mg/dL Creatinine 1.15 H (0.52-1.04) mg/dL POC Glucose (mg/dL) 128 H (70-110) mg/dL Calcium 8.0 L (8.4-10.2) mg/dL Total Protein 4.5 L (6.3-8.2) g/dL Albumin 2.0 L (3.5-5.0) g/dL 10/01/22 10/01/22 Range/Units 16:10 20:01 WBC (3.8-10.6) k/uL Hgb (11.4-16.0) gm/dL MCHC (31.0-37.0) g/dL Plt Count (150-450) k/uL Neutrophils # (1.3-7.7) k/uL Sodium (137-145) mmol/L Chloride (98-107) mmol/L Carbon Dioxide (22-30) mmol/L BUN (7-17) mg/dL Creatinine (0.52-1.04) mg/dL POC Glucose (mg/dL) 158 H 117 H (70-110) mg/dL Calcium (8.4-10.2) mg/dL Total Protein (6.3-8.2) g/dL Albumin (3.5-5.0) g/dL Microbiology - Last 24 Hours (Table) 09/25/22 13:26 Blood Culture - Final Blood Assessment and Plan Assessment: #1 acute kidney injury secondary to hemodynamic ATN with low blood pressures. Improving. -Baseline creatinine 0.8 MG per DL. #2 laparotomy with colonic resection [ascending colon] for colitis with perforation and abdominal wall abscess #3 hypotensive episodes, improved #4 diabetes 5. Mild hypernatremia secondary to free water deficit. Plan: Agree with changing IVF Repeat labs in a.m. Avoid nephrotoxic agents Continue antibiotics.
[2022-10-02] MEDS: HYDROmorphone 1 MG/ML 1 ML SYRINGE IVP PRN ×4 (04:31→19:50)
[2022-10-02] MEDS: DEXTROSE 5%-0.45% NACL 1,000 ML IV SCH (04:46)
[2022-10-02 05:57] LABS: Glucose,Whole Blood 128 mg/dL (70-110)
[2022-10-02] MEDS: INSULIN ASPART (NovoLOG) 100 UNIT/ML VIAL SQ SCH ×4 (06:08→20:35)
[2022-10-02] MEDS: LEVOTHYROXINE 75 MCG TAB PO SCH (06:29)
[2022-10-02] MEDS: CALCIUM CARB-VIT D 500 MG-5 MCG TAB PO SCH ×2 (06:29→17:15)
--- NOTE | 2022-10-02 08:54 | P.PN ---
Subjective Progress Note Date: 09/29/22 Principal diagnosis: Perforated colon Intra-abdominal abscess Patient is a 82-year-old female with a past medical history significant for diabetes mellitus hypertension history of uterine cancer and bilateral breast CA presenting to the hospital for evaluation of right-sided abdominal pain ,CT abdominal pelvis thickening of the ascending colon with mesenteric lymph node and soft tissue heterogeneous material within the right abdominal wall, a shunt was taken to the OR and the patient is status post laparotomy noticed to have right colon tumor with perforation into abdominal wall causing abscess which was drained but no culture were done. On today's evaluation that is 09/29/2022, the patient remains to be afebrile patient is currently breathing comfortably on 2 L nasal cannula oxygen still complaining of abdominal pain no vomiting or any other changes reported by the nursing staff. Patient did have a white count of 15.4 creatinine is 1.23 abdominal cultures g rowing a beta-hemolytic strep blood culture has been negative. Objective - Vital Signs Vital signs: Vital Signs Temp 98 F 09/29/22 08:10 Pulse 81 09/29/22 12:15 Resp 18 09/29/22 12:15 BP 123/59 09/29/22 12:15 Pulse Ox 98 09/29/22 12:15 FiO2 Intake & Output 09/28/22 09/29/22 09/29/22 18:59 06:59 18:59 Output Total 290 1115 130 Balance -290 -1115 -130 Output: Gastric Drainage 50 Drainage 30 40 130 Right Anterior Medial 30 40 130 Abdomen Urine 260 1025 Uretheral (Orantes) 260 Other: Voiding Method Indwelling Catheter Indwelling Catheter Indwelling Catheter - Exam GENERAL DESCRIPTION: An elderly female lying in bed in no distress RESPIRATORY SYSTEM: Unlabored breathing , decreased breath sounds at bases HEART: S1 S2 regular rate and rhythm , ABDOMEN: Soft , abdominal distention and tenderness EXTREMITIES: No edema feet - Labs CBC & Chem 7: 10/01/22 07:33 10/01/22 07:33 Labs: Abnormal Lab Results - Last 24 Hours (Table) 09/28/22 09/28/22 Range/Units 16:57 20:19 POC Glucose (mg/dL) 162 H 130 H (70-110) mg/dL Microbiology - Last 24 Hours (Table) 09/25/22 13:26 Blood Culture - Preliminary Blood 09/26/22 09:50 Gram Stain - Final Abdomen Wound Culture - Final Beta Hemolytic Strep Group C Assessment and Plan (1) Intra-abdominal abscess Current Visit: Yes Status: Acute Code(s): K65.1 - PERITONEAL ABSCESS SNOMED Code(s): 65203690 Plan: 1patient present to hospital with right upper quadrant abdominal pain in this patient with elevated white count and abnormal CT high clinic suspicious for possible malignancy with contained perforation clinically doubt abdominal wall abscess and will need to cover for the enteric gram-negative both aerobes and anaerobes, the patient is status post laparotomy with right colectomy and drainage of the abscess, cultures obtained from the drainage catheter yesterday and currently pending 2-patient did have minimal clinical improvement and the white count is trending down, patient will with Zosyn 3.375 g every 8 hours and monitor clinical course closely Dictation was produced using [employer] dictation software. please excuse any grammatical, word or spelling errors. Time with Patient: Less than 30
--- NOTE | 2022-10-02 08:56 | P.PN ---
Subjective Progress Note Date: 09/30/22 Principal diagnosis: Perforated colon Intra-abdominal abscess Patient is a 82-year-old female with a past medical history significant for diabetes mellitus hypertension history of uterine cancer and bilateral breast CA presenting to the hospital for evaluation of right-sided abdominal pain ,CT abdominal pelvis thickening of the ascending colon with mesenteric lymph node and soft tissue heterogeneous material within the right abdominal wall, a shunt was taken to the OR and the patient is status post laparotomy noticed to have right colon tumor with perforation into abdominal wall causing abscess which was drained but no culture were done. On today's evaluation that is 09/30/2022 the patient remains to be afebrile, the patient is hemodynamically stable not requiring any pressor support, patient is currently on 3 L nasal cannula oxygen patient is lethargic but arousable throat complaining of abdominal pain no vomiting diarrhea or any other changes reported by nursing staff. The patient white count is mildly elevated 16.1 today hemoglobin is 10.4 creatinine is 1.11 abdominal cultures with group C strep Objective - Vital Signs Vital signs: Vital Signs Temp 98.4 F 09/30/22 11:32 Pulse 96 09/30/22 11:32 Resp 18 09/30/22 11:35 BP 125/59 09/30/22 11:32 Pulse Ox 91 L 09/30/22 11:32 FiO2 Intake & Output 09/29/22 09/30/22 09/30/22 18:59 06:59 18:59 Output Total 893 770 305 Balance -895 -770 -305 Weight 98 kg Output: Drainage 235 70 80 Right Anterior Medial 235 70 80 Abdomen Urine 660 700 225 Other: Voiding Method Indwelling Catheter Indwelling Catheter Indwelling Catheter - Exam GENERAL DESCRIPTION: An elderly female lying in bed in no distress RESPIRATORY SYSTEM: Unlabored breathing , decreased breath sounds at bases HEART: S1 S2 regular rate and rhythm , ABDOMEN: Soft , abdominal distention and tenderness EXTREMITIES: No edema feet - Labs CBC & Chem 7: 10/01/22 07:33 10/01/22 07:33 Labs: Abnormal Lab Results - Last 24 Hours (Table) 09/29/22 09/29/22 09/30/22 Range/Units 11:08 11:08 07:28 WBC 15.4 H 16.1 H (3.8-10.6) k/uL RBC 3.65 L (3.80-5.40) m/uL Hgb 10.2 L 10.4 L (11.4-16.0) gm/dL Hct 32.7 L (34.0-46.0) % MCHC 29.6 L (31.0-37.0) g/dL Plt Count 504 H 528 H (150-450) k/uL Neutrophils # 13.6 H 13.8 H (1.3-7.7) k/uL Lymphocytes # 0.9 L (1.0-4.8) k/uL Chloride 108 H (98-107) mmol/L Carbon Dioxide 21 L (22-30) mmol/L BUN 35 H (7-17) mg/dL Creatinine 1.23 H (0.52-1.04) mg/dL Calcium 7.0 L (8.4-10.2) mg/dL 09/30/22 Range/Units 07:28 WBC (3.8-10.6) k/uL RBC (3.80-5.40) m/uL Hgb (11.4-16.0) gm/dL Hct (34.0-46.0) % MCHC (31.0-37.0) g/dL Plt Count (150-450) k/uL Neutrophils # (1.3-7.7) k/uL Lymphocytes # (1.0-4.8) k/uL Chloride 111 H (98-107) mmol/L Carbon Dioxide 21 L (22-30) mmol/L BUN 26 H (7-17) mg/dL Creatinine 1.11 H (0.52-1.04) mg/dL Calcium 7.4 L (8.4-10.2) mg/dL Microbiology - Last 24 Hours (Table) 09/24/22 14:24 Blood Culture - Final Blood 09/24/22 14:24 Blood Culture - Final Blood 09/26/22 09:50 Anaerobic Culture - Final Abdomen Assessment and Plan (1) Intra-abdominal abscess Current Visit: Yes Status: Acute Code(s): K65.1 - PERITONEAL ABSCESS SNOMED Code(s): 32430746 Plan: 1patient present to hospital with right upper quadrant abdominal pain in this patient with elevated white count and abnormal CT high clinic suspicious for possible malignancy with contained perforation clinically doubt abdominal wall abscess and will need to cover for the enteric gram-negative both aerobes and anaerobes, the patient is status post laparotomy with right colectomy and drainage of the abscess, cultures obtained from the drainage catheter yesterday and currently pending 2-patient did have minimal clinical improvement and abdominal culture has been finalized and group C streptococcus we will discontinue Zosyn and start the patient on Unasyn and monitor her medical course closely Dictation was produced using [employer] dictation software. please excuse any grammatical, word or spelling errors. Time with Patient: Less than 30
--- NOTE | 2022-10-02 08:58 | P.PN ---
Subjective Progress Note Date: 10/01/22 Principal diagnosis: Perforated colon Intra-abdominal abscess Patient is a 82-year-old female with a past medical history significant for diabetes mellitus hypertension history of uterine cancer and bilateral breast CA presenting to the hospital for evaluation of right-sided abdominal pain ,CT abdominal pelvis thickening of the ascending colon with mesenteric lymph node and soft tissue heterogeneous material within the right abdominal wall, a shunt was taken to the OR and the patient is status post laparotomy noticed to have right colon tumor with perforation into abdominal wall causing abscess which was drained but no culture were done. On today's evaluation that is 10/01/2022 the patient continues to be afebrile, patient is hemodynamically stable not requiring any pressor support patient is currently on a 3 L nasal cannula oxygen patient remains to be lethargic though arousable still complaining of abdominal pain no vomiting diarrhea or any other changes reported by the nursing staff. Patient did have a white count of 16.7 hemoglobin is 10.4 creatinine is 1.15 blood culture negative abdominal culture positive for beta-hemolytic strep C Objective - Vital Signs Vital signs: Vital Signs Temp 98.4 F 10/01/22 11:15 Pulse 102 H 10/01/22 11:15 Resp 17 10/01/22 11:15 BP 143/65 10/01/22 11:15 Pulse Ox 94 L 10/01/22 11:15 FiO2 Intake & Output 09/30/22 10/01/22 10/01/22 18:59 06:59 18:59 Output Total 345 960 380 Balance -345 -960 -380 Weight 98 kg Output: Drainage 120 210 130 Right Anterior Medial 120 210 130 Abdomen Urine 225 750 250 Other: Voiding Method Indwelling Catheter Indwelling Catheter Indwelling Catheter - Exam GENERAL DESCRIPTION: An elderly female lying in bed in no distress RESPIRATORY SYSTEM: Unlabored breathing , decreased breath sounds at bases HEART: S1 S2 regular rate and rhythm , ABDOMEN: Soft , abdominal distention and tenderness EXTREMITIES: No edema feet - Labs CBC & Chem 7: 10/01/22 07:33 10/01/22 07:33 Labs: Abnormal Lab Results - Last 24 Hours (Table) 09/30/22 10/01/22 10/01/22 Range/Units 16:10 07:33 07:33 WBC 16.7 H (3.8-10.6) k/uL Hgb 10.4 L (11.4-16.0) gm/dL MCHC 30.2 L (31.0-37.0) g/dL Plt Count 514 H (150-450) k/uL Neutrophils # 14.6 H (1.3-7.7) k/uL Sodium 146 H (137-145) mmol/L Chloride 115 H (98-107) mmol/L Carbon Dioxide 17 L (22-30) mmol/L BUN 22 H (7-17) mg/dL Creatinine 1.15 H (0.52-1.04) mg/dL POC Glucose (mg/dL) 116 H (70-110) mg/dL Calcium 8.0 L (8.4-10.2) mg/dL Total Protein 4.5 L (6.3-8.2) g/dL Albumin 2.0 L (3.5-5.0) g/dL 10/01/22 Range/Units 11:26 WBC (3.8-10.6) k/uL Hgb (11.4-16.0) gm/dL MCHC (31.0-37.0) g/dL Plt Count (150-450) k/uL Neutrophils # (1.3-7.7) k/uL Sodium (137-145) mmol/L Chloride (98-107) mmol/L Carbon Dioxide (22-30) mmol/L BUN (7-17) mg/dL Creatinine (0.52-1.04) mg/dL POC Glucose (mg/dL) 128 H (70-110) mg/dL Calcium (8.4-10.2) mg/dL Total Protein (6.3-8.2) g/dL Albumin (3.5-5.0) g/dL Microbiology - Last 24 Hours (Table) 09/25/22 13:26 Blood Culture - Final Blood Assessment and Plan (1) Intra-abdominal abscess Current Visit: Yes Status: Acute Code(s): K65.1 - PERITONEAL ABSCESS SNOMED Code(s): 92727241 Plan: 1patient present to hospital with right upper quadrant abdominal pain in this patient with elevated white count and abnormal CT high clinic suspicious for possible malignancy with contained perforation clinically doubt abdominal wall abscess and will need to cover for the enteric gram-negative both aerobes and anaerobes, the patient is status post laparotomy with right colectomy and drainage of the abscess, cultures obtained from the drainage catheter yesterday and currently pending 2-patient is afebrile white count is mildly elevated at 16.7, the patient abdominal culture has been finalized and group C streptococcus we will continue the patient on Unasyn and monitor her medical course closely Dictation was produced using [employer] dictation software. please excuse any grammatical, word or spelling errors. Time with Patient: Less than 30
[2022-10-02] MEDS: AMPICILLIN-SULBACTAM 3 GM in SODIUM CHLORIDE 0.9% 100 ML IVPB SCH ×2 (09:19→17:15)
[2022-10-02] MEDS: HEPARIN SODIUM,PORCINE 5,000 UNIT/ML 1 ML VIAL SQ SCH ×2 (09:20→20:54)
[2022-10-02] MEDS: PANTOPRAZOLE 40 MG/10 ML VIAL IVP SCH (09:21)
[2022-10-02] MEDS: metroNIDAZOLE-NS PMX 500 MG in SALINE 1 100ML.BAG IVPB SCH ×2 (10:15→18:44)
[2022-10-02 11:45] LABS: Glucose,Whole Blood 146 mg/dL (70-110)
[2022-10-02 11:50] LABS: HCT 32.5 % (34.0-46.0); HGB 10.4 gm/dL (11.4-16.0); Hypochromasia Marked; MCH 28.1 pg (25.0-35.0); MCHC 31.9 g/dL (31.0-37.0); Mean Platelet Volume 7.9; Platelet Count 456 k/uL (150-450); RBC 3.69 m/uL (3.80-5.40); RDW 15.3 % (11.5-15.5); WBC 17.8 k/uL (3.8-10.6)
[2022-10-02 12:12] LABS: African American GFR (CKD) 58 (>60 ml/min/1.73 sqM); Anion Gap 10 mmol/L; Blood Urea Nitrogen 22 mg/dL (7-17); Calcium 8.2 mg/dL (8.4-10.2); Carbon Dioxide 22 mmol/L (22-30); Chloride 116 mmol/L (98-107); Glucose 149 mg/dL (74-99); Magnesium 1.8 mg/dL (1.6-2.3); Non-African American GFR(CKD) 50 (>60 ml/min/1.73 sqM); Phosphorus 2.6 mg/dL (2.5-4.5); Potassium 4.6 mmol/L (3.5-5.1); Sodium 148 mmol/L (137-145)
--- NOTE | 2022-10-02 12:12 | P.PN ---
Subjective Patient is seen for follow-up for acute kidney injury. Currently maintained on IV fluids. Serum creatinine down to 1.1 mg/dL Sodium was 146 yesterday. Labs are pending from today Patient has an indwelling Orantes catheter. Urine output documented at about 1050 mL. No complaints today. Maintained on D5 0.45 at 50 ML per hour Objective - Vital Signs Vital signs: Vital Signs Temp 98.9 F 10/02/22 11:47 Pulse 107 H 10/02/22 11:47 Resp 16 10/02/22 11:47 BP 127/64 10/02/22 11:47 Pulse Ox 97 10/02/22 08:45 FiO2 Intake & Output 10/01/22 10/02/22 10/02/22 18:59 06:59 18:59 Output Total 440 940 70 Balance -440 -940 -70 Weight 98 kg Output: Drainage 190 140 70 Right Anterior Medial 190 140 70 Abdomen Urine 250 800 Uretheral (Orantes) 400 Other: Voiding Method Indwelling Catheter Indwelling Catheter - Exam Patient is awake, comfortable, no acute distress NG tube is out Examination of the heart S1 and S2 Examination of the lungs bilateral breath sounds are heard Abdomen is soft, mild tenderness noted SULMA drain is noted Examination lower extremities shows no edema - Labs CBC & Chem 7: 10/02/22 11:38 10/01/22 07:33 Labs: Abnormal Lab Results - Last 24 Hours (Table) 10/01/22 10/01/22 10/02/22 Range/Units 16:10 20:01 05:55 WBC (3.8-10.6) k/uL RBC (3.80-5.40) m/uL Hgb (11.4-16.0) gm/dL Hct (34.0-46.0) % Plt Count (150-450) k/uL POC Glucose (mg/dL) 158 H 117 H 128 H (70-110) mg/dL 10/02/22 10/02/22 Range/Units 11:36 11:38 WBC 17.8 H (3.8-10.6) k/uL RBC 3.69 L (3.80-5.40) m/uL Hgb 10.4 L (11.4-16.0) gm/dL Hct 32.5 L (34.0-46.0) % Plt Count 456 H (150-450) k/uL POC Glucose (mg/dL) 146 H (70-110) mg/dL Assessment and Plan Assessment: #1 acute kidney injury secondary to hemodynamic ATN with low blood pressures. Improving. -Baseline creatinine 0.8 MG per DL. #2 laparotomy with colonic resection [ascending colon] for colitis with per foration and abdominal wall abscess #3 hypotensive episodes, improved #4 diabetes 5. Mild hypernatremia secondary to free water deficit. Plan: Check labs today and then again in a.m. Check chest x-ray
[2022-10-02 12:14] LABS: Ionized Calcium 5.2 mg/dL (4.5-5.3)
[2022-10-02] MEDS: ANASTROZOLE 1 MG TAB PO SCH (13:13)
--- NOTE | 2022-10-02 13:37 | P.PN ---
Subjective Progress Note Date: 10/02/22 82 years old female with multiple medical problems including hypothyroidism, hypertension, osteoporosis, diabetes mellitus and history of breast cancer. Presents with signs and symptoms of colitis with abdominal wall abscess. With evidence of acute kidney injury present on admission. Patient as well as by several consultants. Patient currently continued on broad-spectrum antibiotic with Flagyl and Zosyn. Also she is on D5 half normal saline at 1 25 mL/h. Patient is very lethargic and weak and she Answers with One or 2 words, Chest complaining of from tenderness in the right side of the abdomen. Surgical wound is closed and healing. She is status post right colectomy. Today is postoperative day #1. Vitas looks stable Labs from today are pending 09/28/2022 Patient is awake but very lethargic. However she is oriented to time place and person and she has an site. Still complaining of from right-sided abdominal pain. No bowel movements. She feels dry but she is on D5 0.9 infusion. Also she is covered currently with Flagyl and Zosyn and wound culture is growing potassium streptococci. 09/29/2022 Patient complaining of from right-sided abdominal pain at the surgical site before she receives her pain medication this morning. Wound VAC is in place. She still has an NG tube. She has occasional cough from today Labs are still pending She remains on IV fluid D5 half-normal saline at 100 mL/h 3 : Patient is status postoperative day 3 right colectomy for right colon tumor. Continue patient on IV fluid, continue nothing by mouth, does complain of abdominal pain 10/01: Patient is status postoperative day 4, seen and evaluated and bedside. IV fluids changed to D5, 0.45 saline secondary to hyponatremia. Patient is nothing by mouth. Pathology results reviewed and oncology consulted. 10/02: Patient is postoperative day 5, family at bedside and discussed care plan with , biopsy results discussed with her as well. Patient continues to remain in multiple comorbidities. Patient was seen by oncology as well. Plan to start TPN once PICC line placed. We'll follow up on CBC and basic metabolic panel Objective - Vital Signs Vital signs: Vital Signs Temp 98.9 F 10/02/22 11:47 Pulse 107 H 10/02/22 11:47 Resp 16 10/02/22 11:47 BP 127/64 10/02/22 11:47 Pulse Ox 97 10/02/22 08:45 FiO2 Intake & Output 10/01/22 10/02/22 10/02/22 18:59 06:59 18:59 Output Total 440 940 70 Balance -440 -940 -70 Weight 98 kg Output: Drainage 190 140 70 Right Anterior Medial 190 140 70 Abdomen Urine 250 800 Uretheral (Orantes) 400 Other: Voiding Method Indwelling Catheter Indwelling Catheter - Exam PHYSICAL EXAMINATION: GENERAL: The patient is alert and oriented x 1, ill apperance in appearance HEENT: Pupils are round and equally reacting to light. EOMI. CARDIOVASCULAR: S1 and S2 present. No murmurs, rubs, or gallops. PULMONARY: Chest is clear to auscultation, no wheezing or crackles. ABDOMEN: Distended, tender, wound VAC in place, SULMA drain in place MUSCULOSKELETAL: No joint swelling or deformity. EXTREMITIES: Bilateral leg edema, right arm edema NEUROLOGICAL: Gross neurological examination did not reveal any focal deficits. , Patient disoriented - Labs CBC & Chem 7: 10/02/22 11:38 10/02/22 11:38 Labs: Abnormal Lab Results - Last 24 Hours (Table) 10/01/22 10/01/22 10/02/22 Range/Units 16:10 20:01 05:55 WBC (3.8-10.6) k/uL RBC (3.80-5.40) m/uL Hgb (11.4-16.0) gm/dL Hct (34.0-46.0) % Plt Count (150-450) k/uL Sodium (137-145) mmol/L Chloride (98-107) mmol/L BUN (7-17) mg/dL Glucose (74-99) mg/dL POC Glucose (mg/dL) 158 H 117 H 128 H (70-110) mg/dL Calcium (8.4-10.2) mg/dL 10/02/22 10/02/22 10/02/22 Range/Units 11:36 11:38 11:38 WBC 17.8 H (3.8-10.6) k/uL RBC 3.69 L (3.80-5.40) m/uL Hgb 10.4 L (11.4-16.0) gm/dL Hct 32.5 L (34.0-46.0) % Plt Count 456 H (150-450) k/uL Sodium 148 H (137-145) mmol/L Chloride 116 H (98-107) mmol/L BUN 22 H (7-17) mg/dL Glucose 149 H (74-99) mg/dL POC Glucose (mg/dL) 146 H (70-110) mg/dL Calcium 8.2 L (8.4-10.2) mg/dL Assessment and Plan Assessment: Assessment * Acute ascending colitis with perforation and abdominal wall abscess status post right hemicolectomy. Today is postoperative day # 5 * Invasive medullary carcinoma of colon * Intra-abdominal abscess secondary to growth C strep * Acute kidney injury * Acute hypernatremia * Severe protein calorie malnutrition * Metabolic/toxic encephalopathy secondary to above * Diabetes mellitus TYPE 2 * Hypertension * History of osteoarthritis * Hypothyroidism Plan: * Consult obtained from general surgery, infectious disease, nephrology * Continue IV fluid>> fluid changed to D5, 0.45 saline on 10/01>> requested to initiate TPN waiting for PICC line * Antibiotics per infectious disease on Unasyn and Flagyl transitioned from Zosyn * Pathology reviewed>> oncology consulted, pathology results discussed with family * Continue pain control, nausea * Right arm swelling ultrasound ordered to rule out DVT * Labs and medication were reviewed * On subcu heparin for DVT prophylaxis
[2022-10-02] MEDS: ONDANSETRON 4 MG/2 ML VIAL IVP PRN (14:54)
[2022-10-02 16:49] LABS: Glucose,Whole Blood 155 mg/dL (70-110)
--- NOTE | 2022-10-02 16:50 | P.PN ---
Subjective Progress Note Date: 10/02/22 Family is at bedside. She is chewing gum. She denies moderate abdominal pain. She just had a small bowel movement an hr ago. She has incisional wound vac. SLow advancement of diet. Objective - Vital Signs Vital signs: Vital Signs Temp 98.9 F 10/02/22 11:47 Pulse 107 H 10/02/22 11:47 Resp 16 10/02/22 11:47 BP 127/64 10/02/22 11:47 Pulse Ox 97 10/02/22 08:45 FiO2 Intake & Output 10/01/22 10/02/22 10/02/22 18:59 06:59 18:59 Output Total 440 940 70 Balance -440 -940 -70 Weight 98 kg Output: Drainage 190 140 70 Right Anterior Medial 190 140 70 Abdomen Urine 250 800 Uretheral (Orantes) 400 Other: Voiding Method Indwelling Catheter Indwelling Catheter Indwelling Catheter - Labs CBC & Chem 7: 10/02/22 11:38 10/02/22 11:38 Labs: Abnormal Lab Results - Last 24 Hours (Table) 10/01/22 10/02/22 10/02/22 Range/Units 20:01 05:55 11:36 WBC (3.8-10.6) k/uL RBC (3.80-5.40) m/uL Hgb (11.4-16.0) gm/dL Hct (34.0-46.0) % Plt Count (150-450) k/uL Sodium (137-145) mmol/L Chloride (98-107) mmol/L BUN (7-17) mg/dL Glucose (74-99) mg/dL POC Glucose (mg/dL) 117 H 128 H 146 H (70-110) mg/dL Calcium (8.4-10.2) mg/dL 10/02/22 10/02/22 Range/Units 11:38 11:38 WBC 17.8 H (3.8-10.6) k/uL RBC 3.69 L (3.80-5.40) m/uL Hgb 10.4 L (11.4-16.0) gm/dL Hct 32.5 L (34.0-46.0) % Plt Count 456 H (150-450) k/uL Sodium 148 H (137-145) mmol/L Chloride 116 H (98-107) mmol/L BUN 22 H (7-17) mg/dL Glucose 149 H (74-99) mg/dL POC Glucose (mg/dL) (70-110) mg/dL Calcium 8.2 L (8.4-10.2) mg/dL
[2022-10-02 20:15] LABS: Glucose,Whole Blood 133 mg/dL (70-110)
--- NOTE | 2022-10-02 23:19 | US ---
EXAMINATION TYPE: US venous doppler duplex UE RT DATE OF EXAM: 10/02/2022 COMPARISON: NONE CLINICAL INDICATION: Female, 82 years old with history of Right arm swelling rule out; Swelling. No redness. Recent abd surgery. SIDE PERFORMED: Right Patient unable to lay flat for IJV imaging. Limited due to patient body habitus Right Arm: Appears negative for DVT at time of scan. Mid and distal IJV not visualized. IMPRESSION: 1. Right upper extremity ultrasound negative for deep venous thrombosis.
--- NOTE | 2022-10-02 23:28 | XR ---
EXAMINATION TYPE: XR chest 1V DATE OF EXAM: 10/02/2022 COMPARISON: 09/24/2022 INDICATION: CHF TECHNIQUE: Single frontal view of the chest is obtained. FINDINGS: The heart size is enlarged. The pulmonary vasculature is normal. Small left pleural effusion is present. Minimal right pleural effusion may be present. IMPRESSION: 1. Cardiomegaly with small left and minimal right pleural effusions. Correlate for congestive heart f ailure.
[2022-10-03] MEDS: DEXTROSE 5%-0.45% NACL 1,000 ML IV SCH (00:03)
[2022-10-03] MEDS: AMPICILLIN-SULBACTAM 3 GM in SODIUM CHLORIDE 0.9% 100 ML IVPB SCH ×2 (00:03→08:49)
[2022-10-03] MEDS: HYDROmorphone 1 MG/ML 1 ML SYRINGE IVP PRN ×4 (03:53→23:56)
[2022-10-03 06:20] LABS: Glucose,Whole Blood 163 mg/dL (70-110)
[2022-10-03] MEDS: LEVOTHYROXINE 75 MCG TAB PO SCH (06:40)
[2022-10-03] MEDS: CALCIUM CARB-VIT D 500 MG-5 MCG TAB PO SCH ×2 (06:40→17:29)
[2022-10-03] MEDS: INSULIN ASPART (NovoLOG) 100 UNIT/ML VIAL SQ SCH ×4 (06:40→20:57)
[2022-10-03] MEDS: PANTOPRAZOLE 40 MG/10 ML VIAL IVP SCH (08:49)
[2022-10-03] MEDS: ANASTROZOLE 1 MG TAB PO SCH (08:49)
[2022-10-03] MEDS: HEPARIN SODIUM,PORCINE 5,000 UNIT/ML 1 ML VIAL SQ SCH ×2 (08:50→20:57)
--- NOTE | 2022-10-03 11:33 | P.PN ---
Subjective Patient is seen for follow-up for acute kidney injury. Currently maintained on IV fluids. Serum creatinine down to 1.0 mg/dL Sodium was 148 yesterday. Patient has an indwelling Orantes catheter. Urine output documented at about 1050 mL. No complaints today. Maintained on D5 0.45 at 50 ML per hour Objective - Vital Signs Vital signs: Vital Signs Temp 97.6 F 10/03/22 08:00 Pulse 92 10/03/22 08:00 Resp 18 10/03/22 08:00 BP 156/76 10/03/22 08:00 Pulse Ox 98 10/03/22 08:00 FiO2 Intake & Output 10/02/22 10/03/22 10/03/22 18:59 06:59 18:59 Output Total 985 120 80 Balance -985 -120 -80 Output: Drainage 110 120 80 Right Anterior Medial 110 120 80 Abdomen Urine 875 Other: Voiding Method Indwelling Catheter Indwelling Catheter Indwelling Catheter # Bowel Movements 1 - Exam Patient is awake, comfortable, no acute distress Examination of the heart S1 and S2 Examination of the lungs bilateral breath sounds are heard Abdomen is soft, mild tenderness noted SULMA drain is noted Examination lower extremities shows no edema - Labs CBC & Chem 7: 10/02/22 11:38 10/02/22 11:38 Labs: Abnormal Lab Results - Last 24 Hours (Table) 10/02/22 10/02/22 10/02/22 Range/Units 11:36 11:38 11:38 WBC 17.8 H (3.8-10.6) k/uL RBC 3.69 L (3.80-5.40) m/uL Hgb 10.4 L (11.4-16.0) gm/dL Hct 32.5 L (34.0-46.0) % Plt Count 456 H (150-450) k/uL Sodium 148 H (137-145) mmol/L Chloride 116 H (98-107) mmol/L BUN 22 H (7-17) mg/dL Glucose 149 H (74-99) mg/dL POC Glucose (mg/dL) 146 H (70-110) mg/dL Calcium 8.2 L (8.4-10.2) mg/dL 10/02/22 10/02/22 10/03/22 Range/Units 16:45 20:11 06:19 WBC (3.8-10.6) k/uL RBC (3.80-5.40) m/uL Hgb (11.4-16.0) gm/dL Hct (34.0-46.0) % Plt Count (150-450) k/uL Sodium (137-145) mmol/L Chloride (98-107) mmol/L BUN (7-17) mg/dL Glucose (74-99) mg/dL POC Glucose (mg/dL) 155 H 133 H 163 H (70-110) mg/dL Calcium (8.4-10.2) mg/dL Assessment and Plan Assessment: #1 acute kidney injury secondary to hemodynamic ATN with low blood pressures. Improving. -Baseline creatinine 0.8 MG per DL. #2 laparotomy with colonic resection [ascending colon] for colitis with perfora tion and abdominal wall abscess #3 acute hypotension, resolved #4 diabetes 5. Hypernatremia secondary to free water deficit. Plan: Change IV fluids to D5W Repeat labs in a.m.
[2022-10-03 11:58] LABS: Glucose,Whole Blood 182 mg/dL (70-110)
[2022-10-03] MEDS: DEXTROSE 5% IN WATER 1,000 ML IV SCH ×2 (12:43→23:45)
--- NOTE | 2022-10-03 12:50 | P.PN ---
Subjective Progress Note Date: 10/03/22 82 years old female with multiple medical problems including hypothyroidism, hypertension, osteoporosis, diabetes mellitus and history of breast cancer. Presents with signs and symptoms of colitis with abdominal wall abscess. With evidence of acute kidney injury present on admission. Patient as well as by several consultants. Patient currently continued on broad-spectrum antibiotic with Flagyl and Zosyn. Also she is on D5 half normal saline at 1 25 mL/h. Patient is very lethargic and weak and she Answers with One or 2 words, Chest complaining of from tenderness in the right side of the abdomen. Surgical wound is closed and healing. She is status post right colectomy. Today is postoperative day #1. Vitas looks stable Labs from today are pending 09/28/2022 Patient is awake but very lethargic. However she is oriented to time place and person and she has an site. Still complaining of from right-sided abdominal pain. No bowel movements. She feels dry but she is on D5 0.9 infusion. Also she is covered currently with Flagyl and Zosyn and wound culture is growing potassium streptococci. 09/29/2022 Patient complaining of from right-sided abdominal pain at the surgical site before she receives her pain medication this morning. Wound VAC is in place. She still has an NG tube. She has occasional cough from today Labs are still pending She remains on IV fluid D5 half-normal saline at 100 mL/h 3 : Patient is status postoperative day 3 right colectomy for right colon tumor. Continue patient on IV fluid, continue nothing by mouth, does complain of abdominal pain 10/01: Patient is status postoperative day 4, seen and evaluated and bedside. IV fluids changed to D5, 0.45 saline secondary to hyponatremia. Patient is nothing by mouth. Pathology results reviewed and oncology consulted. 10/02: Patient is postoperative day 5, family at bedside and discussed care plan with , biopsy results discussed with her as well. Patient continues to remain in multiple comorbidities. Patient was seen by oncology as well. Plan to start TPN once PICC line placed. We'll follow up on CBC and basic metabolic panel 10/03: Patient evaluated for dhnm-il-mean less distress at this time. Plan for PICC line placement and initiation of TPN 10/04 , continue IV Unasyn for intra-abdominal infection, expect prolonged hospital stay followed by oncology as well might need LTAC Objective - Vital Signs Vital signs: Vital Signs Temp 97.6 F 10/03/22 08:00 Pulse 92 10/03/22 12:00 Resp 18 10/03/22 08:00 BP 144/73 10/03/22 12:00 Pulse Ox 98 10/03/22 12:00 FiO2 Intake & Output 10/02/22 10/03/22 10/03/22 18:59 06:59 18:59 Output Total 985 120 80 Balance -985 -120 -80 Output: Drainage 110 120 80 Right Anterior Medial 110 120 80 Abdomen Urine 875 Other: Voiding Method Indwelling Catheter Indwelling Catheter Indwelling Catheter # Bowel Movements 1 - Exam PHYSICAL EXAMINATION: GENERAL: The patient is alert and oriented x 1, ill apperance in appearance HEENT: Pupils are round and equally reacting to light. EOMI. CARDIOVASCULAR: S1 and S2 present. No murmurs, rubs, or gallops. PULMONARY: Chest is clear to auscultation, no wheezing or crackles. ABDOMEN: Distended, tender, wound VAC in place, SULMA drain in place MUSCULOSKELETAL: No joint swelling or deformity. EXTREMITIES: Bilateral leg edema, right arm edema NEUROLOGICAL: Gross neurological examination did not reveal any focal deficits. , Patient disoriented - Labs CBC & Chem 7: 10/02/22 11:38 10/02/22 11:38 Labs: Abnormal Lab Results - Last 24 Hours (Table) 10/02/22 10/02/22 10/03/22 Range/Units 16:45 20:11 06:19 POC Glucose (mg/dL) 155 H 133 H 163 H (70-110) mg/dL 10/03/22 Range/Units 11:46 POC Glucose (mg/dL) 182 H (70-110) mg/dL Assessment and Plan Assessment: Assessment * Acute ascending colitis with perforation and abdominal wall abscess status post right hemicolectomy. Today is postoperative day # 5 * Invasive medullary carcinoma of colon * Intra-abdominal abscess secondary to growth C strep * Acute kidney injury * Acute hypernatremia * Severe protein calorie malnutrition * Metabolic/toxic encephalopathy secondary to above * Diabetes mellitus TYPE 2 * Hypertension * History of osteoarthritis * Hypothyroidism Plan: * Consult obtained from general surgery, infectious disease, nephrology * Continue IV fluid>> fluid changed to D5, 0.45 saline on 10/01>> requested to initiate TPN waiting for PICC line tentative 10/04 * Antibiotics per infectious disease on Unasyl transitioned from Zosyn * Pathology reviewed>> oncology consulted, pathology results discussed with family * Continue pain control, nausea * Right arm swelling ultrasound ordered to ruled out DVT * Labs and medication were reviewed * On subcu heparin for DVT prophylaxis Time with Patient: Greater than 30
--- NOTE | 2022-10-03 14:37 | P.PN ---
Subjective Progress Note Date: 10/03/22 Family at bedside. She continues to pass flatus She had bowel movement yesterday She is eager to start her diet Start clear liquid diet. She still has a foster, pending removal Objective - Vital Signs Vital signs: Vital Signs Temp 97.6 F 10/03/22 08:00 Pulse 92 10/03/22 12:00 Resp 18 10/03/22 08:00 BP 144/73 10/03/22 12:00 Pulse Ox 98 10/03/22 12:00 FiO2 Intake & Output 10/02/22 10/03/22 10/03/22 18:59 06:59 18:59 Output Total 985 120 80 Balance -985 -120 -80 Output: Drainage 110 120 80 Right Anterior Medial 110 120 80 Abdomen Urine 875 Other: Voiding Method Indwelling Catheter Indwelling Catheter Indwelling Catheter # Bowel Movements 1 - Labs CBC & Chem 7: 10/02/22 11:38 10/02/22 11:38 Labs: Abnormal Lab Results - Last 24 Hours (Table) 10/02/22 10/02/22 10/03/22 Range/Units 16:45 20:11 06:19 POC Glucose (mg/dL) 155 H 133 H 163 H (70-110) mg/dL 10/03/22 Range/Units 11:46 POC Glucose (mg/dL) 182 H (70-110) mg/dL
--- NOTE | 2022-10-03 14:55 | P.PN ---
Subjective Progress Note Date: 10/03/22 Principal diagnosis: Medullary carcinoma of the colon -Right upper extremity ultrasound to assess for DVT due to swelling was negative -Afebrile, no acute events overnight -Notes having increased appetite this morning and passing gas -Denies any abdominal pain, nausea, or vomiting currently Objective - Vital Signs Vital signs: Vital Signs Temp 97.6 F 10/03/22 08:00 Pulse 92 10/03/22 12:00 Resp 18 10/03/22 08:00 BP 144/73 10/03/22 12:00 Pulse Ox 98 10/03/22 12:00 FiO2 Intake & Output 10/02/22 10/03/22 10/03/22 18:59 06:59 18:59 Output Total 985 120 80 Balance -985 -120 -80 Output: Drainage 110 120 80 Right Anterior Medial 110 120 80 Abdomen Urine 875 Other: Voiding Method Indwelling Catheter Indwelling Catheter Indwelling Catheter # Bowel Movements 1 - Constitutional General appearance: Present: cooperative, no acute distress - EENT Eyes: Present: EOMI - Respiratory Respiratory: bilateral: CTA - Cardiovascular Rhythm: regular - Gastrointestinal General gastrointestinal: Present: distended, normal bowel sounds, soft. Absent: tenderness - Integumentary Integumentary: Absent: rash - Neurologic Neurologic: Present: CNII-XII intact. Absent: focal deficits - Labs CBC & Chem 7: 10/02/22 11:38 10/02/22 11:38 Labs: Abnormal Lab Results - Last 24 Hours (Table) 10/02/22 10/02/22 10/03/22 Range/Units 16:45 20:11 06:19 POC Glucose (mg/dL) 155 H 133 H 163 H (70-110) mg/dL 10/03/22 Range/Units 11:46 POC Glucose (mg/dL) 182 H (70-110) mg/dL Assessment and Plan (1) Abscess of abdominal wall Current Visit: Yes Status: Acute Priority: High Code(s): L02.211 - CUTANEOUS ABSCESS OF ABDOMINAL WALL SNOMED Code(s): 75236576 (2) Medullary carcinoma Current Visit: Yes Status: Acute Priority: High Code(s): C80.1 - MALIGNANT (PRIMARY) NEOPLASM, UNSPECIFIED SNOMED Code(s): 155985404 Plan: Invasive medullary carcinoma of colon: -Significant history of uterine cancer (2012) and breast cancer (2018). She is a patient of Dr. Thomas, and was previously treated for breast cancer. Pt declined systemic treatment at that time and was treated with adjuvant Anastrozole. -Upon admission CT abdomen pelvis revealed thickening of the ascending colon/cecum with mesenteric lymph node and soft tissue heterogeneous material within the right abdominal wall. Findings could represent underlying mass with mesenteric metastatic disease to the abdominal wall intramuscular. Patient underwent abdominal surgery with Dr. Sorenson and had a right colectomy. Biopsy revealed invasive medullary carcinoma. Resection margins negative for malignancy with 4 of 16 mesenteric lymph nodes positive for metastasis. Biopsy results were discussed with patient and her family on 10/01/2022 and were aware of the diagnosis on today's visit -She is currently postoperative day 7 and is healing well from surgery with increased appetite and flatulence -Current pathologic staging is [id number], associated with at least stage IIIC disease -Will schedule outpatient PET scan to complete staging work-up and f/u with Dr. Thomas to further discuss treatment options and goals of care -NGS and PDL 1 will be ordered on pathology -On today's visit, Ms. 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 She would benefit from germline genetic testing outpatient Abscess of abdominal wall: -Wound culture positive for beta hemolytic group C strep. Continues on IV abx -Surgery following Jorge Chung MD
[2022-10-03 16:23] LABS: African American GFR (CKD) 85 (>60 ml/min/1.73 sqM); Anion Gap 2 mmol/L; Blood Urea Nitrogen 20 mg/dL (7-17); Calcium 7.7 mg/dL (8.4-10.2); Carbon Dioxide 25 mmol/L (22-30); Chloride 118 mmol/L (98-107); Glucose 167 mg/dL (74-99); Non-African American GFR(CKD) 74 (>60 ml/min/1.73 sqM); Sodium 145 mmol/L (137-145)
[2022-10-03 16:31] LABS: Phosphorus 2.7 mg/dL (2.5-4.5); Potassium 6.1 mmol/L (3.5-5.1)
[2022-10-03 16:32] LABS: Magnesium 1.7 mg/dL (1.6-2.3)
--- NOTE | 2022-10-03 16:44 | P.PN ---
Subjective Progress Note Date: 10/02/22 Principal diagnosis: Perforated colon Intra-abdominal abscess Patient is a 82-year-old female with a past medical history significant for diabetes mellitus hypertension history of uterine cancer and bilateral breast CA presenting to the hospital for evaluation of right-sided abdominal pain ,CT abdominal pelvis thickening of the ascending colon with mesenteric lymph node and soft tissue heterogeneous material within the right abdominal wall, a shunt was taken to the OR and the patient is status post laparotomy noticed to have right colon tumor with perforation into abdominal wall causing abscess which was drained but no culture were done. On today's evaluation that is 10/02/2022 the patient remains to be afebrile, patient is hemodynamically stable not requiring any pressor support, the patient is breathing comfortably on a 3 L nasal cannula oxygen patient slightly more awake today and has been complaining of abdominal pain no vomiting diarrhea or any other changes reported by the nursing staff. Patient did have a white count of 17.8, hemoglobin is 10.4 creatinine is 1.03, blood culture negative abdominal culture positive for beta-hemolytic strep C Objective - Vital Signs Vital signs: Vital Signs Temp 98.9 F 10/02/22 08:45 Pulse 105 H 10/02/22 08:45 Resp 18 10/02/22 08:45 BP 137/70 10/02/22 08:45 Pulse Ox 97 10/02/22 08:45 FiO2 Intake & Output 10/01/22 10/02/22 10/02/22 18:59 06:59 18:59 Output Total 440 940 Balance -440 -940 Weight 98 kg Output: Drainage 190 140 Right Anterior Medial 190 140 Abdomen Urine 250 800 Uretheral ([place]) 400 Other: Voiding Method Indwelling Catheter Indwelling Catheter - Exam GENERAL DESCRIPTION: An elderly female lying in bed in no distress RESPIRATORY SYSTEM: Unlabored breathing , decreased breath sounds at bases HEART: S1 S2 regular rate and rhythm , ABDOMEN: Soft , abdominal distention and tenderness EXTREMITIES: No edema feet - Labs CBC & Chem 7: 10/02/22 11:38 10/03/22 15:24 Labs: Abnormal Lab Results - Last 24 Hours (Table) 10/01/22 10/01/22 10/02/22 Range/Units 16:10 20:01 05:55 POC Glucose (mg/dL) 158 H 117 H 128 H (70-110) mg/dL Assessment and Plan (1) Intra-abdominal abscess Current Visit: Yes Status: Acute Code(s): K65.1 - PERITONEAL ABSCESS SNOMED Code(s): 75674937 Plan: 1patient present to hospital with right upper quadrant abdominal pain in this patient with elevated white count and abnormal CT high clinic suspicious for possible malignancy with contained perforation clinically doubt abdominal wall abscess and will need to cover for the enteric gram-negative both aerobes and anaerobes, the patient is status post laparotomy with right colectomy and drainage of the abscess, cultures obtained from the drainage catheter yesterday and currently pending 2-patient is afebrile, however white count is mildly elevated at 16.7 that we will be monitored closely and we will continue the patient on Unasyn, Multiple family member at the bedside questions were answered Dictation was produced using [employer] dictation software. please excuse any grammatical, word or spelling errors. Time with Patient: Less than 30
[2022-10-03 16:45] LABS: Glucose,Whole Blood 199 mg/dL (70-110)
--- NOTE | 2022-10-03 16:46 | P.PN ---
Subjective Progress Note Date: 10/03/22 Principal diagnosis: Perforated colon Intra-abdominal abscess Patient is a 82-year-old female with a past medical history significant for diabetes mellitus hypertension history of uterine cancer and bilateral breast CA presenting to the hospital for evaluation of right-sided abdominal pain ,CT abdominal pelvis thickening of the ascending colon with mesenteric lymph node and soft tissue heterogeneous material within the right abdominal wall, a shunt was taken to the OR and the patient is status post laparotomy noticed to have right colon tumor with perforation into abdominal wall causing abscess which was drained but no culture were done. On today's evaluation that is 10/03/2022 the patient remains to be afebrile, patient is hemodynamically stable not requiring any pressor support, the patient is breathing comfortably on a 3 L nasal cannula oxygen patient more awake today and has been complaining of feeling hungry would like to eat no vomiting diarrhea or any other changes has been reported. Patient did have a white count of 17.8, hemoglobin is 10.4 as of yesterday no CBC was done today, creatinine is 0.75, blood culture negative abdominal culture positive for beta-hemolytic strep C Objective - Vital Signs Vital signs: Vital Signs Temp 97.6 F 10/03/22 08:00 Pulse 92 10/03/22 14:00 Resp 18 10/03/22 14:00 BP 144/73 10/03/22 12:00 Pulse Ox 98 10/03/22 12:00 FiO2 Intake & Output 10/02/22 10/03/22 10/03/22 18:59 06:59 18:59 Output Total 985 120 80 Balance -985 -120 -80 Output: Drainage 110 120 80 Right Anterior Medial 110 120 80 Abdomen Urine 875 Other: Voiding Method Indwelling Catheter Indwelling Catheter Indwelling Catheter # Bowel Movements 1 - Exam GENERAL DESCRIPTION: An elderly female lying in bed in no distress RESPIRATORY SYSTEM: Unlabored breathing , decreased breath sounds at bases HEART: S1 S2 regular rate and rhythm , ABDOMEN: Soft , abdominal distention and tenderness EXTREMITIES: No edema feet - Labs CBC & Chem 7: 10/02/22 11:38 10/03/22 15:24 Labs: Abnormal Lab Results - Last 24 Hours (Table) 10/02/22 10/02/22 10/03/22 Range/Units 16:45 20:11 06:19 POC Glucose (mg/dL) 155 H 133 H 163 H (70-110) mg/dL 10/03/22 Range/Units 11:46 POC Glucose (mg/dL) 182 H (70-110) mg/dL Assessment and Plan (1) Intra-abdominal abscess Current Visit: Yes Status: Acute Code(s): K65.1 - PERITONEAL ABSCESS SNOMED Code(s): 59276995 Plan: 1patient present to hospital with right upper quadrant abdominal pain in this patient with elevated white count and abnormal CT high clinic suspicious for possible malignancy with contained perforation clinically doubt abdominal wall abscess and will need to cover for the enteric gram-negative both aerobes and anaerobes, the patient is status post laparotomy with right colectomy and drainage of the abscess, cultures obtained from the drainage catheter yesterday and currently pending 2-patient is afebrile, however white count remains to be elevated we will switch her antibiotic therapy to Zosyn and monitor clinical course closely, and we will recheck her CBC and inflammatory markers with a.m. labs Family the bedside questions were answered Dictation was produced using [employer] dictation software. please excuse any grammatical, word or spelling errors. Time with Patient: Less than 30
[2022-10-03] MEDS ORDERED: INSULIN REGULAR 100 UNIT/ML VIAL (IM/SQ) SQ ONE (17:02)
[2022-10-03] MEDS: PIPERACILLIN-TAZOBACTAM 3.375 GM in SODIUM CHLORIDE 0.9% 100 ML IVPB SCH ×2 (17:28→23:45)
[2022-10-03 20:43] LABS: Glucose,Whole Blood 200 mg/dL (70-110)
[2022-10-04 06:17] LABS: Glucose,Whole Blood 163 mg/dL (70-110)
[2022-10-04] MEDS: INSULIN ASPART (NovoLOG) 100 UNIT/ML VIAL SQ SCH ×4 (06:31→20:51)
[2022-10-04] MEDS: CALCIUM CARB-VIT D 500 MG-5 MCG TAB PO SCH ×2 (06:32→17:12)
[2022-10-04] MEDS: LEVOTHYROXINE 75 MCG TAB PO SCH (06:32)
[2022-10-04] MEDS: HEPARIN SODIUM,PORCINE 5,000 UNIT/ML 1 ML VIAL SQ SCH ×2 (08:49→20:51)
[2022-10-04] MEDS: HYDROmorphone 1 MG/ML 1 ML SYRINGE IVP PRN (08:50)
[2022-10-04] MEDS: PANTOPRAZOLE 40 MG/10 ML VIAL IVP SCH (08:50)
[2022-10-04] MEDS: ANASTROZOLE 1 MG TAB PO SCH (08:52)
[2022-10-04] MEDS: PIPERACILLIN-TAZOBACTAM 3.375 GM in SODIUM CHLORIDE 0.9% 100 ML IVPB SCH ×3 (08:52→23:22)
[2022-10-04 09:58] LABS: Basophils # (A) 0.1 k/uL (0-0.2); Basophils % (A) 1 %; Eosinophils # (A) 0.5 k/uL (0-0.7); Eosinophils % (A) 3 %; HCT 32.9 % (34.0-46.0); HGB 10.3 gm/dL (11.4-16.0); Hypochromasia Marked; Lymphocytes # (A) 1.3 k/uL (1.0-4.8); Lymphocytes % (A) 9 %; MCH 27.8 pg (25.0-35.0); MCHC 31.4 g/dL (31.0-37.0); MCV 88.4 fL (80.0-100.0); Mean Platelet Volume 8.9; Monocytes # (A) 0.7 k/uL (0-1.0); Monocytes % (A) 5 %; Neutrophils # (A) 12.1 k/uL (1.3-7.7); Neutrophils % (A) 82 %; Platelet Count 389 k/uL (150-450); Poikilocytosis Slight; RBC 3.72 m/uL (3.80-5.40); RDW 15.7 % (11.5-15.5); WBC 14.8 k/uL (3.8-10.6)
[2022-10-04 10:34] LABS: ALT 11 U/L (4-34); AST 19 U/L (14-36); African American GFR (CKD) 74 (>60 ml/min/1.73 sqM); Albumin 1.7 g/dL (3.5-5.0); Alkaline Phosphatase 49 U/L (38-126); Anion Gap 2 mmol/L; Blood Urea Nitrogen 16 mg/dL (7-17); Calcium 7.5 mg/dL (8.4-10.2); Carbon Dioxide 28 mmol/L (22-30); Chloride 113 mmol/L (98-107); Glucose 209 mg/dL (74-99); Magnesium 1.7 mg/dL (1.6-2.3); Non-African American GFR(CKD) 64 (>60 ml/min/1.73 sqM); Phosphorus 1.9 mg/dL (2.5-4.5); Potassium 4.3 mmol/L (3.5-5.1); Sodium 143 mmol/L (137-145); Total Bilirubin 0.3 mg/dL (0.2-1.3)
[2022-10-04] MEDS ORDERED: Phosphorus Replacement Protoco 1 EACH MISC MISCELLANE PRN (11:21)
--- NOTE | 2022-10-04 11:23 | P.PN ---
Subjective Patient seen in follow-up for hyponatremia. Sodium level better. Currently on D5W. On liquid diet. Vital signs are stable. General: No acute distress. HEENT: Head exam is unremarkable. LUNGS: No audible rhonchi or wheezes. HEART: Rate and Rhythm are regular. ABDOMEN: Wound VAC in GBG noted. EXTREMITITES: No edema. Objective - Vital Signs Vital signs: Vital Signs Temp 97.9 F 10/04/22 08:00 Pulse 92 10/04/22 08:00 Resp 22 10/04/22 08:00 BP 170/73 10/04/22 08:00 Pulse Ox 97 10/04/22 08:00 FiO2 Intake & Output 10/03/22 10/04/22 10/04/22 18:59 06:59 18:59 Intake Total 180 Output Total 90 740 40 Balance -90 -740 140 Intake: Oral 180 Output: Drainage 90 40 40 Right Anterior Medial 90 40 40 Abdomen Urine 700 Uretheral ([place]) 700 Other: Voiding Method Indwelling Catheter Indwelling Catheter Indwelling Catheter # Bowel Movements 1 1 - Labs CBC & Chem 7: 10/04/22 09:19 10/04/22 09:19 Labs: Abnormal Lab Results - Last 24 Hours (Table) 10/03/22 10/03/22 10/03/22 Range/Units 11:46 15:24 16:44 WBC (3.8-10.6) k/uL RBC (3.80-5.40) m/uL Hgb (11.4-16.0) gm/dL Hct (34.0-46.0) % RDW (11.5-15.5) % Neutrophils # (1.3-7.7) k/uL Potassium 6.1 H* (3.5-5.1) mmol/L Chloride 118 H (98-107) mmol/L BUN 20 H (7-17) mg/dL Glucose 167 H (74-99) mg/dL POC Glucose (mg/dL) 182 H 199 H (70-110) mg/dL Calcium 7.7 L (8.4-10.2) mg/dL Phosphorus (2.5-4.5) mg/dL C-Reactive Protein (<1.0) mg/dL Total Protein (6.3-8.2) g/dL Albumin (3.5-5.0) g/dL 10/03/22 10/03/22 10/04/22 Range/Units 19:28 20:42 06:15 WBC (3.8-10.6) k/uL RBC (3.80-5.40) m/uL Hgb (11.4-16.0) gm/dL Hct (34.0-46.0) % RDW (11.5-15.5) % Neutrophils # (1.3-7.7) k/uL Potassium 5.4 H (3.5-5.1) mmol/L Chloride (98-107) mmol/L BUN (7-17) mg/dL Glucose (74-99) mg/dL POC Glucose (mg/dL) 200 H 163 H (70-110) mg/dL Calcium (8.4-10.2) mg/dL Phosphorus (2.5-4.5) mg/dL C-Reactive Protein (<1.0) mg/dL Total Protein (6.3-8.2) g/dL Albumin (3.5-5.0) g/dL 10/04/22 10/04/22 Range/Units 09:19 09:19 WBC 14.8 H (3.8-10.6) k/uL RBC 3.72 L (3.80-5.40) m/uL Hgb 10.3 L (11.4-16.0) gm/dL Hct 32.9 L (34.0-46.0) % RDW 15.7 H (11.5-15.5) % Neutrophils # 12.1 H (1.3-7.7) k/uL Potassium (3.5-5.1) mmol/L Chloride 113 H (98-107) mmol/L BUN (7-17) mg/dL Glucose 209 H (74-99) mg/dL POC Glucose (mg/dL) (70-110) mg/dL Calcium 7.5 L (8.4-10.2) mg/dL Phosphorus 1.9 L (2.5-4.5) mg/dL C-Reactive Protein 1.0 H (<1.0) mg/dL Total Protein 4.0 L (6.3-8.2) g/dL Albumin 1.7 L (3.5-5.0) g/dL Assessment and Plan Plan: Assessment: 1. Acute kidney injury secondary to hemodynamic ATN. Improved. 2. Hypernatremia from lack of oral water intake. Improving with D5W. 3. Colitis with perforation abdominal wall abscess status post laparotomy with colonic resection. Surgery following. 4. Diabetes mellitus. 5. Hypophosphatemia from poor intake. Plan: Decrease rate of D5W to 50 mL an hour. Replace phosphorus.
[2022-10-04 11:40] LABS: Glucose,Whole Blood 247 mg/dL (70-110)
[2022-10-04] MEDS ORDERED: SODIUM PHOSPHATE 15 MMOL in DEXTROSE 5% IN WATER 250 ML IVPB ONE ×2 (12:30)
[2022-10-04] MEDS ORDERED: HYDROcodone/APAP 5-325MG 1 EACH TAB PO PRN (12:52)
--- NOTE | 2022-10-04 12:53 | P.PN ---
Subjective Progress Note Date: 10/04/22 CHIEF COMPLAINT: Colon mass HISTORY OF PRESENT ILLNESS: Patient is postop day #8 status post right colectomy for right colon tumor with perforation into the abdominal wall causing abscess. Patient lying in bed comfortably. She has been having bowel movements and flatus. Denies any nausea or vomiting. Her free Prevana wound VAC is not working correctly started this morning. SULMA drain 60 mL of serosanguineous output. Afebrile. WBC is down from 17-14 H3 10.3 platelets 300. Pathology results show medullary cancer of the colon. She is followed by oncology service. PHYSICAL EXAM: VITAL SIGNS: Reviewed. GENERAL: Well-developed in no acute distress. ABDOMEN: Soft. Nondistended. Dressing was removed. Incision site is clean dry and intact. NEUROLOGIC: Alert and oriented. Cranial nerves II through XII grossly intact. ASSESSMENT: 1. Right colon tumor with perforation into the abdominal wall causing abscess status post right colectomy PLAN: -Advance diet to full liquids -Add Ensure -Add [place] for po pain meds -Continue antibiotics -Encouraged patient to use incentive spirometer -Encouraged patient to increase activity level -Continue to work with PT OT -GI prophylaxis Protonix and DVT prophylaxis subcu heparin Physician Orthopedic Technician note has been reviewed by physician. Signing provider agrees with the documented findings, assessment, and plan of care. Objective - Vital Signs Vital signs: Vital Signs Temp 98.1 F 10/04/22 12:00 Pulse 89 10/04/22 12:00 Resp 18 10/04/22 12:00 BP 142/66 10/04/22 12:00 Pulse Ox 96 10/04/22 12:00 FiO2 Intake & Output 10/03/22 10/04/22 10/04/22 18:59 06:59 18:59 Intake Total 180 Output Total 90 740 40 Balance -90 -740 140 Intake: Oral 180 Output: Drainage 90 40 40 Right Anterior Medial 90 40 40 Abdomen Urine 700 Uretheral ([place]) 700 Other: Voiding Method Indwelling Catheter Indwelling Catheter Indwelling Catheter # Bowel Movements 1 1 - Labs CBC & Chem 7: 10/04/22 09:19 10/04/22 09:19 Labs: Abnormal Lab Results - Last 24 Hours (Table) 10/03/22 10/03/22 10/03/22 Range/Units 15:24 16:44 19:28 WBC (3.8-10.6) k/uL RBC (3.80-5.40) m/uL Hgb (11.4-16.0) gm/dL Hct (34.0-46.0) % RDW (11.5-15.5) % Neutrophils # (1.3-7.7) k/uL Potassium 6.1 H* 5.4 H (3.5-5.1) mmol/L Chloride 118 H (98-107) mmol/L BUN 20 H (7-17) mg/dL Glucose 167 H (74-99) mg/dL POC Glucose (mg/dL) 199 H (70-110) mg/dL Calcium 7.7 L (8.4-10.2) mg/dL Phosphorus (2.5-4.5) mg/dL C-Reactive Protein (<1.0) mg/dL Total Protein (6.3-8.2) g/dL Albumin (3.5-5.0) g/dL 10/03/22 10/04/22 10/04/22 Range/Units 20:42 06:15 09:19 WBC 14.8 H (3.8-10.6) k/uL RBC 3.72 L (3.80-5.40) m/uL Hgb 10.3 L (11.4-16.0) gm/dL Hct 32.9 L (34.0-46.0) % RDW 15.7 H (11.5-15.5) % Neutrophils # 12.1 H (1.3-7.7) k/uL Potassium (3.5-5.1) mmol/L Chloride (98-107) mmol/L BUN (7-17) mg/dL Glucose (74-99) mg/dL POC Glucose (mg/dL) 200 H 163 H (70-110) mg/dL Calcium (8.4-10.2) mg/dL Phosphorus (2.5-4.5) mg/dL C-Reactive Protein (<1.0) mg/dL Total Protein (6.3-8.2) g/dL Albumin (3.5-5.0) g/dL 10/04/22 10/04/22 Range/Units 09:19 11:31 WBC (3.8-10.6) k/uL RBC (3.80-5.40) m/uL Hgb (11.4-16.0) gm/dL Hct (34.0-46.0) % RDW (11.5-15.5) % Neutrophils # (1.3-7.7) k/uL Potassium (3.5-5.1) mmol/L Chloride 113 H (98-107) mmol/L BUN (7-17) mg/dL Glucose 209 H (74-99) mg/dL POC Glucose (mg/dL) 247 H (70-110) mg/dL Calcium 7.5 L (8.4-10.2) mg/dL Phosphorus 1.9 L (2.5-4.5) mg/dL C-Reactive Protein 1.0 H (<1.0) mg/dL Total Protein 4.0 L (6.3-8.2) g/dL Albumin 1.7 L (3.5-5.0) g/dL
[2022-10-04] MEDS: DEXTROSE 5% IN WATER 1,000 ML IV SCH (12:59)
[2022-10-04] MEDS: ACETAMINOPHEN TAB 325 MG TAB PO PRN (13:00)
--- NOTE | 2022-10-04 14:48 | P.PN ---
Subjective Progress Note Date: 10/04/22 82 years old female with multiple medical problems including hypothyroidism, hypertension, osteoporosis, diabetes mellitus and history of breast cancer. Presents with signs and symptoms of colitis with abdominal wall abscess. With evidence of acute kidney injury present on admission. Patient as well as by several consultants. Patient currently continued on broad-spectrum antibiotic with Flagyl and Zosyn. Also she is on D5 half normal saline at 1 25 mL/h. Patient is very lethargic and weak and she Answers with One or 2 words, Chest complaining of from tenderness in the right side of the abdomen. Surgical wound is closed and healing. She is status post right colectomy. Today is postoperative day #1. Vitas looks stable Labs from today are pending 09/28/2022 Patient is awake but very lethargic. However she is oriented to time place and person and she has an site. Still complaining of from right-sided abdominal pain. No bowel movements. She feels dry but she is on D5 0.9 infusion. Also she is covered currently with Flagyl and Zosyn and wound culture is growing potassium streptococci. 09/29/2022 Patient complaining of from right-sided abdominal pain at the surgical site before she receives her pain medication this morning. Wound VAC is in place. She still has an NG tube. She has occasional cough from today Labs are still pending She remains on IV fluid D5 half-normal saline at 100 mL/h 3 : Patient is status postoperative day 3 right colectomy for right colon tumor. Continue patient on IV fluid, continue nothing by mouth, does complain of abdominal pain 10/01: Patient is status postoperative day 4, seen and evaluated and bedside. IV fluids changed to D5, 0.45 saline secondary to hyponatremia. Patient is nothing by mouth. Pathology results reviewed and oncology consulted. 10/02: Patient is postoperative day 5, family at bedside and discussed care plan with , biopsy results discussed with her as well. Patient continues to remain in multiple comorbidities. Patient was seen by oncology as well. Plan to start TPN once PICC line placed. We'll follow up on CBC and basic metabolic panel 10/03: Patient evaluated for [id number] less distress at this time. Plan for PICC line placement and initiation of TPN 10/04 , continue IV Unasyn for intra-abdominal infection, expect prolonged hospital stay followed by oncology as well might need LTAC 10/04. Patient seen and examined. Diet advanced to full liquid REVIEW OF SYSTEMS: CONSTITUTIONAL: No fever, no malaise,. CARDIOVASCULAR: No chest pain, no palpitations, no syncope. PULMONARY: No shortness of breath, no cough, GASTROINTESTINAL: No diarrhea, no nausea, no vomiting, no abdominal pain. NEUROLOGICAL: No headaches, no weakness, PHYSICAL EXAMINATION: GENERAL: The patient is alert and oriented x3, not in any acute distress. Well developed, well nourished. HEENT: Pupils are round and equally reacting to light. EOMI. No scleral icterus. No conjunctival pallor. Normocephalic, atraumatic. No pharyngeal erythema. No thyromegaly. CARDIOVASCULAR: S1 and S2 present. No murmurs, rubs, or gallops. PULMONARY: Chest is clear to auscultation, no wheezing or crackles. ABDOMEN: Soft, tender, laparotomy surgical incision seen, drain in place MUSCULOSKELETAL: No joint swelling or deformity. EXTREMITIES: No cyanosis, clubbing, or pedal edema. NEUROLOGICAL: Gross neurological examination did not reveal any focal deficits. SKIN: No rashes. Assessment and plan Acute ascending colitis with perforation and abdominal wall abscess status post right hemicolectomy. Today is postoperative day # 5 * Invasive medullary carcinoma of colon * Intra-abdominal abscess secondary to growth C strep * Acute kidney injury * Acute hypernatremia * Severe protein calorie malnutrition * Metabolic/toxic encephalopathy secondary to above * Diabetes mellitus TYPE 2 * Hypertension * History of osteoarthritis * Hypothyroidism Plan: * Consult obtained from general surgery, infectious disease, nephrology * Continue IV fluid , D5 W per Nephrology * Antibiotics per infectious disease, currently on iv Zosyn * Patient underwent abdominal surgery with Dr. Sorenson and had a right colectomy. Biopsy revealed invasive medullary carcinoma. Resection margins negative for malignancy with 4 of 16 mesenteric lymph nodes positive for metastasis. Oncology following, diet advanced to full liquid * Continue pain control, nausea * Right arm swelling ulnegative for DVT * Labs and medication were reviewed * On subcu heparin for DVT prophylaxis Labs and medication were reviewed.. Continue same treatment. Continue with symptomatic treatment. Resume home medication. Monitor labs and vitals. DVT and GI prophylaxis. Further recommendations as per clinical course of the patient Dictation was produced using [id number] software. please excuse any grammatical, word or spelling errors. Objective - Vital Signs Vital signs: Vital Signs Temp 97.9 F 10/04/22 08:00 Pulse 92 10/04/22 08:00 Resp 22 10/04/22 08:00 BP 170/73 10/04/22 08:00 Pulse Ox 97 10/04/22 08:00 FiO2 Intake & Output 10/03/22 10/04/22 10/04/22 18:59 06:59 18:59 Intake Total 180 Output Total 90 740 40 Balance -90 -740 140 Intake: Oral 180 Output: Drainage 90 40 40 Right Anterior Medial 90 40 40 Abdomen Urine 700 Uretheral (Orantes) 700 Other: Voiding Method Indwelling Catheter Indwelling Catheter # Bowel Movements 1 1 - Labs CBC & Chem 7: 10/04/22 09:19 10/04/22 09:19 Labs: Abnormal Lab Results - Last 24 Hours (Table) 10/03/22 10/03/22 10/03/22 Range/Units 11:46 15:24 16:44 WBC (3.8-10.6) k/uL RBC (3.80-5.40) m/uL Hgb (11.4-16.0) gm/dL Hct (34.0-46.0) % RDW (11.5-15.5) % Neutrophils # (1.3-7.7) k/uL Potassium 6.1 H* (3.5-5.1) mmol/L Chloride 118 H (98-107) mmol/L BUN 20 H (7-17) mg/dL Glucose 167 H (74-99) mg/dL POC Glucose (mg/dL) 182 H 199 H (70-110) mg/dL Calcium 7.7 L (8.4-10.2) mg/dL Phosphorus (2.5-4.5) mg/dL C-Reactive Protein (<1.0) mg/dL Total Protein (6.3-8.2) g/dL Albumin (3.5-5.0) g/dL 10/03/22 10/03/22 10/04/22 Range/Units 19:28 20:42 06:15 WBC (3.8-10.6) k/uL RBC (3.80-5.40) m/uL Hgb (11.4-16.0) gm/dL Hct (34.0-46.0) % RDW (11.5-15.5) % Neutrophils # (1.3-7.7) k/uL Potassium 5.4 H (3.5-5.1) mmol/L Chloride (98-107) mmol/L BUN (7-17) mg/dL Glucose (74-99) mg/dL POC Glucose (mg/dL) 200 H 163 H (70-110) mg/dL Calcium (8.4-10.2) mg/dL Phosphorus (2.5-4.5) mg/dL C-Reactive Protein (<1.0) mg/dL Total Protein (6.3-8.2) g/dL Albumin (3.5-5.0) g/dL 10/04/22 10/04/22 Range/Units 09:19 09:19 WBC 14.8 H (3.8-10.6) k/uL RBC 3.72 L (3.80-5.40) m/uL Hgb 10.3 L (11.4-16.0) gm/dL Hct 32.9 L (34.0-46.0) % RDW 15.7 H (11.5-15.5) % Neutrophils # 12.1 H (1.3-7.7) k/uL Potassium (3.5-5.1) mmol/L Chloride 113 H (98-107) mmol/L BUN (7-17) mg/dL Glucose 209 H (74-99) mg/dL POC Glucose (mg/dL) (70-110) mg/dL Calcium 7.5 L (8.4-10.2) mg/dL Phosphorus 1.9 L (2.5-4.5) mg/dL C-Reactive Protein 1.0 H (<1.0) mg/dL Total Protein 4.0 L (6.3-8.2) g/dL Albumin 1.7 L (3.5-5.0) g/dL
--- NOTE | 2022-10-04 16:15 | P.PN ---
Subjective Progress Note Date: 10/04/22 Principal diagnosis: Postop abscess, medullary colon carcinoma In follow-up today patient is in the chair, both of her arms or feeling really heavy and swollen, she is tolerating some liquids so far. No fevers, nausea, vomiting, shortness of breath, her abdominal discomfort to palpation is not unrealistic. Objective - Vital Signs Vital signs: Vital Signs Temp 98.1 F 10/04/22 12:00 Pulse 89 10/04/22 12:00 Resp 18 10/04/22 12:00 BP 142/66 10/04/22 12:00 Pulse Ox 96 10/04/22 12:00 FiO2 Intake & Output 10/03/22 10/04/22 10/04/22 18:59 06:59 18:59 Intake Total 298 Output Total 90 740 40 Balance -90 -740 258 Weight 98 kg Intake: Oral 298 Output: Drainage 90 40 40 Right Anterior Medial 90 40 40 Abdomen Urine 700 Uretheral (Orantes) 700 Other: Voiding Method Indwelling Catheter Indwelling Catheter Indwelling Catheter # Bowel Movements 1 1 - Constitutional General appearance: Present: cooperative, mild distress, obese - EENT Eyes: Present: anicteric sclerae, EOMI ENT: Present: hearing grossly normal - Respiratory Respiratory: bilateral: CTA (Weak inspiratory effort) - Cardiovascular Rhythm: regular - Peripheral edema leg Peripheral Edema: bilateral: 2+ - Gastrointestinal General gastrointestinal: Present: decreased bowel sounds, soft - Neurologic Neurologic: Present: CNII-XII intact - Musculoskeletal Musculoskeletal: Present: generalized weakness - Psychiatric Psychiatric: Present: A&O x's 3, appropriate affect, intact judgment & insight - Labs CBC & Chem 7: 10/04/22 09:19 10/04/22 09:19 Labs: Abnormal Lab Results - Last 24 Hours (Table) 10/03/22 10/03/22 10/03/22 Range/Units 15:24 16:44 19:28 WBC (3.8-10.6) k/uL RBC (3.80-5.40) m/uL Hgb (11.4-16.0) gm/dL Hct (34.0-46.0) % RDW (11.5-15.5) % Neutrophils # (1.3-7.7) k/uL Potassium 6.1 H* 5.4 H (3.5-5.1) mmol/L Chloride 118 H (98-107) mmol/L BUN 20 H (7-17) mg/dL Glucose 167 H (74-99) mg/dL POC Glucose (mg/dL) 199 H (70-110) mg/dL Calcium 7.7 L (8.4-10.2) mg/dL Phosphorus (2.5-4.5) mg/dL C-Reactive Protein (<1.0) mg/dL Total Protein (6.3-8.2) g/dL Albumin (3.5-5.0) g/dL 10/03/22 10/04/22 10/04/22 Range/Units 20:42 06:15 09:19 WBC 14.8 H (3.8-10.6) k/uL RBC 3.72 L (3.80-5.40) m/uL Hgb 10.3 L (11.4-16.0) gm/dL Hct 32.9 L (34.0-46.0) % RDW 15.7 H (11.5-15.5) % Neutrophils # 12.1 H (1.3-7.7) k/uL Potassium (3.5-5.1) mmol/L Chloride (98-107) mmol/L BUN (7-17) mg/dL Glucose (74-99) mg/dL POC Glucose (mg/dL) 200 H 163 H (70-110) mg/dL Calcium (8.4-10.2) mg/dL Phosphorus (2.5-4.5) mg/dL C-Reactive Protein (<1.0) mg/dL Total Protein (6.3-8.2) g/dL Albumin (3.5-5.0) g/dL 10/04/22 10/04/22 Range/Units 09:19 11:31 WBC (3.8-10.6) k/uL RBC (3.80-5.40) m/uL Hgb (11.4-16.0) gm/dL Hct (34.0-46.0) % RDW (11.5-15.5) % Neutrophils # (1.3-7.7) k/uL Potassium (3.5-5.1) mmol/L Chloride 113 H (98-107) mmol/L BUN (7-17) mg/dL Glucose 209 H (74-99) mg/dL POC Glucose (mg/dL) 247 H (70-110) mg/dL Calcium 7.5 L (8.4-10.2) mg/dL Phosphorus 1.9 L (2.5-4.5) mg/dL C-Reactive Protein 1.0 H (<1.0) mg/dL Total Protein 4.0 L (6.3-8.2) g/dL Albumin 1.7 L (3.5-5.0) g/dL Assessment and Plan (1) Abscess of abdominal wall Current Visit: Yes Status: Acute Priority: High Code(s): L02.211 - CUTANEOUS ABSCESS OF ABDOMINAL WALL SNOMED Code(s): 35500133 (2) Medullary carcinoma Current Visit: Yes Status: Acute Priority: High Code(s): C80.1 - MALIGNANT (PRIMARY) NEOPLASM, UNSPECIFIED SNOMED Code(s): 784927894 (3) History of right mastectomy Current Visit: No Status: Chronic Priority: Low Code(s): Z90.11 - ACQUIRED ABSENCE OF RIGHT BREAST AND NIPPLE SNOMED Code(s): 027670583 Plan: Abscess of the abdominal wall -Status post surgical procedure for perforated tumor with abscess -On antibiotics. -Surgery and ID following Medullary: Cancer -pT4a, N2a. Staging PET scan Scheduled for 10/22/22 at 2:30 -Sending tumor specimen for NGS and PD-L1 testing -Follow-up with Dr. Thomas in the discharge plan -Reviewed office notes, no previous genetic testing done, this will be planned as appropriate. Patient encouraged to eat and ambulate
[2022-10-04 16:50] LABS: Glucose,Whole Blood 256 mg/dL (70-110)
[2022-10-04 20:35] LABS: Glucose,Whole Blood 294 mg/dL (70-110)
[2022-10-05] MEDS: LEVOTHYROXINE 75 MCG TAB PO SCH (06:02)
[2022-10-05] MEDS: CALCIUM CARB-VIT D 500 MG-5 MCG TAB PO SCH ×2 (06:02→18:04)
[2022-10-05 06:12] LABS: Glucose,Whole Blood 168 mg/dL (70-110)
[2022-10-05] MEDS: INSULIN ASPART (NovoLOG) 100 UNIT/ML VIAL SQ SCH ×4 (06:15→20:50)
[2022-10-05 07:51] LABS: Basophils # (A) 0.1 k/uL (0-0.2); Basophils % (A) 1 %; Eosinophils # (A) 0.4 k/uL (0-0.7); Eosinophils % (A) 3 %; HCT 32.2 % (34.0-46.0); HGB 10.6 gm/dL (11.4-16.0); Hypochromasia Slight; Lymphocytes # (A) 1.1 k/uL (1.0-4.8); Lymphocytes % (A) 8 %; MCH 28.2 pg (25.0-35.0); MCHC 32.8 g/dL (31.0-37.0); MCV 85.7 fL (80.0-100.0); Mean Platelet Volume 10.4; Monocytes # (A) 0.8 k/uL (0-1.0); Monocytes % (A) 6 %; Neutrophils # (A) 11.5 k/uL (1.3-7.7); Neutrophils % (A) 82 %; Platelet Count 302 k/uL (150-450); RBC 3.76 m/uL (3.80-5.40); RDW 15.6 % (11.5-15.5)
[2022-10-05 08:15] LABS: African American GFR (CKD) 81 (>60 ml/min/1.73 sqM); Anion Gap 2 mmol/L; Blood Urea Nitrogen 12 mg/dL (7-17); Calcium 7.6 mg/dL (8.4-10.2); Carbon Dioxide 28 mmol/L (22-30); Chloride 111 mmol/L (98-107); Glucose 163 mg/dL (74-99); Magnesium 1.5 mg/dL (1.6-2.3); Non-African American GFR(CKD) 70 (>60 ml/min/1.73 sqM); Potassium 3.7 mmol/L (3.5-5.1); Sodium 141 mmol/L (137-145)
[2022-10-05] MEDS: PANTOPRAZOLE 40 MG/10 ML VIAL IVP SCH (08:16)
[2022-10-05] MEDS: PIPERACILLIN-TAZOBACTAM 3.375 GM in SODIUM CHLORIDE 0.9% 100 ML IVPB SCH ×2 (08:17→18:34)
[2022-10-05] MEDS: HEPARIN SODIUM,PORCINE 5,000 UNIT/ML 1 ML VIAL SQ SCH ×2 (08:17→20:50)
[2022-10-05] MEDS: DEXTROSE 5% IN WATER 1,000 ML IV SCH (08:23)
[2022-10-05] MEDS: ANASTROZOLE 1 MG TAB PO SCH (08:24)
[2022-10-05 11:26] LABS: Glucose,Whole Blood 168 mg/dL (70-110)
--- NOTE | 2022-10-05 11:28 | P.PN ---
Subjective Patient seen in follow-up for hyponatremia. Sodium level better. Currently on D5W. On full liquid diet. Vital signs are stable. General: No acute distress. Resting in bed. HEENT: Head exam is unremarkable. LUNGS: No audible rhonchi or wheezes. HEART: Rate and Rhythm are regular. ABDOMEN: SULMA drain noted. EXTREMITITES: No edema. Objective - Vital Signs Vital signs: Vital Signs Temp 97.9 F 10/05/22 07:50 Pulse 84 10/05/22 07:50 Resp 17 10/05/22 07:50 BP 167/72 10/05/22 07:50 Pulse Ox 98 10/05/22 07:50 FiO2 Intake & Output 10/04/22 10/05/22 10/05/22 18:59 06:59 18:59 Intake Total 298 59 Output Total 480 630 Balance -182 -630 59 Weight 98 kg Intake: Oral 298 59 Output: Drainage 280 130 Right Anterior Medial 280 130 Abdomen Urine 200 500 Other: Voiding Method Indwelling Catheter Indwelling Catheter # Bowel Movements 1 1 - Labs CBC & Chem 7: 10/05/22 07:21 10/05/22 07:21 Labs: Abnormal Lab Results - Last 24 Hours (Table) 10/04/22 10/04/22 10/04/22 Range/Units 11:31 16:48 20:31 WBC (3.8-10.6) k/uL RBC (3.80-5.40) m/uL Hgb (11.4-16.0) gm/dL Hct (34.0-46.0) % RDW (11.5-15.5) % Neutrophils # (1.3-7.7) k/uL Chloride (98-107) mmol/L Glucose (74-99) mg/dL POC Glucose (mg/dL) 247 H 256 H 294 H (70-110) mg/dL Calcium (8.4-10.2) mg/dL Magnesium (1.6-2.3) mg/dL 10/05/22 10/05/22 10/05/22 Range/Units 06:11 07:21 07:21 WBC 14.0 H (3.8-10.6) k/uL RBC 3.76 L (3.80-5.40) m/uL Hgb 10.6 L (11.4-16.0) gm/dL Hct 32.2 L (34.0-46.0) % RDW 15.6 H (11.5-15.5) % Neutrophils # 11.5 H (1.3-7.7) k/uL Chloride 111 H (98-107) mmol/L Glucose 163 H (74-99) mg/dL POC Glucose (mg/dL) 168 H (70-110) mg/dL Calcium 7.6 L (8.4-10.2) mg/dL Magnesium 1.5 L (1.6-2.3) mg/dL Assessment and Plan Plan: Assessment: 1. Acute kidney injury secondary to hemodynamic ATN. Improved. 2. Hypernatremia from lack of oral water intake. Improving with D5W. 3. Colitis with perforation abdominal wall abscess status post laparotomy with colonic resection. Surgery following. 4. Diabetes mellitus. 5. Hypophosphatemia from poor intake. Replaced. 6. Hypomagnesemia from poor intake. Being replaced. Plan: Hep-Lock IV fluids. Repeat phosphorus level today. Replaced electrolytes needed.
--- NOTE | 2022-10-05 13:37 | P.PN ---
Subjective Progress Note Date: 10/05/22 Principal diagnosis: Postop abscess, medullary colon carcinoma In follow-up today patient is in Bed, her upper extremities are severely swollen, right looks worse than the left, she had dry heaves this morning, her abdomen is sore but she is not reporting unrealistic abdominal pain, she reports bowel movement. Objective - Vital Signs Vital signs: Vital Signs Temp 97.9 F 10/05/22 07:50 Pulse 84 10/05/22 07:50 Resp 17 10/05/22 07:50 BP 167/72 10/05/22 07:50 Pulse Ox 98 10/05/22 07:50 FiO2 Intake & Output 10/04/22 10/05/22 10/05/22 18:59 06:59 18:59 Intake Total 298 59 Output Total 480 630 Balance -182 -630 59 Weight 98 kg Intake: Oral 298 59 Output: Drainage 280 130 Right Anterior Medial 280 130 Abdomen Urine 200 500 Other: Voiding Method Indwelling Catheter Indwelling Catheter # Bowel Movements 1 1 - Constitutional General appearance: Present: cooperative, no acute distress, obese - EENT Eyes: Present: anicteric sclerae ENT: Present: hearing grossly normal - Respiratory Respiratory: bilateral: CTA - Cardiovascular Rhythm: regular Abnormal Heart Sounds: Present: systolic murmur - Peripheral edema leg Peripheral Edema: bilateral: 3+, Pitting, Other (Upper extremities severely/4+ pitting edema) - Gastrointestinal General gastrointestinal: Present: normal bowel sounds, soft - Neurologic Neurologic: Present: CNII-XII intact - Musculoskeletal Musculoskeletal: Present: generalized weakness - Psychiatric Psychiatric: Present: A&O x's 3, appropriate affect - Labs CBC & Chem 7: 10/05/22 07:21 10/05/22 07:21 Labs: Abnormal Lab Results - Last 24 Hours (Table) 10/04/22 10/04/22 10/05/22 Range/Units 16:48 20:31 06:11 WBC (3.8-10.6) k/uL RBC (3.80-5.40) m/uL Hgb (11.4-16.0) gm/dL Hct (34.0-46.0) % RDW (11.5-15.5) % Neutrophils # (1.3-7.7) k/uL Chloride (98-107) mmol/L Glucose (74-99) mg/dL POC Glucose (mg/dL) 256 H 294 H 168 H (70-110) mg/dL Calcium (8.4-10.2) mg/dL Phosphorus (2.5-4.5) mg/dL Magnesium (1.6-2.3) mg/dL 10/05/22 10/05/22 10/05/22 Range/Units 07:21 07:21 07:21 WBC 14.0 H (3.8-10.6) k/uL RBC 3.76 L (3.80-5.40) m/uL Hgb 10.6 L (11.4-16.0) gm/dL Hct 32.2 L (34.0-46.0) % RDW 15.6 H (11.5-15.5) % Neutrophils # 11.5 H (1.3-7.7) k/uL Chloride 111 H (98-107) mmol/L Glucose 163 H (74-99) mg/dL POC Glucose (mg/dL) (70-110) mg/dL Calcium 7.6 L (8.4-10.2) mg/dL Phosphorus 2.2 L (2.5-4.5) mg/dL Magnesium 1.5 L (1.6-2.3) mg/dL 10/05/22 Range/Units 11:24 WBC (3.8-10.6) k/uL RBC (3.80-5.40) m/uL Hgb (11.4-16.0) gm/dL Hct (34.0-46.0) % RDW (11.5-15.5) % Neutrophils # (1.3-7.7) k/uL Chloride (98-107) mmol/L Glucose (74-99) mg/dL POC Glucose (mg/dL) 168 H (70-110) mg/dL Calcium (8.4-10.2) mg/dL Phosphorus (2.5-4.5) mg/dL Magnesium (1.6-2.3) mg/dL Assessment and Plan (1) Abscess of abdominal wall Current Visit: Yes Status: Acute Priority: High Code(s): L02.211 - CUTANEOUS ABSCESS OF ABDOMINAL WALL SNOMED Code(s): 33543517 (2) Medullary carcinoma Current Visit: Yes Status: Acute Priority: High Code(s): C80.1 - MALIGNANT (PRIMARY) NEOPLASM, UNSPECIFIED SNOMED Code(s): 758441910 (3) History of right mastectomy Current Visit: No Status: Chronic Priority: Low Code(s): Z90.11 - ACQUIRED ABSENCE OF RIGHT BREAST AND NIPPLE SNOMED Code(s): 834295422 Plan: Abscess of the abdominal wall -Status post surgical procedure for perforated tumor with abscess -On antibiotics. -Surgery and ID following Medullary colon carcinoma -pT4a, N2a. Staging PET 10/22/22 at 2:30 -Tumor specimen requested to be sent for NGS and PD-L1 testing -Follow-up with Dr. Thomas in the discharge plan -Germline genetic testing will be planned outpt Breast cancer -History of -Continue on Arimidex
--- NOTE | 2022-10-05 14:07 | P.PN ---
Subjective Progress Note Date: 10/05/22 82 years old female with multiple medical problems including hypothyroidism, hypertension, osteoporosis, diabetes mellitus and history of breast cancer. Presents with signs and symptoms of colitis with abdominal wall abscess. With evidence of acute kidney injury present on admission. Patient as well as by several consultants. Patient currently continued on broad-spectrum antibiotic with Flagyl and Zosyn. Also she is on D5 half normal saline at 1 25 mL/h. Patient is very lethargic and weak and she Answers with One or 2 words, Chest complaining of from tenderness in the right side of the abdomen. Surgical wound is closed and healing. She is status post right colectomy. Today is postoperative day #1. Vitas looks stable Labs from today are pending 09/28/2022 Patient is awake but very lethargic. However she is oriented to time place and person and she has an site. Still complaining of from right-sided abdominal pain. No bowel movements. She feels dry but she is on D5 0.9 infusion. Also she is covered currently with Flagyl and Zosyn and wound culture is growing potassium streptococci. 09/29/2022 Patient complaining of from right-sided abdominal pain at the surgical site before she receives her pain medication this morning. Wound VAC is in place. She still has an NG tube. She has occasional cough from today Labs are still pending She remains on IV fluid D5 half-normal saline at 100 mL/h 3 : Patient is status postoperative day 3 right colectomy for right colon tumor. Continue patient on IV fluid, continue nothing by mouth, does complain of abdominal pain 10/01: Patient is status postoperative day 4, seen and evaluated and bedside. IV fluids changed to D5, 0.45 saline secondary to hyponatremia. Patient is nothing by mouth. Pathology results reviewed and oncology consulted. 10/02: Patient is postoperative day 5, family at bedside and discussed care plan with , biopsy results discussed with her as well. Patient continues to remain in multiple comorbidities. Patient was seen by oncology as well. Plan to start TPN once PICC line placed. We'll follow up on CBC and basic metabolic panel 10/03: Patient evaluated for [id number] less distress at this time. Plan for PICC line placement and initiation of TPN 10/04 , continue IV Unasyn for intra-abdominal infection, expect prolonged hospital stay followed by oncology as well might need LTAC 10/04. Patient seen and examined. Diet advanced to full liquid 10/05. Patient seen and examined. Sitting upright in the chair. Blood work done this morning showed WBC 14, hemoglobin 10.6, sodium 141, potassium 3.7, BUN 12, creatinine 0.79, magnesium 1.5. Magnesium replacement ordered REVIEW OF SYSTEMS: CONSTITUTIONAL: No fever, no malaise,. CARDIOVASCULAR: No chest pain, no palpitations, no syncope. PULMONARY: No shortness of breath, no cough, GASTROINTESTINAL: No diarrhea, no nausea, no vomiting, no abdominal pain. NEUROLOGICAL: No headaches, no weakness, PHYSICAL EXAMINATION: GENERAL: The patient is alert and oriented x3, not in any acute distress. Well developed, well nourished. HEENT: Pupils are round and equally reacting to light. EOMI. No scleral icterus. No conjunctival pallor. Normocephalic, atraumatic. No pharyngeal erythema. No thyromegaly. CARDIOVASCULAR: S1 and S2 present. No murmurs, rubs, or gallops. PULMONARY: Chest is clear to auscultation, no wheezing or crackles. ABDOMEN: Soft, tender, laparotomy surgical incision seen, drain in place MUSCULOSKELETAL: No joint swelling or deformity. EXTREMITIES: No cyanosis, clubbing, or pedal edema. NEUROLOGICAL: Gross neurological examination did not reveal any focal deficits. SKIN: No rashes. Assessment and plan Acute ascending colitis with perforation and abdominal wall abscess status post right hemicolectomy. Today is postoperative day # 5 * Invasive medullary carcinoma of colon * Intra-abdominal abscess secondary to growth C strep * Acute kidney injury * Acute hypernatremia * Severe protein calorie malnutrition * Metabolic/toxic encephalopathy secondary to above * Diabetes mellitus TYPE 2 * Hypertension * History of osteoarthritis * Hypothyroidism Plan: * Consult obtained from general surgery, infectious disease, nephrology * Magnesium level this morning is 1.5, replacement ordered * Antibiotics per infectious disease, currently on iv Zosyn * Patient underwent abdominal surgery with Dr. Sorenson and had a right colectomy. Biopsy revealed invasive medullary carcinoma. Resection margins negative for malignancy with 4 of 16 mesenteric lymph nodes positive for metastasis. Oncology following, diet advanced to full liquid * Continue pain control, nausea * Right arm swelling ulnegative for DVT * Labs and medication were reviewed * On subcu heparin for DVT prophylaxis Labs and medication were reviewed.. Continue same treatment. Continue with symptomatic treatment. Resume home medication. Monitor labs and vitals. DVT and GI prophylaxis. Further recommendations as per clinical course of the patient Dictation was produced using [email or web address] dictation software. please excuse any grammatical, word or spelling errors. Objective - Vital Signs Vital signs: Vital Signs Temp 97.9 F 10/05/22 07:50 Pulse 84 10/05/22 07:50 Resp 17 10/05/22 07:50 BP 167/72 10/05/22 07:50 Pulse Ox 98 10/05/22 07:50 FiO2 Intake & Output 10/04/22 10/05/22 10/05/22 18:59 06:59 18:59 Intake Total 298 59 Output Total 480 630 Balance -182 -630 59 Weight 98 kg Intake: Oral 298 59 Output: Drainage 280 130 Right Anterior Medial 280 130 Abdomen Urine 200 500 Other: Voiding Method Indwelling Catheter Indwelling Catheter # Bowel Movements 1 1 - Labs CBC & Chem 7: 10/05/22 07:21 10/05/22 07:21 Labs: Abnormal Lab Results - Last 24 Hours (Table) 10/04/22 10/04/22 10/04/22 Range/Units 09:19 09:19 11:31 WBC 14.8 H (3.8-10.6) k/uL RBC 3.72 L (3.80-5.40) m/uL Hgb 10.3 L (11.4-16.0) gm/dL Hct 32.9 L (34.0-46.0) % RDW 15.7 H (11.5-15.5) % Neutrophils # 12.1 H (1.3-7.7) k/uL Chloride 113 H (98-107) mmol/L Glucose 209 H (74-99) mg/dL POC Glucose (mg/dL) 247 H (70-110) mg/dL Calcium 7.5 L (8.4-10.2) mg/dL Phosphorus 1.9 L (2.5-4.5) mg/dL Magnesium (1.6-2.3) mg/dL C-Reactive Protein 1.0 H (<1.0) mg/dL Total Protein 4.0 L (6.3-8.2) g/dL Albumin 1.7 L (3.5-5.0) g/dL 10/04/22 10/04/22 10/05/22 Range/Units 16:48 20:31 06:11 WBC (3.8-10.6) k/uL RBC (3.80-5.40) m/uL Hgb (11.4-16.0) gm/dL Hct (34.0-46.0) % RDW (11.5-15.5) % Neutrophils # (1.3-7.7) k/uL Chloride (98-107) mmol/L Glucose (74-99) mg/dL POC Glucose (mg/dL) 256 H 294 H 168 H (70-110) mg/dL Calcium (8.4-10.2) mg/dL Phosphorus (2.5-4.5) mg/dL Magnesium (1.6-2.3) mg/dL C-Reactive Protein (<1.0) mg/dL Total Protein (6.3-8.2) g/dL Albumin (3.5-5.0) g/dL 10/05/22 10/05/22 Range/Units 07:21 07:21 WBC 14.0 H (3.8-10.6) k/uL RBC 3.76 L (3.80-5.40) m/uL Hgb 10.6 L (11.4-16.0) gm/dL Hct 32.2 L (34.0-46.0) % RDW 15.6 H (11.5-15.5) % Neutrophils # 11.5 H (1.3-7.7) k/uL Chloride 111 H (98-107) mmol/L Glucose 163 H (74-99) mg/dL POC Glucose (mg/dL) (70-110) mg/dL Calcium 7.6 L (8.4-10.2) mg/dL Phosphorus (2.5-4.5) mg/dL Magnesium 1.5 L (1.6-2.3) mg/dL C-Reactive Protein (<1.0) mg/dL Total Protein (6.3-8.2) g/dL Albumin (3.5-5.0) g/dL
[2022-10-05] MEDS: MAGNESIUM SULFATE-D5W PMX 1 GM in DEXTROSE/WATER 1 100ML.BAG IVPB SCH ×4 (15:50→23:14)
--- NOTE | 2022-10-05 15:53 | P.PN ---
Subjective Progress Note Date: 10/05/22 CHIEF COMPLAINT: Colon mass HISTORY OF PRESENT ILLNESS: Patient is postop day #9 status post right colectomy for right colon tumor with perforation into the abdominal wall causing abscess. Patient lying in bed comfortably. She has been having bowel movements and flatus. Denies any nausea or vomiting. Pathology results show medullary cancer of the colon. She is followed by oncology service. Afebrile. WBC is 14 HB 10.6 magnesium 1.5 and being replaced PHYSICAL EXAM: VITAL SIGNS: Reviewed. GENERAL: Well-developed in no acute distress. ABDOMEN: Soft. Nondistended. Dressing was removed. Incision site is clean dry and intact. NEUROLOGIC: Alert and oriented. Cranial nerves II through XII grossly intact. ASSESSMENT: 1. Right colon tumor with perforation into the abdominal wall causing abscess status post right colectomy PLAN: -Advance diet to low fiber -Continue pain management -Continue antibiotics -Encouraged patient to use incentive spirometer -Encouraged patient to increase activity level -Continue to work with PT OT -Patient will need ECF at discharge -GI prophylaxis Protonix and DVT prophylaxis subcu heparin Physician Obstetrician And Gynaecologist note has been reviewed by physician. Signing provider agrees with the documented findings, assessment, and plan of care. Objective - Vital Signs Vital signs: Vital Signs Temp 97.9 F 10/05/22 07:50 Pulse 84 10/05/22 07:50 Resp 17 10/05/22 07:50 BP 167/72 10/05/22 07:50 Pulse Ox 98 10/05/22 07:50 FiO2 Intake & Output 10/04/22 10/05/22 10/05/22 18:59 06:59 18:59 Intake Total 298 59 Output Total 480 630 Balance -182 -630 59 Weight 98 kg Intake: Oral 298 59 Output: Drainage 280 130 Right Anterior Medial 280 130 Abdomen Urine 200 500 Other: Voiding Method Indwelling Catheter Indwelling Catheter # Bowel Movements 1 1 - Labs CBC & Chem 7: 10/05/22 07:21 10/05/22 07:21 Labs: Abnormal Lab Results - Last 24 Hours (Table) 10/04/22 10/04/22 10/05/22 Range/Units 16:48 20:31 06:11 WBC (3.8-10.6) k/uL RBC (3.80-5.40) m/uL Hgb (11.4-16.0) gm/dL Hct (34.0-46.0) % RDW (11.5-15.5) % Neutrophils # (1.3-7.7) k/uL Chloride (98-107) mmol/L Glucose (74-99) mg/dL POC Glucose (mg/dL) 256 H 294 H 168 H (70-110) mg/dL Calcium (8.4-10.2) mg/dL Phosphorus (2.5-4.5) mg/dL Magnesium (1.6-2.3) mg/dL 10/05/22 10/05/22 10/05/22 Range/Units 07:21 07:21 07:21 WBC 14.0 H (3.8-10.6) k/uL RBC 3.76 L (3.80-5.40) m/uL Hgb 10.6 L (11.4-16.0) gm/dL Hct 32.2 L (34.0-46.0) % RDW 15.6 H (11.5-15.5) % Neutrophils # 11.5 H (1.3-7.7) k/uL Chloride 111 H (98-107) mmol/L Glucose 163 H (74-99) mg/dL POC Glucose (mg/dL) (70-110) mg/dL Calcium 7.6 L (8.4-10.2) mg/dL Phosphorus 2.2 L (2.5-4.5) mg/dL Magnesium 1.5 L (1.6-2.3) mg/dL 10/05/22 Range/Units 11:24 WBC (3.8-10.6) k/uL RBC (3.80-5.40) m/uL Hgb (11.4-16.0) gm/dL Hct (34.0-46.0) % RDW (11.5-15.5) % Neutrophils # (1.3-7.7) k/uL Chloride (98-107) mmol/L Glucose (74-99) mg/dL POC Glucose (mg/dL) 168 H (70-110) mg/dL Calcium (8.4-10.2) mg/dL Phosphorus (2.5-4.5) mg/dL Magnesium (1.6-2.3) mg/dL
[2022-10-05 16:42] LABS: Glucose,Whole Blood 167 mg/dL (70-110)
--- NOTE | 2022-10-05 16:46 | P.PN ---
Subjective Progress Note Date: 10/04/22 Principal diagnosis: Perforated colon Intra-abdominal abscess Patient is a 82-year-old female with a past medical history significant for diabetes mellitus hypertension history of uterine cancer and bilateral breast CA presenting to the hospital for evaluation of right-sided abdominal pain ,CT abdominal pelvis thickening of the ascending colon with mesenteric lymph node and soft tissue heterogeneous material within the right abdominal wall, a shunt was taken to the OR and the patient is status post laparotomy noticed to have right colon tumor with perforation into abdominal wall causing abscess which was drained but no culture were done. On today's evaluation that is 10/04/2022 the patient continues to be afebrile, patient is breathing comfortably on a 3 L nasal cannula oxygen patient denies any chest pain or shortness of breath occasional cough abdominal pain has slightly decreased tolerating her diet Patient white count is down to 14.8, creatinine 0.85, blood culture negative abdominal culture positive for beta-hemolytic strep C Objective - Vital Signs Vital signs: Vital Signs Temp 98.1 F 10/04/22 12:00 Pulse 89 10/04/22 12:00 Resp 18 10/04/22 12:00 BP 142/66 10/04/22 12:00 Pulse Ox 96 10/04/22 12:00 FiO2 Intake & Output 10/03/22 10/04/22 10/04/22 18:59 06:59 18:59 Intake Total 180 Output Total 90 740 40 Balance -90 -740 140 Intake: Oral 180 Output: Drainage 90 40 40 Right Anterior Medial 90 40 40 Abdomen Urine 700 Uretheral ([place]) 700 Other: Voiding Method Indwelling Catheter Indwelling Catheter Indwelling Catheter # Bowel Movements 1 1 - Exam GENERAL DESCRIPTION: An elderly female lying in bed in no distress RESPIRATORY SYSTEM: Unlabored breathing , decreased breath sounds at bases HEART: S1 S2 regular rate and rhythm , ABDOMEN: Soft , abdominal distention and tenderness EXTREMITIES: No edema feet - Labs CBC & Chem 7: 10/05/22 07:21 10/05/22 07:21 Labs: Abnormal Lab Results - Last 24 Hours (Table) 10/03/22 10/03/22 10/03/22 Range/Units 15:24 16:44 19:28 WBC (3.8-10.6) k/uL RBC (3.80-5.40) m/uL Hgb (11.4-16.0) gm/dL Hct (34.0-46.0) % RDW (11.5-15.5) % Neutrophils # (1.3-7.7) k/uL Potassium 6.1 H* 5.4 H (3.5-5.1) mmol/L Chloride 118 H (98-107) mmol/L BUN 20 H (7-17) mg/dL Glucose 167 H (74-99) mg/dL POC Glucose (mg/dL) 199 H (70-110) mg/dL Calcium 7.7 L (8.4-10.2) mg/dL Phosphorus (2.5-4.5) mg/dL C-Reactive Protein (<1.0) mg/dL Total Protein (6.3-8.2) g/dL Albumin (3.5-5.0) g/dL 10/03/22 10/04/22 10/04/22 Range/Units 20:42 06:15 09:19 WBC 14.8 H (3.8-10.6) k/uL RBC 3.72 L (3.80-5.40) m/uL Hgb 10.3 L (11.4-16.0) gm/dL Hct 32.9 L (34.0-46.0) % RDW 15.7 H (11.5-15.5) % Neutrophils # 12.1 H (1.3-7.7) k/uL Potassium (3.5-5.1) mmol/L Chloride (98-107) mmol/L BUN (7-17) mg/dL Glucose (74-99) mg/dL POC Glucose (mg/dL) 200 H 163 H (70-110) mg/dL Calcium (8.4-10.2) mg/dL Phosphorus (2.5-4.5) mg/dL C-Reactive Protein (<1.0) mg/dL Total Protein (6.3-8.2) g/dL Albumin (3.5-5.0) g/dL 10/04/22 10/04/22 Range/Units 09:19 11:31 WBC (3.8-10.6) k/uL RBC (3.80-5.40) m/uL Hgb (11.4-16.0) gm/dL Hct (34.0-46.0) % RDW (11.5-15.5) % Neutrophils # (1.3-7.7) k/uL Potassium (3.5-5.1) mmol/L Chloride 113 H (98-107) mmol/L BUN (7-17) mg/dL Glucose 209 H (74-99) mg/dL POC Glucose (mg/dL) 247 H (70-110) mg/dL Calcium 7.5 L (8.4-10.2) mg/dL Phosphorus 1.9 L (2.5-4.5) mg/dL C-Reactive Protein 1.0 H (<1.0) mg/dL Total Protein 4.0 L (6.3-8.2) g/dL Albumin 1.7 L (3.5-5.0) g/dL Assessment and Plan (1) Intra-abdominal abscess Current Visit: Yes Status: Acute Code(s): K65.1 - PERITONEAL ABSCESS SNOMED Code(s): 84184505 Plan: 1patient present to hospital with right upper quadrant abdominal pain in this patient with elevated white count and abnormal CT high clinic suspicious for possible malignancy with contained perforation clinically doubt abdominal wall abscess and will need to cover for the enteric gram-negative both aerobes and an aerobes, the patient is status post laparotomy with right colectomy and drainage of the abscess, cultures obtained from the drainage catheter yesterday and currently pending 2-patient is afebrile, patient white count is trending down with adjustment of antibiotic to Zosyn to continue and monitor clinical course closely Dictation was produced using [employer] dictation software. please excuse any gra mmatical, word or spelling errors. Time with Patient: Less than 30
--- NOTE | 2022-10-05 16:48 | P.PN ---
Subjective Progress Note Date: 10/05/22 Principal diagnosis: Perforated colon Intra-abdominal abscess Patient is a 82-year-old female with a past medical history significant for diabetes mellitus hypertension history of uterine cancer and bilateral breast CA presenting to the hospital for evaluation of right-sided abdominal pain ,CT abdominal pelvis thickening of the ascending colon with mesenteric lymph node and soft tissue heterogeneous material within the right abdominal wall, a shunt was taken to the OR and the patient is status post laparotomy noticed to have right colon tumor with perforation into abdominal wall causing abscess which was drained but no culture were done. On today's evaluation that is 10/05/2022 the patient denies any fever or any chills, patient is complaining of shortness of breath and a dry cough , patient however is currently down to 2L nasal cannula oxygen patient denies any chest pain, the patient abdominal pain has slightly decreased tolerating her diet Patient white count is down to 14.0, creatinine 0.79, blood culture negative abdominal culture positive for beta-hemolytic strep C Objective - Vital Signs Vital signs: Vital Signs Temp 97.9 F 10/05/22 07:50 Pulse 84 10/05/22 07:50 Resp 17 10/05/22 07:50 BP 167/72 10/05/22 07:50 Pulse Ox 98 10/05/22 07:50 FiO2 Intake & Output 10/04/22 10/05/22 10/05/22 18:59 06:59 18:59 Intake Total 298 59 Output Total 480 630 Balance -182 -630 59 Weight 98 kg Intake: Oral 298 59 Output: Drainage 280 130 Right Anterior Medial 280 130 Abdomen Urine 200 500 Other: Voiding Method Indwelling Catheter Indwelling Catheter # Bowel Movements 1 1 - Exam GENERAL DESCRIPTION: An elderly female lying in bed in no distress RESPIRATORY SYSTEM: Unlabored breathing , decreased breath sounds at bases HEART: S1 S2 regular rate and rhythm , ABDOMEN: Soft , abdominal distention and tenderness EXTREMITIES: No edema feet - Labs CBC & Chem 7: 10/05/22 07:21 10/05/22 07:21 Labs: Abnormal Lab Results - Last 24 Hours (Table) 10/04/22 10/04/22 10/05/22 Range/Units 16:48 20:31 06:11 WBC (3.8-10.6) k/uL RBC (3.80-5.40) m/uL Hgb (11.4-16.0) gm/dL Hct (34.0-46.0) % RDW (11.5-15.5) % Neutrophils # (1.3-7.7) k/uL Chloride (98-107) mmol/L Glucose (74-99) mg/dL POC Glucose (mg/dL) 256 H 294 H 168 H (70-110) mg/dL Calcium (8.4-10.2) mg/dL Phosphorus (2.5-4.5) mg/dL Magnesium (1.6-2.3) mg/dL 10/05/22 10/05/22 10/05/22 Range/Units 07:21 07:21 07:21 WBC 14.0 H (3.8-10.6) k/uL RBC 3.76 L (3.80-5.40) m/uL Hgb 10.6 L (11.4-16.0) gm/dL Hct 32.2 L (34.0-46.0) % RDW 15.6 H (11.5-15.5) % Neutrophils # 11.5 H (1.3-7.7) k/uL Chloride 111 H (98-107) mmol/L Glucose 163 H (74-99) mg/dL POC Glucose (mg/dL) (70-110) mg/dL Calcium 7.6 L (8.4-10.2) mg/dL Phosphorus 2.2 L (2.5-4.5) mg/dL Magnesium 1.5 L (1.6-2.3) mg/dL 10/05/22 Range/Units 11:24 WBC (3.8-10.6) k/uL RBC (3.80-5.40) m/uL Hgb (11.4-16.0) gm/dL Hct (34.0-46.0) % RDW (11.5-15.5) % Neutrophils # (1.3-7.7) k/uL Chloride (98-107) mmol/L Glucose (74-99) mg/dL POC Glucose (mg/dL) 168 H (70-110) mg/dL Calcium (8.4-10.2) mg/dL Phosphorus (2.5-4.5) mg/dL Magnesium (1.6-2.3) mg/dL Assessment and Plan (1) Intra-abdominal abscess Current Visit: Yes Status: Acute Code(s): K65.1 - PERITONEAL ABSCESS SNOMED Code(s): 31337573 Plan: 1patient present to hospital with right upper quadrant abdominal pain in this patient with elevated white count and abnormal CT high clinic suspicious for possible malignancy with contained perforation clinically doubt abdominal wall abscess and will need to cover for the enteric gram-negative both aerobes and anaerobes, the patient is status post laparotomy with right colectomy and drainage of the abscess, cultures obtained from the drainage catheter yesterday and currently pending 2-patient is afebrile, patient white count is trending down we will continue the patient with Zosyn, patient has been instructed in incentive spirometry and will check a chest x-ray Dictation was produced using [employer] dictation software. please excuse any grammatical, word or spelling errors. Time with Patient: Less than 30
--- NOTE | 2022-10-05 18:11 | XR ---
EXAMINATION TYPE: XR chest 1V portable DATE OF EXAM: 10/05/2022 6:06 PM COMPARISON: Chest radiographs from 10/02/2022 TECHNIQUE: XR chest 1V portable Frontal view of the chest. CLINICAL INDICATION:Female, 82 years old with history of Shortness of breath; FINDINGS: Lungs/Pleura: No evidence of focal consolidation or pneumothorax. Blunting of the costophrenic angles is present. Pulmonary vascularity: Unremarkable. Heart/mediastinum: Cardiomediastinal silhouette is enlarged and stable. Atherosclerotic calcificatio ns are seen in the aorta. Musculoskeletal: No acute osseous pathology. IMPRESSION: Cardiomegaly, pulmonary vascular congestion and bilateral pleural effusions. Correlate with BNP for c ongestive heart failure.
[2022-10-05 20:11] LABS: Glucose,Whole Blood 176 mg/dL (70-110)
[2022-10-05] MEDS ORDERED: MAGNESIUM SULFATE-D5W PMX 1 GM in DEXTROSE/WATER 1 100ML.BAG IVPB SCH (23:15)
[2022-10-06] MEDS: PIPERACILLIN-TAZOBACTAM 3.375 GM in SODIUM CHLORIDE 0.9% 100 ML IVPB SCH ×3 (00:10→17:52)
[2022-10-06 06:10] LABS: Glucose,Whole Blood 144 mg/dL (70-110)
[2022-10-06] MEDS: INSULIN ASPART (NovoLOG) 100 UNIT/ML VIAL SQ SCH ×4 (06:11→20:42)
[2022-10-06] MEDS: CALCIUM CARB-VIT D 500 MG-5 MCG TAB PO SCH ×2 (06:21→17:52)
[2022-10-06] MEDS: LEVOTHYROXINE 75 MCG TAB PO SCH (06:21)
[2022-10-06] MEDS: PANTOPRAZOLE 40 MG/10 ML VIAL IVP SCH (08:29)
[2022-10-06] MEDS: ONDANSETRON 4 MG/2 ML VIAL IVP PRN (08:29)
[2022-10-06] MEDS: HEPARIN SODIUM,PORCINE 5,000 UNIT/ML 1 ML VIAL SQ SCH ×2 (08:29→20:43)
[2022-10-06 11:27] LABS: ALT 11 U/L (4-34); AST 24 U/L (14-36); African American GFR (CKD) 87 (>60 ml/min/1.73 sqM); Albumin 1.8 g/dL (3.5-5.0); Alkaline Phosphatase 44 U/L (38-126); Anion Gap 4 mmol/L; Blood Urea Nitrogen 11 mg/dL (7-17); Calcium 7.6 mg/dL (8.4-10.2); Carbon Dioxide 26 mmol/L (22-30); Chloride 109 mmol/L (98-107); Glucose 178 mg/dL (74-99); Non-African American GFR(CKD) 76 (>60 ml/min/1.73 sqM); Phosphorus 2.9 mg/dL (2.5-4.5); Potassium 4.2 mmol/L (3.5-5.1); Sodium 139 mmol/L (137-145); Total Bilirubin 0.4 mg/dL (0.2-1.3); Total Protein 4.3 g/dL (6.3-8.2)
[2022-10-06 11:30] LABS: Anisocytosis Slight; Basophils # (A) 0.1 k/uL (0-0.2); Basophils % (A) 1 %; Eosinophils # (A) 0.2 k/uL (0-0.7); Eosinophils % (A) 1 %; HCT 36.4 % (34.0-46.0); HGB 11.5 gm/dL (11.4-16.0); Hypochromasia Slight; Lymphocytes # (A) 0.9 k/uL (1.0-4.8); Lymphocytes % (A) 6 %; MCH 27.4 pg (25.0-35.0); MCHC 31.7 g/dL (31.0-37.0); MCV 86.6 fL (80.0-100.0); Mean Platelet Volume 10.6; Monocytes # (A) 0.8 k/uL (0-1.0); Monocytes % (A) 5 %; Neutrophils # (A) 14.2 k/uL (1.3-7.7); Neutrophils % (A) 87 %; Platelet Count 390 k/uL (150-450); RDW 16.3 % (11.5-15.5); WBC 16.3 k/uL (3.8-10.6)
--- NOTE | 2022-10-06 11:54 | P.PN ---
Subjective Progress Note Date: 10/06/22 82 years old female with multiple medical problems including hypothyroidism, hypertension, osteoporosis, diabetes mellitus and history of breast cancer. Presents with signs and symptoms of colitis with abdominal wall abscess. With evidence of acute kidney injury present on admission. Patient as well as by several consultants. Patient currently continued on broad-spectrum antibiotic with Flagyl and Zosyn. Also she is on D5 half normal saline at 1 25 mL/h. Patient is very lethargic and weak and she Answers with One or 2 words, Chest complaining of from tenderness in the right side of the abdomen. Surgical wound is closed and healing. She is status post right colectomy. Today is postoperative day #1. Vitas looks stable Labs from today are pending 09/28/2022 Patient is awake but very lethargic. However she is oriented to time place and person and she has an site. Still complaining of from right-sided abdominal pain. No bowel movements. She feels dry but she is on D5 0.9 infusion. Also she is covered currently with Flagyl and Zosyn and wound culture is growing potassium streptococci. 09/29/2022 Patient complaining of from right-sided abdominal pain at the surgical site before she receives her pain medication this morning. Wound VAC is in place. She still has an NG tube. She has occasional cough from today Labs are still pending She remains on IV fluid D5 half-normal saline at 100 mL/h 3 : Patient is status postoperative day 3 right colectomy for right colon tumor. Continue patient on IV fluid, continue nothing by mouth, does complain of abdominal pain 10/01: Patient is status postoperative day 4, seen and evaluated and bedside. IV fluids changed to D5, 0.45 saline secondary to hyponatremia. Patient is nothing by mouth. Pathology results reviewed and oncology consulted. 10/02: Patient is postoperative day 5, family at bedside and discussed care plan with , biopsy results discussed with her as well. Patient continues to remain in multiple comorbidities. Patient was seen by oncology as well. Plan to start TPN once PICC line placed. We'll follow up on CBC and basic metabolic panel 10/03: Patient evaluated for [id number] less distress at this time. Plan for PICC line placement and initiation of TPN 10/04 , continue IV Unasyn for intra-abdominal infection, expect prolonged hospital stay followed by oncology as well might need LTAC 10/04. Patient seen and examined. Diet advanced to full liquid 10/05. Patient seen and examined. Sitting upright in the chair. Blood work done this morning showed WBC 14, hemoglobin 10.6, sodium 141, potassium 3.7, BUN 12, creatinine 0.79, magnesium 1.5. Magnesium replacement ordered 10/06. Patient seen and examined. States that she has poor appetite, still having abdominal pain REVIEW OF SYSTEMS: CONSTITUTIONAL: No fever, no malaise,. CARDIOVASCULAR: No chest pain, no palpitations, no syncope. PULMONARY: No shortness of breath, no cough, GASTROINTESTINAL: No diarrhea, no nausea, no vomiting NEUROLOGICAL: No headaches, no weakness, PHYSICAL EXAMINATION: GENERAL: The patient is alert and oriented x3, not in any acute distress. Well developed, well nourished. HEENT: Pupils are round and equally reacting to light. EOMI. No scleral icterus. No conjunctival pallor. Normocephalic, atraumatic. No pharyngeal erythema. No thyromegaly. CARDIOVASCULAR: S1 and S2 present. No murmurs, rubs, or gallops. PULMONARY: Chest is clear to auscultation, no wheezing or crackles. ABDOMEN: Soft, tender, laparotomy surgical incision seen, drain in place MUSCULOSKELETAL: No joint swelling or deformity. EXTREMITIES: 2+ pitting edema of lower extremity bilaterally, right upper e xtremity also swollen NEUROLOGICAL: Gross neurological examination did not reveal any focal deficits. SKIN: No rashes. Assessment and plan Acute ascending colitis with perforation and abdominal wall abscess status post right hemicolectomy. Today is postoperative day # 5 * Invasive medullary carcinoma of colon * Intra-abdominal abscess secondary to growth C strep * Acute kidney injury * Acute hypernatremia * Severe protein calorie malnutrition * Metabolic/toxic encephalopathy secondary to above * Diabetes mellitus TYPE 2 * Hypertension * History of osteoarthritis * Hypothyroidism Plan: * Consult obtained from general surgery, infectious disease, nephrology * Monitor CBC, CMP, * Antibiotics per infectious disease, currently on iv Zosyn * Patient underwent abdominal surgery with Dr. Sorenson and had a right colectomy. Biopsy revealed invasive medullary carcinoma. Resection margins negative for malignancy with 4 of 16 mesenteric lymph nodes positive for metastasis. Oncology following, Gen. surgery following * Continue pain control, nausea * Right arm swelling ulnegative for DVT * Labs and medication were reviewed * On subcu heparin for DVT prophylaxis Labs and medication were reviewed.. Continue same treatment. Continue with sy mptomatic treatment. Resume home medication. Monitor labs and vitals. DVT and GI prophylaxis. Further recommendations as per clinical course of the patient Dictation was produced using [employer] dictation software. please excuse any grammatical, word or spelling errors. Objective - Vital Signs Vital signs: Vital Signs Temp 97.8 F 10/06/22 04:05 Pulse 56 L 10/06/22 08:00 Resp 20 10/06/22 08:00 BP 155/82 10/06/22 08:00 Pulse Ox 98 10/06/22 08:00 FiO2 Intake & Output 10/05/22 10/06/22 10/06/22 18:59 06:59 18:59 Intake Total 59 Output Total 335 405 20 Balance -276 -405 -20 Intake: Oral 59 Output: Drainage 60 30 20 Right Anterior Medial 60 30 20 Abdomen Urine 275 375 Other: Voiding Method Indwelling Catheter Indwelling Catheter Indwelling Catheter # Bowel Movements 1 - Labs CBC & Chem 7: 10/06/22 10:10 10/06/22 10:10 Labs: Abnormal Lab Results - Last 24 Hours (Table) 10/05/22 10/05/22 10/06/22 Range/Units 16:41 20:02 06:09 WBC (3.8-10.6) k/uL RDW (11.5-15.5) % Neutrophils # (1.3-7.7) k/uL Lymphocytes # (1.0-4.8) k/uL Chloride (98-107) mmol/L Glucose (74-99) mg/dL POC Glucose (mg/dL) 167 H 176 H 144 H (70-110) mg/dL Calcium (8.4-10.2) mg/dL Total Protein (6.3-8.2) g/dL Albumin (3.5-5.0) g/dL 10/06/22 10/06/22 Range/Units 10:10 10:10 WBC 16.3 H (3.8-10.6) k/uL RDW 16.3 H (11.5-15.5) % Neutrophils # 14.2 H (1.3-7.7) k/uL Lymphocytes # 0.9 L (1.0-4.8) k/uL Chloride 109 H (98-107) mmol/L Glucose 178 H (74-99) mg/dL POC Glucose (mg/dL) (70-110) mg/dL Calcium 7.6 L (8.4-10.2) mg/dL Total Protein 4.3 L (6.3-8.2) g/dL Albumin 1.8 L (3.5-5.0) g/dL
[2022-10-06 11:56] LABS: Glucose,Whole Blood 173 mg/dL (70-110)
--- NOTE | 2022-10-06 12:27 | P.PN ---
Subjective Patient seen in follow-up for hyponatremia. Sodium level remains normal. Off IV fluids. On low fiber diet. Has been eating. Vital signs are stable. General: No acute distress. Resting in bed. HEENT: Head exam is unremarkable. LUNGS: No audible rhonchi or wheezes. HEART: Rate and Rhythm are regular. ABDOMEN: Nontender. EXTREMITITES: 2+ edema. Objective - Vital Signs Vital signs: Vital Signs Temp 97.8 F 10/06/22 04:05 Pulse 56 L 10/06/22 08:00 Resp 20 10/06/22 08:00 BP 155/82 10/06/22 08:00 Pulse Ox 98 10/06/22 08:00 FiO2 Intake & Output 10/05/22 10/06/22 10/06/22 18:59 06:59 18:59 Intake Total 59 Output Total 335 405 20 Balance -276 -405 -20 Intake: Oral 59 Output: Drainage 60 30 20 Right Anterior Medial 60 30 20 Abdomen Urine 275 375 Other: Voiding Method Indwelling Catheter Indwelling Catheter Indwelling Catheter # Bowel Movements 1 - Labs CBC & Chem 7: 10/06/22 10:10 10/06/22 10:10 Labs: Abnormal Lab Results - Last 24 Hours (Table) 10/05/22 10/05/22 10/06/22 Range/Units 16:41 20:02 06:09 WBC (3.8-10.6) k/uL RDW (11.5-15.5) % Neutrophils # (1.3-7.7) k/uL Lymphocytes # (1.0-4.8) k/uL Chloride (98-107) mmol/L Glucose (74-99) mg/dL POC Glucose (mg/dL) 167 H 176 H 144 H (70-110) mg/dL Calcium (8.4-10.2) mg/dL Total Protein (6.3-8.2) g/dL Albumin (3.5-5.0) g/dL 10/06/22 10/06/22 10/06/22 Range/Units 10:10 10:10 11:44 WBC 16.3 H (3.8-10.6) k/uL RDW 16.3 H (11.5-15.5) % Neutrophils # 14.2 H (1.3-7.7) k/uL Lymphocytes # 0.9 L (1.0-4.8) k/uL Chloride 109 H (98-107) mmol/L Glucose 178 H (74-99) mg/dL POC Glucose (mg/dL) 173 H (70-110) mg/dL Calcium 7.6 L (8.4-10.2) mg/dL Total Protein 4.3 L (6.3-8.2) g/dL Albumin 1.8 L (3.5-5.0) g/dL Assessment and Plan Plan: Assessment: 1. Acute kidney injury secondary to hemodynamic ATN. Improved. 2. Hypernatremia from lack of oral water intake. Status post D5W. 3. Colitis with perforation abdominal wall abscess status post laparotomy with colonic resection. Surgery following. 4. Diabetes mellitus. 5. Hypophosphatemia from poor intake. Replaced. Better. 6. Hypomagnesemia from poor intake. Replaced. Better. 7. Volume overload. Plan: Add IV Lasix 40 mg once daily. Continue to monitor renal function and urine output. Repeat labs in the morning.
[2022-10-06] MEDS: FUROSEMIDE 10 MG/ML 4 ML VIAL IV SCH (12:44)
[2022-10-06] MEDS: ANASTROZOLE 1 MG TAB PO SCH (12:45)
--- NOTE | 2022-10-06 12:57 | P.PN ---
Subjective Progress Note Date: 10/06/22 CHIEF COMPLAINT: Colon mass HISTORY OF PRESENT ILLNESS: Patient is postop day #10 status post right colec mj for right colon tumor with perforation into the abdominal wall causing abscess. Patient sitting up in bed comfortably. She is having bowel movements. Pain is controlled. She does complain of a cough. Afebrile. SULMA drain with 150ml serosanguineous and was output yesterday and 10 ML output this morning. WBC 14 up to 16 CXR patient cardiomegaly, pulmonary vascular congestion and bilateral pleural effusions. Nephrology adding IV Lasix PHYSICAL EXAM: VITAL SIGNS: Reviewed. GENERAL: Well-developed in no acute distress. ABDOMEN: Soft. Nondistended. NEUROLOGIC: Alert and oriented. Cranial nerves II through XII grossly intact. ASSESSMENT: 1. Right colon tumor with perforation into the abdominal wall causing abscess status post right colectomy 2. Medullary colon carcinoma PLAN: -continue low fiber -Continue pain management -Continue antibiotics -Repeat cbc in AM -Encouraged patient to use incentive spirometer -Encouraged patient to increase activity level -Continue to work with PT OT -Patient will need ECF at discharge -GI prophylaxis Protonix and DVT prophylaxis subcu heparin Physician Director [employer] note has been reviewed by physician. Signing provider agrees with the documented findings, assessment, and plan of care. Objective - Vital Signs Vital signs: Vital Signs Temp 97.8 F 10/06/22 04:05 Pulse 56 L 10/06/22 08:00 Resp 20 10/06/22 08:00 BP 155/82 10/06/22 08:00 Pulse Ox 98 10/06/22 08:00 FiO2 Intake & Output 10/05/22 10/06/22 10/06/22 18:59 06:59 18:59 Intake Total 59 Output Total 335 405 20 Balance -276 -405 -20 Intake: Oral 59 Output: Drainage 60 30 20 Right Anterior Medial 60 30 20 Abdomen Urine 275 375 Other: Voiding Method Indwelling Catheter Indwelling Catheter Indwelling Catheter # Bowel Movements 1 - Labs CBC & Chem 7: 10/06/22 10:10 10/06/22 10:10 Labs: Abnormal Lab Results - Last 24 Hours (Table) 10/05/22 10/05/22 10/06/22 Range/Units 16:41 20:02 06:09 WBC (3.8-10.6) k/uL RDW (11.5-15.5) % Neutrophils # (1.3-7.7) k/uL Lymphocytes # (1.0-4.8) k/uL Chloride (98-107) mmol/L Glucose (74-99) mg/dL POC Glucose (mg/dL) 167 H 176 H 144 H (70-110) mg/dL Calcium (8.4-10.2) mg/dL Total Protein (6.3-8.2) g/dL Albumin (3.5-5.0) g/dL 10/06/22 10/06/22 10/06/22 Range/Units 10:10 10:10 11:44 WBC 16.3 H (3.8-10.6) k/uL RDW 16.3 H (11.5-15.5) % Neutrophils # 14.2 H (1.3-7.7) k/uL Lymphocytes # 0.9 L (1.0-4.8) k/uL Chloride 109 H (98-107) mmol/L Glucose 178 H (74-99) mg/dL POC Glucose (mg/dL) 173 H (70-110) mg/dL Calcium 7.6 L (8.4-10.2) mg/dL Total Protein 4.3 L (6.3-8.2) g/dL Albumin 1.8 L (3.5-5.0) g/dL
--- NOTE | 2022-10-06 14:07 | US ---
EXAMINATION TYPE: US venous doppler duplex LE BI DATE OF EXAM: 10/06/2022 1:42 PM COMPARISON: NONE CLINICAL INDICATION: Female, 82 years old with history of BLE edema; extensive edema, legs wrapped an d patient just started Lasix today SIDE PERFORMED: Bilateral TECHNIQUE: The lower extremity deep venous system is examined utilizing real time linear array sonog herman with graded compression, doppler sonography and color-flow sonography. VESSELS IMAGED: Common Femoral Vein Deep Femoral Vein Greater Saphenous Vein * Femoral Vein Popliteal Vein Small Saphenous Vein * Proximal Calf Veins (* superficial vessels) Right Leg: Nondiagnostic due to extensive swelling Left Leg: Nondiagnostic due to extensive swelling IMPRESSION: Given extensive edema of the examination is considered nondiagnostic.
--- NOTE | 2022-10-06 14:14 | US ---
EXAMINATION TYPE: US venous doppler duplex UE RT DATE OF EXAM: 10/06/2022 COMPARISON: Right upper extremity venous ultrasound 10/02/2022 CLINICAL INDICATION: Female, 82 years old with history of RUE edema/pain; swelling improving per nya ent, venous study done 4 days ago, negative for dvt then, no h/o dvt SIDE PERFORMED: Right Diffuse subcutaneous edema. Right Arm: Negative for DVT IMPRESSION: No ultrasound evidence for deep venous thrombosis of the right upper extremity.
[2022-10-06 16:51] LABS: Glucose,Whole Blood 185 mg/dL (70-110)
--- NOTE | 2022-10-06 17:59 | P.PN ---
Subjective Progress Note Date: 10/06/22 Principal diagnosis: colon cancer At todays visit, pt is resting comfortably in bed. She reports feeling improved. Pt reports her appetite has improved and she is having BMs daily. Objective - Vital Signs Vital signs: Vital Signs Temp 98.1 F 10/06/22 12:00 Pulse 114 H 10/06/22 14:00 Resp 18 10/06/22 14:00 BP 152/80 10/06/22 12:00 Pulse Ox 97 10/06/22 12:00 FiO2 Intake & Output 10/05/22 10/06/22 10/06/22 18:59 06:59 18:59 Intake Total 59 Output Total 335 405 20 Balance -276 -405 -20 Intake: Oral 59 Output: Drainage 60 30 20 Right Anterior Medial 60 30 20 Abdomen Urine 275 375 Other: Voiding Method Indwelling Catheter Indwelling Catheter Indwelling Catheter # Bowel Movements 1 - Constitutional General appearance: Present: no acute distress, obese - EENT Eyes: Present: anicteric sclerae, EOMI ENT: Present: hearing grossly normal - Respiratory Details: breathing is even and unlabored - Cardiovascular Details: skin warm and dry. - Peripheral edema leg Peripheral Edema Comment(s): RUE edema Peripheral Edema: bilateral: 3+ - Gastrointestinal General gastrointestinal: Present: soft. Absent: tenderness - Integumentary Integumentary: Absent: cyanotic, jaundiced - Musculoskeletal Musculoskeletal: Present: generalized weakness - Psychiatric Psychiatric: Present: A&O x's 3, appropriate affect, intact judgment & insight - Labs CBC & Chem 7: 10/06/22 10:10 10/06/22 10:10 Labs: Abnormal Lab Results - Last 24 Hours (Table) 10/05/22 10/05/22 10/06/22 Range/Units 16:41 20:02 06:09 WBC (3.8-10.6) k/uL RDW (11.5-15.5) % Neutrophils # (1.3-7.7) k/uL Lymphocytes # (1.0-4.8) k/uL Chloride (98-107) mmol/L Glucose (74-99) mg/dL POC Glucose (mg/dL) 167 H 176 H 144 H (70-110) mg/dL Calcium (8.4-10.2) mg/dL Total Protein (6.3-8.2) g/dL Albumin (3.5-5.0) g/dL 10/06/22 10/06/22 10/06/22 Range/Units 10:10 10:10 11:44 WBC 16.3 H (3.8-10.6) k/uL RDW 16.3 H (11.5-15.5) % Neutrophils # 14.2 H (1.3-7.7) k/uL Lymphocytes # 0.9 L (1.0-4.8) k/uL Chloride 109 H (98-107) mmol/L Glucose 178 H (74-99) mg/dL POC Glucose (mg/dL) 173 H (70-110) mg/dL Calcium 7.6 L (8.4-10.2) mg/dL Total Protein 4.3 L (6.3-8.2) g/dL Albumin 1.8 L (3.5-5.0) g/dL Assessment and Plan (1) Medullary carcinoma Current Visit: Yes Status: Acute Priority: High Code(s): C80.1 - MALIGNANT (PRIMARY) NEOPLASM, UNSPECIFIED SNOMED Code(s): 087546355 (2) Abscess of abdominal wall Current Visit: Yes Status: Acute Priority: High Code(s): L02.211 - CUTANEOUS ABSCESS OF ABDOMINAL WALL SNOMED Code(s): 48818831 Plan: Medullary colon carcinoma -pT4a, N2a. Staging PET 10/22/22 at 2:30 -Pathology requested to be sent for NGS and PD-L1 testing -Follow-up with Dr. Thomas in the discharge plan. Discussed with patient that she is not a candidate for treatment until healed from surgery, typically 4-6 weeks -Germline genetic testing will be planned outpt Breast cancer -History of breast cancer, continues on Arimidex Abscess of abdominal wall: -Status post surgical procedure for perforated tumor with abscess. Wound culture positive for beta hemolytic group C strep. Continues on abx -Surgery following Extremity edema: -RUE pain and edema, BLE edema present. Doppler of RUE on 10/02 was suboptimal due to patient positioning and body habitus. Will reorder RUE doppler and obtain BLE dopplers to r/o DVT attests: I have performed H&P and developed impression and plan of care for patient, discussed with dictator. I agree with dictated note, documented as a scribe
[2022-10-06 20:06] LABS: Glucose,Whole Blood 207 mg/dL (70-110)
[2022-10-07] MEDS: PIPERACILLIN-TAZOBACTAM 3.375 GM in SODIUM CHLORIDE 0.9% 100 ML IVPB SCH ×3 (01:13→16:19)
[2022-10-07 05:44] LABS: Glucose,Whole Blood 160 mg/dL (70-110)
[2022-10-07] MEDS: LEVOTHYROXINE 75 MCG TAB PO SCH (06:34)
[2022-10-07] MEDS: CALCIUM CARB-VIT D 500 MG-5 MCG TAB PO SCH ×2 (06:34→16:19)
[2022-10-07] MEDS: INSULIN ASPART (NovoLOG) 100 UNIT/ML VIAL SQ SCH ×4 (06:35→21:34)
[2022-10-07 08:36] LABS: Anisocytosis Slight; Basophils % (A) 0 %; Eosinophils # (A) 0.3 k/uL (0-0.7); Eosinophils % (A) 3 %; HCT 33.7 % (34.0-46.0); HGB 10.5 gm/dL (11.4-16.0); Hypochromasia Marked; Lymphocytes # (A) 1.1 k/uL (1.0-4.8); Lymphocytes % (A) 10 %; MCHC 31.1 g/dL (31.0-37.0); MCV 89.8 fL (80.0-100.0); Mean Platelet Volume 9.9; Monocytes % (A) 8 %; Neutrophils # (A) 8.8 k/uL (1.3-7.7); Neutrophils % (A) 77 %; Platelet Count 389 k/uL (150-450); RBC 3.76 m/uL (3.80-5.40); RDW 16.8 % (11.5-15.5); WBC 11.4 k/uL (3.8-10.6)
[2022-10-07 09:07] LABS: ALT 10 U/L (4-34); AST 23 U/L (14-36); African American GFR (CKD) 81 (>60 ml/min/1.73 sqM); Albumin 1.9 g/dL (3.5-5.0); Alkaline Phosphatase 42 U/L (38-126); Anion Gap 3 mmol/L; Blood Urea Nitrogen 9 mg/dL (7-17); Calcium 7.4 mg/dL (8.4-10.2); Carbon Dioxide 27 mmol/L (22-30); Chloride 107 mmol/L (98-107); Glucose 146 mg/dL (74-99); Magnesium 1.7 mg/dL (1.6-2.3); Non-African American GFR(CKD) 70 (>60 ml/min/1.73 sqM); Potassium 3.8 mmol/L (3.5-5.1); Sodium 137 mmol/L (137-145); Total Bilirubin 0.4 mg/dL (0.2-1.3); Total Protein 4.4 g/dL (6.3-8.2)
[2022-10-07] MEDS: ANASTROZOLE 1 MG TAB PO SCH (09:09)
[2022-10-07] MEDS: FUROSEMIDE 10 MG/ML 4 ML VIAL IV SCH (09:09)
[2022-10-07] MEDS: PANTOPRAZOLE 40 MG/10 ML VIAL IVP SCH (09:09)
[2022-10-07] MEDS: HEPARIN SODIUM,PORCINE 5,000 UNIT/ML 1 ML VIAL SQ SCH ×2 (09:10→21:34)
[2022-10-07 11:52] LABS: Glucose,Whole Blood 214 mg/dL (70-110)
[2022-10-07] MEDS ORDERED: POTASSIUM CHLORIDE ER 20 MEQ TAB.ER PO STA (11:58)
--- NOTE | 2022-10-07 11:58 | P.PN ---
Subjective Patient seen in follow-up for hypernatremia. Sodium level remains normal. Off IV fluids. On low fiber diet. Has been eating. On IV Lasix. Nonoliguric. Vital signs are stable. General: No acute distress. Resting in bed. HEENT: Head exam is unremarkable. LUNGS: No audible rhonchi or wheezes. HEART: Rate and Rhythm are regular. ABDOMEN: Nontender. EXTREMITITES: 1+ edema. Objective - Vital Signs Vital signs: Vital Signs Temp 97.6 F 10/07/22 08:00 Pulse 94 10/07/22 08:00 Resp 18 10/07/22 08:00 BP 147/76 10/07/22 08:00 Pulse Ox 97 10/07/22 08:00 FiO2 Intake & Output 10/06/22 10/07/22 10/07/22 18:59 06:59 18:59 Intake Total 118 120 Output Total 720 700 150 Balance -602 -700 -30 Intake: Oral 118 120 Output: Drainage 20 0 0 Right Anterior Medial 20 0 0 Abdomen Urine 700 700 150 Other: Voiding Method Indwelling Catheter Indwelling Catheter Indwelling Catheter # Bowel Movements 1 - Labs CBC & Chem 7: 10/07/22 08:09 10/07/22 08:09 Labs: Abnormal Lab Results - Last 24 Hours (Table) 10/06/22 10/06/22 10/06/22 Range/Units 11:44 16:46 20:04 WBC (3.8-10.6) k/uL RBC (3.80-5.40) m/uL Hgb (11.4-16.0) gm/dL Hct (34.0-46.0) % RDW (11.5-15.5) % Neutrophils # (1.3-7.7) k/uL Glucose (74-99) mg/dL POC Glucose (mg/dL) 173 H 185 H 207 H (70-110) mg/dL Calcium (8.4-10.2) mg/dL Total Protein (6.3-8.2) g/dL Albumin (3.5-5.0) g/dL 10/07/22 10/07/22 10/07/22 Range/Units 05:43 08:09 08:09 WBC 11.4 H (3.8-10.6) k/uL RBC 3.76 L (3.80-5.40) m/uL Hgb 10.5 L (11.4-16.0) gm/dL Hct 33.7 L (34.0-46.0) % RDW 16.8 H (11.5-15.5) % Neutrophils # 8.8 H (1.3-7.7) k/uL Glucose 146 H (74-99) mg/dL POC Glucose (mg/dL) 160 H (70-110) mg/dL Calcium 7.4 L (8.4-10.2) mg/dL Total Protein 4.4 L (6.3-8.2) g/dL Albumin 1.9 L (3.5-5.0) g/dL 10/07/22 Range/Units 11:51 WBC (3.8-10.6) k/uL RBC (3.80-5.40) m/uL Hgb (11.4-16.0) gm/dL Hct (34.0-46.0) % RDW (11.5-15.5) % Neutrophils # (1.3-7.7) k/uL Glucose (74-99) mg/dL POC Glucose (mg/dL) 214 H (70-110) mg/dL Calcium (8.4-10.2) mg/dL Total Protein (6.3-8.2) g/dL Albumin (3.5-5.0) g/dL Assessment and Plan Plan: Assessment: 1. Acute kidney injury secondary to hemodynamic ATN. Resolved. 2. Hypernatremia from lack of oral water intake. Status post D5W. 3. Colitis with perforation abdominal wall abscess status post laparotomy with colonic resection. Surgery following. 4. Diabetes mellitus. 5. Hypophosphatemia from poor intake. Replaced. Better. 6. Hypomagnesemia from poor intake and diuresis. Replaced. 7. Volume overload. Improving with diuresis. Plan: Maintain IV Lasix. Continue to monitor renal function and urine output. Replace potassium. Add oral magnesium oxide.
--- NOTE | 2022-10-07 12:23 | P.PN ---
Subjective Progress Note Date: 10/07/22 CHIEF COMPLAINT: Colon mass HISTORY OF PRESENT ILLNESS: Patient is postop day #11 status post right colec mj for right colon tumor with perforation into the abdominal wall causing abscess. Patient sitting up in bed comfortably. She is having bowel movements. Pain is controlled. Patient does complain of swelling in her upper and lower extremities. She is on IV Lasix. Afebrile. WBC 16 down to 11 Hgb 10.5 platelets 389 PHYSICAL EXAM: VITAL SIGNS: Reviewed. GENERAL: Well-developed in no acute distress. ABDOMEN: Soft. Nondistended. NEUROLOGIC: Alert and oriented. Cranial nerves II through XII grossly intact. ASSESSMENT: 1. Right colon tumor with perforation into the abdominal wall causing abscess status post right colectomy 2. Medullary colon carcinoma 3. Fluid overload receiving IV Lasix per nephrology PLAN: -continue low fiber -Continue pain management -Continue antibiotics -Encouraged patient to use incentive spirometer -Encouraged patient to increase activity level -Continue to work with PT OT -Patient will need ECF at discharge -GI prophylaxis Protonix and DVT prophylaxis subcu heparin Physician Director [employer] note has been reviewed by physician. Signing provider agrees with the documented findings, assessment, and plan of care. Objective - Vital Signs Vital signs: Vital Signs Temp 97.6 F 10/07/22 08:00 Pulse 94 10/07/22 08:00 Resp 18 10/07/22 08:00 BP 147/76 10/07/22 08:00 Pulse Ox 97 10/07/22 08:00 FiO2 Intake & Output 10/06/22 10/07/22 10/07/22 18:59 06:59 18:59 Intake Total 118 120 Output Total 720 700 150 Balance -602 -700 -30 Intake: Oral 118 120 Output: Drainage 20 0 0 Right Anterior Medial 20 0 0 Abdomen Urine 700 700 150 Other: Voiding Method Indwelling Catheter Indwelling Catheter Indwelling Catheter # Bowel Movements 1 - Labs CBC & Chem 7: 10/07/22 08:09 10/07/22 08:09 Labs: Abnormal Lab Results - Last 24 Hours (Table) 10/06/22 10/06/22 10/07/22 Range/Units 16:46 20:04 05:43 WBC (3.8-10.6) k/uL RBC (3.80-5.40) m/uL Hgb (11.4-16.0) gm/dL Hct (34.0-46.0) % RDW (11.5-15.5) % Neutrophils # (1.3-7.7) k/uL Glucose (74-99) mg/dL POC Glucose (mg/dL) 185 H 207 H 160 H (70-110) mg/dL Calcium (8.4-10.2) mg/dL Total Protein (6.3-8.2) g/dL Albumin (3.5-5.0) g/dL 10/07/22 10/07/22 10/07/22 Range/Units 08:09 08:09 11:51 WBC 11.4 H (3.8-10.6) k/uL RBC 3.76 L (3.80-5.40) m/uL Hgb 10.5 L (11.4-16.0) gm/dL Hct 33.7 L (34.0-46.0) % RDW 16.8 H (11.5-15.5) % Neutrophils # 8.8 H (1.3-7.7) k/uL Glucose 146 H (74-99) mg/dL POC Glucose (mg/dL) 214 H (70-110) mg/dL Calcium 7.4 L (8.4-10.2) mg/dL Total Protein 4.4 L (6.3-8.2) g/dL Albumin 1.9 L (3.5-5.0) g/dL
[2022-10-07] MEDS: MAGNESIUM OXIDE 400 MG TAB PO SCH (12:44)
--- NOTE | 2022-10-07 13:24 | P.PN ---
Subjective Progress Note Date: 10/07/22 82 years old female with multiple medical problems including hypothyroidism, hypertension, osteoporosis, diabetes mellitus and history of breast cancer. Presents with signs and symptoms of colitis with abdominal wall abscess. With evidence of acute kidney injury present on admission. Patient as well as by several consultants. Patient currently continued on broad-spectrum antibiotic with Flagyl and Zosyn. Also she is on D5 half normal saline at 1 25 mL/h. Patient is very lethargic and weak and she Answers with One or 2 words, Chest complaining of from tenderness in the right side of the abdomen. Surgical wound is closed and healing. She is status post right colectomy. Today is postoperative day #1. Vitas looks stable Labs from today are pending 09/28/2022 Patient is awake but very lethargic. However she is oriented to time place and person and she has an site. Still complaining of from right-sided abdominal pain. No bowel movements. She feels dry but she is on D5 0.9 infusion. Also she is covered currently with Flagyl and Zosyn and wound culture is growing potassium streptococci. 09/29/2022 Patient complaining of from right-sided abdominal pain at the surgical site before she receives her pain medication this morning. Wound VAC is in place. She still has an NG tube. She has occasional cough from today Labs are still pending She remains on IV fluid D5 half-normal saline at 100 mL/h 3 : Patient is status postoperative day 3 right colectomy for right colon tumor. Continue patient on IV fluid, continue nothing by mouth, does complain of abdominal pain 10/01: Patient is status postoperative day 4, seen and evaluated and bedside. IV fluids changed to D5, 0.45 saline secondary to hyponatremia. Patient is nothing by mouth. Pathology results reviewed and oncology consulted. 10/02: Patient is postoperative day 5, family at bedside and discussed care plan with , biopsy results discussed with her as well. Patient continues to remain in multiple comorbidities. Patient was seen by oncology as well. Plan to start TPN once PICC line placed. We'll follow up on CBC and basic metabolic panel 10/03: Patient evaluated for [id number] less distress at this time. Plan for PICC line placement and initiation of TPN 10/04 , continue IV Unasyn for intra-abdominal infection, expect prolonged hospital stay followed by oncology as well might need LTAC 10/04. Patient seen and examined. Diet advanced to full liquid 10/05. Patient seen and examined. Sitting upright in the chair. Blood work done this morning showed WBC 14, hemoglobin 10.6, sodium 141, potassium 3.7, BUN 12, creatinine 0.79, magnesium 1.5. Magnesium replacement ordered 10/06. Patient seen and examined. States that she has poor appetite, still having abdominal pain 10/07. Patient seen and examined. Still has swelling of bilateral upper and lower extremities REVIEW OF SYSTEMS: CONSTITUTIONAL: No fever, no malaise,. CARDIOVASCULAR: No chest pain, no palpitations, no syncope. PULMONARY: No shortness of breath, no cough, GASTROINTESTINAL: No diarrhea, no nausea, no vomiting NEUROLOGICAL: No headaches, no weakness, PHYSICAL EXAMINATION: GENERAL: The patient is alert and oriented x3, not in any acute distress. Well developed, well nourished. HEENT: Pupils are round and equally reacting to light. EOMI. No scleral icterus. No conjunctival pallor. Normocephalic, atraumatic. No pharyngeal erythema. No thyromegaly. CARDIOVASCULAR: S1 and S2 present. No murmurs, rubs, or gallops. PULMONARY: Chest is clear to auscultation, no wheezing or crackles. ABDOMEN: Soft, tender, laparotomy surgical incision seen, drain in place MUSCULOSKELETAL: No joint swelling or deformity. EXTREMITIES: 2+ pitting edema of lower extremity bilaterally, right upper extre mity also swollen NEUROLOGICAL: Gross neurological examination did not reveal any focal deficits. SKIN: No rashes. Assessment and plan Acute ascending colitis with perforation and abdominal wall abscess status post right hemicolectomy. Today is postoperative day # 5 * Invasive medullary carcinoma of colon * Intra-abdominal abscess secondary to growth C strep * Acute kidney injury * Acute hypernatremia * Severe protein calorie malnutrition * Metabolic/toxic encephalopathy secondary to above * Diabetes mellitus TYPE 2 * Hypertension * History of osteoarthritis * Hypothyroidism Plan: * Consult obtained from general surgery, infectious disease, nephrology * Monitor CBC, CMP, * Antibiotics per infectious disease, currently on iv Zosyn * Patient underwent abdominal surgery with Dr. Sorenson and had a right colectomy. Biopsy revealed invasive medullary carcinoma. Resection margins negative for malignancy with 4 of 16 mesenteric lymph nodes positive for me tastasis. Oncology following, Gen. surgery following * I's and O's, daily weights, continue IV Lasix, nephrology following * Continue pain control, nausea * Right arm swelling ulnegative for DVT * Labs and medication were reviewed * On subcu heparin for DVT prophylaxis Labs and medication were reviewed.. Continue same treatment. Continue with symptomatic treatment. Resume home medication. Monitor labs and vitals. DVT and GI prophylaxis. Further recommendations as per clinical course of the patient Dictation was produced using [employer] dictation software. please excuse any grammatical, word or spelling errors. Objective - Vital Signs Vital signs: Vital Signs Temp 97.5 F L 10/07/22 04:15 Pulse 95 10/07/22 04:15 Resp 20 10/07/22 04:15 BP 96/59 10/07/22 04:15 Pulse Ox 95 10/07/22 04:15 FiO2 Intake & Output 10/06/22 10/07/22 10/07/22 18:59 06:59 18:59 Intake Total 118 120 Output Total 720 700 150 Balance -602 -700 -30 Intake: Oral 118 120 Output: Drainage 20 0 Right Anterior Medial 20 0 Abdomen Urine 700 700 150 Other: Voiding Method Indwelling Catheter Indwelling Catheter # Bowel Movements 1 - Labs CBC & Chem 7: 10/07/22 08:09 10/07/22 08:09 Labs: Abnormal Lab Results - Last 24 Hours (Table) 10/06/22 10/06/22 10/06/22 Range/Units 10:10 10:10 11:44 WBC 16.3 H (3.8-10.6) k/uL RBC (3.80-5.40) m/uL Hgb (11.4-16.0) gm/dL Hct (34.0-46.0) % RDW 16.3 H (11.5-15.5) % Neutrophils # 14.2 H (1.3-7.7) k/uL Lymphocytes # 0.9 L (1.0-4.8) k/uL Chloride 109 H (98-107) mmol/L Glucose 178 H (74-99) mg/dL POC Glucose (mg/dL) 173 H (70-110) mg/dL Calcium 7.6 L (8.4-10.2) mg/dL Total Protein 4.3 L (6.3-8.2) g/dL Albumin 1.8 L (3.5-5.0) g/dL 10/06/22 10/06/22 10/07/22 Range/Units 16:46 20:04 05:43 WBC (3.8-10.6) k/uL RBC (3.80-5.40) m/uL Hgb (11.4-16.0) gm/dL Hct (34.0-46.0) % RDW (11.5-15.5) % Neutrophils # (1.3-7.7) k/uL Lymphocytes # (1.0-4.8) k/uL Chloride (98-107) mmol/L Glucose (74-99) mg/dL POC Glucose (mg/dL) 185 H 207 H 160 H (70-110) mg/dL Calcium (8.4-10.2) mg/dL Total Protein (6.3-8.2) g/dL Albumin (3.5-5.0) g/dL 10/07/22 10/07/22 Range/Units 08:09 08:09 WBC 11.4 H (3.8-10.6) k/uL RBC 3.76 L (3.80-5.40) m/uL Hgb 10.5 L (11.4-16.0) gm/dL Hct 33.7 L (34.0-46.0) % RDW 16.8 H (11.5-15.5) % Neutrophils # 8.8 H (1.3-7.7) k/uL Lymphocytes # (1.0-4.8) k/uL Chloride (98-107) mmol/L Glucose 146 H (74-99) mg/dL POC Glucose (mg/dL) (70-110) mg/dL Calcium 7.4 L (8.4-10.2) mg/dL Total Protein 4.4 L (6.3-8.2) g/dL Albumin 1.9 L (3.5-5.0) g/dL
--- NOTE | 2022-10-07 15:10 | P.PN ---
Subjective Progress Note Date: 10/06/22 Principal diagnosis: Perforated colon Intra-abdominal abscess Patient is a 82-year-old female with a past medical history significant for diabetes mellitus hypertension history of uterine cancer and bilateral breast CA presenting to the hospital for evaluation of right-sided abdominal pain ,CT abdominal pelvis thickening of the ascending colon with mesenteric lymph node and soft tissue heterogeneous material within the right abdominal wall, a shunt was taken to the OR and the patient is status post laparotomy noticed to have right colon tumor with perforation into abdominal wall causing abscess which was drained but no culture were done. On today's evaluation that is 10/06/2022 the patient remains to be afebrile,, patient is breathing comfortably on 2L nasal cannula oxygen , patient denies any chest pain, the patient abdominal pain has slightly decreased tolerating her diet, no nausea no vomiting Patient white count is slightly elevated at 16.3 today, hemoglobin is 11.5 the patient creatinine is 0.74, blood culture negative abdominal culture positive for beta-hemolytic strep C Objective - Vital Signs Vital signs: Vital Signs Temp 97.8 F 10/06/22 04:05 Pulse 56 L 10/06/22 08:00 Resp 20 10/06/22 08:00 BP 155/82 10/06/22 08:00 Pulse Ox 98 10/06/22 08:00 FiO2 Intake & Output 10/05/22 10/06/22 10/06/22 18:59 06:59 18:59 Intake Total 59 Output Total 335 405 20 Balance -276 -405 -20 Intake: Oral 59 Output: Drainage 60 30 20 Right Anterior Medial 60 30 20 Abdomen Urine 275 375 Other: Voiding Method Indwelling Catheter Indwelling Catheter Indwelling Catheter # Bowel Movements 1 - Exam GENERAL DESCRIPTION: An elderly female lying in bed in no distress RESPIRATORY SYSTEM: Unlabored breathing , decreased breath sounds at bases HEART: S1 S2 regular rate and rhythm , ABDOMEN: Soft , abdominal distention and tenderness EXTREMITIES: No edema feet - Labs CBC & Chem 7: 10/07/22 08:09 10/07/22 08:09 Labs: Abnormal Lab Results - Last 24 Hours (Table) 10/05/22 10/05/22 10/06/22 Range/Units 16:41 20:02 06:09 WBC (3.8-10.6) k/uL RDW (11.5-15.5) % Neutrophils # (1.3-7.7) k/uL Lymphocytes # (1.0-4.8) k/uL Chloride (98-107) mmol/L Glucose (74-99) mg/dL POC Glucose (mg/dL) 167 H 176 H 144 H (70-110) mg/dL Calcium (8.4-10.2) mg/dL Total Protein (6.3-8.2) g/dL Albumin (3.5-5.0) g/dL 10/06/22 10/06/22 10/06/22 Range/Units 10:10 10:10 11:44 WBC 16.3 H (3.8-10.6) k/uL RDW 16.3 H (11.5-15.5) % Neutrophils # 14.2 H (1.3-7.7) k/uL Lymphocytes # 0.9 L (1.0-4.8) k/uL Chloride 109 H (98-107) mmol/L Glucose 178 H (74-99) mg/dL POC Glucose (mg/dL) 173 H (70-110) mg/dL Calcium 7.6 L (8.4-10.2) mg/dL Total Protein 4.3 L (6.3-8.2) g/dL Albumin 1.8 L (3.5-5.0) g/dL Assessment and Plan (1) Intra-abdominal abscess Current Visit: Yes Status: Acute Code(s): K65.1 - PERITONEAL ABSCESS SNOMED Code(s): 96537500 Plan: 1patient present to hospital with right upper quadrant abdominal pain in this patient with elevated white count and abnormal CT high clinic suspicious for possible malignancy with contained perforation clinically doubt abdominal wall abscess and will need to cover for the enteric gram-negative both aerobes and anaerobes, the patient is status post laparotomy with right colectomy and drainage of the abscess, cultures obtained from the drainage catheter and currently growing group C streptococcus 2-patient is afebrile however the white count is slightly up today and will be monitored closely. 3We will continue the patient with Zosyn and monitor clinical course closely patient chest x-ray was mostly pulmonary vascular congestion did not show any consolidation Dictation was produced using [employer] dictation software. please excuse any gram matical, word or spelling errors. Time with Patient: Less than 30
--- NOTE | 2022-10-07 15:11 | P.PN ---
Subjective Progress Note Date: 10/07/22 Principal diagnosis: Perforated colon Intra-abdominal abscess Patient is a 82-year-old female with a past medical history significant for diabetes mellitus hypertension history of uterine cancer and bilateral breast CA presenting to the hospital for evaluation of right-sided abdominal pain ,CT abdominal pelvis thickening of the ascending colon with mesenteric lymph node and soft tissue heterogeneous material within the right abdominal wall, a shunt was taken to the OR and the patient is status post laparotomy noticed to have right colon tumor with perforation into abdominal wall causing abscess which was drained but no culture were done. On today's evaluation that is 10/07/2022 the patient continues to be afebrile,, patient is breathing comfortably on 2L nasal cannula oxygen , patient denies any chest pain, the patient is feeling better today and the patient abdominal pain has decreased in intensity, the patient is tolerating her diet, no nausea no vomiting Patient white count is is down to 11.4, hemoglobin is 10.5, creatinine 0.79, blood culture negative abdominal culture positive for beta-hemolytic strep C Objective - Vital Signs Vital signs: Vital Signs Temp 97.6 F 10/07/22 08:00 Pulse 94 10/07/22 08:00 Resp 18 10/07/22 08:00 BP 147/76 10/07/22 08:00 Pulse Ox 97 10/07/22 08:00 FiO2 Intake & Output 10/06/22 10/07/22 10/07/22 18:59 06:59 18:59 Intake Total 118 120 Output Total 720 700 150 Balance -602 -700 -30 Intake: Oral 118 120 Output: Drainage 20 0 0 Right Anterior Medial 20 0 0 Abdomen Urine 700 700 150 Other: Voiding Method Indwelling Catheter Indwelling Catheter Indwelling Catheter # Bowel Movements 1 - Exam GENERAL DESCRIPTION: An elderly female lying in bed in no distress RESPIRATORY SYSTEM: Unlabored breathing , decreased breath sounds at bases HEART: S1 S2 regular rate and rhythm , ABDOMEN: Soft , abdominal distention and tenderness EXTREMITIES: No edema feet - Labs CBC & Chem 7: 10/07/22 08:09 10/07/22 08:09 Labs: Abnormal Lab Results - Last 24 Hours (Table) 10/06/22 10/06/22 10/07/22 Range/Units 16:46 20:04 05:43 WBC (3.8-10.6) k/uL RBC (3.80-5.40) m/uL Hgb (11.4-16.0) gm/dL Hct (34.0-46.0) % RDW (11.5-15.5) % Neutrophils # (1.3-7.7) k/uL Glucose (74-99) mg/dL POC Glucose (mg/dL) 185 H 207 H 160 H (70-110) mg/dL Calcium (8.4-10.2) mg/dL Total Protein (6.3-8.2) g/dL Albumin (3.5-5.0) g/dL 10/07/22 10/07/22 10/07/22 Range/Units 08:09 08:09 11:51 WBC 11.4 H (3.8-10.6) k/uL RBC 3.76 L (3.80-5.40) m/uL Hgb 10.5 L (11.4-16.0) gm/dL Hct 33.7 L (34.0-46.0) % RDW 16.8 H (11.5-15.5) % Neutrophils # 8.8 H (1.3-7.7) k/uL Glucose 146 H (74-99) mg/dL POC Glucose (mg/dL) 214 H (70-110) mg/dL Calcium 7.4 L (8.4-10.2) mg/dL Total Protein 4.4 L (6.3-8.2) g/dL Albumin 1.9 L (3.5-5.0) g/dL Assessment and Plan (1) Intra-abdominal abscess Current Visit: Yes Status: Acute Code(s): K65.1 - PERITONEAL ABSCESS SNOMED Code(s): 26483878 Plan: 1patient present to hospital with right upper quadrant abdominal pain in this patient with elevated white count and abnormal CT high clinic suspicious for possible malignancy with contained perforation clinically doubt abdominal wall abscess and will need to cover for the enteric gram-negative both aerobes and anaerobes, the patient is status post laparotomy with right colectomy and drainage of the abscess, cultures obtained from the drainage catheter and currently growing group C streptococcus 2-patient is afebrile and the patient white count is down to 11.3 3the patient will continue with Zosyn hopefully will transition to oral antibiotics on discharge Dictation was produced using dragon dictation software. please excuse any grammatical, word or spelling errors. Time with Patient: Less than 30
--- NOTE | 2022-10-07 15:33 | P.PN ---
Subjective Progress Note Date: 10/07/22 Principal diagnosis: colon cancer At todays visit, pt is resting comfortably in bed. She reports feeling improved. She denies pain. Objective - Vital Signs Vital signs: Vital Signs Temp 98.3 F 10/07/22 12:00 Pulse 106 H 10/07/22 14:00 Resp 16 10/07/22 14:00 BP 145/64 10/07/22 12:00 Pulse Ox 99 10/07/22 12:00 FiO2 Intake & Output 10/06/22 10/07/22 10/07/22 18:59 06:59 18:59 Intake Total 118 120 Output Total 720 700 450 Balance -609 -700 -330 Weight 98 kg Intake: Oral 118 120 Output: Drainage 20 0 0 Right Anterior Medial 20 0 0 Abdomen Urine 700 700 450 Other: Voiding Method Indwelling Catheter Indwelling Catheter Indwelling Catheter # Bowel Movements 1 - Constitutional General appearance: Present: no acute distress, obese - EENT Eyes: Present: anicteric sclerae, EOMI ENT: Present: hearing grossly normal - Respiratory Details: breathing is even and unlabored - Cardiovascular Details: skin is warm and dry - Peripheral edema leg Peripheral Edema Comment(s): RUE edema Peripheral Edema: bilateral: 3+ - Integumentary Integumentary: Absent: cyanotic, jaundiced - Neurologic Neurologic Comment(s): grossly intact - Musculoskeletal Musculoskeletal: Present: generalized weakness - Psychiatric Psychiatric: Present: A&O x's 3, appropriate affect, intact judgment & insight - Labs CBC & Chem 7: 10/07/22 08:09 10/07/22 08:09 Labs: Abnormal Lab Results - Last 24 Hours (Table) 10/06/22 10/06/22 10/07/22 Range/Units 16:46 20:04 05:43 WBC (3.8-10.6) k/uL RBC (3.80-5.40) m/uL Hgb (11.4-16.0) gm/dL Hct (34.0-46.0) % RDW (11.5-15.5) % Neutrophils # (1.3-7.7) k/uL Glucose (74-99) mg/dL POC Glucose (mg/dL) 185 H 207 H 160 H (70-110) mg/dL Calcium (8.4-10.2) mg/dL Total Protein (6.3-8.2) g/dL Albumin (3.5-5.0) g/dL 10/07/22 10/07/22 10/07/22 Range/Units 08:09 08:09 11:51 WBC 11.4 H (3.8-10.6) k/uL RBC 3.76 L (3.80-5.40) m/uL Hgb 10.5 L (11.4-16.0) gm/dL Hct 33.7 L (34.0-46.0) % RDW 16.8 H (11.5-15.5) % Neutrophils # 8.8 H (1.3-7.7) k/uL Glucose 146 H (74-99) mg/dL POC Glucose (mg/dL) 214 H (70-110) mg/dL Calcium 7.4 L (8.4-10.2) mg/dL Total Protein 4.4 L (6.3-8.2) g/dL Albumin 1.9 L (3.5-5.0) g/dL Assessment and Plan (1) Medullary carcinoma Current Visit: Yes Status: Acute Priority: High Code(s): C80.1 - MALIGNANT (PRIMARY) NEOPLASM, UNSPECIFIED SNOMED Code(s): 287994541 (2) Abscess of abdominal wall Current Visit: Yes Status: Acute Priority: High Code(s): L02.211 - CUTANEOUS ABSCESS OF ABDOMINAL WALL SNOMED Code(s): 76760177 Plan: Medullary colon carcinoma -pT4a, N2a. Staging PET 10/22/22 at 2:30 -Pathology requested to be sent for NGS and PD-L1 testing -Follow-up with Dr. Thomas in the discharge plan. Discussed with patient that she is not a candidate for treatment until healed from surgery, typically 4-6 weeks -Germline genetic testing will be planned outpt Breast cancer -History of breast cancer, continues on Arimidex Abscess of abdominal wall: -Status post surgical procedure for perforated tumor with abscess. Wound culture positive for beta hemolytic group C strep. Continues on abx -Surgery following Extremity edema: -RUE pain and edema and BLE edema present. Doppler of RUE on 10/02 was suboptimal due to patient positioning and body habitus. Repeat RUE doppler negative for DVT. Bilateral lower extremity Dopplers were nondiagnostic due to extensive swelling. If the edema persists would recommend repeat dopplers
[2022-10-07 16:49] LABS: Glucose,Whole Blood 220 mg/dL (70-110)
[2022-10-07 20:15] LABS: Glucose,Whole Blood 186 mg/dL (70-110)
[2022-10-08] MEDS: PIPERACILLIN-TAZOBACTAM 3.375 GM in SODIUM CHLORIDE 0.9% 100 ML IVPB SCH ×4 (00:34→23:57)
[2022-10-08 06:01] LABS: Glucose,Whole Blood 116 mg/dL (70-110)
[2022-10-08] MEDS: INSULIN ASPART (NovoLOG) 100 UNIT/ML VIAL SQ SCH ×4 (06:11→19:46)
[2022-10-08] MEDS: LEVOTHYROXINE 75 MCG TAB PO SCH (06:17)
[2022-10-08] MEDS: CALCIUM CARB-VIT D 500 MG-5 MCG TAB PO SCH ×2 (06:18→15:12)
[2022-10-08 06:52] LABS: Anisocytosis Slight; Basophils % (A) 0 %; Eosinophils # (A) 0.5 k/uL (0-0.7); Eosinophils % (A) 4 %; HCT 31.1 % (34.0-46.0); HGB 10.3 gm/dL (11.4-16.0); Hypochromasia Slight; Lymphocytes # (A) 1.3 k/uL (1.0-4.8); Lymphocytes % (A) 11 %; MCH 28.5 pg (25.0-35.0); MCHC 33.1 g/dL (31.0-37.0); MCV 86.1 fL (80.0-100.0); Mean Platelet Volume 9.1; Monocytes # (A) 0.7 k/uL (0-1.0); Monocytes % (A) 6 %; Neutrophils # (A) 8.6 k/uL (1.3-7.7); Neutrophils % (A) 76 %; Platelet Count 390 k/uL (150-450); RBC 3.61 m/uL (3.80-5.40); RDW 17.1 % (11.5-15.5); WBC 11.3 k/uL (3.8-10.6)
[2022-10-08 06:56] LABS: ALT 11 U/L (4-34); African American GFR (CKD) 84 (>60 ml/min/1.73 sqM); Anion Gap 0 mmol/L; Blood Urea Nitrogen 8 mg/dL (7-17); Calcium 7.3 mg/dL (8.4-10.2); Carbon Dioxide 33 mmol/L (22-30); Chloride 104 mmol/L (98-107); Glucose 138 mg/dL (74-99); Non-African American GFR(CKD) 73 (>60 ml/min/1.73 sqM); Sodium 137 mmol/L (137-145); Total Bilirubin 0.4 mg/dL (0.2-1.3); Total Protein 4.5 g/dL (6.3-8.2)
[2022-10-08 06:59] LABS: AST 24 U/L (14-36); Potassium 3.8 mmol/L (3.5-5.1)
[2022-10-08 07:00] LABS: Alkaline Phosphatase 41 U/L (38-126)
[2022-10-08] MEDS: PANTOPRAZOLE 40 MG/10 ML VIAL IVP SCH (08:47)
[2022-10-08] MEDS: FUROSEMIDE 10 MG/ML 4 ML VIAL IV SCH (08:47)
[2022-10-08] MEDS: HEPARIN SODIUM,PORCINE 5,000 UNIT/ML 1 ML VIAL SQ SCH ×2 (08:48→19:45)
[2022-10-08] MEDS: ANASTROZOLE 1 MG TAB PO SCH (08:48)
[2022-10-08] MEDS: MAGNESIUM OXIDE 400 MG TAB PO SCH (08:48)
--- NOTE | 2022-10-08 10:39 | P.PN ---
Subjective Progress Note Date: 10/08/22 CHIEF COMPLAINT: Colon mass HISTORY OF PRESENT ILLNESS: Patient is status post right colectomy for right colon tumor with perforation into the abdominal wall causing abscess on 09/26/22. Patient sitting up in bed comfortably. She is having bowel movements. Pain is controlled. Patient does complain of swelling in extremities. And remains on IV Lasix. Afebrile. WBC stated seen 11.3 Hgb 10.3. SULMA drain removed yesterday PHYSICAL EXAM: VITAL SIGNS: Reviewed. GENERAL: Well-developed in no acute distress. ABDOMEN: Soft. Nondistended. Midline Incision site clean dry and intact NEUROLOGIC: Alert and oriented. Cranial nerves II through XII grossly intact. ASSESSMENT: 1. Right colon tumor with perforation into the abdominal wall causing abscess status post right colectomy 2. Medullary colon carcinoma 3. Fluid overload receiving IV Lasix per nephrology PLAN: -continue low fiber -Continue pain management -Continue antibiotics -Encouraged patient to use incentive spirometer -Encouraged patient to increase activity level -Continue to work with PT OT -Patient will need ECF at discharge -Patient is stable from surgical standpoint for discharge when medically cleared -GI prophylaxis Protonix and DVT prophylaxis subcu heparin [employer] note has been reviewed by physician. Signing provider agrees with the documented findings, assessment, and plan of care. Objective - Vital Signs Vital signs: Vital Signs Temp 98.1 F 10/08/22 08:51 Pulse 99 10/08/22 08:51 Resp 18 10/08/22 08:51 BP 120/72 10/08/22 08:51 Pulse Ox 97 10/08/22 08:51 FiO2 Intake & Output 10/07/22 10/08/22 10/08/22 18:59 06:59 18:59 Intake Total 120 10 Output Total 450 400 100 Balance -330 -400 -90 Weight 98 kg Intake: IV 10 Invasive Line 2 10 Oral 120 Output: Drainage 0 Right Anterior Medial 0 Abdomen Urine 450 400 100 Other: Voiding Method Indwelling Catheter Indwelling Catheter Indwelling Catheter # Bowel Movements 1 - Labs CBC & Chem 7: 10/08/22 06:32 10/08/22 06:32 Labs: Abnormal Lab Results - Last 24 Hours (Table) 10/07/22 10/07/22 10/07/22 Range/Units 11:51 16:47 20:14 WBC (3.8-10.6) k/uL RBC (3.80-5.40) m/uL Hgb (11.4-16.0) gm/dL Hct (34.0-46.0) % RDW (11.5-15.5) % Neutrophils # (1.3-7.7) k/uL Carbon Dioxide (22-30) mmol/L Glucose (74-99) mg/dL POC Glucose (mg/dL) 214 H 220 H 186 H (70-110) mg/dL Calcium (8.4-10.2) mg/dL Total Protein (6.3-8.2) g/dL Albumin (3.5-5.0) g/dL 10/08/22 10/08/22 10/08/22 Range/Units 05:59 06:32 06:32 WBC 11.3 H (3.8-10.6) k/uL RBC 3.61 L (3.80-5.40) m/uL Hgb 10.3 L (11.4-16.0) gm/dL Hct 31.1 L (34.0-46.0) % RDW 17.1 H (11.5-15.5) % Neutrophils # 8.6 H (1.3-7.7) k/uL Carbon Dioxide 33 H (22-30) mmol/L Glucose 138 H (74-99) mg/dL POC Glucose (mg/dL) 116 H (70-110) mg/dL Calcium 7.3 L (8.4-10.2) mg/dL Total Protein 4.5 L (6.3-8.2) g/dL Albumin 2.0 L (3.5-5.0) g/dL
--- NOTE | 2022-10-08 10:52 | P.PN ---
Subjective Patient seen in follow-up for hypernatremia. Sodium level remains normal. On low fiber diet. Has been eating. On IV Lasix. Nonoliguric. Hemodynamically stable. Vital signs are stable. General: No acute distress. Resting in bed. HEENT: Head exam is unremarkable. LUNGS: No audible rhonchi or wheezes. HEART: Rate and Rhythm are regular. ABDOMEN: Nontender. EXTREMITITES: 1+ edema. Objective - Vital Signs Vital signs: Vital Signs Temp 98.1 F 10/08/22 08:51 Pulse 99 10/08/22 08:51 Resp 18 10/08/22 08:51 BP 120/72 10/08/22 08:51 Pulse Ox 97 10/08/22 08:51 FiO2 Intake & Output 10/07/22 10/08/22 10/08/22 18:59 06:59 18:59 Intake Total 120 10 Output Total 450 400 100 Balance -330 -400 -90 Weight 98 kg Intake: IV 10 Invasive Line 2 10 Oral 120 Output: Drainage 0 Right Anterior Medial 0 Abdomen Urine 450 400 100 Other: Voiding Method Indwelling Catheter Indwelling Catheter Indwelling Catheter # Bowel Movements 1 - Labs CBC & Chem 7: 10/08/22 06:32 10/08/22 06:32 Labs: Abnormal Lab Results - Last 24 Hours (Table) 10/07/22 10/07/22 10/07/22 Range/Units 11:51 16:47 20:14 WBC (3.8-10.6) k/uL RBC (3.80-5.40) m/uL Hgb (11.4-16.0) gm/dL Hct (34.0-46.0) % RDW (11.5-15.5) % Neutrophils # (1.3-7.7) k/uL Carbon Dioxide (22-30) mmol/L Glucose (74-99) mg/dL POC Glucose (mg/dL) 214 H 220 H 186 H (70-110) mg/dL Calcium (8.4-10.2) mg/dL Total Protein (6.3-8.2) g/dL Albumin (3.5-5.0) g/dL 10/08/22 10/08/22 10/08/22 Range/Units 05:59 06:32 06:32 WBC 11.3 H (3.8-10.6) k/uL RBC 3.61 L (3.80-5.40) m/uL Hgb 10.3 L (11.4-16.0) gm/dL Hct 31.1 L (34.0-46.0) % RDW 17.1 H (11.5-15.5) % Neutrophils # 8.6 H (1.3-7.7) k/uL Carbon Dioxide 33 H (22-30) mmol/L Glucose 138 H (74-99) mg/dL POC Glucose (mg/dL) 116 H (70-110) mg/dL Calcium 7.3 L (8.4-10.2) mg/dL Total Protein 4.5 L (6.3-8.2) g/dL Albumin 2.0 L (3.5-5.0) g/dL Assessment and Plan Plan: Assessment: 1. Acute kidney injury secondary to hemodynamic ATN. Resolved. 2. Hypernatremia from lack of oral water intake. Status post D5W. 3. Colitis with perforation abdominal wall abscess status post laparotomy with colonic resection. Surgery following. 4. Diabetes mellitus. 5. Hypophosphatemia from poor intake. Replaced. Better. 6. Hypomagnesemia from poor intake and diuresis. On oral magnesium oxide. 7. Volume overload. Improving with diuresis. Plan: Maintain IV Lasix. Continue to monitor renal function and urine output. Add maintenance potassium supplementation.
[2022-10-08 11:31] LABS: Glucose,Whole Blood 140 mg/dL (70-110)
[2022-10-08] MEDS: POTASSIUM CHLORIDE ER 20 MEQ TAB.ER PO SCH (12:02)
[2022-10-08 14:29] LABS: Appearance,Urine Cloudy (Clear); Bilirubin,Urine Negative (Negative); Blood,Urine Large (Negative); Color,Urine Light Yellow; Glucose,Urine (UA) Negative (Negative); Hyaline Casts,Urine 4 /lpf (0-2); Ketones,Urine Negative (Negative); Leukocyte Esterase,Urine Negative (Negative); Mucus,Urine Rare /hpf; Nitrite,Urine Negative (Negative); Protein,Urine 1+ (Negative); RBC,Urine >182 /hpf (0-5); Specific Gravity,Urine 1.009 (1.001-1.035); Squamous Epithelial Cell,Urine <1 /hpf (0-4); Urobilinogen,Urine <2.0 mg/dL (<2.0); WBC,Urine 3 /hpf (0-5)
--- NOTE | 2022-10-08 15:26 | P.PN ---
Subjective Progress Note Date: 10/08/22 82 years old female with multiple medical problems including hypothyroidism, hypertension, osteoporosis, diabetes mellitus and history of breast cancer. Presents with signs and symptoms of colitis with abdominal wall abscess. With evidence of acute kidney injury present on admission. Patient as well as by several consultants. Patient currently continued on broad-spectrum antibiotic with Flagyl and Zosyn. Also she is on D5 half normal saline at 1 25 mL/h. Patient is very lethargic and weak and she Answers with One or 2 words, Chest complaining of from tenderness in the right side of the abdomen. Surgical wound is closed and healing. She is status post right colectomy. Today is postoperative day #1. Vitas looks stable Labs from today are pending 09/28/2022 Patient is awake but very lethargic. However she is oriented to time place and person and she has an site. Still complaining of from right-sided abdominal pain. No bowel movements. She feels dry but she is on D5 0.9 infusion. Also she is covered currently with Flagyl and Zosyn and wound culture is growing potassium streptococci. 09/29/2022 Patient complaining of from right-sided abdominal pain at the surgical site before she receives her pain medication this morning. Wound VAC is in place. She still has an NG tube. She has occasional cough from today Labs are still pending She remains on IV fluid D5 half-normal saline at 100 mL/h 3 : Patient is status postoperative day 3 right colectomy for right colon tumor. Continue patient on IV fluid, continue nothing by mouth, does complain of abdominal pain 10/01: Patient is status postoperative day 4, seen and evaluated and bedside. IV fluids changed to D5, 0.45 saline secondary to hyponatremia. Patient is nothing by mouth. Pathology results reviewed and oncology consulted. 10/02: Patient is postoperative day 5, family at bedside and discussed care plan with , biopsy results discussed with her as well. Patient continues to remain in multiple comorbidities. Patient was seen by oncology as well. Plan to start TPN once PICC line placed. We'll follow up on CBC and basic metabolic panel 10/03: Patient evaluated for [id number] less distress at this time. Plan for PICC line placement and initiation of TPN 10/04 , continue IV Unasyn for intra-abdominal infection, expect prolonged hospital stay followed by oncology as well might need LTAC 10/04. Patient seen and examined. Diet advanced to full liquid 10/05. Patient seen and examined. Sitting upright in the chair. Blood work done this morning showed WBC 14, hemoglobin 10.6, sodium 141, potassium 3.7, BUN 12, creatinine 0.79, magnesium 1.5. Magnesium replacement ordered 10/06. Patient seen and examined. States that she has poor appetite, still having abdominal pain 10/07. Patient seen and examined. Still has swelling of bilateral upper and lower extremities 10/08. Patient seen and examined. States that swelling of her upper extremities has improved a lot compared to yesterday. Also stating improvement in lower extremity swelling REVIEW OF SYSTEMS: CONSTITUTIONAL: No fever, no malaise,. CARDIOVASCULAR: No chest pain, no palpitations, no syncope. PULMONARY: No shortness of breath, no cough, GASTROINTESTINAL: No diarrhea, no nausea, no vomiting NEUROLOGICAL: No headaches, no weakness, PHYSICAL EXAMINATION: GENERAL: The patient is alert and oriented x3, not in any acute distress. Well developed, well nourished. HEENT: Pupils are round and equally reacting to light. EOMI. No scleral icterus. No conjunctival pallor. Normocephalic, atraumatic. No pharyngeal erythema. No thyromegaly. CARDIOVASCULAR: S1 and S2 present. No murmurs, rubs, or gallops. PULMONARY: Chest is clear to auscultation, no wheezing or crackles. ABDOMEN: Soft, tender, laparotomy surgical incision seen, drain in place MUSCULOSKELETAL: No joint swelling or deformity. EXTREMITIES: 1+ pitting edema of lower extremity bilaterally, upper extremity swelling has improved NEUROLOGICAL: Gross neurological examination did not reveal any focal deficits. SKIN: No rashes. Assessment and plan Acute ascending colitis with perforation and abdominal wall abscess status post right hemicolectomy. Today is postoperative day # 5 * Invasive medullary carcinoma of colon * Intra-abdominal abscess secondary to growth C strep * Acute kidney injury * Acute hypernatremia * Severe protein calorie malnutrition * Metabolic/toxic encephalopathy secondary to above * Diabetes mellitus TYPE 2 * Hypertension * History of osteoarthritis * Hypothyroidism Plan: * Consult obtained from general surgery, infectious disease, nephrology * Monitor CBC, CMP, * Antibiotics per infectious disease, currently on iv Zosyn * Patient underwent abdominal surgery with Dr. Sorenson and had a right colectomy. Biopsy revealed invasive medullary carcinoma. Resection margins negative for malignancy with 4 of 16 mesenteric lymph nodes positive for metastasis. Oncology following, Gen. surgery following * I's and O's, daily weights, continue IV Lasix, nephrology following * Continue pain control, nausea * Right arm swelling ulnegative for DVT * Labs and medication were reviewed * On subcu heparin for DVT prophylaxis Labs and medication were reviewed.. Continue same treatment. Continue with symptomatic treatment. Resume home medication. Monitor labs and vitals. DVT and GI prophylaxis. Further recommendations as per clinical course of the p atient Dictation was produced using [employer] dictation software. please excuse any grammatical, word or spelling errors. Objective - Vital Signs Vital signs: Vital Signs Temp 98.4 F 10/08/22 15:07 Pulse 67 10/08/22 15:07 Resp 18 10/08/22 15:07 BP 135/75 10/08/22 15:07 Pulse Ox 100 10/08/22 15:07 FiO2 Intake & Output 10/07/22 10/08/22 10/08/22 18:59 06:59 18:59 Intake Total 120 120 Output Total 450 400 100 Balance -330 -400 20 Weight 98 kg Intake: IV 10 Invasive Line 2 10 Oral 120 110 Output: Drainage 0 Right Anterior Medial 0 Abdomen Urine 450 400 100 Other: Voiding Method Indwelling Catheter Indwelling Catheter Indwelling Catheter # Bowel Movements 1 - Labs CBC & Chem 7: 10/08/22 06:32 10/08/22 06:32 Labs: Abnormal Lab Results - Last 24 Hours (Table) 10/07/22 10/07/22 10/08/22 Range/Units 16:47 20:14 05:59 WBC (3.8-10.6) k/uL RBC (3.80-5.40) m/uL Hgb (11.4-16.0) gm/dL Hct (34.0-46.0) % RDW (11.5-15.5) % Neutrophils # (1.3-7.7) k/uL Carbon Dioxide (22-30) mmol/L Glucose (74-99) mg/dL POC Glucose (mg/dL) 220 H 186 H 116 H (70-110) mg/dL Calcium (8.4-10.2) mg/dL Total Protein (6.3-8.2) g/dL Albumin (3.5-5.0) g/dL Urine Appearance (Clear) Urine Protein (Negative) Urine Blood (Negative) Urine RBC (0-5) /hpf Hyaline Casts (0-2) /lpf Urine Mucus (None) /hpf 10/08/22 10/08/22 10/08/22 Range/Units 06:32 06:32 11:29 WBC 11.3 H (3.8-10.6) k/uL RBC 3.61 L (3.80-5.40) m/uL Hgb 10.3 L (11.4-16.0) gm/dL Hct 31.1 L (34.0-46.0) % RDW 17.1 H (11.5-15.5) % Neutrophils # 8.6 H (1.3-7.7) k/uL Carbon Dioxide 33 H (22-30) mmol/L Glucose 138 H (74-99) mg/dL POC Glucose (mg/dL) 140 H (70-110) mg/dL Calcium 7.3 L (8.4-10.2) mg/dL Total Protein 4.5 L (6.3-8.2) g/dL Albumin 2.0 L (3.5-5.0) g/dL Urine Appearance (Clear) Urine Protein (Negative) Urine Blood (Negative) Urine RBC (0-5) /hpf Hyaline Casts (0-2) /lpf Urine Mucus (None) /hpf 10/08/22 Range/Units 14:00 WBC (3.8-10.6) k/uL RBC (3.80-5.40) m/uL Hgb (11.4-16.0) gm/dL Hct (34.0-46.0) % RDW (11.5-15.5) % Neutrophils # (1.3-7.7) k/uL Carbon Dioxide (22-30) mmol/L Glucose (74-99) mg/dL POC Glucose (mg/dL) (70-110) mg/dL Calcium (8.4-10.2) mg/dL Total Protein (6.3-8.2) g/dL Albumin (3.5-5.0) g/dL Urine Appearance Cloudy H (Clear) Urine Protein 1+ H (Negative) Urine Blood Large H (Negative) Urine RBC >182 H (0-5) /hpf Hyaline Casts 4 H (0-2) /lpf Urine Mucus Rare H (None) /hpf
--- NOTE | 2022-10-08 16:02 | P.PN ---
Subjective Progress Note Date: 10/08/22 Principal diagnosis: Perforated colon Intra-abdominal abscess Patient is a 82-year-old female with a past medical history significant for diabetes mellitus hypertension history of uterine cancer and bilateral breast CA presenting to the hospital for evaluation of right-sided abdominal pain ,CT abdominal pelvis thickening of the ascending colon with mesenteric lymph node and soft tissue heterogeneous material within the right abdominal wall, a shunt was taken to the OR and the patient is status post laparotomy noticed to have right colon tumor with perforation into abdominal wall causing abscess which was drained but no culture were done. On today's evaluation that is 10/08/2022 the patient denies any fever or any chills,, patient is breathing comfortably on 2L nasal cannula oxygen , patient denies any chest pain, the patient abdominal pain has decreased in intensity, the patient is tolerating her diet, no nausea no vomiting, no new symptoms Patient white count 11.3 and hemoglobin of 10.3, creatinine 0.76, the patient blood culture negative abdominal culture positive for beta-hemolytic strep C Objective - Vital Signs Vital signs: Vital Signs Temp 98.1 F 10/08/22 08:51 Pulse 99 10/08/22 08:51 Resp 18 10/08/22 08:51 BP 120/72 10/08/22 08:51 Pulse Ox 97 10/08/22 08:51 FiO2 Intake & Output 10/07/22 10/08/22 10/08/22 18:59 06:59 18:59 Intake Total 120 10 Output Total 450 400 100 Balance -330 -400 -90 Weight 98 kg Intake: IV 10 Invasive Line 2 10 Oral 120 Output: Drainage 0 Right Anterior Medial 0 Abdomen Urine 450 400 100 Other: Voiding Method Indwelling Catheter Indwelling Catheter Indwelling Catheter # Bowel Movements 1 - Exam GENERAL DESCRIPTION: An elderly female lying in bed in no distress RESPIRATORY SYSTEM: Unlabored breathing , decreased breath sounds at bases HEART: S1 S2 regular rate and rhythm , ABDOMEN: Soft , abdominal distention and tenderness EXTREMITIES: No edema feet - Labs CBC & Chem 7: 10/08/22 06:32 10/08/22 06:32 Labs: Abnormal Lab Results - Last 24 Hours (Table) 10/07/22 10/07/22 10/08/22 Range/Units 16:47 20:14 05:59 WBC (3.8-10.6) k/uL RBC (3.80-5.40) m/uL Hgb (11.4-16.0) gm/dL Hct (34.0-46.0) % RDW (11.5-15.5) % Neutrophils # (1.3-7.7) k/uL Carbon Dioxide (22-30) mmol/L Glucose (74-99) mg/dL POC Glucose (mg/dL) 220 H 186 H 116 H (70-110) mg/dL Calcium (8.4-10.2) mg/dL Total Protein (6.3-8.2) g/dL Albumin (3.5-5.0) g/dL 10/08/22 10/08/22 10/08/22 Range/Units 06:32 06:32 11:29 WBC 11.3 H (3.8-10.6) k/uL RBC 3.61 L (3.80-5.40) m/uL Hgb 10.3 L (11.4-16.0) gm/dL Hct 31.1 L (34.0-46.0) % RDW 17.1 H (11.5-15.5) % Neutrophils # 8.6 H (1.3-7.7) k/uL Carbon Dioxide 33 H (22-30) mmol/L Glucose 138 H (74-99) mg/dL POC Glucose (mg/dL) 140 H (70-110) mg/dL Calcium 7.3 L (8.4-10.2) mg/dL Total Protein 4.5 L (6.3-8.2) g/dL Albumin 2.0 L (3.5-5.0) g/dL Assessment and Plan (1) Intra-abdominal abscess Current Visit: Yes Status: Acute Code(s): K65.1 - PERITONEAL ABSCESS SNOMED Code(s): 57863656 Plan: 1patient present to hospital with right upper quadrant abdominal pain in this patient with elevated white count and abnormal CT high clinic suspicious for possible malignancy with contained perforation clinically doubt abdominal wall abscess and will need to cover for the enteric gram-negative both aerobes and anaerobes, the patient is status post laparotomy with right colectomy and drainage of the abscess, cultures obtained from the drainage catheter and curr ently growing group C streptococcus 2-patient is afebrile and the patient white count is down to 11.3 3the patient will continue with Zosyn while inpatient and we will transition her to oral antibiotic is on discharge Family the bedside questions were answered Dictation was produced using [employer] dictation software. please excuse any grammatical, word or spelling errors. Time with Patient: Less than 30
[2022-10-08 16:25] LABS: Glucose,Whole Blood 196 mg/dL (70-110)
[2022-10-08 19:44] LABS: Glucose,Whole Blood 187 mg/dL (70-110)
[2022-10-08] MEDS: ACETAMINOPHEN TAB 325 MG TAB PO PRN (19:45)
[2022-10-09 05:59] LABS: Glucose,Whole Blood 134 mg/dL (70-110)
[2022-10-09] MEDS: INSULIN ASPART (NovoLOG) 100 UNIT/ML VIAL SQ SCH ×4 (06:05→20:02)
[2022-10-09] MEDS: CALCIUM CARB-VIT D 500 MG-5 MCG TAB PO SCH ×2 (06:37→16:40)
[2022-10-09] MEDS: LEVOTHYROXINE 75 MCG TAB PO SCH (06:37)
[2022-10-09] MEDS: PIPERACILLIN-TAZOBACTAM 3.375 GM in SODIUM CHLORIDE 0.9% 100 ML IVPB SCH (08:46)
[2022-10-09] MEDS: PANTOPRAZOLE 40 MG/10 ML VIAL IVP SCH (08:47)
[2022-10-09] MEDS: MAGNESIUM OXIDE 400 MG TAB PO SCH (08:47)
[2022-10-09] MEDS: ANASTROZOLE 1 MG TAB PO SCH (08:47)
[2022-10-09] MEDS: FUROSEMIDE 10 MG/ML 4 ML VIAL IV SCH (08:47)
[2022-10-09] MEDS: POTASSIUM CHLORIDE ER 20 MEQ TAB.ER PO SCH (08:47)
[2022-10-09] MEDS: HEPARIN SODIUM,PORCINE 5,000 UNIT/ML 1 ML VIAL SQ SCH ×2 (08:47→20:02)
--- NOTE | 2022-10-09 09:39 | P.PN ---
Subjective Progress Note Date: 10/09/22 Principal diagnosis: Colon cancer Patient doing well at this time. Denies abdominal pain. Tolerating diet. She is becoming slightly more mobile. Objective - Vital Signs Vital signs: Vital Signs Temp 97.8 F 10/09/22 09:03 Pulse 96 10/09/22 09:03 Resp 20 10/09/22 09:03 BP 120/74 10/09/22 09:03 Pulse Ox 98 10/09/22 09:03 FiO2 Intake & Output 10/08/22 10/09/22 10/09/22 18:59 06:59 18:59 Intake Total 120 130 Output Total 1350 500 Balance -1230 -500 130 Weight 104 kg Intake: IV 10 10 Invasive Line 2 10 10 Oral 110 120 Output: Urine 1350 500 Uretheral (Or[place]) 1250 Other: Voiding Method Indwelling Catheter Indwelling Catheter Indwelling Catheter # Bowel Movements 1 - Exam Abdomen: Soft, nontender, nondistended , dressing clean and dry - Labs CBC & Chem 7: 10/08/22 06:32 10/08/22 06:32 Labs: Abnormal Lab Results - Last 24 Hours (Table) 10/08/22 10/08/22 10/08/22 Range/Units 11:29 14:00 16:23 POC Glucose (mg/dL) 140 H 196 H (70-110) mg/dL Urine Appearance Cloudy H (Clear) Urine Protein 1+ H (Negative) Urine Blood Large H (Negative) Urine RBC >182 H (0-5) /hpf Hyaline Casts 4 H (0-2) /lpf Urine Mucus Rare H (None) /hpf 10/08/22 10/09/22 Range/Units 19:43 05:58 POC Glucose (mg/dL) 187 H 134 H (70-110) mg/dL Urine Appearance (Clear) Urine Protein (Negative) Urine Blood (Negative) Urine RBC (0-5) /hpf Hyaline Casts (0-2) /lpf Urine Mucus (None) /hpf Assessment and Plan (1) Abscess of abdominal wall Narrative/Plan: Patient doing well after recent right colectomy for perforated colon tumor. Regular diet. Continue physical therapy. Await transfer to rehab. Current Visit: Yes Status: Acute Priority: High Code(s): L02.211 - CUTANEOUS ABSCESS OF ABDOMINAL WALL SNOMED Code(s): 19891166
[2022-10-09 10:00] LABS: ALT 10 U/L (4-34); AST 21 U/L (14-36); African American GFR (CKD) 81 (>60 ml/min/1.73 sqM); Albumin 1.7 g/dL (3.5-5.0); Alkaline Phosphatase 36 U/L (38-126); Anion Gap -2 mmol/L; Blood Urea Nitrogen 8 mg/dL (7-17); Calcium 7.1 mg/dL (8.4-10.2); Carbon Dioxide 35 mmol/L (22-30); Chloride 104 mmol/L (98-107); Glucose 162 mg/dL (74-99); Non-African American GFR(CKD) 70 (>60 ml/min/1.73 sqM); Potassium 4.5 mmol/L (3.5-5.1); Sodium 137 mmol/L (137-145); Total Bilirubin 0.3 mg/dL (0.2-1.3); Total Protein 3.8 g/dL (6.3-8.2)
[2022-10-09 10:14] LABS: Anisocytosis Slight; HCT 32.7 % (34.0-46.0); HGB 10.4 gm/dL (11.4-16.0); Hypochromasia Slight; MCH 27.8 pg (25.0-35.0); MCHC 31.6 g/dL (31.0-37.0); MCV 87.7 fL (80.0-100.0); Mean Platelet Volume 11.3; Platelet Count 396 k/uL (150-450); RBC 3.73 m/uL (3.80-5.40); RDW 17.8 % (11.5-15.5); WBC 8.8 k/uL (3.8-10.6)
[2022-10-09 11:41] LABS: Glucose,Whole Blood 140 mg/dL (70-110)
[2022-10-09] MEDS: AMOXIC-POT CLAV 875-125MG 1 EACH TAB PO SCH ×2 (12:05→20:02)
--- NOTE | 2022-10-09 12:52 | P.PN ---
Subjective Patient is seen for follow-up for acute kidney injury and hypernatremia Status post IV fluids on initial admission and currently being diuresed for volume overload. Serum creatinine down to 0.79 mg/dL Patient has an indwelling [place] catheter. Urine output documented at about 1250 mL. No complaints today. Objective - Vital Signs Vital signs: Vital Signs Temp 98.2 F 10/09/22 11:59 Pulse 95 10/09/22 11:59 Resp 18 10/09/22 11:59 BP 135/70 10/09/22 11:59 Pulse Ox 99 10/09/22 11:59 FiO2 Intake & Output 10/08/22 10/09/22 10/09/22 18:59 06:59 18:59 Intake Total 120 120 Output Total 1350 500 Balance -1230 -500 120 Weight 104 kg Intake: IV 10 Invasive Line 2 10 Oral 110 120 Output: Urine 1350 500 Uretheral ([place]) 1250 Other: Voiding Method Indwelling Catheter Indwelling Catheter Indwelling Catheter # Bowel Movements 1 - Exam Patient is awake, comfortable, no acute distress Examination of the heart S1 and S2 Examination of the lungs bilateral breath sounds are heard Abdomen is soft, mild tenderness noted Examination lower extremities shows 2+ edema bilateral [employer] exam grossly intact - Labs CBC & Chem 7: 10/09/22 09:21 10/09/22 09:21 Labs: Abnormal Lab Results - Last 24 Hours (Table) 10/08/22 10/08/22 10/08/22 Range/Units 14:00 16:23 19:43 RBC (3.80-5.40) m/uL Hgb (11.4-16.0) gm/dL Hct (34.0-46.0) % RDW (11.5-15.5) % Carbon Dioxide (22-30) mmol/L Glucose (74-99) mg/dL POC Glucose (mg/dL) 196 H 187 H (70-110) mg/dL Calcium (8.4-10.2) mg/dL Alkaline Phosphatase (38-126) U/L Total Protein (6.3-8.2) g/dL Albumin (3.5-5.0) g/dL Urine Appearance Cloudy H (Clear) Urine Protein 1+ H (Negative) Urine Blood Large H (Negative) Urine RBC >182 H (0-5) /hpf Hyaline Casts 4 H (0-2) /lpf Urine Mucus Rare H (None) /hpf 10/09/22 10/09/22 10/09/22 Range/Units 05:58 09:21 09:21 RBC 3.73 L (3.80-5.40) m/uL Hgb 10.4 L (11.4-16.0) gm/dL Hct 32.7 L (34.0-46.0) % RDW 17.8 H (11.5-15.5) % Carbon Dioxide 35 H (22-30) mmol/L Glucose 162 H (74-99) mg/dL POC Glucose (mg/dL) 134 H (70-110) mg/dL Calcium 7.1 L (8.4-10.2) mg/dL Alkaline Phosphatase 36 L (38-126) U/L Total Protein 3.8 L (6.3-8.2) g/dL Albumin 1.7 L (3.5-5.0) g/dL Urine Appearance (Clear) Urine Protein (Negative) Urine Blood (Negative) Urine RBC (0-5) /hpf Hyaline Casts (0-2) /lpf Urine Mucus (None) /hpf 10/09/22 Range/Units 11:38 RBC (3.80-5.40) m/uL Hgb (11.4-16.0) gm/dL Hct (34.0-46.0) % RDW (11.5-15.5) % Carbon Dioxide (22-30) mmol/L Glucose (74-99) mg/dL POC Glucose (mg/dL) 140 H (70-110) mg/dL Calcium (8.4-10.2) mg/dL Alkaline Phosphatase (38-126) U/L Total Protein (6.3-8.2) g/dL Albumin (3.5-5.0) g/dL Urine Appearance (Clear) Urine Protein (Negative) Urine Blood (Negative) Urine RBC (0-5) /hpf Hyaline Casts (0-2) /lpf Urine Mucus (None) /hpf Assessment and Plan Assessment: #1 acute kidney injury secondary to hemodynamic ATN with low blood pressures. Improving. -Baseline creatinine 0.8 MG per DL. #2 laparotomy with colonic resection [ascending colon] for colitis with perf oration and abdominal wall abscess #3 acute hypotension, resolved #4 diabetes 5. Hypernatremia secondary to free water deficit. Resolved 6. Volume overload, currently maintained on IV Lasix Plan: Continue IV Lasix Repeat labs in a.m.
--- NOTE | 2022-10-09 13:46 | P.PN ---
Subjective Progress Note Date: 10/09/22 82 years old female with multiple medical problems including hypothyroidism, hypertension, osteoporosis, diabetes mellitus and history of breast cancer. Presents with signs and symptoms of colitis with abdominal wall abscess. With evidence of acute kidney injury present on admission. Patient as well as by several consultants. Patient currently continued on broad-spectrum antibiotic with Flagyl and Zosyn. Also she is on D5 half normal saline at 1 25 mL/h. Patient is very lethargic and weak and she Answers with One or 2 words, Chest complaining of from tenderness in the right side of the abdomen. Surgical wound is closed and healing. She is status post right colectomy. Today is postoperative day #1. Vitas looks stable Labs from today are pending 09/28/2022 Patient is awake but very lethargic. However she is oriented to time place and person and she has an site. Still complaining of from right-sided abdominal pain. No bowel movements. She feels dry but she is on D5 0.9 infusion. Also she is covered currently with Flagyl and Zosyn and wound culture is growing potassium streptococci. 09/29/2022 Patient complaining of from right-sided abdominal pain at the surgical site before she receives her pain medication this morning. Wound VAC is in place. She still has an NG tube. She has occasional cough from today Labs are still pending She remains on IV fluid D5 half-normal saline at 100 mL/h 3 : Patient is status postoperative day 3 right colectomy for right colon tumor. Continue patient on IV fluid, continue nothing by mouth, does complain of abdominal pain 10/01: Patient is status postoperative day 4, seen and evaluated and bedside. IV fluids changed to D5, 0.45 saline secondary to hyponatremia. Patient is nothing by mouth. Pathology results reviewed and oncology consulted. 10/02: Patient is postoperative day 5, family at bedside and discussed care plan with , biopsy results discussed with her as well. Patient continues to remain in multiple comorbidities. Patient was seen by oncology as well. Plan to start TPN once PICC line placed. We'll follow up on CBC and basic metabolic panel 10/03: Patient evaluated for [id number] less distress at this time. Plan for PICC line placement and initiation of TPN 10/04 , continue IV Unasyn for intra-abdominal infection, expect prolonged hospital stay followed by oncology as well might need LTAC 10/04. Patient seen and examined. Diet advanced to full liquid 10/05. Patient seen and examined. Sitting upright in the chair. Blood work done this morning showed WBC 14, hemoglobin 10.6, sodium 141, potassium 3.7, BUN 12, creatinine 0.79, magnesium 1.5. Magnesium replacement ordered 10/06. Patient seen and examined. States that she has poor appetite, still having abdominal pain 10/07. Patient seen and examined. Still has swelling of bilateral upper and lower extremities 10/08. Patient seen and examined. States that swelling of her upper extremities has improved a lot compared to yesterday. Also stating improvement in lower extremity swelling 10/09. Patient seen and examined. No acute issues overnight REVIEW OF SYSTEMS: CONSTITUTIONAL: No fever, no malaise,. CARDIOVASCULAR: No chest pain, no palpitations, no syncope. PULMONARY: No shortness of breath, no cough, GASTROINTESTINAL: No diarrhea, no nausea, no vomiting NEUROLOGICAL: No headaches, no weakness, PHYSICAL EXAMINATION: GENERAL: The patient is alert and oriented x3, not in any acute distress. Well developed, well nourished. HEENT: Pupils are round and equally reacting to light. EOMI. No scleral icterus. No conjunctival pallor. Normocephalic, atraumatic. No pharyngeal erythema. No thyromegaly. CARDIOVASCULAR: S1 and S2 present. No murmurs, rubs, or gallops. PULMONARY: Chest is clear to auscultation, no wheezing or crackles. ABDOMEN: Soft, tender, laparotomy surgical incision seen, drain in place MUSCULOSKELETAL: No joint swelling or deformity. EXTREMITIES: 1+ pitting edema of lower extremity bilaterally, upper extremity swelling has improved NEUROLOGICAL: Gross neurological examination did not reveal any focal deficits. SKIN: No rashes. Assessment and plan Acute ascending colitis with perforation and abdominal wall abscess status post right hemicolectomy. Today is postoperative day # 5 * Invasive medullary carcinoma of colon * Intra-abdominal abscess secondary to growth C strep * Acute kidney injury * Acute hypernatremia * Severe protein calorie malnutrition * Metabolic/toxic encephalopathy secondary to above * Diabetes mellitus TYPE 2 * Hypertension * History of osteoarthritis * Hypothyroidism Plan: * Consult obtained from general surgery, infectious disease, nephrology * Monitor CBC, CMP, * Antibiotics per infectious disease, antibiotics changed to oral Augmentin * Patient underwent abdominal surgery with Dr. Sorenson and had a right colectomy. Biopsy revealed invasive medullary carcinoma. Resection margins negative for malignancy with 4 of 16 mesenteric lymph nodes positive for metastasis. Oncology following, Gen. surgery following * I's and O's, daily weights, continue IV Lasix, nephrology following * Continue pain control, nausea * Right arm swelling ulnegative for DVT * Labs and medication were reviewed * On subcu heparin for DVT prophylaxis Labs and medication were reviewed.. Continue same treatment. Continue with symptomatic treatment. Resume home medication. Monitor labs and vitals. DVT and GI prophylaxis. Further recommendations as per clinical course of the patient Dictation was produced using [employer] dictation software. please excuse any grammatical, word or spelling errors. Objective - Vital Signs Vital signs: Vital Signs Temp 98.2 F 10/09/22 11:59 Pulse 95 10/09/22 11:59 Resp 18 10/09/22 11:59 BP 135/70 10/09/22 11:59 Pulse Ox 99 10/09/22 11:59 FiO2 Intake & Output 10/08/22 10/09/22 10/09/22 18:59 06:59 18:59 Intake Total 120 120 Output Total 1350 500 Balance -1230 -500 120 Weight 104 kg Intake: IV 10 Invasive Line 2 10 Oral 110 120 Output: Urine 1350 500 Uretheral (Orantes) 1250 Other: Voiding Method Indwelling Catheter Indwelling Catheter Indwelling Catheter # Bowel Movements 1 - Labs CBC & Chem 7: 10/09/22 09:21 10/09/22 09:21 Labs: Abnormal Lab Results - Last 24 Hours (Table) 10/08/22 10/08/22 10/08/22 Range/Units 14:00 16:23 19:43 RBC (3.80-5.40) m/uL Hgb (11.4-16.0) gm/dL Hct (34.0-46.0) % RDW (11.5-15.5) % Carbon Dioxide (22-30) mmol/L Glucose (74-99) mg/dL POC Glucose (mg/dL) 196 H 187 H (70-110) mg/dL Calcium (8.4-10.2) mg/dL Alkaline Phosphatase (38-126) U/L Total Protein (6.3-8.2) g/dL Albumin (3.5-5.0) g/dL Urine Appearance Cloudy H (Clear) Urine Protein 1+ H (Negative) Urine Blood Large H (Negative) Urine RBC >182 H (0-5) /hpf Hyaline Casts 4 H (0-2) /lpf Urine Mucus Rare H (None) /hpf 10/09/22 10/09/22 10/09/22 Range/Units 05:58 09:21 09:21 RBC 3.73 L (3.80-5.40) m/uL Hgb 10.4 L (11.4-16.0) gm/dL Hct 32.7 L (34.0-46.0) % RDW 17.8 H (11.5-15.5) % Carbon Dioxide 35 H (22-30) mmol/L Glucose 162 H (74-99) mg/dL POC Glucose (mg/dL) 134 H (70-110) mg/dL Calcium 7.1 L (8.4-10.2) mg/dL Alkaline Phosphatase 36 L (38-126) U/L Total Protein 3.8 L (6.3-8.2) g/dL Albumin 1.7 L (3.5-5.0) g/dL Urine Appearance (Clear) Urine Protein (Negative) Urine Blood (Negative) Urine RBC (0-5) /hpf Hyaline Casts (0-2) /lpf Urine Mucus (None) /hpf 10/09/22 Range/Units 11:38 RBC (3.80-5.40) m/uL Hgb (11.4-16.0) gm/dL Hct (34.0-46.0) % RDW (11.5-15.5) % Carbon Dioxide (22-30) mmol/L Glucose (74-99) mg/dL POC Glucose (mg/dL) 140 H (70-110) mg/dL Calcium (8.4-10.2) mg/dL Alkaline Phosphatase (38-126) U/L Total Protein (6.3-8.2) g/dL Albumin (3.5-5.0) g/dL Urine Appearance (Clear) Urine Protein (Negative) Urine Blood (Negative) Urine RBC (0-5) /hpf Hyaline Casts (0-2) /lpf Urine Mucus (None) /hpf
[2022-10-09 16:39] LABS: Glucose,Whole Blood 189 mg/dL (70-110)
[2022-10-09] MEDS: NYSTATIN 100,000 UNIT/GM POWD 15 GM TOPICAL SCH ×2 (16:40→23:56)
[2022-10-09 19:46] LABS: Glucose,Whole Blood 228 mg/dL (70-110)
[2022-10-10 06:04] LABS: Glucose,Whole Blood 137 mg/dL (70-110)
[2022-10-10] MEDS: INSULIN ASPART (NovoLOG) 100 UNIT/ML VIAL SQ SCH ×4 (06:15→20:27)
[2022-10-10] MEDS: CALCIUM CARB-VIT D 500 MG-5 MCG TAB PO SCH ×2 (06:50→15:40)
[2022-10-10] MEDS: LEVOTHYROXINE 75 MCG TAB PO SCH (06:50)
[2022-10-10] MEDS: NYSTATIN 100,000 UNIT/GM POWD 15 GM TOPICAL SCH ×3 (07:31→20:36)
[2022-10-10] MEDS: MAGNESIUM OXIDE 400 MG TAB PO SCH (07:34)
[2022-10-10] MEDS: HEPARIN SODIUM,PORCINE 5,000 UNIT/ML 1 ML VIAL SQ SCH ×2 (07:34→20:36)
[2022-10-10] MEDS: AMOXIC-POT CLAV 875-125MG 1 EACH TAB PO SCH ×2 (07:34→20:36)
[2022-10-10] MEDS: PANTOPRAZOLE 40 MG/10 ML VIAL IVP SCH (07:34)
[2022-10-10] MEDS: ANASTROZOLE 1 MG TAB PO SCH (07:34)
[2022-10-10] MEDS: FUROSEMIDE 40 MG TAB PO SCH ×2 (07:34→15:40)
[2022-10-10] MEDS: POTASSIUM CHLORIDE ER 20 MEQ TAB.ER PO SCH (09:40)
--- NOTE | 2022-10-10 09:58 | P.PN ---
Subjective Progress Note Date: 10/09/22 Principal diagnosis: Perforated colon Intra-abdominal abscess Patient is a 82-year-old female with a past medical history significant for diabetes mellitus hypertension history of uterine cancer and bilateral breast CA presenting to the hospital for evaluation of right-sided abdominal pain ,CT abdominal pelvis thickening of the ascending colon with mesenteric lymph node and soft tissue heterogeneous material within the right abdominal wall, a shunt was taken to the OR and the patient is status post laparotomy noticed to have right colon tumor with perforation into abdominal wall causing abscess which was drained but no culture were done. On today's evaluation that is 10/09/2022 the patient remains to be afebrile, patient is breathing comfortably on 2 L nasal cannula oxygen patient denies having any chest pain or shortness with a cough abdominal pain has improved and has been tolerating her diet patient has lost her IV and nursing staff are not able to place another IV. Patient white count has normalized to 8.8 creatinine 0.79 Objective - Vital Signs Vital signs: Vital Signs Temp 97.4 F L 10/09/22 15:21 Pulse 61 10/09/22 15:21 Resp 20 10/09/22 15:21 BP 123/75 10/09/22 15:21 Pulse Ox 97 10/09/22 15:21 FiO2 Intake & Output 10/08/22 10/09/22 10/09/22 18:59 06:59 18:59 Intake Total 120 238 Output Total 1350 500 Balance -1230 -500 238 Weight 104 kg Intake: IV 10 Invasive Line 2 10 Oral 110 238 Output: Urine 1350 500 Uretheral (Orantes) 1250 Other: Voiding Method Indwelling Catheter Indwelling Catheter Indwelling Catheter # Voids 1 # Bowel Movements 1 - Exam GENERAL DESCRIPTION: An elderly female lying in bed in no distress RESPIRATORY SYSTEM: Unlabored breathing , decreased breath sounds at bases HEART: S1 S2 regular rate and rhythm , ABDOMEN: Soft , abdominal distention and tenderness EXTREMITIES: No edema feet - Labs CBC & Chem 7: 10/09/22 09:21 10/09/22 09:21 Labs: Abnormal Lab Results - Last 24 Hours (Table) 10/08/22 10/08/22 10/09/22 Range/Units 16:23 19:43 05:58 RBC (3.80-5.40) m/uL Hgb (11.4-16.0) gm/dL Hct (34.0-46.0) % RDW (11.5-15.5) % Carbon Dioxide (22-30) mmol/L Glucose (74-99) mg/dL POC Glucose (mg/dL) 196 H 187 H 134 H (70-110) mg/dL Calcium (8.4-10.2) mg/dL Alkaline Phosphatase (38-126) U/L Total Protein (6.3-8.2) g/dL Albumin (3.5-5.0) g/dL 10/09/22 10/09/22 10/09/22 Range/Units 09:21 09:21 11:38 RBC 3.73 L (3.80-5.40) m/uL Hgb 10.4 L (11.4-16.0) gm/dL Hct 32.7 L (34.0-46.0) % RDW 17.8 H (11.5-15.5) % Carbon Dioxide 35 H (22-30) mmol/L Glucose 162 H (74-99) mg/dL POC Glucose (mg/dL) 140 H (70-110) mg/dL Calcium 7.1 L (8.4-10.2) mg/dL Alkaline Phosphatase 36 L (38-126) U/L Total Protein 3.8 L (6.3-8.2) g/dL Albumin 1.7 L (3.5-5.0) g/dL Assessment and Plan (1) Intra-abdominal abscess Current Visit: Yes Status: Acute Code(s): K65.1 - PERITONEAL ABSCESS SNOMED Code(s): 26279326 Plan: 1patient present to hospital with right upper quadrant abdominal pain in this patient with elevated white count and abnormal CT high clinic suspicious for possible malignancy with contained perforation clinically doubt abdominal wall abscess and will need to cover for the enteric gram-negative both aerobes and anaerobes, the patient is status post laparotomy with right colectomy and drainage of the abscess, cultures obtained from the drainage catheter and currently growing group C streptococcus 2-Patient has shown clinical improvement and patient white count has normalized unfortunately the patient has lost her IV. 3we will discontinue Zosyn and start the patient on Augmentin and monitor cli nical course closely Dictation was produced using [employer] dictation software. please excuse any gram matical, word or spelling errors. Time with Patient: Less than 30
--- NOTE | 2022-10-10 11:08 | P.PN ---
Subjective Patient is seen for follow-up for acute kidney injury and hypernatremia Status post IV fluids on initial admission and currently being diuresed for volume overload. Serum creatinine down to 0.79 mg/dL Patient has an indwelling Orantes catheter. Urine output documented at about 1250 mL. No complaints today. Feeling better. Objective - Vital Signs Vital signs: Vital Signs Temp 98.4 F 10/10/22 07:52 Pulse 107 H 10/10/22 07:52 Resp 22 10/10/22 07:52 BP 129/74 10/10/22 07:52 Pulse Ox 98 10/10/22 07:52 FiO2 Intake & Output 10/09/22 10/10/22 10/10/22 18:59 06:59 18:59 Intake Total 358 120 Output Total 400 Balance 358 -400 120 Weight 101.5 kg Intake: Oral 358 120 Output: Urine 400 Other: Voiding Method Indwelling Catheter Indwelling Catheter Indwelling Catheter # Voids 1 - Exam Patient is awake, comfortable, no acute distress Examination of the heart S1 and S2 Examination of the lungs bilateral breath sounds are heard Abdomen is soft, mild tenderness noted Examination lower extremities shows 1+ edema bilateral [employer] exam grossly intact - Labs CBC & Chem 7: 10/09/22 09:21 10/09/22 09:21 Labs: Abnormal Lab Results - Last 24 Hours (Table) 10/09/22 10/09/22 10/09/22 Range/Units 11:38 16:36 19:44 POC Glucose (mg/dL) 140 H 189 H 228 H (70-110) mg/dL 10/10/22 Range/Units 06:02 POC Glucose (mg/dL) 137 H (70-110) mg/dL Assessment and Plan Assessment: 1 acute kidney injury secondary to hemodynamic ATN with low blood pressures. Improving. -Baseline creatinine 0.8 MG per DL. 2 laparotomy with colonic resection [ascending colon] for colitis with perforation and abdominal wall abscess 3 acute hypotension, resolved 4 diabetes 5. Hypernatremia secondary to free water deficit. Resolved 6. Volume overload, currently maintained on Lasix Plan: Continue to diurese. Lasix has been switched to oral. Repeat labs in a.m.
--- NOTE | 2022-10-10 11:26 | P.PN ---
Subjective Progress Note Date: 10/10/22 Principal diagnosis: Colon cancer Patient doing well today. Complaining of fatigue. No pain. No nausea or vomiting. Tolerating diet. Objective - Vital Signs Vital signs: Vital Signs Temp 98.4 F 10/10/22 07:52 Pulse 107 H 10/10/22 07:52 Resp 22 10/10/22 07:52 BP 129/74 10/10/22 07:52 Pulse Ox 98 10/10/22 07:52 FiO2 Intake & Output 10/09/22 10/10/22 10/10/22 18:59 06:59 18:59 Intake Total 358 120 Output Total 400 Balance 358 -400 120 Weight 101.5 kg Intake: Oral 358 120 Output: Urine 400 Other: Voiding Method Indwelling Catheter Indwelling Catheter Indwelling Catheter # Voids 1 - Exam Abdomen: Soft, nontender, nondistended , dressing clean and dry - Labs CBC & Chem 7: 10/09/22 09:21 10/09/22 09:21 Labs: Abnormal Lab Results - Last 24 Hours (Table) 10/09/22 10/09/22 10/09/22 Range/Units 11:38 16:36 19:44 POC Glucose (mg/dL) 140 H 189 H 228 H (70-110) mg/dL 10/10/22 Range/Units 06:02 POC Glucose (mg/dL) 137 H (70-110) mg/dL Assessment and Plan (1) Abscess of abdominal wall Narrative/Plan: Is doing well at this time. Continue diet as tolerated. Continue physical therapy. Possible transfer to rehab tomorrow. Current Visit: Yes Status: Acute Priority: High Code(s): L02.211 - CUTANEOUS ABSCESS OF ABDOMINAL WALL SNOMED Code(s): 34372992
[2022-10-10 12:05] LABS: Glucose,Whole Blood 163 mg/dL (70-110)
--- NOTE | 2022-10-10 12:43 | P.PN ---
Subjective Progress Note Date: 10/10/22 82 years old female with multiple medical problems including hypothyroidism, hypertension, osteoporosis, diabetes mellitus and history of breast cancer. Presents with signs and symptoms of colitis with abdominal wall abscess. With evidence of acute kidney injury present on admission. Patient as well as by several consultants. Patient currently continued on broad-spectrum antibiotic with Flagyl and Zosyn. Also she is on D5 half normal saline at 1 25 mL/h. Patient is very lethargic and weak and she Answers with One or 2 words, Chest complaining of from tenderness in the right side of the abdomen. Surgical wound is closed and healing. She is status post right colectomy. Today is postoperative day #1. Vitas looks stable Labs from today are pending 09/28/2022 Patient is awake but very lethargic. However she is oriented to time place and person and she has an site. Still complaining of from right-sided abdominal pain. No bowel movements. She feels dry but she is on D5 0.9 infusion. Also she is covered currently with Flagyl and Zosyn and wound culture is growing potassium streptococci. 09/29/2022 Patient complaining of from right-sided abdominal pain at the surgical site before she receives her pain medication this morning. Wound VAC is in place. She still has an NG tube. She has occasional cough from today Labs are still pending She remains on IV fluid D5 half-normal saline at 100 mL/h 3 : Patient is status postoperative day 3 right colectomy for right colon tumor. Continue patient on IV fluid, continue nothing by mouth, does complain of abdominal pain 10/01: Patient is status postoperative day 4, seen and evaluated and bedside. IV fluids changed to D5, 0.45 saline secondary to hyponatremia. Patient is nothing by mouth. Pathology results reviewed and oncology consulted. 10/02: Patient is postoperative day 5, family at bedside and discussed care plan with , biopsy results discussed with her as well. Patient continues to remain in multiple comorbidities. Patient was seen by oncology as well. Plan to start TPN once PICC line placed. We'll follow up on CBC and basic metabolic panel 10/03: Patient evaluated for [id number] less distress at this time. Plan for PICC line placement and initiation of TPN 10/04 , continue IV Unasyn for intra-abdominal infection, expect prolonged hospital stay followed by oncology as well might need LTAC 10/04. Patient seen and examined. Diet advanced to full liquid 10/05. Patient seen and examined. Sitting upright in the chair. Blood work done this morning showed WBC 14, hemoglobin 10.6, sodium 141, potassium 3.7, BUN 12, creatinine 0.79, magnesium 1.5. Magnesium replacement ordered 10/06. Patient seen and examined. States that she has poor appetite, still having abdominal pain 10/07. Patient seen and examined. Still has swelling of bilateral upper and lower extremities 10/08. Patient seen and examined. States that swelling of her upper extremities has improved a lot compared to yesterday. Also stating improvement in lower extremity swelling 10/09. Patient seen and examined. No acute issues overnight 10/10. Patient seen and examined. No acute issues overnight, vital signs stable. REVIEW OF SYSTEMS: CONSTITUTIONAL: No fever, no malaise,. CARDIOVASCULAR: No chest pain, no palpitations, no syncope. PULMONARY: No shortness of breath, no cough, GASTROINTESTINAL: No diarrhea, no nausea, no vomiting NEUROLOGICAL: No headaches, no weakness, PHYSICAL EXAMINATION: GENERAL: The patient is alert and oriented x3, not in any acute distress. Well developed, well nourished. HEENT: Pupils are round and equally reacting to light. EOMI. No scleral icterus. No conjunctival pallor. Normocephalic, atraumatic. No pharyngeal erythema. No thyromegaly. CARDIOVASCULAR: S1 and S2 present. No murmurs, rubs, or gallops. PULMONARY: Chest is clear to auscultation, no wheezing or crackles. ABDOMEN: Soft, tender, laparotomy surgical incision seen, drain in place MUSCULOSKELETAL: No joint swelling or deformity. EXTREMITIES: 1+ pitting edema of lower extremity bilaterally, upper extremity swelling has improved NEUROLOGICAL: Gross neurological examination did not reveal any focal deficits. SKIN: No rashes. Assessment and plan Acute ascending colitis with perforation and abdominal wall abscess status post right hemicolectomy. Today is postoperative day # 5 * Invasive medullary carcinoma of colon * Intra-abdominal abscess secondary to growth C strep * Acute kidney injury * Acute hypernatremia * Severe protein calorie malnutrition * Metabolic/toxic encephalopathy secondary to above * Diabetes mellitus TYPE 2 * Hypertension * History of osteoarthritis * Hypothyroidism Plan: * Consult obtained from general surgery, infectious disease, nephrology * Monitor CBC, CMP, * Antibiotics per infectious disease, continue oral Augmentin * Patient underwent abdominal surgery with Dr. Sorenson and had a right colectomy. Biopsy revealed invasive medullary carcinoma. Resection margins negative for malignancy with 4 of 16 mesenteric lymph nodes positive for metastasis. Oncology following, Gen. surgery following * I's and O's, daily weights, continue oral Lasix, nephrology following * Continue pain control, nausea * Right arm swelling ulnegative for DVT * Labs and medication were reviewed * On subcu heparin for DVT prophylaxis Labs and medication were reviewed.. Continue same treatment. Continue with symptomatic treatment. Resume home medication. Monitor labs and vitals. DVT and GI prophylaxis. Further recommendations as per clinical course of the patient Dictation was produced using [employer] dictation software. please excuse any grammatical, word or spelling errors. Objective - Vital Signs Vital signs: Vital Signs Temp 98.4 F 10/10/22 07:52 Pulse 107 H 10/10/22 07:52 Resp 22 10/10/22 07:52 BP 129/74 10/10/22 07:52 Pulse Ox 98 10/10/22 07:52 FiO2 Intake & Output 10/09/22 10/10/22 10/10/22 18:59 06:59 18:59 Intake Total 358 120 Output Total 400 Balance 358 -400 120 Weight 101.5 kg Intake: Oral 358 120 Output: Urine 400 Other: Voiding Method Indwelling Catheter Indwelling Catheter Indwelling Catheter # Voids 1 - Labs CBC & Chem 7: 10/09/22 09:21 10/09/22 09:21 Labs: Abnormal Lab Results - Last 24 Hours (Table) 10/09/22 10/09/22 10/09/22 Range/Units 09:21 11:38 16:36 RBC 3.73 L (3.80-5.40) m/uL Hgb 10.4 L (11.4-16.0) gm/dL Hct 32.7 L (34.0-46.0) % RDW 17.8 H (11.5-15.5) % POC Glucose (mg/dL) 140 H 189 H (70-110) mg/dL 10/09/22 10/10/22 Range/Units 19:44 06:02 RBC (3.80-5.40) m/uL Hgb (11.4-16.0) gm/dL Hct (34.0-46.0) % RDW (11.5-15.5) % POC Glucose (mg/dL) 228 H 137 H (70-110) mg/dL
--- NOTE | 2022-10-10 16:08 | P.PN ---
Subjective Progress Note Date: 10/10/22 Principal diagnosis: Perforated colon Intra-abdominal abscess Patient is a 82-year-old female with a past medical history significant for diabetes mellitus hypertension history of uterine cancer and bilateral breast CA presenting to the hospital for evaluation of right-sided abdominal pain ,CT abdominal pelvis thickening of the ascending colon with mesenteric lymph node and soft tissue heterogeneous material within the right abdominal wall, a shunt was taken to the OR and the patient is status post laparotomy noticed to have right colon tumor with perforation into abdominal wall causing abscess which was drained but no culture were done. On today's evaluation that is 10/10/2022 the patient continues to be afebrile, patient is breathing comfortably on 2 L nasal cannula oxygen patient denies having any chest pain or shortness breath and no cough, the patient abdominal pain has improved and has been tolerating her diet Patient white count has normalized to 8.8 creatinine 0.79 as of 10/09/2022 no CBC or blood was drawn today Objective - Vital Signs Vital signs: Vital Signs Temp 98.6 F 10/10/22 15:36 Pulse 95 10/10/22 15:36 Resp 18 10/10/22 15:36 BP 118/73 10/10/22 15:36 Pulse Ox 97 10/10/22 15:36 FiO2 Intake & Output 10/09/22 10/10/22 10/10/22 18:59 06:59 18:59 Intake Total 358 238 Output Total 400 650 Balance 358 -400 -412 Weight 101.5 kg Intake: Oral 358 238 Output: Urine 400 650 Other: Voiding Method Indwelling Catheter Indwelling Catheter Indwelling Catheter # Voids 1 - Exam GENERAL DESCRIPTION: An elderly female lying in bed in no distress RESPIRATORY SYSTEM: Unlabored breathing , decreased breath sounds at bases HEART: S1 S2 regular rate and rhythm , ABDOMEN: Soft , midline abdominal incision was clean no tenderness EXTREMITIES: No edema feet - Labs CBC & Chem 7: 10/09/22 09:21 10/09/22 09:21 Labs: Abnormal Lab Results - Last 24 Hours (Table) 10/09/22 10/09/22 10/10/22 Range/Units 16:36 19:44 06:02 POC Glucose (mg/dL) 189 H 228 H 137 H (70-110) mg/dL 10/10/22 Range/Units 12:00 POC Glucose (mg/dL) 163 H (70-110) mg/dL Assessment and Plan (1) Intra-abdominal abscess Current Visit: Yes Status: Acute Code(s): K65.1 - PERITONEAL ABSCESS SNOMED Code(s): 06262853 Plan: 1patient present to hospital with right upper quadrant abdominal pain in this patient with elevated white count and abnormal CT high clinic suspicious for possible malignancy with contained perforation clinically doubt abdominal wall abscess and will need to cover for the enteric gram-negative both aerobes and anaerobes, the patient is status post laparotomy with right colectomy and drainage of the abscess, cultures obtained from the drainage catheter and currently growing group C streptococcus 2-Patient has shown clinical improvement and patient white count has normalized 3we will continue the patient on Augmentin and monitor clinical course closely at the bedside questions answered Dictation was produced using [employer] dictation software. please excuse any grammatical, word or spelling errors. Time with Patient: Less than 30
[2022-10-10 16:43] LABS: Glucose,Whole Blood 178 mg/dL (70-110)
[2022-10-10 20:18] LABS: Glucose,Whole Blood 148 mg/dL (70-110)
[2022-10-11 06:05] LABS: Glucose,Whole Blood 127 mg/dL (70-110)
[2022-10-11] MEDS: INSULIN ASPART (NovoLOG) 100 UNIT/ML VIAL SQ SCH ×3 (06:05→17:01)
[2022-10-11] MEDS: LEVOTHYROXINE 75 MCG TAB PO SCH (06:14)
[2022-10-11] MEDS: CALCIUM CARB-VIT D 500 MG-5 MCG TAB PO SCH ×2 (06:14→17:01)
[2022-10-11] MEDS: PANTOPRAZOLE 40 MG/10 ML VIAL IVP SCH (09:10)
[2022-10-11] MEDS: POTASSIUM CHLORIDE ER 20 MEQ TAB.ER PO SCH (09:15)
[2022-10-11] MEDS: ANASTROZOLE 1 MG TAB PO SCH (09:15)
[2022-10-11] MEDS: MAGNESIUM OXIDE 400 MG TAB PO SCH (09:15)
[2022-10-11] MEDS: AMOXIC-POT CLAV 875-125MG 1 EACH TAB PO SCH (09:15)
[2022-10-11] MEDS: FUROSEMIDE 40 MG TAB PO SCH ×2 (09:15→15:42)
[2022-10-11] MEDS: HEPARIN SODIUM,PORCINE 5,000 UNIT/ML 1 ML VIAL SQ SCH (09:15)
[2022-10-11] MEDS: NYSTATIN 100,000 UNIT/GM POWD 15 GM TOPICAL SCH ×2 (09:15→15:35)
[2022-10-11 11:27] LABS: African American GFR (CKD) 88 (>60 ml/min/1.73 sqM); Blood Urea Nitrogen 8 mg/dL (7-17); Calcium 7.5 mg/dL (8.4-10.2); Chloride 96 mmol/L (98-107); Glucose 173 mg/dL (74-99); Non-African American GFR(CKD) 77 (>60 ml/min/1.73 sqM); Sodium 136 mmol/L (137-145)
[2022-10-11 11:28] LABS: Glucose,Whole Blood 255 mg/dL (70-110)
[2022-10-11 11:34] LABS: Anion Gap 4 mmol/L
[2022-10-11 11:36] LABS: Carbon Dioxide 36 mmol/L (22-30)
[2022-10-11 12:01] VITALS: BMI 37.2
--- NOTE | 2022-10-11 12:08 | P.PN ---
Subjective Patient is seen for follow-up for acute kidney injury and hypernatremia Status post IV fluids on initial admission and currently being diuresed for volume overload. Serum creatinine down to 0.7 mg/dL Patient has an indwelling Orantes catheter. Urine output documented at about 1625 mL. No complaints today. Feeling better. Objective - Vital Signs Vital signs: Vital Signs Temp 97.7 F 10/11/22 08:59 Pulse 105 H 10/11/22 08:59 Resp 16 10/11/22 08:59 BP 132/73 10/11/22 08:59 Pulse Ox 98 10/11/22 08:59 FiO2 Intake & Output 10/10/22 10/11/22 10/11/22 18:59 06:59 18:59 Intake Total 358 Output Total 1050 575 Balance -692 -575 Weight 101.5 kg Intake: Oral 358 Output: Urine 1050 575 Uretheral (Orantes) 275 Other: Voiding Method Indwelling Catheter Indwelling Catheter Indwelling Catheter - Exam Patient is awake, comfortable, no acute distress Examination of the heart S1 and S2 Examination of the lungs bilateral breath sounds are heard Abdomen is soft, mild tenderness noted Examination 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 - Labs CBC & Chem 7: 10/09/22 09:21 10/11/22 10:33 Labs: Abnormal Lab Results - Last 24 Hours (Table) 10/10/22 10/10/22 10/11/22 Range/Units 16:36 20:16 06:02 Sodium (137-145) mmol/L Chloride (98-107) mmol/L Carbon Dioxide (22-30) mmol/L Glucose (74-99) mg/dL POC Glucose (mg/dL) 178 H 148 H 127 H (70-110) mg/dL Calcium (8.4-10.2) mg/dL 10/11/22 10/11/22 Range/Units 10:33 11:26 Sodium 136 L (137-145) mmol/L Chloride 96 L (98-107) mmol/L Carbon Dioxide 36 H (22-30) mmol/L Glucose 173 H (74-99) mg/dL POC Glucose (mg/dL) 255 H (70-110) mg/dL Calcium 7.5 L (8.4-10.2) mg/dL Assessment and Plan Assessment: 1 acute kidney injury secondary to hemodynamic ATN with low blood pressures. Improving. -Baseline creatinine 0.8 MG per DL. 2 laparotomy with colonic resection [ascending colon] for colitis with perforation and abdominal wall abscess 3 acute hypotension, resolved 4 diabetes 5. Hypernatremia secondary to free water deficit. Resolved 6. Volume overload, currently maintained on Lasix Plan: Continue to diurese. Lasix has been switched to oral. Continue to encourage increased oral intake. Monitor labs periodically.
[2022-10-11 12:10] VITALS: RESP 20
--- NOTE | 2022-10-11 13:26 | P.DS ---
Providers Date of admission: 09/25/22 11:58 Expected date of discharge: 10/11/22 Attending physician: Kenneth Amaya Consults: 09/24/22 17:45 Consult Physician Stat Consulting Provider: Agustin Sorenson Consult Reason/Comments: Abdominal wall abscess Do you want consulting provider notified?: Yes Consult Physician Stat Consulting Provider: Clarence Melgar Consult Reason/Comments: WADE Do you want consulting provider notified?: Yes Consult Physician Stat Consulting Provider: Jamari Meyers Consult Reason/Comments: Abdominal wall abscess Do you want consulting provider notified?: Yes 10/01/22 09:14 Consult Physician Routine Consulting Provider: Jose Luis Thomas Consult Reason/Comments: Invasive Medullary Ca of Colon, new diagnosis Do you want consulting provider notified?: Yes Primary care physician: Nigel Marlow Hospital Course: Discharge diagnoses; Acute ascending colitis with perforation and abdominal wall abscess status post right hemicolectomy. Today is postoperative day # 5 * Invasive medullary carcinoma of colon * Intra-abdominal abscess secondary to growth C strep * Acute kidney injury * Acute hypernatremia * Severe protein calorie malnutrition * Metabolic/toxic encephalopathy secondary to above * Diabetes mellitus TYPE 2 * Hypertension * History of osteoarthritis * Hypothyroidism Hospital course; 82 years old female with multiple medical problems including hypothyroidism, hypertension, osteoporosis, diabetes mellitus and history of breast cancer. Presents with signs and symptoms of colitis with abdominal wall abscess. With evidence of acute kidney injury present on admission. Patient as well as by several consultants. Patient currently continued on broad-spectrum antibiotic with Flagyl and Zosyn. Also she is on D5 half normal saline at 1 25 mL/h. Patient is very lethargic and weak and she Answers with One or 2 words, Chest complaining of from tenderness in the right side of the abdomen. Surgical wound is closed and healing. She is status post right colectomy. Today is postoperative day #1. Vitas looks stable Labs from today are pending 09/28/2022 Patient is awake but very lethargic. However she is oriented to time place and person and she has an site. Still complaining of from right-sided abdominal pain. No bowel movements. She feels dry but she is on D5 0.9 infusion. Also she is covered currently with Flagyl and Zosyn and wound culture is growing potassium streptococci. 09/29/2022 Patient complaining of from right-sided abdominal pain at the surgical site before she receives her pain medication this morning. Wound VAC is in place. She still has an NG tube. She has occasional cough from today Labs are still pending She remains on IV fluid D5 half-normal saline at 100 mL/h 09/30 : Patient is status postoperative day 3 right colectomy for right colon tumor. Continue patient on IV fluid, continue nothing by mouth, does complain of abdominal pain 10/01: Patient is status postoperative day 4, seen and evaluated and bedside. IV fluids changed to D5, 0.45 saline secondary to hyponatremia. Patient is nothing by mouth. Pathology results reviewed and oncology consulted. 10/02: Patient is postoperative day 5, family at bedside and discussed care plan with , biopsy results discussed with her as well. Patient continues to remain in multiple comorbidities. Patient was seen by oncology as well. Plan to start TPN once PICC line placed. We'll follow up on CBC and basic metabolic panel 10/03: Patient evaluated for [id number] less distress at this time. Plan for PICC line placement and initiation of TPN 10/04 , continue IV Unasyn for intra- abdominal infection, expect prolonged hospital stay followed by oncology as well might need LTAC 10/04. Patient seen and examined. Diet advanced to full liquid 10/05. Patient seen and examined. Sitting upright in the chair. Blood work done this morning showed WBC 14, hemoglobin 10.6, sodium 141, potassium 3.7, BUN 12, creatinine 0.79, magnesium 1.5. Magnesium replacement ordered 10/06. Patient seen and examined. States that she has poor appetite, still having abdominal pain 10/07. Patient seen and examined. Still has swelling of bilateral upper and lower extremities 10/08. Patient seen and examined. States that swelling of her upper extremities has improved a lot compared to yesterday. Also stating improvement in lower extremity swelling 10/09. Patient seen and examined. No acute issues overnight 10/10. Patient seen and examined. No acute issues overnight, vital signs stable. 10/11. Patient seen and examined. Being discharged on oral Augmentin for 1 week. Outpatient follow-up with surgery, ID, nephrology PHYSICAL EXAMINATION: GENERAL: The patient is alert and oriented x3, not in any acute distress. Well developed, well nourished. HEENT: Pupils are round and equally reacting to light. EOMI. No scleral icterus. No conjunctival pallor. Normocephalic, atraumatic. No pharyngeal erythema. No thyromegaly. CARDIOVASCULAR: S1 and S2 present. No murmurs, rubs, or gallops. PULMONARY: Chest is clear to auscultation, no wheezing or crackles. ABDOMEN: Soft, tender, laparotomy surgical incision seen MUSCULOSKELETAL: No joint swelling or deformity. EXTREMITIES: 1+ pitting edema of lower extremity bilaterally, upper extremity swelling has improved NEUROLOGICAL: Gross neurological examination did not reveal any focal deficits. SKIN: No rashes. Dictation was produced using [employer] dictation software. please excuse any grammatical, word or spelling errors. Patient Condition at Discharge: Good Plan - Discharge Summary Discharge Rx Participant: No New Discharge Prescriptions: New Amoxic-Pot Clav 875-125Mg [Augmentin 875-125] 1 each PO Q12HR 7 Days #14 tab Nystatin 100,000 Unit/gm Powd [Mycostatin Powder] 1 applic TOPICAL TID 14 Days #1 each Potassium Chloride ER [K-Dur 20] 20 meq PO DAILY 30 Days #30 tab Continue metFORMIN HCL [Glucophage] 1,000 mg PO BID Levothyroxine Sodium [Synthroid] 75 mcg PO DAILY Anastrozole 1 mg PO DAILY Triamcinolone 0.1% Ointment [Kenalog 0.1% Ointment] 1 applic TOPICAL TID PRN PRN Reason: Skin Irritation Alendronate Sodium [Fosamax] 70 mg PO CORLEY carvediloL [Coreg*] 12.5 mg PO BID-W/MEALS #60 tab Furosemide [Lasix] 40 mg PO BID Calcium Carb-Vit D 500Mg-5Mcg [Oscal 500+D 5 Mcg (200 Iu)] 1 tab PO BID- W/MEALS Discontinued Losartan [Cozaar] 25 mg PO DAILY 30 Days #30 tab Discharge Medication List metFORMIN HCL [Glucophage] 1,000 mg PO BID 11/07/15 [History] Levothyroxine Sodium [Synthroid] 75 mcg PO DAILY 10/27/17 [History] Alendronate Sodium [Fosamax] 70 mg PO CORLEY 05/28/22 [History] Anastrozole 1 mg PO DAILY 05/28/22 [History] carvediloL [Coreg*] 12.5 mg PO BID-W/MEALS #60 tab 06/01/22 [Rx] Calcium Carb-Vit D 500Mg-5Mcg [Oscal 500+D 5 Mcg (200 Iu)] 1 tab PO BID-W/MEALS 09/24/22 [History] Furosemide [Lasix] 40 mg PO BID 09/24/22 [History] Triamcinolone 0.1% Ointment [Kenalog 0.1% Ointment] 1 applic TOPICAL TID PRN 09/24/22 [History] Amoxic-Pot Clav 875-125Mg [Augmentin 875-125] 1 each PO Q12HR 7 Days #14 tab 10/11/22 [Rx] Nystatin 100,000 Unit/gm Powd [Mycostatin Powder] 1 applic TOPICAL TID 14 Days #1 each 10/11/22 [Rx] Potassium Chloride ER [K-Dur 20] 20 meq PO DAILY 30 Days #30 tab 10/11/22 [Rx] Follow up Appointment(s)/Referral(s): Nigel Marlow MD [Primary Care Provider] - 1-2 days Jose Luis Thomas [STAFF PHYSICIAN] - 10/28/22 3:00 pm Mary Beth Greene MD [STAFF PHYSICIAN] - 1 Week Jamari Meyers MD [STAFF PHYSICIAN] - 1 Week Agustin Sorenson MD [STAFF PHYSICIAN] - 1 Week Activity/Diet/Wound Care/Special Instructions: PET scan scheduled 10/22/22 at 2:30 at [facility] Discharge Disposition: TRANSFER TO SNF/ECF
--- NOTE | 2022-10-11 14:34 | CDI ---
Documentation Clarification Form Date: 10/11/2022 02:10:07 PM From: Samara Rahman RN, CCDS Email: [email or web address] Admit Date: 09/25/2022 11:58:00 AM Patient Name: Abhay Washington Visit Number: [id number] Discharge Date: ATTENTION: The Clinical Documentation Specialists (CDI) and [facility] Coding Staff appreciate your assistance in clarifying documentation. Please respond to the clarification below the line at the bottom and electronically sign. The CDI & [facility] Coding staff will review the response and follow-up if needed. Please note: Queries are made part of the Legal Health Record. If you have any questions, please contact the author of this message via ITS. Dr. Kenneth Amaya Possible sepsis is documented in the H&P and the 09/26 progress note, but is not noted in subsequent documentation. Clarification is requested. History/Risk Factors: right colon tumor with perforation into the abdominal wall causing abscess. S/P right colectomy and placement of SULMA drain into the abscess cavity on the abdominal wall. Clinical Indicators: 09/24 WBC 25.6, lactic acid 2.5-1.3 09/25 WBC 28.39 / wound culture: beta hemolytic strep 10/09 WBC 8.8 09/24 VS: BP 87/46-100/53 H&P: "Increased WBC with possible sepsis with failure of outpatient treatment." Discharge summary: "Acute ascending colitis with perforation and abdominal wall abscess. Invasive medullary carcinoma of colon." Treatment: right colectomy, SULMA drain into abscess cavity, IV Unasyn 3gm 09/24- 09/25 and 09/30-10/03, IV Flagyl 500mg Q8H 09/25-10/02, IV Zosyn 3.375 gm 09/25-10/09, 1L 0.9 NS IV bolus on 09/24 and 09/25 Please clarify if Sepsis is: [ x ] Sepsis confirmed, resolved [ ] Sepsis ruled out [ ] Other condition, please specify [ ] Unable to determine MTDD
--- NOTE | 2022-10-11 15:22 | P.PN ---
Progress Note - Text Progress Note Date: 10/11/22 Patient's doing overall well. She's being transferred to rehab today. She had an uneventful weekend. On exam vital signs appear stable. Abdomen is soft incision is healing. Status post right colectomy for colon cancer. Patient will be transferred to rehab today. She'll follow-up next week in the office. She can have her doug removed in rehab.
[2022-10-11 16:40] LABS: Glucose,Whole Blood 248 mg/dL (70-110)
[2022-10-11 18:37] VITALS: BP 118/67; PULSE 105; TEMP 98
--- NOTE | 2022-10-13 10:54 | CDI ---
Documentation Clarification Form Date: 10/13/22 From: Bernie Verdin Admit Date: 09/25/2022 11:58:00 AM Patient Name: Abhay Washington Visit Number: [id number] Discharge Date: 10/11/2022 06:40:00 PM ATTENTION: The Clinical Documentation Specialists (CDI) and [facility] Coding Staff appreciate your assistance in clarifying documentation. Please respond to the clarification below the line at the bottom and electronically sign. The CDI & [facility] Coding staff will review the response and follow-up if needed. Please note: Queries are made part of the Legal Health Record. If you have any questions, please contact the author of this message via ITS. Dr. Jamin Dominguez, Your patient has lower extremity edema, pedal edema per ED Note. Based on this information and the findings below, is there an additional diagnosis that is clinically appropriate for this patient? Patient history/risk factors: CAD, Cardiomyopathy, HTN Clinical Indicators: CXR 09/24: CardiomegalyandCOPD. There is perihilardensityand interstitial prominence. Correlate for mild pulmonary vascularcongestion. Cxr 10/05: Cardiomegaly, pulmonary vascularcongestionandbilateral pleural effusions. Correlate with BNP forcongestive heart failure. No BNP, no Echo Treatment: Lasix IV 40 mg X4, Losartan, Carvedilol Is there an additional diagnosis that is clinically appropriate for this patient? [ ] Acute Systolic Heart Failure (reduced EF) [ ] Chronic Systolic Heart Failure (reduced EF) [ ] Acute on Chronic Systolic Heart Failure (reduced EF) [ ] Acute Diastolic Heart Failure (preserved EF) [ ] Chronic Diastolic Heart Failure (preserved EF) [ ] Acute on Chronic Diastolic Heart Failure (preserved EF) [ x ] Acute Systolic & Diastolic Heart Failure [ ] Chronic Systolic & Diastolic Heart Failure [ ] Acute on Chronic Heart Failure Systolic & Diastolic Heart Failure [ ] Other, please specify [ ] Unable to determine MTDD
--- NOTE | 2022-10-17 11:13 | P.PN ---
Subjective Progress Note Date: 10/11/22 Principal diagnosis: Perforated colon Intra-abdominal abscess Patient is a 82-year-old female with a past medical history significant for diabetes mellitus hypertension history of uterine cancer and bilateral breast CA presenting to the hospital for evaluation of right-sided abdominal pain ,CT abdominal pelvis thickening of the ascending colon with mesenteric lymph node and soft tissue heterogeneous material within the right abdominal wall, a shunt was taken to the OR and the patient is status post laparotomy noticed to have right colon tumor with perforation into abdominal wall causing abscess which was drained but no culture were done. On today's evaluation that is 10/11/2022, the patient remains to be afebrile, the patient is breathing comfortably on 2 L nasal cannula oxygen patient denies having any chest pain shortness of breath did have some cough no sputum production abdominal pain is currently controlled no nausea no vomiting and no diarrhea reported. Patient did have a normal creatinine 0.73 last CBC was done on 10/09/2022 and the white count was normal at 8.8 abdominal cultures with a beta-hemolytic group C strep Objective - Vital Signs Vital signs: Vital Signs Temp 97.7 F 10/11/22 08:59 Pulse 99 10/11/22 11:38 Resp 20 10/11/22 11:38 BP 132/74 10/11/22 11:38 Pulse Ox 98 10/11/22 11:38 FiO2 Intake & Output 10/10/22 10/11/22 10/11/22 18:59 06:59 18:59 Intake Total 358 120 Output Total 1050 575 Balance -692 -575 120 Weight 101.5 kg Intake: Oral 358 120 Output: Urine 1050 575 Uretheral (Orantes) 275 Other: Voiding Method Indwelling Catheter Indwelling Catheter Indwelling Catheter - Exam GENERAL DESCRIPTION: An elderly female lying in bed in no distress RESPIRATORY SYSTEM: Unlabored breathing , decreased breath sounds at bases HEART: S1 S2 regular rate and rhythm , ABDOMEN: Soft , midline abdominal incision was clean no tenderness EXTREMITIES: No edema feet - Labs CBC & Chem 7: 10/09/22 09:21 10/11/22 10:33 Labs: Abnormal Lab Results - Last 24 Hours (Table) 10/10/22 10/10/22 10/11/22 Range/Units 16:36 20:16 06:02 Sodium (137-145) mmol/L Chloride (98-107) mmol/L Carbon Dioxide (22-30) mmol/L Glucose (74-99) mg/dL POC Glucose (mg/dL) 178 H 148 H 127 H (70-110) mg/dL Calcium (8.4-10.2) mg/dL 10/11/22 10/11/22 Range/Units 10:33 11:26 Sodium 136 L (137-145) mmol/L Chloride 96 L (98-107) mmol/L Carbon Dioxide 36 H (22-30) mmol/L Glucose 173 H (74-99) mg/dL POC Glucose (mg/dL) 255 H (70-110) mg/dL Calcium 7.5 L (8.4-10.2) mg/dL Assessment and Plan (1) Intra-abdominal abscess Status: Acute Code(s): K65.1 - PERITONEAL ABSCESS SNOMED Code(s): 42340523 Plan: Patient with a perforated colon status post laparotomy resection and drainage of the abscess abdominal culture positive for group C Streptococcus, the patient seem to have shown clinical improvement the patient white count has normalized she will continue on oral Augmentin for another week to finish her course of therapy and close outpatient follow-up Dictation was produced using [employer] dictation software. please excuse any grammatical, word or spelling errors. Time with Patient: Less than 30
== END 2022-10-11 18:40 | DRG 853 ==
LOC: EC 12:41 → 6NMEDSUR 18:51 → OBSVTOIN 09-25 11:58 → 3SCARD 09-25 15:20
PROVIDERS: ADMIT Hospitalist; ATTEND Hospitalist
PROC: 0DTF0ZZ Resection of Right Large Intestine, Open Approach (ICD-10-PCS; principal; 2022-09-26 08:30)
PROC: 0W9F0ZX Drainage of Abdominal Wall, Open Approach, Diagnostic (ICD-10-PCS; principal; 2022-09-26 08:30)
PROC: 05HB33Z Insertion of Infusion Device into Right Basilic Vein, Percutaneous Approach (ICD-10-PCS; 2022-09-27 11:00)
DX: A41.9 Sepsis, unspecified organism (principal); E43 Unspecified severe protein-calorie malnutrition; G92.8 Other toxic encephalopathy; N17.0 Acute kidney failure with tubular necrosis; K65.1 Peritoneal abscess; I50.21 Acute systolic (congestive) heart failure; C18.9 Malignant neoplasm of colon, unspecified; C77.2 Secondary and unspecified malignant neoplasm of intra-abdominal lymph nodes; C79.89 Secondary malignant neoplasm of other specified sites; J90 Pleural effusion, not elsewhere classified; E87.0 Hyperosmolality and hypernatremia; E87.1 Hypo-osmolality and hyponatremia; E11.41 Type 2 diabetes mellitus with diabetic mononeuropathy; E83.39 Other disorders of phosphorus metabolism; I11.9 Hypertensive heart disease without heart failure; J44.9 Chronic obstructive pulmonary disease, unspecified; Z66 Do not resuscitate; G57.93 Unspecified mononeuropathy of bilateral lower limbs; E83.42 Hypomagnesemia; E03.9 Hypothyroidism, unspecified; E87.70 Fluid overload, unspecified; M81.0 Age-related osteoporosis without current pathological fracture; M19.90 Unspecified osteoarthritis, unspecified site; Z68.35 Body mass index [BMI] 35.0-35.9, adult; Z53.8 Procedure and treatment not carried out for other reasons; Z79.811 Long term (current) use of aromatase inhibitors; Z79.83 Long term (current) use of bisphosphonates; Z79.84 Long term (current) use of oral hypoglycemic drugs; Z79.890 Hormone replacement therapy; Z79.899 Other long term (current) drug therapy; Z85.3 Personal history of malignant neoplasm of breast; Z85.42 Personal history of malignant neoplasm of other parts of uterus; Z92.21 Personal history of antineoplastic chemotherapy; Z92.3 Personal history of irradiation; Z87.891 Personal history of nicotine dependence; Z71.3 Dietary counseling and surveillance; Z88.5 Allergy status to narcotic agent
CPT/HCPCS: 36410; 36415; 71045; 74176; 76937; 80048; 80053; 81001; 82150; 82330; 83036; 83605; 83690; 83735; 84100; 84132; 84478; 85025; 85027; 85610; 85730; 86140; 87040; 87070; 87075; 87205; 88309; 88341; 88342; 93970; 94760; 96361; 96365; 96375; 99285